=== PATIENT | female | born 1950 | race Caucasian/White ===

== ENCOUNTER 2020-04-22 09:02 | Outpatient (CLI) | payer MEDICARE, SELFPAY ==
--- NOTE | ~2020-04-22 | MR_ITS ---
EXAMINATION: MR brain/brain stem wo con DATE: 04/22/2020 10:50 INDICATION: Vertigo. TECHNIQUE: Magnetic resonance imaging (MRI) of the brain and brainstem was performed without intraven ous contrast. Sequences included sagittal and axial T1-weighted FSE, axial diffusion-weighted FS EPI, axial T2*-weighted GRE, axial T2-weighted FLAIR Propeller, and axial T2-weighted Propeller. Apparent diffusion coefficient (ADC) maps were created. COMPARISON: Head CT 05/28/2019 FINDINGS: There are scattered areas of nonspecific increased T2-weighted signal intensity in the cere bral white matter, which is within normal limits for the patient's age. There is no intracranial hemo rrhage, acute infarction, or abnormal intracranial mass lesion. The ventricles are normal in size. Th ere is mild mucosal thickening in the ethmoid sinuses. The orbits are normal. The mastoid air cells a re normal. IMPRESSION: 1. Normal aging brain. Reviewed, dictated and finalized at location A. IMPRESSION: 1. Normal aging brain.
[2020-04-22 10:14] LABS: Estimated Glomerular Filt Rate 41
== END 2020-04-22 09:03 | disposition home or self-care (01) ==
LOC: ANHIMG 09:11
PROVIDERS: PCP Nurse Practitioner Family; Visit Provider Psychiatry & Neurology Neurology
DX: R42 Dizziness and giddiness (principal)
CPT/HCPCS: 36415; 70551

== ENCOUNTER 2020-05-01 18:39 | Emergency (ER) | payer MEDICARE, SELFPAY ==
--- NOTE | ~2020-05-01 | XR_ITS ---
EXAMINATION: XR lumbar spine 2-3V DATE: 05/01/2020 23:21 INDICATION: Low back pain TECHNIQUE: Anteroposterior and lateral views of the lumbar spine, and cone-down lateral view of the l umbosacral junction were obtained. COMPARISON: 06/09/2017 FINDINGS: There is no fracture, dislocation, or subluxation. The vertebral body heights and alignment are normal. There is advanced loss of intervertebral disc space height at L1-2. Mild loss of interve rtebral disc space height is seen throughout the remainder of the lumbar spine. Small degenerative os teophytes project from the anterior endplates of multiple vertebral bodies. Cholecystectomy clips are noted in the right upper quadrant. IMPRESSION: 1. Lumbar spondylosis, severe at L1-2, without acute findings or significant interval change. Reviewed, dictated and finalized at location A. IMPRESSION: 1. Lumbar spondylosis, severe at L1-2, without acute findings or significant in terval change.
[2020-05-01 19:36] VITALS: BP 120/86; PULSE 77; RESP 18; TEMP 36.1; O2SAT 98
--- NOTE | 2020-05-01 19:42 | PC.NURSE ---
Pt also report falling on right buttocks at work, right buttocks and right hip has sharp shooting pain. Pt rates this pain at a 7.
--- NOTE | 2020-05-01 23:26 | ED.DIZZY ---
HPI - Dizziness General Chief Complaint: Dizziness Stated Complaint: DIZZINESS Time Seen by Provider: 05/01/20 19:51 History of Present Illness HPI Narrative: Patient is a 69-year-old female who presents the ER for dizziness and falling. Reports she is fallen once a day for the last couple of days. Patient has history of vertigo that is been ongoing for a year. She saw an ENT down in [place] and then moved up here. She has been seeing Dr. Alex. Recently was started on acetazolamide. She has not had an outpatient MRI as of yet. Patient has intermittent ringing in her ears and pressure. She does not have that currently. She has no new focal numbness or tingling in her arms or upper or lower extremity weakness. When she fell 2 days ago she did strike her back which caused some discomfort. Patient does have history of lower extremity neuropathy that has been unchanged. She has not struck her head or lost consciousness. When patient gets dizzy it is rotational in nature with some mild nausea. It is worse with going from laying to sitting. Related Data Allergies Allergy/AdvReac Type Severity Reaction Status Date / Time codeine Allergy Intermediate Hallucinati Verified 05/01/20 23:44 ng diphenhydramine Allergy Intermediate Hives Verified 05/01/20 23:44 Penicillins Allergy Intermediate Hives Verified 05/01/20 23:44 Sulfa (Sulfonamide Allergy Intermediate Hives Unverified 05/01/20 23:44 Antibiotics) Review of Systems Review of Systems: All systems reviewed & are unremarkable except as noted in HPI and below Constitutional: Constitutional: Denies chills, Denies fever(s) and Denies weakness Eyes: Eyes: Denies change in vision and Denies photophobia ENT: Reports vertigo, Denies nasal congestion and Denies sore throat Gastrointestinal: Gastrointestinal: Denies abdominal pain, Reports nausea and Denies vomiting Musculoskeletal: Musculoskeletal: Reports back pain, Denies joint swelling and Denies muscle cramps Neurologic: Denies syncope, Denies focal weakness and Denies numbness PMF Past Medical History Medical History (Updated 05/02/20 @ 05:23 by Sarmad Cohen MD) Asthma GERD (gastroesophageal reflux disease) Hypothyroidism Vertigo Surgical History Surgical History (Updated 05/02/20 @ 05:23 by Sarmad Cohen MD) History of cholecystectomy History of hysterectomy History of tonsillectomy Family History Family History (Updated 07/24/15 @ 10:46 by DOCTOR UNKNOWN) Other Diabetes mellitus Family history of arthritis Family history of malignant neoplasm Social History Social History Smoking status: Never smoker Alcohol intake: current Gender identity (if verbalized by the patient): Female Exam Narrative: Exam Narrative: GENERAL: Well-appearing, well-nourished, and in no acute distress. HEAD: Normocephalic, atraumatic. ENT: Mucous membranes moist. TMs normal appearing bilaterally. CHEST: Clear to auscultation. No respiratory distress. HEART: Regular rate and rhythm. Normal peripheral pulses. Back: No midline tenderness of the thoracic or lumbar spine. Mild paraspinal muscular tenderness in the L3 region without evidence of trauma. EXTREMITIES: Normal range of motion. No edema. SKIN: Warm, dry, no rash. NEURO: Alert and oriented x3. Course Course Emergency Course: Pt stable, ambulated, d/c. Vital Signs Vital signs: Vital Signs Temperature 97 F L 05/01/20 19:36 Pulse Rate 77 05/01/20 19:36 Respiratory Rate 18 05/01/20 19:36 Blood Pressure 120/86 05/01/20 19:36 Pulse Oximetry 98 05/01/20 19:36 Temperature 97 F L 05/01/20 19:36 Pulse Rate 81 05/02/20 02:00 Respiratory Rate 17 05/02/20 02:00 Blood Pressure 122/73 05/02/20 02:00 Pulse Oximetry 95 05/02/20 02:00 MDM - Dizziness Lab Data Result diagrams: 05/01/20 23:32 05/01/20 23:32 Labs: Lab Results 05/01/20 05/01/20 05/02/20 Range/Units 2
[2020-05-01 23:37] LABS: Basophils Absolute Auto 0.1 K/mm3 (0.0-0.1); Basophils Percent Auto 0.4 % (0.2-1.2); Eosinophils Absolute Auto 0.2 K/mm3 (0-0.3); Eosinophils Percent Auto 1.6 % (0-4.4); Hematocrit 41.6 % (37.0-47.0); Hemoglobin 12.9 g/dL (12.0-15.0); Immature Granulocyte Absolute 0.05 K/mm3 (0.00-0.031); Immature Granulocyte Percent A 0.4 % (0-0.5); Lymphocytes Absolute Auto 1.66 K/mm3 (0.9-3.2); Mean Corpuscular Hemoglobin 25.4 pg (26-34); Mean Corpuscular Volume 82.1 fl (80-100); Mean Platelet Volume 10.8 fl (7.4-10.4); Monocytes Absolute Auto 0.5 K/mm3 (0.1-0.6); Monocytes Percent Auto 4.6 % (2.6-8.5); Neutrophils Absolute Auto 9.3 K/mm3 (1.3-6.7); Platelet Count Result 264 k/mm3 (150-375); Red Blood Count 5.07 M/mm3 (4.2-5.4); Red Cell Distribution Width 17.4 % (11.5-14.5); White Blood Count 11.8 K/mm3 (4.5-10.0)
[2020-05-01] MEDS: TRAMADOL HCL 50 MG TABLET PO (23:44)
[2020-05-01 23:45] VITALS: BP 123/62; PULSE 81; RESP 16; O2SAT 95
[2020-05-01 23:48] LABS: Blood Urea Nitrogen 23 mg/dL (7-17); Calcium 9.9 mg/dL (8.4-10.2); Carbon Dioxide 26 mmol/L (22-30); Chloride 104 mmol/L (98-107); Estimated CRCL calculation 36 ml/min; Estimated Glomerular Filt Rate 34; Glucose 121 mg/dL (65-105); Potassium 3.5 mmol/L (3.4-5.0); Sodium 139 mmol/L (137-145)
[2020-05-01] MEDS: GABAPENTIN 300 MG CAPSULE 600 MG PO (23:53)
[2020-05-02 00:15] VITALS: BP 121/53; PULSE 76; RESP 16; O2SAT 91
[2020-05-02 00:46] LABS: Add Urine Microscopic? YES; Appearance Urine Clear (Clear); Bilirubin Urine Negative (Negative); Blood Urine Negative (Negative); Color Urine Yellow (Yellow); Glucose Urine UA Negative (Negative); Ketones Urine Negative (Negative); Leukocyte Esterase Ur 1+ LEU/UL (Negative); Mucus Urine Rare /lpf; Nitrate Urine Negative (Negative); Protein Urine Negative (Negative); RBC Urine 0-2 /hpf (0-2); Specific Grav Ur 1.017 (1.001-1.035); Squamous Epithelial Cell Urine Few /hpf (Few); Urobilinogen Urine Negative mg/dL (<2.0)
[2020-05-02 01:07] VITALS: BP 117/55; PULSE 74; RESP 17; O2SAT 94
[2020-05-02 02:00] VITALS: BP 122/73; PULSE 81; RESP 17; O2SAT 95
== END 2020-05-02 02:15 | disposition home or self-care (01) ==
PROVIDERS: Emergency Provider Emergency Medicine; PCP Nurse Practitioner Family
DX: R42 Dizziness and giddiness (principal); M54.5 Low back pain; J45.909 Unspecified asthma, uncomplicated; K21.9 Gastro-esophageal reflux disease without esophagitis; E03.9 Hypothyroidism, unspecified; R82.998 Other abnormal findings in urine
CPT/HCPCS: 36415; 72100; 80048; 81001; 85025; 87077; 87086; 87088; 99283; A9270

== ENCOUNTER 2020-05-11 08:39 | Outpatient (CLI) | payer MEDICARE, SELFPAY ==
--- NOTE | ~2020-05-11 | CT_ITS ---
EXAMINATION: CTA brain EXAM DATE: 05/11/2020 09:37 INDICATION: Vertigo. TECHNIQUE: Noncontrast head CT. Spiral CT angiogram cerebral arteries performed with intravenous in jection of 100 mL Omnipaque 350. Axial, coronal and sagittal images reviewed. Additional reformatted images created on dedicated 3-D workstation. The dose-length product (DLP) for this examination was 993.48 mGy-cm. The exposure was tailored according to patient size, and iterative reconstruction ( ASIR) was used as additional dose reduction technique. Prior head CT from 05/28/2019 for comparison. FINDINGS: Mild carotid siphon arterial sclerosis without stenosis. There is no distal carotid or ve rtebral basilar arterial dissection or fibromuscular dysplasia. There are no cerebral artery aneurysm s. There is symmetric cerebral artery arborization. The sagittal, transverse and sigmoid sinuses enha nce normally, no venous sinus thrombosis. Internal cerebral veins also enhance normally. No cerebellopontine angle mass. Mastoid air cells are well aerated. There is no acute intraparenchyma l hemorrhage. No evidence of intraparenchymal brain mass lesion. No evidence of acute infarction. T here is periventricular and subcortical hypodensity, nonspecific but probably related to small vessel ischemic disease. There is intracranial carotid arteriosclerosis. There is no mass effect or mid line shift. There is no obstructive hydrocephalus suspected. There are no extra-axial collections. There are no calvarial acute fractures. IMPRESSION: 1. No acute intracranial findings or cerebral artery aneurysm. 2. Mild microangiopathy and cerebral atrophy. Reviewed, dictated and finalized at location B.
== END 2020-05-11 08:40 | disposition home or self-care (01) ==
PROVIDERS: PCP Nurse Practitioner Family; Visit Provider Psychiatry & Neurology Neurology
DX: G31.9 Degenerative disease of nervous system, unspecified (principal); R42 Dizziness and giddiness
CPT/HCPCS: 70496; Q9967

== ENCOUNTER 2021-06-25 16:01 | Emergency (ER) | payer MEDICARE, SELFPAY ==
[2021-06-25 16:02] VITALS: BP 130/60; PULSE 92; RESP 20; TEMP 36.7; O2SAT 98
--- NOTE | 2021-06-25 19:29 | PC.NURSE ---
Report given to ROD Bustos
--- NOTE | 2021-06-25 20:19 | ED.GENADULT ---
HPI - General Adult General Chief complaint: Wound/Laceration Stated complaint: R THIRD DIGIT LACERATION Time Seen by Provider: 06/25/21 18:24 Source: patient and RN notes reviewed Mode of arrival: ambulatory Limitations: no limitations History of Present Illness HPI narrative: Patient is a 71-year-old female who presents with a skin avulsion to the right middle digit that occurred just prior to arrival patient was using a mandolin slicer when she caused an avulsion patient on arrival is in no distress resting comfortably in the room notes her tetanus to be up-to-date has not taken anything for her symptoms Related Data Allergies Allergy/AdvReac Type Severity Reaction Status Date / Time codeine Allergy Intermediate Hallucinati Verified 06/25/21 18:22 ng diphenhydramine Allergy Intermediate Hives Verified 06/25/21 18:22 Penicillins Allergy Intermediate Hives Verified 06/25/21 18:22 Sulfa (Sulfonamide Allergy Intermediate Hives Unverified 06/25/21 18:22 Antibiotics) Review of Systems Review of Systems: All systems reviewed & are unremarkable except as noted in HPI and below PMFSH Past Medical History Medical History Asthma GERD (gastroesophageal reflux disease) Hypothyroidism Vertigo Surgical History Surgical History History of cholecystectomy History of hysterectomy History of tonsillectomy Family History Family History (Updated 07/24/15 @ 10:46 by DOCTOR UNKNOWN) Other Diabetes mellitus Family history of arthritis Family history of malignant neoplasm Social History Social History Smoking status: Never smoker Alcohol intake: current Gender identity (if verbalized by the patient): Female Exam Narrative: GENERAL: Well-appearing, well-nourished, and in no acute distress. HEAD: Normocephalic, atraumatic. EYES: PERRLA and EOMI. ENT: Nares clear, no rhinorrhea or epistaxis. Mucous membranes moist. EXTREMITIES: Normal range of motion. No edema. SKIN: Warm, dry, no rash. Superficial skin avulsion right middle digit measuring less than 1/2 cm superficial in nature NEURO: No focal deficits. Alert and oriented x3. Neurovascularly intact PSYCH: Normal mood and affect. Course Course Emergency Course: Hemostasis achieved ABCs and vital signs intact and stable patient in no distress felt appropriate for outpatient reevaluation provided with reasons to return Vital Signs Vital signs: Vital Signs Temperature 98.0 F 06/25/21 16:02 Pulse Rate 92 06/25/21 16:02 Respiratory Rate 20 06/25/21 16:02 Blood Pressure 130/60 06/25/21 16:02 Pulse Oximetry 98 06/25/21 16:02 Temperature 98.0 F 06/25/21 16:02 Pulse Rate 92 06/25/21 16:02 Respiratory Rate 20 06/25/21 16:02 Blood Pressure 130/60 06/25/21 16:02 Pulse Oximetry 98 06/25/21 16:02 Procedures Other Procedure Procedure 1: Other Procedure: Surgicel placed on the wound hemostasis achieved felt appropriate for outpatient reevaluation given reasons to return nontoxic-appearing no distress Medical Decision Making MDM Narrative Medical decision making narrative: Patients injury or pain is consistent with musculoskeletal etiology. No signs of neurological or vascular compromise on exam. Compartments and tisues are soft without signs of compartment syndrome. Pain is felt appropriate for further evaluation on an outpatient basis. Vital Signs Vital Signs: Vital Signs Temperature 98.0 F 06/25/21 16:02 Pulse Rate 92 06/25/21 16:02 Respiratory Rate 20 06/25/21 16:02 Blood Pressure 130/60 06/25/21 16:02 Pulse Oximetry 98 06/25/21 16:02 Temperature 98.0 F 06/25/21 16:02 Pulse Rate 92 06/25/21 16:02 Respiratory Rate 20 06/25/21 16:02 Blood Pressure 130/60 06/25/21 16:02 Pulse Oximetry 98 06/25/21 16:02 D
[2021-06-25 20:50] VITALS: BP 128/63; PULSE 93; RESP 20; O2SAT 99
== END 2021-06-25 20:50 | disposition home or self-care (01) ==
PROVIDERS: Emergency Provider Emergency Medicine; PCP Nurse Practitioner Family
DX: S61.202A Unspecified open wound of right middle finger without damage to nail, initial encounter (principal); J45.909 Unspecified asthma, uncomplicated; K21.9 Gastro-esophageal reflux disease without esophagitis; E03.9 Hypothyroidism, unspecified; W27.4XXA Contact with kitchen utensil, initial encounter
CPT/HCPCS: 99282

== ENCOUNTER 2022-03-08 11:13 | Outpatient (CLI) | payer MEDICARE, SELFPAY ==
--- NOTE | ~2022-03-08 | XR_ITS ---
EXAMINATION: XR abdomen/kub 1V INDICATION: Calcium kidney stone TECHNIQUE: Supine views of the abdomen were obtained on 2 radiographs. COMPARISON: 05/28/2019, 05/19/2018 FINDINGS: No definite urolithiasis is identified. There are phleboliths of the pelvis. Cholecystectom y clips are noted. The bowel gas pattern is normal. The visualized lung bases are clear. IMPRESSION: 1. No definite urolithiasis identified. Reviewed, dictated and finalized at location B.
== END 2022-03-08 11:14 | disposition home or self-care (01) ==
PROVIDERS: PCP Nurse Practitioner Family; Visit Provider Urology
DX: N20.0 Calculus of kidney (principal)
CPT/HCPCS: 74018

== ENCOUNTER 2022-03-15 01:59 | Day surgery (SDC) | payer MEDICARE, SELFPAY ==
[2022-03-11 12:07] VITALS: BMI 34.7
[2022-03-15 11:43] VITALS: BP 145/65; PULSE 79; RESP 20; TEMP 36.1; O2SAT 96
[2022-03-15 12:01] LABS: Glucose Point of Care 188 mg/dl (65-105)
[2022-03-15] MEDS: LACTATED RINGERS 1,000 ML 150 ML IV CONT (12:04)
--- NOTE | 2022-03-15 12:09 | PM.HPGS ---
History of Present Illness History of Present Illness Consent: Risks, benefits, and alternatives have been discussed and questions answered. Patient agrees to proceed with procedure. Chief complaint: gastric ulcer Narrative: Juanito Austin is a 71 year old female with gastric ulcer 01/2022, here to assess healing Review of Systems Constitutional: Constitutional: Denies headache(s) and Denies weakness Eyes: Eyes: Denies blurry vision ENT: Reports Normal hearing present, Denies headache(s) and Denies neck pain Cardiovascular: Cardiovascular: Denies chest pain and Denies dyspnea Respiratory: Respiratory: Denies dyspnea Gastrointestinal: Gastrointestinal: Reports no additional gastrointestinal complaints Genitourinary: Genitourinary: Denies dysuria Musculoskeletal: Musculoskeletal: Denies neck pain Integumentary/Breasts: Skin/Breast: Denies dry skin Neurologic: Reports Normal hearing present, Denies headache(s) and Denies weakness Psychiatric: Psychiatric: Denies anxiety Endocrine: Endocrine: Denies change in body appearance Hematologic/Lymphatic: Hematologic/Lymphatic: Denies easy bleeding Allergic/Immunologic: Allergic/Immunologic: Denies urticaria PMFSH Past Medical History Medical History (Updated 03/15/22 @ 12:13 by Brendan Kenney MD) Asthma GERD (gastroesophageal reflux disease) History of gastric ulcer Hypothyroidism Vertigo Surgical History Surgical History History of cholecystectomy History of hysterectomy History of tonsillectomy Family History Family History (Updated 07/24/15 @ 10:46 by DOCTOR UNKNOWN) Other Diabetes mellitus Family history of arthritis Family history of malignant neoplasm Social History Social History Smoking status: Never smoker Alcohol intake: never Substance use: never Substance use type: does not use Living arrangements: with family Gender identity (if verbalized by the patient): Female Spiritual care concerns: No Meds Home Medications and Allergies Home Medications Medication Instructions Recorded Confirmed Type atorvastatin 20 mg PO HS 03/11/22 03/11/22 History cyanocobalamin (vitamin B-12) 5,000 mcg SUBLINGUAL DAILY 03/11/22 03/11/22 History [Vitamin B-12] duloxetine 30 mg PO DAILY 03/11/22 03/11/22 History fluticasone propionate 2 spray INTRANASAL DAILY 03/11/22 03/11/22 History gabapentin 600 mg PO BID 03/11/22 03/11/22 History latanoprost 1 drp EACH EYE QPM 03/11/22 03/11/22 History levothyroxine [Synthroid] 125 mcg PO DAILY 03/11/22 03/11/22 History metformin 500 mg PO BID 03/11/22 03/11/22 History metoclopramide HCl 10 mg PO USEASDIRECTD PRN 03/11/22 03/11/22 History omeprazole 40 mg PO DAILY 03/11/22 03/11/22 History tramadol-acetaminophen 1 tablet PO TID 03/11/22 03/11/22 History triamterene-hydrochlorothiazid 1 cap PO DAILY 03/11/22 03/11/22 History Allergies Allergy/AdvReac Type Severity Reaction Status Date / Time codeine Allergy Intermediate Hallucinati Verified 03/15/22 11:46 ng diphenhydramine Allergy Intermediate Hives Verified 03/15/22 11:46 Penicillins Allergy Intermediate Hives Verified 03/15/22 11:46 Sulfa (Sulfonamide Allergy Intermediate Hives Verified 03/15/22 11:46 Antibiotics) Vital Signs Vital Signs - 24 hr 03/15/22 11:43 Temperature 97 F L Pulse Rate 79 Respiratory Rate 20 Blood Pressure 145/65 H Pulse Oximetry 96 Exam Const: General: comfortable and no acute distress HENMT: General nose exam: Normal nares present Eyes: General: appearance normal, both eyes and all related structures Neck: Neck: no JVD Resp: Auscultation: clear to auscultation bilaterally Cardio: Rate: regular rate Rhythm: regular rhythm GI: Inspection: non-distended GI Palp: Yes Soft to palpation Skin: General skin exam: normal color Neuro: General: ga
--- NOTE | 2022-03-15 12:24 | WPDANESEPPF ---
Anes - Initial Pre Proc Eval Procedure: Operation Date: 03/15/22 12:30 Proposed Procedures p Esophagogastroduodenoscopy - Brendan Kenney MD Date/Time: 03/15/22 12:24 Surgeon: Brendan Kenney MD Pre Op Diagnosis: gastric ulcer Patient Data Age: 71 Gender: F Height: 1.65 m Weight: 94.4 kg Last Vital Signs Temp 36.1 C L 03/15/22 11:43 Pulse 79 03/15/22 11:43 Resp 20 03/15/22 11:43 BP 145/65 H 03/15/22 11:43 Pulse Ox 96 03/15/22 11:43 Allergies Allergy/AdvReac Type Severity Reaction Status Date / Time codeine Allergy Intermediate Hallucinati Verified 03/15/22 11:46 ng diphenhydramine Allergy Intermediate Hives Verified 03/15/22 11:46 Penicillins Allergy Intermediate Hives Verified 03/15/22 11:46 Sulfa (Sulfonamide Allergy Intermediate Hives Verified 03/15/22 11:46 Antibiotics) Home Medications Medication Instructions Recorded Confirmed Type atorvastatin 20 mg PO HS 03/11/22 03/11/22 History cyanocobalamin (vitamin B-12) 5,000 mcg SUBLINGUAL DAILY 03/11/22 03/11/22 History [Vitamin B-12] duloxetine 30 mg PO DAILY 03/11/22 03/11/22 History fluticasone propionate 2 spray INTRANASAL DAILY 03/11/22 03/11/22 History gabapentin 600 mg PO BID 03/11/22 03/11/22 History latanoprost 1 drp EACH EYE QPM 03/11/22 03/11/22 History levothyroxine [Synthroid] 125 mcg PO DAILY 03/11/22 03/11/22 History metformin 500 mg PO BID 03/11/22 03/11/22 History metoclopramide HCl 10 mg PO USEASDIRECTD PRN 03/11/22 03/11/22 History omeprazole 40 mg PO DAILY 03/11/22 03/11/22 History tramadol-acetaminophen 1 tablet PO TID 03/11/22 03/11/22 History triamterene-hydrochlorothiazid 1 cap PO DAILY 03/11/22 03/11/22 History Laboratory Tests 03/15/22 11:49 POC Capillary Glucose 188 mg/dl H mg/dl (65-105) Patient hx anesthesia problems: post op nausea/vomiting Family hx anesthesia problems: none Results Review: All pre-operative results and documents have been reviewed as part of the pre-operative evaluation. [facility] Past Medical History Medical History Asthma GERD (gastroesophageal reflux disease) History of gastric ulcer Hyperlipidemia Hypertension Hypothyroidism Vertigo Surgical History Surgical History History of cholecystectomy History of hysterectomy History of tonsillectomy Family History Family History Other Diabetes mellitus Family history of arthritis Family history of malignant neoplasm Social History Social History Smoking status: Never smoker Alcohol intake: never Substance use: never Substance use type: does not use Living arrangements: with family Gender identity (if verbalized by the patient): Female Spiritual care concerns: No Anes - Eval Final PreProcedure Day of Procedure 03/15/22 12:24 Patient weight: obese Heart: regular rate and rhythm Lungs: clear to auscultation Airway: Mallampati scale class II Neurological: alert and oriented Last oral intake: >/= 8 hours ASA classification: III Emergent: no Anesthetic plan: proceed Anesthesia type and monitoring: general GIVS and standard monitoring Results Review: All pre-operative results and documents have been reviewed as part of the pre-operative evaluation. Informed Consent: The patient's anesthetic plan and its attendant risks and benefits were discussed with the patient/family/POA. Questions were solicited and answers provided to the satisfaction of the patient/family/POA.
[2022-03-15 12:38] VITALS: BP 120/72; PULSE 66; RESP 17; O2SAT 97
[2022-03-15 12:48] VITALS: BP 123/63; PULSE 72; RESP 15; O2SAT 96
[2022-03-15 12:58] VITALS: BP 133/75; PULSE 68; RESP 24; O2SAT 97
== END 2022-03-15 13:08 | disposition home or self-care (01) ==
PROVIDERS: PCP Nurse Practitioner Family; Visit Provider Internal Medicine Gastroenterology
PROC: 0DJ08ZZ Inspection of Upper Intestinal Tract, Via Natural or Artificial Opening Endoscopic (ICD-10-PCS; CPT 43235; principal; 2022-03-15 12:30)
DX: K25.9 Gastric ulcer, unspecified as acute or chronic, without hemorrhage or perforation (principal); D13.2 Benign neoplasm of duodenum; K29.70 Gastritis, unspecified, without bleeding; K21.9 Gastro-esophageal reflux disease without esophagitis; J45.909 Unspecified asthma, uncomplicated; E03.9 Hypothyroidism, unspecified; Z79.899 Other long term (current) drug therapy
CPT/HCPCS: 43239; 82948; 88305; J2704; J7120

== ENCOUNTER 2022-12-05 12:23 | Emergency (ER) | payer MEDICARE, SELFPAY ==
[2022-12-05] VITALS (15 sets, daily range): BP systolic 106–131; BP diastolic 57–70; PULSE 67–96; RESP 13–20; TEMP 36.5; O2SAT 94–100
--- NOTE | ~2022-12-05 | XR_ITS ---
Clinical Indication: Cough AP and lateral views of the chest: Comparison: 05/28/2019 Findings: The lungs are clear, without evidence of focal consolidation or pleural effusion. Cardiome diastinal silhouette is within normal limits. Bones and soft tissues are unremarkable. Impression: Normal chest. Reviewed, dictated and finalized at [facility]. STITCH WAISTLINE JOINER Impression: Normal chest.
--- NOTE | 2022-12-05 13:02 | ECG_ITS ---
Measurements Intervals [place] Rate: 78 P: 52 HI: 187 QRS: -14 QRSD: 99 T: 39 QT: 339 QTc: 386 Interpretive Statements SINUS RHYTHM POOR R WAVE PROGRESSION, ANTERIOR LEADS CONSIDER INFERIOR INFARCT, AGE INDETERMINATE ABNORMAL ECG COMPARED TO ECG 05/28/2019 00:47:46 NO SIGNIFICANT CHANGES Electronically Signed On 12-05-2022 14:33:36 INSIGHT LEADER by Jeff Danielson D.O.
[2022-12-05 13:10] LABS: Basophils Absolute Auto 0.1 K/mm3 (0.0-0.1); Basophils Percent Auto 0.7 % (0.2-1.2); Eosinophils Absolute Auto 0.1 K/mm3 (0-0.3); Eosinophils Percent Auto 0.7 % (0-4.4); Hematocrit 38.2 % (37.0-47.0); Immature Granulocyte Absolute 0.05 K/mm3 (0.00-0.031); Immature Granulocyte Percent A 0.7 % (0-0.5); Lymphocytes Absolute Auto 1.22 K/mm3 (0.9-3.2); Lymphocytes Percent Auto 17.3 % (18.3-44.2); Mean Corpuscular HGB Conc 31.4 g/dl (32-36); Mean Corpuscular Hemoglobin 24.2 pg (26-34); Mean Corpuscular Volume 77.2 fl (80-100); Mean Platelet Volume 9.7 fl (7.4-10.4); Monocytes Absolute Auto 0.9 K/mm3 (0.1-0.6); Monocytes Percent Auto 12.6 % (2.6-8.5); Neutrophils Absolute Auto 4.8 K/mm3 (1.3-6.7); Platelet Count Result 244 k/mm3 (150-375); Red Blood Count 4.95 M/mm3 (4.2-5.4); Red Cell Distribution Width 19.1 % (11.5-14.5); White Blood Count 7.1 K/mm3 (4.5-10.0)
--- NOTE | 2022-12-05 13:11 | ED.DIZZY ---
HPI - Dizziness General Chief Complaint: Dizziness Stated Complaint: cough, dizziness Time Seen by Provider: 12/05/22 12:43 History of Present Illness HPI Narrative: Patient is a 72-year-old female with history of diabetes, hyperlipidemia, hypothyroidism presenting with cough. Patient states that she was on a cruise recently where there was a norovirus breakout. States that she felt fine until about 3 to 4 days ago when she developed a cough. States she has felt mildly short of breath as well. Also reports multiple episodes of diarrhea. No fevers, chest pain, lightheadedness, abdominal pain, vomiting, dysuria, leg swelling. States that she suffers from chronic vertigo and it is often worse when she is ill. States that she is not currently experiencing vertigo. Related Data Home Medications Medication Instructions Recorded Confirmed atorvastatin 20 mg tablet 20 mg PO HS 03/11/22 03/11/22 cyanocobalamin (vitamin B-12) 5,000 mcg sublingual DAILY 03/11/22 03/11/22 5,000 mcg sublingual tablet (Vitamin B-12) duloxetine 30 mg capsule,delayed 30 mg PO DAILY 03/11/22 03/11/22 release fluticasone propionate 50 2 spray intranasal DAILY 03/11/22 03/11/22 mcg/actuation nasal spray,suspension gabapentin 600 mg tablet 600 mg PO BID 03/11/22 03/11/22 latanoprost 0.005 % eye drops 1 drp EACH EYE QPM 03/11/22 03/11/22 levothyroxine 125 mcg tablet 125 mcg PO DAILY 03/11/22 03/11/22 (Synthroid) metformin 500 mg tablet,extended 500 mg PO BID 03/11/22 03/11/22 release 24 hr metoclopramide HCl 10 mg tablet 10 mg PO USEASDIRECTD PRN Gastric 03/11/22 03/11/22 Reflux omeprazole 40 mg capsule,delayed 40 mg PO DAILY 03/11/22 03/11/22 release tramadol 37.5 mg-acetaminophen 325 1 tablet PO TID 03/11/22 03/11/22 mg tablet triamterene 37.5 1 cap PO DAILY 03/11/22 03/11/22 mg-hydrochlorothiazide 25 mg capsule Allergies Allergy/AdvReac Type Severity Reaction Status Date / Time codeine Allergy Intermediate Hallucinati Verified 03/15/22 11:46 ng diphenhydramine Allergy Intermediate Hives Verified 03/15/22 11:46 Penicillins Allergy Intermediate Hives Verified 03/15/22 11:46 Sulfa (Sulfonamide Allergy Intermediate Hives Verified 03/15/22 11:46 Antibiotics) Review of Systems Review of Systems: All systems reviewed & are unremarkable except as noted in HPI and below PMFSH Past Medical History Medical History Adenomatous duodenal polyp Asthma GERD (gastroesophageal reflux disease) History of gastric ulcer Hyperlipidemia Hypertension Hypothyroidism Vertigo Surgical History Surgical History History of cholecystectomy History of hysterectomy History of tonsillectomy Family History Family History Other Diabetes mellitus Family history of arthritis Family history of malignant neoplasm Social History Social History Smoking status: Never smoker Alcohol intake: never Substance use: never Substance use type: does not use Living arrangements: with family Gender identity (if verbalized by the patient): Female Spiritual care concerns: No Exam Narrative: GENERAL: Tired appearing elderly female in no acute distress, nontoxic, cooperative and pleasant HEAD: Normocephalic, atraumatic. EYES: PERRLA and EOMI. ENT: Nares clear, no rhinorrhea or epistaxis. Mucous membranes moist. NECK: Supple. CHEST: Clear to auscultation. No respiratory distress. Coughing intermittently HEART: Regular rate and rhythm. No murmur heard. Normal peripheral pulses. ABDOMEN: Soft, nontender, nondistended, normal active bowel sounds. EXTREMITIES: Normal range of motion. No edema. SKIN: Warm, dry, no rash. NEURO: No focal deficits. Alert and oriented x3. PSYCH: Normal mood and affect
[2022-12-05 13:21] LABS: Alanine Aminotransferase 80 U/L (6-35); Albumin Level 4.2 g/dL (3.5-5.1); Alkaline Phosphatase 66 U/L (38-126); Anion Gap 7 mmol/L (8-16); Aspartate Amino Transferase 123 U/L (14-36); Bilirubin,Total 0.5 mg/dL (0.2-1.3); Blood Urea Nitrogen 26 mg/dL (7-17); Calcium 9.4 mg/dL (8.4-10.2); Carbon Dioxide 29 mmol/L (22-30); Chloride 99 mmol/L (98-107); Estimated CRCL calculation 31 ml/min; Estimated Glomerular Filt Rate 30; Glucose 160 mg/dL (65-110); Potassium 3.7 mmol/L (3.4-5.0); Sodium 135 mmol/L (137-145)
[2022-12-05] MEDS: SODIUM CHLORIDE 0.9% IV 1,000 ML 999 ML IV CONT (13:44)
[2022-12-05 13:46] LABS: Influenza A QL RT-PCR Negative (Negative); Influenza B QL RT-PCR Negative (Negative); SARS-CoV-2 RNA PCR Positive
[2022-12-05 13:50] LABS: NT Pro B Type Natriuretic Pept 30 pg/mL (19.9-100); Troponin I < 0.012 ng/mL (0.000-0.034)
[2022-12-05 14:55] LABS: Prothrombin Time 12.7 Seconds (11.1-14.7)
[2022-12-05 14:56] LABS: Partial Thromboplastin Time 31.7 SECONDS (22.3-36.8)
== END 2022-12-05 15:48 | disposition home or self-care (01) ==
PROVIDERS: Emergency Provider Emergency Medicine; PCP Nurse Practitioner Family
DX: U07.1 COVID-19 (principal); R06.02 Shortness of breath; E11.9 Type 2 diabetes mellitus without complications; E78.5 Hyperlipidemia, unspecified; I10 Essential (primary) hypertension; E03.9 Hypothyroidism, unspecified; J45.909 Unspecified asthma, uncomplicated; K21.9 Gastro-esophageal reflux disease without esophagitis; Z86.010 Personal history of colon polyps; Z79.84 Long term (current) use of oral hypoglycemic drugs; Z90.710 Acquired absence of both cervix and uterus
CPT/HCPCS: 36415; 71046; 80053; 83880; 84484; 85025; 85610; 85730; 87636; 93005; 96365; 99284; J0131; J7030

== ENCOUNTER → 2023-12-12 13:12 | Outpatient (CLI) | payer MEDICARE, SELFPAY ==
--- NOTE | ~2023-12-12 | US_ITS ---
Renal-Bladder ultrasound Clinical History: Kidney stone Technique: Real-time sonographic imaging of the kidneys and urinary bladder was performed. Findings: The right kidney measures 10.1 cm in length and the left kidney measures 9.6 cm. There is n o hydronephrosis or renal calculus identified. Renal cortical echogenicity is within normal limits. N o renal mass lesion is identified. The urinary bladder is moderately distended at the time of this exam. No intraluminal echoes are iden tified. No abnormal wall thickening is seen. Impression: Unremarkable ultrasound of the kidneys and urinary bladder. Reviewed, dictated and finalized at location . [employer] Impression: Unremarkable ultrasound of the kidneys and urinary bladder.
== END ==
PROVIDERS: PCP Family Medicine; Visit Provider Specialist
DX: N20.0 Calculus of kidney (principal)
CPT/HCPCS: 76775

== ENCOUNTER 2024-02-16 12:37 | Outpatient (CLI) | payer MEDICARE, SELFPAY ==
--- NOTE | ~2024-02-16 | XR_ITS ---
EXAMINATION: XR chest 2V Exam Date/Time: 02/16/2024 12:45 CDT HISTORY: DYSPNEA, physician heard crackles in office exam Comparison: 12/05/2022, report only. RESULT: Lines, tubes, and devices: None. Lungs and pleura: Clear. Cardiomediastinal silhouette: Unremarkable. Other: No acute osseous or upper abdominal finding. IMPRESSION: No acute cardiopulmonary process. Reviewed, dictated and finalized at location K.
== END 2024-02-16 12:38 | disposition home or self-care (01) ==
PROVIDERS: PCP Family Medicine; Visit Provider Family Medicine
DX: R06.00 Dyspnea, unspecified (principal)
CPT/HCPCS: 71046

== ENCOUNTER 2024-03-05 03:00 | Observation (INO) | payer MEDICARE, SELFPAY ==
[2024-03-05] VITALS (18 sets, daily range): BP systolic 124–152; BP diastolic 58–70; PULSE 69–90; RESP 16–27; TEMP 36.1–36.8; O2SAT 90–99; BMI 35.2
--- NOTE | ~2024-03-05 | NM_ITS ---
NM lung vent and perfusion INDICATION: Chest pain. Elevated d-dimer. TECHNIQUE: The patient inhaled aerosolized 4.75 mCi xenon-133. Following ventilation scan, 99 mCi Tc 99m MAA was injected intravenously for perfusion images. Multiple images were then acquired. COMPARISON: Chest x-ray dated chest dated 03/05/2024 FINDINGS: The comparison chest radiograph demonstrates no pulmonary infiltrates or pleural fluid. Th e perfusion scan is normal. The aerosol in images show uniform deposition throughout the lungs. IMPRESSION: 1: Normal perfusion images. Reviewed, dictated and finalized at location B. IMPRESSION: 1: Normal perfusion images.
--- NOTE | ~2024-03-05 | XR_ITS ---
EXAMINATION: XR chest 1V portable 03/05/2024 03:21 INDICATION: Chest pain PROCEDURE: AP portable chest COMPARISON: Comparison to multiple prior studies sequentially, with oldest reviewed study dated 03/29. FINDINGS: The lungs are clear. The cardiomediastinal silhouette is within normal limits. There are no pleural effusions. There is no pneumothorax suspected. IMPRESSION: 1: NO ACUTE CARDIOPULMONARY DISEASE. Reviewed, dictated and finalized at location B.
--- NOTE | 2024-03-05 03:13 | ECG_ITS ---
SEE SCANNED COPY FOR CONFIRMED REPORT MTDD
[2024-03-05 03:33] LABS: Basophils Absolute Auto 0.06 K/mm3 (0.00-0.10); Basophils Percent Auto 0.7 % (0.0-1.0); Eosinophils Absolute Auto 0.27 K/mm3 (0.02-0.50); Eosinophils Percent Auto 3.1 % (1.0-6.0); Hematocrit 41.3 % (35.0-42.0); Hemoglobin 12.9 g/dL (11.7-13.8); Immature Granulocyte Absolute 0.05 K/mm3 (0.00-0.00); Immature Granulocyte Percent A 0.6 % (0.0-0.0); Lymphocytes Absolute Auto 1.15 K/mm3 (1.10-4.50); Lymphocytes Percent Auto 13.3 % (18.0-42.0); Mean Corpuscular HGB Conc 31.2 g/dL (32-36); Mean Corpuscular Volume 83.1 fL (78.0-102.0); Mean Platelet Volume 10.3 fl (9.2-11.8); Monocytes Absolute Auto 0.57 K/mm3 (0.10-0.90); Monocytes Percent Auto 6.6 % (2.0-11.0); Neutrophils Absolute Auto 6.57 K/mm3 (1.70-7.20); Neutrophils Percent Auto 75.7 % (50.0-70.0); Platelet Count Result 212 K/mm3 (150-420); Red Blood Count 4.97 M/mm3 (4.20-5.40); Red Cell Distribution Width 17.9 % (11.6-14.4); White Blood Count 8.7 K/mm3 (4.8-10.8)
[2024-03-05] MEDS: ASPIRIN 81 MG CHEWABLE TABLET 324 MG PO (03:42)
[2024-03-05] MEDS: ONDANSETRON INJ 4 MG/2 ML VIAL IV PUSH ×2 (03:42→21:08)
[2024-03-05] MEDS: PANTOPRAZOLE SODIUM IV 40 MG VIAL 80 MG IV PUSH (03:45)
[2024-03-05 03:48] LABS: INR 0.9; Prothrombin Time 10.1 Seconds (9.50-12.1)
[2024-03-05 03:56] LABS: Alanine Aminotransferase 44 U/L (14-59); Albumin Level 3.2 g/dL (3.4-5.0); Alkaline Phosphatase 64 U/L (46-116); Anion Gap 8 mmol/L (4-12); Aspartate Amino Transferase 21 U/L (15-37); Bilirubin,Total 0.2 mg/dL (0.00-1.00); Blood Urea Nitrogen 26 mg/dL (7-18); Calcium 9.4 mg/dL (8.5-10.1); Carbon Dioxide 29 mmol/L (21-32); Chloride 106 mmol/L (98-108); Estimated Glomerular Filt Rate 35; Glucose 291 mg/dL (70-99); Lipase 34 U/L (16-77); NT Pro B Type Natriuretic Pept 43 pg/mL (0-125); Osmolality Calculated 311 mOsm/kg (285-295); Sodium 143 mmol/L (136-145); Troponin I 6.2 ng/L (0.00-60.4)
[2024-03-05 04:07] LABS: Estimated CRCL calculation 36 ml/min
[2024-03-05 04:10] LABS: D Dimer 0.84 mg/L (0.19-0.50)
--- NOTE | 2024-03-05 04:25 | PC.NURSE ---
Pt resting, up ambulatory to [facility] for UA obtained. Pt feeling some better, pt reports allergy to IVP dye. Unable to scan at this time. POC discussed c pt to admit. Will obtain another trop as scheduled. monitor shows NSR, VSS.
[2024-03-05 04:43] LABS: Appearance Urine Clear (Clear); Bilirubin Urine Negative (Negative); Blood Urine Negative (Negative); Color Urine Light Yellow (Yellow); Glucose Urine UA 3+ (Negative); Ketones Urine Negative (Negative); Leukocyte Esterase Ur Negative LEU/UL (Negative); Nitrate Urine Negative (Negative); Protein Urine Negative (Negative); Urobilinogen Urine 0.2 mg/dL (0.2-1.0)
[2024-03-05 04:45] LABS: Add Urine Microscopic? YES; Bacteria Urine None seen /hpf; RBC Urine 0-2 /hpf (0-2); Squamous Epithelial Cell Urine None seen /hpf (Few); WBC Urine 0-3 /hpf (0-3)
[2024-03-05] MEDS: SODIUM CHLORIDE 0.9% IV 1,000 ML 120 ML IV CONT (04:59)
--- NOTE | 2024-03-05 05:24 | PC.NURSE ---
Pt resting, no c/o at this time, continuing to monitor, VSS.
[2024-03-05 06:42] LABS: D Dimer 0.71 mg/L (0.19-0.50)
--- NOTE | 2024-03-05 06:47 | ED.CHESTPAIN ---
HPI - Chest Pain General Chief Complaint: Chest Pain Stated Complaint: Chest Pain Time Seen by Provider: 03/05/24 03:10 Source: patient Mode of arrival: ambulatory Limitations: no limitations History of Present Illness HPI narrative: this is a 73-year-old female with history of diabetes peripheral neuropathy hyperlipidemia presents with chest tightness radiating to her back does have history heartburn with epigastric discomfort and burning started few days ago but has gotten worse since 10 this evening and woke her daughter up to bring her to the ER because she was concerned of her chest discomfort. There is no shortness of breaths no fever chills no nausea vomiting no abdominal pain no dysuria or hematuria. MD complaint: chest pain Onset (ago): day(s) Onset: during rest Pain radiation: none Severity: moderate Quality: heaviness Related Data Home Medications Medication Instructions Recorded Confirmed duloxetine 30 mg capsule,delayed 30 mg PO DAILY 03/11/22 03/05/24 release gabapentin 600 mg tablet 600 mg PO TID 03/11/22 03/05/24 latanoprost 0.005 % eye drops 1 drp EACH EYE QPM 03/11/22 03/05/24 levothyroxine 125 mcg tablet 125 mcg PO DAILY 03/11/22 03/05/24 (Synthroid) metoclopramide HCl 10 mg tablet 10 mg PO USEASDIRECTD PRN Gastric 03/11/22 03/05/24 Reflux tramadol 37.5 mg-acetaminophen 325 1 tablet PO TID 03/11/22 03/05/24 mg tablet allopurinol 100 mg tablet 100 mg PO DAILY 03/05/24 03/05/24 calcitriol 0.25 mcg capsule 0.25 mcg PO EVERY OTHER DAY 03/05/24 03/05/24 dapagliflozin propanediol 10 mg 10 mg PO DAILY 03/05/24 03/05/24 tablet (Farxiga) ergocalciferol (vitamin D2) 1,250 1,250 mcg PO WEEKLY 03/05/24 03/05/24 mcg (50,000 unit) capsule losartan 100 mg tablet 100 mg PO DAILY 03/05/24 03/05/24 ropinirole 1 mg tablet 1 mg PO TID 03/05/24 03/05/24 Allergies Allergy/AdvReac Type Severity Reaction Status Date / Time codeine Allergy Intermediate Hallucinati Verified 03/15/22 11:46 ng diphenhydramine Allergy Intermediate Hives Verified 03/15/22 11:46 Penicillins Allergy Intermediate Hives Verified 03/15/22 11:46 Sulfa (Sulfonamide Allergy Intermediate Hives Verified 03/15/22 11:46 Antibiotics) Iodinated Contrast Media Allergy Unknown Verified 03/05/24 04:25 Review of Systems Review of Systems: All systems reviewed & are unremarkable except as noted in HPI and below PMFSH Past Medical History Medical History Adenomatous duodenal polyp Asthma GERD (gastroesophageal reflux disease) History of gastric ulcer Hyperlipidemia Hypertension Hypothyroidism Vertigo Surgical History Surgical History History of cholecystectomy History of hysterectomy History of tonsillectomy Family History Family History Other Diabetes mellitus Family history of arthritis Family history of malignant neoplasm Social History Social History Smoking status: Never smoker Alcohol intake: never Substance use: never Substance use type: does not use Living arrangements: with family Gender identity (if verbalized by the patient): Female Spiritual care concerns: No Exam Const: General: no acute distress Nutritional Appearance: well nourished Limitations: no limitations HENMT: Head: normal to inspection Eyes: Conjunctivae: conjunctivae normal Pupils: Equal, round and reactive pupils present Neck: Neck: normal visual inspection and no lymphadenopathy Chest: Chest palpation & inspection: normal inspection of the chest Resp: Effort & Inspection: normal respiratory effort Auscultation: clear to auscultation bilaterally Cardio: Rate: regular rate Rhythm: regular rhythm GI: GI Palp: Yes Soft to palpation Auscultation: normal bowel sounds : General: Yes bladd
[2024-03-05] MEDS: ENOXAPARIN 1 MG/KG 96 MG SUB-Q (06:57)
--- NOTE | 2024-03-05 07:00 | PC.NURSE ---
Report given to ROD Johnson, will call for bed assignment this am. Pt resting, no changes, VSS, monitor NSR.
--- NOTE | 2024-03-05 07:43 | PC.NURSE ---
spoke with donya for VQ scan she will arrive around 1030
[2024-03-05] MEDS: rOPINIRole HCL 1 MG TABLET PO ×3 (08:39→17:47)
[2024-03-05] MEDS: GABAPENTIN 300 MG CAPSULE 600 MG PO ×3 (08:39→17:35)
[2024-03-05] MEDS: DULoxetine HCL 30 MG CAPSULE.DR PO (08:40)
[2024-03-05] MEDS: LOSARTAN POTASSIUM 50 MG TABLET 100 MG PO (08:40)
[2024-03-05] MEDS: LEVOTHYROXINE SODIUM 100 MCG, LEVOTHYROXINE SODIUM 25 MCG 125 MCG PO (08:40)
[2024-03-05] MEDS: EMPAGLIFLOZIN 25 MG TABLET BY MOUTH (08:41)
[2024-03-05] MEDS: allopurinoL 100 MG TABLET PO (08:41)
[2024-03-05] MEDS: SODIUM CHLORIDE 0.9% IV 1,000 ML 100 ML IV CONT (08:50)
--- NOTE | 2024-03-05 09:11 | PC.NURSE ---
Pt refused Jardiance. States she takes Farcega .The pill was already in the pill cup .
[2024-03-05] MEDS: traMADol HCL (*CRX) 50 MG TABLET PO ×2 (10:03→17:48)
--- NOTE | 2024-03-05 10:26 | PC.NURSE ---
Pt arrived on the floor from ER at 0755. Pt is A/O x3 with VSS. NS running at 100ml/H into the RFA. Pt has belongings with her. No complaints at this time.
--- NOTE | 2024-03-05 11:16 | PM.IMHP ---
H&P: HPI History of Present Illness Date/Time: 03/05/24 11:16 Chief Complaint: Chest tightness Narrative: This is a 73-year-old female patient with a past medical history type 2 diabetes, CKD stage 3, hypothyroidism, hypertension, restless leg, GERD and prior history of asthma who was evaluated overnight for chest pain in the emergency department. Negative troponin normal BNP but elevated D-dimer present. Patient has allergy to IV contrast so CTA was not able to be obtained. ED provider ordered V/Q scan to assess for potential for PE. Laboratory assessment unremarkable except for stable findings of stage III CKD, elevated glucose consistent with diabetes and elevated D-dimer is discussed. Chest x-ray was unremarkable. On my exam today patient stated that she felt run down and low energy yesterday when she got up for the day. She stated that in the evening she developed chest tightness around 10:00 p.m. that progressed throughout the night until she notified her family at 2:00 a.m. that she had to come to the hospital. She also low developed cough and some dyspnea at that time. Patient reports some dry heaving but no vomiting. During my examination patient had significant wheezing, diminished lung sounds persistent cough and mild generalized abdominal discomfort without focal tenderness. Ordered treatment for asthma exacerbation and viral testing to complement that which was already ordered by ED. Review of Systems Review of Systems: All systems reviewed & are unremarkable except as noted in HPI and below PMFSH Past Medical History Medical History (Updated 03/05/24 @ 16:32 by Syed Lazo APRN) Adenomatous duodenal polyp Asthma CKD stage 3b, GFR 30-44 ml/min Diabetes mellitus GERD (gastroesophageal reflux disease) History of gastric ulcer Hyperlipidemia Hypertension Hypothyroidism Vertigo Surgical History Surgical History History of cholecystectomy History of hysterectomy History of tonsillectomy Family History Family History Other Diabetes mellitus Family history of arthritis Family history of malignant neoplasm Social History Social History Smoking status: Never smoker Alcohol intake: never Substance use: never Substance use type: does not use Do You Feel Safe in your Home?: No Lack of Transportation: No Lack of Food: Never True Current Housing: I Have Housing Concerned About Future Housing: No Difficulty Paying Gas/Electric Bills: No Difficulty Paying for Meds: No Currently Unemployed: No Education: High School Diploma/GED Difficulty w/ Childcare or Family Care: No Living arrangements: with family Gender identity (if verbalized by the patient): Female Sexual Orientation (if Verbalized by the Patient): Straight or Heterosexual Spiritual care concerns: No Meds Home Medications and Allergies Home Medications Medication Instructions Recorded Confirmed Type duloxetine 30 mg capsule,delayed 30 mg PO DAILY 03/11/22 03/05/24 History release gabapentin 600 mg tablet 600 mg PO TID 03/11/22 03/05/24 History latanoprost 0.005 % eye drops 1 drp EACH EYE QPM 03/11/22 03/05/24 History levothyroxine 125 mcg tablet 125 mcg PO DAILY 03/11/22 03/05/24 History (Synthroid) metoclopramide HCl 10 mg tablet 10 mg PO USEASDIRECTD PRN Gastric 03/11/22 03/05/24 History Reflux allopurinol 100 mg tablet 100 mg PO DAILY 03/05/24 03/05/24 History calcitriol 0.25 mcg capsule 0.25 mcg PO EVERY OTHER DAY 03/05/24 03/05/24 History dapagliflozin propanediol 10 mg 10 mg PO DAILY 03/05/24 03/05/24 History tablet (Farxiga) ergocalciferol (vitamin D2) 1,250 1,250 mcg PO WEEKLY 03/05/24 03/05/24 History mcg (50,000 unit) capsule losartan 100 mg tablet 100 mg PO DAILY 03/05/24 03/05/24 History ropinirole
[2024-03-05 12:10] LABS: Glucose Point of Care 219 mg/dl (65-105)
[2024-03-05] MEDS: MAGNESIUM SULF 2 GM/WATER 50ML 2 GM/50 ML BAG IVPB (13:48)
[2024-03-05] MEDS: methylPREDNISolone SOD SUCC 125 MG VIAL IV PUSH (13:49)
[2024-03-05] MEDS: INSULIN HUMAN LISPRO (*BKC) 1,000 UNITS/10 ML VIAL SUB-Q ×2 (13:49→17:53)
[2024-03-05] MEDS: IPRATROPIUM 0.5 MG/ALBUTEROL SULFATE 2.5 MG AMPUL.NEB 3 ML INHALATION ×2 (13:59→18:36)
[2024-03-05 14:48] LABS: Influenza A QL RT-PCR Negative (Negative); Influenza B QL RT-PCR Negative (Negative); RSV RNA, RT-PCR Negative (Negative); SARS-CoV-2 RNA PCR Negative (Negative)
[2024-03-05 16:34] LABS: Glucose Point of Care 246 mg/dl (65-105)
[2024-03-05] MEDS: LATANOPROST 0.005% OP SOLN 2.5 ML BTL 1 DROP EACH EYE (17:48)
[2024-03-05] MEDS: METOCLOPRAMIDE HCL 10 MG TABLET PO (18:00)
[2024-03-05] MEDS: INSULIN GLARGINE (*BKC) 1,000 UNITS/10 ML VIAL 50 UNITS SUB-Q (21:10)
[2024-03-05 21:12] LABS: Glucose Point of Care 285 mg/dl (65-105)
[2024-03-06 00:25] VITALS: PULSE 81; RESP 18; O2SAT 96
[2024-03-06] MEDS: IPRATROPIUM 0.5 MG/ALBUTEROL SULFATE 2.5 MG AMPUL.NEB 3 ML INHALATION ×2 (00:29→05:49)
[2024-03-06 00:38] VITALS: PULSE 85; RESP 18; O2SAT 98
[2024-03-06] MEDS: traMADol HCL (*CRX) 50 MG TABLET PO ×2 (00:51→08:46)
[2024-03-06] MEDS: ACETAMINOPHEN 325 MG TABLET 650 MG PO ×2 (02:19→06:27)
--- NOTE | 2024-03-06 03:17 | PC.NURSE ---
Patient requests to walk in room independantly to decrease neuropathy. Discussed same with Martha Contreras RN. Discussed fall risk and precautions with patient. Gait stable, Patient states she feels she is able to safely walk in room. Request food: Lodge sandwich and milk. Given to patient. Patient c/o of neuropathy pain in legs. Given warm blanket to decrease intensity of pain. Patient states she feels she is able to safely walk in room and agrees to call if she is having problems ambulating in room.
[2024-03-06 05:08] LABS: Basophils Absolute Auto 0.03 K/mm3 (0.00-0.10); Basophils Percent Auto 0.3 % (0.0-1.0); Hematocrit 40.3 % (35.0-42.0); Hemoglobin 12.2 g/dL (11.7-13.8); Immature Granulocyte Percent A 0.8 % (0.0-0.0); Lymphocytes Absolute Auto 0.65 K/mm3 (1.10-4.50); Lymphocytes Percent Auto 5.4 % (18.0-42.0); Mean Corpuscular HGB Conc 30.3 g/dL (32-36); Mean Corpuscular Hemoglobin 25.6 pg (27.0-31.0); Mean Corpuscular Volume 84.7 fL (78.0-102.0); Mean Platelet Volume 10.3 fl (9.2-11.8); Monocytes Absolute Auto 0.38 K/mm3 (0.10-0.90); Monocytes Percent Auto 3.2 % (2.0-11.0); Neutrophils Absolute Auto 10.77 K/mm3 (1.70-7.20); Neutrophils Percent Auto 90.3 % (50.0-70.0); Platelet Count Result 220 K/mm3 (150-420); Red Blood Count 4.76 M/mm3 (4.20-5.40); Red Cell Distribution Width 17.9 % (11.6-14.4); White Blood Count 11.9 K/mm3 (4.8-10.8)
[2024-03-06 05:23] LABS: Alanine Aminotransferase 45 U/L (14-59); Albumin Level 3.2 g/dL (3.4-5.0); Alkaline Phosphatase 59 U/L (46-116); Anion Gap 11 mmol/L (4-12); Aspartate Amino Transferase 20 U/L (15-37); Bilirubin,Total 0.2 mg/dL (0.00-1.00); Blood Urea Nitrogen 26 mg/dL (7-18); Calcium 9.6 mg/dL (8.5-10.1); Carbon Dioxide 27 mmol/L (21-32); Chloride 103 mmol/L (98-108); Estimated CRCL calculation 27 ml/min; Estimated Glomerular Filt Rate 25; Glucose 322 mg/dL (70-99); Magnesium 1.8 mg/dL (1.8-2.4); Osmolality Calculated 308 mOsm/kg (285-295); Sodium 141 mmol/L (136-145); Total Protein 7.1 g/dL (6.4-8.2)
[2024-03-06] MEDS: LEVOTHYROXINE SODIUM 100 MCG, LEVOTHYROXINE SODIUM 25 MCG 125 MCG PO (05:42)
[2024-03-06 05:49] VITALS: PULSE 78; RESP 18; O2SAT 96
[2024-03-06 06:00] VITALS: PULSE 79; RESP 20; O2SAT 98
--- NOTE | 2024-03-06 06:30 | PC.NURSE ---
Asking when Alexander HAND ZIPPER TRIMMER will be here. Informed patient approximate time he makes rounds. States wants to go home Discussed DC procedure and patient will get DC instructiions and explanation.
[2024-03-06 07:54] LABS: Glucose Point of Care 288 mg/dl (65-105)
[2024-03-06 08:00] VITALS: BP 129/59; PULSE 78; RESP 18; TEMP 36.1; O2SAT 94
[2024-03-06] MEDS: INSULIN HUMAN LISPRO (*BKC) 1,000 UNITS/10 ML VIAL SUB-Q ×2 (08:05→11:52)
[2024-03-06] MEDS: EMPAGLIFLOZIN 25 MG TABLET BY MOUTH (08:46)
[2024-03-06] MEDS: LOSARTAN POTASSIUM 50 MG TABLET 100 MG PO (08:46)
[2024-03-06] MEDS: DULoxetine HCL 30 MG CAPSULE.DR PO (08:46)
[2024-03-06] MEDS: allopurinoL 100 MG TABLET PO (08:46)
[2024-03-06] MEDS: rOPINIRole HCL 1 MG TABLET PO (08:46)
[2024-03-06] MEDS: GABAPENTIN 300 MG CAPSULE 600 MG PO (08:46)
[2024-03-06] MEDS: guaiFENesin/DEXTROMETHORPHAN 5 ML UDC 10 ML PO (11:16)
[2024-03-06] MEDS: BENZONATATE 100 MG CAPSULE 200 MG PO (11:16)
[2024-03-06 11:55] LABS: Glucose Point of Care 254 mg/dl (65-105)
--- NOTE | 2024-03-06 12:25 | PM.DS ---
DS: Admitting Diagnosis Discharge Date 03/06/2024 Admitting Diagnosis Asthma exacerbation, acute viral syndrome, D-dimer elevated, chest pain, diabetes mellitus, CKD stage 3 due to type 2 diabetes DS: Discharge Diagnosis Discharge Diagnosis (1) Asthma exacerbation: Code(s): J45.901 - Unspecified asthma with (acute) exacerbation Status: Acute (2) Acute viral syndrome: Code(s): B34.9 - Viral infection, unspecified Status: Acute (3) Acute kidney injury superimposed on CKD: Code(s): N17.9 - Acute kidney failure, unspecified; N18.9 - Chronic kidney disease, unspecified Status: Acute (4) CKD stage 3 due to type 2 diabetes mellitus: Code(s): E11.22 - Type 2 diabetes mellitus with diabetic chronic kidney disease; N18.30 - Chronic kidney disease, stage 3 unspecified Status: Acute (5) Diabetes mellitus: Code(s): E11.9 - Type 2 diabetes mellitus without complications Status: Acute (6) D-dimer, elevated: Code(s): R79.89 - Other specified abnormal findings of blood chemistry Status: Acute (7) Chest pain: Qualifiers: Chest pain type: unspecified Qualified Code(s): R07.9 - Chest pain, unspecified Code(s): R07.9 - Chest pain, unspecified Status: Acute DS: Summary Hospital Course Hospital Course: This is a 73-year-old female patient who was evaluated in the emergency department for chest tightness, nausea and cough. Clinical exam she appeared to be having a viral induced acute asthma exacerbation and she improved after IV magnesium duo nebs and IV steroids. Patient had positive D-dimer negative troponin. She is allergic to IV contrast so nuclear med V/Q scan was ordered which was low likelihood of pulmonary embolism. No pneumonia on chest x-ray. Patient continues to slight cough but states that she is feeling a lot better and ready for discharge home. Laboratory assessment this morning shows slight worsening of her renal function. Patient has stage III CKD but her GFR dropped to 25 with morning labs. Patient states that she has been taking oral fluids well. Urinalysis unremarkable except for urine glucose. No urine protein, hematuria or signs of urinary tract infection. She declined staying in the hospital longer for IV fluids. We discussed that we would like the patient to get labs rechecked in 1 week with results to primary care and have family notify Nephrology of recent test results. Daughter agreeable to this plan as well as patient. Return precautions discussed. Patient discharged as requested. Patient reports already scheduled follow-up with Dr. Guillermo. Status at Discharge Cognitive/behavioral status at discharge: Awake alert oriented and pleasant Functional status at discharge: independent ambulation Overall status at discharge: patient is progressing back to baseline Time Spent with Patient Time attestation: Total time spent providing and/or coordinating discharge services: 40 minutes Time spent: Greater than 30 minutes DS: Data Data Completed and Pending Completed studies during hospitalization: Chest x-ray pulmonary perfusion imaging Labs on day of discharge: Labs from last 24 hours 03/06/24 03/06/24 03/06/24 11:50 07:49 05:03 WBC 11.9 H RBC 4.76 Hgb 12.2 Hct 40.3 MCV 84.7 MCH 25.6 L MCHC 30.3 L RDW 17.9 H Plt Count 220 MPV 10.3 Immature Gran % (Auto) 0.8 H Neut % (Auto) 90.3 H Lymph % (Auto) 5.4 L Ralls % (Auto) 3.2 Eos % (Auto) 0.0 L Baso % (Auto) 0.3 Lymph # (Auto) 0.65 L Ralls # (Auto) 0.38 Eos # (Auto) 0.00 L Baso # (Auto) 0.03 Abs Immat Gran (auto) 0.10 H Absolute Neuts (auto) 10.77 H Absolute Nucleated RBC 0.00 Nucleated RBC % 0.0 Sodium 141 Potassium 5.0 Chloride 103 Carbon Dioxide 27 Anion Gap 11 BUN 26 H Creatinine 1.94 H Estim Creat Clear Calc 27 Estimated GFR 25 L Glucose 322 H POC
--- NOTE | 2024-03-06 12:55 | PC.NURSE ---
Discharge instructions reviewed with patient. Patient taken off floor per wheelchair to [facility]
--- NOTE | 2024-03-09 12:57 | PC.NURSE ---
Discharge call back attempeted, no answer
--- NOTE | 2024-03-11 09:17 | PC.NURSE ---
Call back attempted, no answer
--- NOTE | 2024-03-15 09:57 | PC.NURSE ---
Unable to contact, goes straight to voicemail
== END 2024-03-06 12:55 | disposition home or self-care (01) ==
LOC: CHSED 06:54 → CHS2ND 07:16
PROVIDERS: Nurse Practitioner; Admitting Provider Internal Medicine; Emergency Provider Emergency Medicine; Visit Provider Internal Medicine
DX: B34.9 Viral infection, unspecified (principal); R07.9 Chest pain, unspecified; N17.9 Acute kidney failure, unspecified; R79.1 Abnormal coagulation profile; I12.9 Hypertensive chronic kidney disease with stage 1 through stage 4 chronic kidney disease, or unspecified chronic kidney disease; E11.22 Type 2 diabetes mellitus with diabetic chronic kidney disease; N18.30 Chronic kidney disease, stage 3 unspecified; E11.42 Type 2 diabetes mellitus with diabetic polyneuropathy; J45.901 Unspecified asthma with (acute) exacerbation; Z20.822 Contact with and (suspected) exposure to COVID-19; K21.9 Gastro-esophageal reflux disease without esophagitis; E78.5 Hyperlipidemia, unspecified; G25.81 Restless legs syndrome; I10 Essential (primary) hypertension; E55.9 Vitamin D deficiency, unspecified; E03.9 Hypothyroidism, unspecified; Z79.891 Long term (current) use of opiate analgesic; Z79.85 Long-term (current) use of injectable non-insulin antidiabetic drugs; Z79.899 Other long term (current) drug therapy
CPT/HCPCS: 36415; 71045; 78582; 80053; 81001; 82948; 83690; 83735; 83880; 84484; 85025; 85380; 85610; 85730; 87637; 93005; 94640; 96361; 96365; 96372; 96374; 96375; 96376; 99285; A9270; A9540; C9113; G0378; J1650; J1815; J2405; J2919; J3475; J7030

== ENCOUNTER 2024-03-16 09:31 | Outpatient (CLI) | payer MEDICARE, SELFPAY ==
[2024-03-16 10:19] LABS: Albumin Level 3.4 g/dL (3.4-5.0); Anion Gap 9 mmol/L (4-12); Blood Urea Nitrogen 21 mg/dL (7-18); Calcium 10.3 mg/dL (8.5-10.1); Carbon Dioxide 30 mmol/L (21-32); Chloride 102 mmol/L (98-108); Estimated Glomerular Filt Rate 37; Glucose 222 mg/dL (70-99); Osmolality Calculated 302 mOsm/kg (285-295); Phosphorus 3.7 mg/dL (2.6-4.7); Potassium 4.4 mmol/L (3.5-5.1); Sodium 141 mmol/L (136-145)
== END 2024-03-16 09:32 | disposition home or self-care (01) ==
PROVIDERS: PCP Internal Medicine; Visit Provider Nurse Practitioner
DX: E11.22 Type 2 diabetes mellitus with diabetic chronic kidney disease (principal); N18.30 Chronic kidney disease, stage 3 unspecified; N17.9 Acute kidney failure, unspecified
CPT/HCPCS: 36415; 80069

== ENCOUNTER 2024-04-21 16:32 | Emergency (ER) | payer MEDICARE, SELFPAY ==
[2024-04-21] VITALS (28 sets, daily range): BP systolic 111–140; BP diastolic 50–85; PULSE 57–75; RESP 14–25; TEMP 36.7; O2SAT 92–97
--- NOTE | ~2024-04-21 | CT_ITS ---
EXAMINATION: CT brain wo con DATE: 04/21/2024 17:19 INDICATION: Dizziness. Syncopal spells. Headache post fall with possible head injury. TECHNIQUE: Computed tomography (CT) of the head was performed without intravenous contrast. Sagittal and coronal reconstructions were performed. The mA was adjusted according to patient size. Iterative reconstruction technique was employed. The dose-length product was 605.33 mGy-cm. COMPARISON: head CT dated 05/11/2020 FINDINGS: No fracture. No acute intracranial hemorrhage, acute infarction or abnormal extra axial fluid collect ion. No significant change in mild scattered white matter hypoattenuation consistent with chronic sma ll vessel ischemic disease. Ventricles are normal and symmetric. No mass/mass effect. Changes of shayla ateral intraocular lens replacement. The orbitsand paranasal sinuses are normal. Left otomastoiditis effusion. Right mastoid air cells and middle ear cavity remain clear. IMPRESSION: 1. Stable appearance of mild scattered white matter hypoattenuation consistent with chronic small ves harlan ischemic disease. No fracture or acute intracranial process. Line 2. Left otomastoiditis effusion. Reviewed, dictated and finalized at location A. IMPRESSION: 1. Stable appearance of mild scattered white matter hypoattenuation consistent with chronic small vessel ischemic disease. No fracture or acute intracranial p rocess. Line 2. Left otomastoiditis effusion.
--- NOTE | 2024-04-21 16:34 | ED.FALL ---
HPI - Fall General Chief Complaint: Headache Stated Complaint: fall injury Time Seen by Provider: 04/21/24 16:34 Source: patient Mode of arrival: ambulatory Limitations: no limitations History of Present Illness HPI Narrative: 73-year-old with history diabetes mellitus, hypothyroidism, RLS, gout, vertigo/ dizziness, CKD, asthma presents to the ER for -- recurrent syncopal spells off and on for the past few months. -- she has episodes of acute onset twitching of her entire body and episodes of slurred speech / alteration in mental status with spontaneous resolution in 5 minutes. Subsequently she does not have any confusion of focal neuro deficits. No urinary incontinence during those episodes. She has had these episodes off and on past 1 year but she has had these episodes daily for the past 3 days. -- During 1 of her syncopal spells the patient fell down and hit her forehead. She had no recollection of the event. No bruising or abrasion noted on the forehead. she was admitted to this hospital from 04/04/20202023 for chest discomfort and elevated D-dimer. She had a negative perfusion scan. MD complaint: fall Onset (ago): hour(s) ( 1 hour ago) Fall from: standing Fall witnessed: no Place fall occurred: home Loss of consciousness: unsure Prolonged down time: unclear Symptoms prior to fall: none Location of injury: head Related Data Home Medications Medication Instructions Recorded Confirmed duloxetine 30 mg capsule,delayed 30 mg PO DAILY 03/11/22 03/05/24 release gabapentin 600 mg tablet 600 mg PO TID 03/11/22 03/05/24 latanoprost 0.005 % eye drops 1 drp EACH EYE QPM 03/11/22 03/05/24 levothyroxine 125 mcg tablet 125 mcg PO DAILY 03/11/22 03/05/24 (Synthroid) metoclopramide HCl 10 mg tablet 10 mg PO USEASDIRECTD PRN Gastric 03/11/22 03/05/24 Reflux allopurinol 100 mg tablet 100 mg PO DAILY 03/05/24 03/05/24 calcitriol 0.25 mcg capsule 0.25 mcg PO EVERY OTHER DAY 03/05/24 03/05/24 dapagliflozin propanediol 10 mg 10 mg PO DAILY 03/05/24 03/05/24 tablet (Farxiga) ergocalciferol (vitamin D2) 1,250 1,250 mcg PO WEEKLY 03/05/24 03/05/24 mcg (50,000 unit) capsule losartan 100 mg tablet 100 mg PO DAILY 03/05/24 03/05/24 ropinirole 1 mg tablet 1 mg PO TID 03/05/24 03/05/24 tramadol 50 mg tablet 50 mg PO TID 03/05/24 03/05/24 Allergies Allergy/AdvReac Type Severity Reaction Status Date / Time codeine Allergy Intermediate Hallucinati Verified 03/15/22 11:46 ng diphenhydramine Allergy Intermediate Hives Verified 03/15/22 11:46 Penicillins Allergy Intermediate Hives Verified 03/15/22 11:46 Sulfa (Sulfonamide Allergy Intermediate Hives Verified 03/15/22 11:46 Antibiotics) Iodinated Contrast Media Allergy Unknown Verified 03/05/24 04:25 Review of Systems Review of Systems: All systems reviewed & are unremarkable except as noted in HPI and below Constitutional: Constitutional: Reports as per HPI and Reports no additional constitutional complaints Eyes: Eyes: Reports as per HPI and Reports no additional eye complaints ENT: Reports system reviewed and no additional complaints, except as documented and Reports as per HPI Cardiovascular: Cardiovascular: Reports as per HPI and Reports no additional cardiovascular complaints Respiratory: Respiratory: Reports as per HPI and Reports no additional respiratory complaints Gastrointestinal: Gastrointestinal: Reports as per HPI and Reports no additional gastrointestinal complaints Genitourinary: Genitourinary: Reports no additional female genitourinary complaints and Reports as per HPI Musculoskeletal: Musculoskeletal: Reports no additional musculoskeletal complaints and Reports as per HPI Integumentary/Breasts: Skin/Breast: Reports system reviewed and no additional complaints, except as docu Neurologic: Reports system reviewed and no additional complaints, except as documented, Reports as per HPI, Reports vertigo, Reports dizziness, Reports syncope and Repo
--- NOTE | 2024-04-21 17:04 | ECG_ITS ---
Test Date: 2024-04-21 17:26:32 Measurements Intervals [place] Rate: 69 P: 67 DC: 205 QRS: 41 QRSD: 102 T: 72 QT: 362 QTc: 390 Interpretive Statements SINUS RHYTHM No previous ECG available for comparison Electronically Signed On 04-22-2024 12:29:42 CDT by Eloise Funez M.D.
[2024-04-21 17:17] LABS: Basophils Absolute Auto 0.09 K/mm3 (0.00-0.10); Basophils Percent Auto 0.9 % (0.0-1.0); Eosinophils Absolute Auto 0.34 K/mm3 (0.02-0.50); Eosinophils Percent Auto 3.4 % (1.0-6.0); Hematocrit 41.1 % (35.0-42.0); Hemoglobin 12.7 g/dL (11.7-13.8); Immature Granulocyte Absolute 0.09 K/mm3 (0.00-0.00); Immature Granulocyte Percent A 0.9 % (0.0-0.0); Lymphocytes Absolute Auto 2.03 K/mm3 (1.10-4.50); Lymphocytes Percent Auto 20.5 % (18.0-42.0); Mean Corpuscular HGB Conc 30.9 g/dL (32-36); Mean Corpuscular Hemoglobin 25.7 pg (27.0-31.0); Mean Platelet Volume 10.3 fl (9.2-11.8); Monocytes Absolute Auto 0.78 K/mm3 (0.10-0.90); Monocytes Percent Auto 7.9 % (2.0-11.0); Neutrophils Absolute Auto 6.56 K/mm3 (1.70-7.20); Neutrophils Percent Auto 66.4 % (50.0-70.0); Platelet Count Result 237 K/mm3 (150-420); Red Blood Count 4.95 M/mm3 (4.20-5.40); Red Cell Distribution Width 17.1 % (11.6-14.4); White Blood Count 9.9 K/mm3 (4.8-10.8)
--- NOTE | 2024-04-21 17:18 | PC.NURSE ---
pt to xray department per stretcher. pt alert and stable.
--- NOTE | 2024-04-21 17:23 | PC.NURSE ---
pt returned from xray, cardio pulm called for ekg.
[2024-04-21 17:42] LABS: Alanine Aminotransferase 53 U/L (14-59); Albumin Level 3.1 g/dL (3.4-5.0); Alkaline Phosphatase 63 U/L (46-116); Anion Gap 6 mmol/L (4-12); Aspartate Amino Transferase 34 U/L (15-37); Bilirubin,Total 0.2 mg/dL (0.00-1.00); Blood Urea Nitrogen 25 mg/dL (7-18); Calcium 10.6 mg/dL (8.5-10.1); Carbon Dioxide 31 mmol/L (21-32); Chloride 103 mmol/L (98-108); Estimated CRCL calculation 35 ml/min; Estimated Glomerular Filt Rate 35; Glucose 179 mg/dL (70-99); Osmolality Calculated 298 mOsm/kg (285-295); Potassium 4.2 mmol/L (3.5-5.1); Sodium 140 mmol/L (136-145); Total Protein 7.4 g/dL (6.4-8.2); Troponin I 4.7 ng/L (0.00-60.4)
[2024-04-21] MEDS: ACETAMINOPHEN 500 MG TABLET 1000 MG PO (17:52)
[2024-04-21 17:54] LABS: Appearance Urine Clear (Clear); Bilirubin Urine Negative (Negative); Blood Urine Negative (Negative); Color Urine Yellow (Yellow); Glucose Urine UA 3+ (Negative); Ketones Urine Negative (Negative); Leukocyte Esterase Ur Negative LEU/UL (Negative); Nitrate Urine Negative (Negative); Protein Urine Negative (Negative); Specific Grav Ur 1.015 (1.010-1.020); Urobilinogen Urine 0.2 mg/dL (0.2-1.0)
[2024-04-21 17:59] LABS: Add Urine Microscopic? YES; Bacteria Urine Trace /hpf; RBC Urine 0-2 /hpf (0-2); Squamous Epithelial Cell Urine Rare /hpf (Few); WBC Urine 0-3 /hpf (0-3)
--- NOTE | 2024-04-21 18:40 | PC.NURSE ---
PT AND DAUGHTER INFORMED ABOUT CALLS PLACED TO OTHER FACILITIES FOR TRANSFERS. EXPLAINED PROCEDURE FOR TRANSFER AND AWAITING BED PLACEMENT. BOTH VOICED UNDERSTANDING. PT LAYING ON HER SIDE. CALL SORIANO IN REACH.
--- NOTE | 2024-04-21 19:05 | PC.NURSE ---
REPORT TO ROD HOOKS
--- NOTE | 2024-04-21 19:51 | PC.NURSE ---
patient stated that she would go to [facility] in [place] as another place to go to if needed.
== END 2024-04-21 21:30 | disposition short-term general hospital (02) ==
PROVIDERS: Emergency Provider Internal Medicine Critical Care Medicine; PCP Internal Medicine
DX: G45.9 Transient cerebral ischemic attack, unspecified (principal); R56.9 Unspecified convulsions; R55 Syncope and collapse; E03.9 Hypothyroidism, unspecified; E11.22 Type 2 diabetes mellitus with diabetic chronic kidney disease; I12.9 Hypertensive chronic kidney disease with stage 1 through stage 4 chronic kidney disease, or unspecified chronic kidney disease; N18.32 Chronic kidney disease, stage 3b; E78.5 Hyperlipidemia, unspecified
CPT/HCPCS: 36415; 70450; 80053; 81001; 84484; 85025; 93005; 99285

== ENCOUNTER 2024-05-08 08:43 | Outpatient (CLI) | payer MEDICARE, SELFPAY ==
[2024-05-08 12:56] LABS: Basophils Absolute Auto 0.07 K/mm3 (0.00-0.10); Basophils Percent Auto 0.7 % (0.0-1.0); Eosinophils Absolute Auto 0.42 K/mm3 (0.02-0.50); Eosinophils Percent Auto 4.5 % (1.0-6.0); Hematocrit 42.7 % (35.0-42.0); Hemoglobin 13.2 g/dL (11.7-13.8); Immature Granulocyte Absolute 0.04 K/mm3 (0.00-0.00); Immature Granulocyte Percent A 0.4 % (0.0-0.0); Lymphocytes Absolute Auto 1.47 K/mm3 (1.10-4.50); Lymphocytes Percent Auto 15.7 % (18.0-42.0); Mean Corpuscular HGB Conc 30.9 g/dL (32-36); Mean Corpuscular Volume 84.1 fL (78.0-102.0); Mean Platelet Volume 11.5 fl (9.2-11.8); Monocytes Absolute Auto 0.61 K/mm3 (0.10-0.90); Monocytes Percent Auto 6.5 % (2.0-11.0); Neutrophils Absolute Auto 6.78 K/mm3 (1.70-7.20); Neutrophils Percent Auto 72.2 % (50.0-70.0); Platelet Count Result 251 K/mm3 (150-420); Red Blood Count 5.08 M/mm3 (4.20-5.40); Red Cell Distribution Width 17.3 % (11.6-14.4); White Blood Count 9.4 K/mm3 (4.8-10.8)
[2024-05-08 13:23] LABS: Alanine Aminotransferase 42 U/L (14-59); Albumin Level 3.1 g/dL (3.4-5.0); Alkaline Phosphatase 62 U/L (46-116); Anion Gap 8 mmol/L (4-12); Aspartate Amino Transferase 30 U/L (15-37); Bilirubin,Total 0.4 mg/dL (0.00-1.00); Blood Urea Nitrogen 17 mg/dL (7-18); Calcium 10.2 mg/dL (8.5-10.1); Carbon Dioxide 30 mmol/L (21-32); Chloride 101 mmol/L (98-108); Estimated Glomerular Filt Rate 37; Glucose 157 mg/dL (70-99); Hemoglobin A1C 8.2 % (<5.7); Osmolality Calculated 292 mOsm/kg (285-295); Potassium 3.9 mmol/L (3.5-5.1); Sodium 139 mmol/L (136-145); Total Protein 7.3 g/dL (6.4-8.2); Uric Acid 5.1 mg/dL (2.6-6.0)
[2024-05-08 14:49] LABS: Erythrocyte Sedimentation Rate 45 mm/hr (0-20)
[2024-05-08 15:26] LABS: Creatinine Urine 104.64 mg/dL (40-278); MALB Creatinine Ratio 28.4 mg/g (0-30); Microalbumin Urine Random 29.8 mg/L
[2024-05-08 18:58] LABS: Appearance Urine Clear (Clear); Bilirubin Urine Negative (Negative); Blood Urine Negative (Negative); Color Urine Light Yellow (Yellow); Glucose Urine UA 3+ (Negative); Ketones Urine Negative (Negative); Leukocyte Esterase Ur Negative LEU/UL (Negative); Nitrate Urine Negative (Negative); Protein Urine Negative (Negative); Specific Grav Ur 1.015 (1.010-1.020); Urobilinogen Urine 0.2 mg/dL (0.2-1.0)
[2024-05-08 19:10] LABS: Add Urine Microscopic? YES; Squamous Epithelial Cell Urine Few /hpf (Few)
[2024-05-08 19:11] LABS: Amorphous Sediment Urine Few
[2024-05-09 08:43] LABS: Parathyroid Intact 25 pg/mL (16-77)
[2024-05-10 12:13] LABS: Vitamin D 25 Hydroxy 71 ng/mL (30-100)
== END 2024-05-08 08:44 | disposition home or self-care (01) ==
LOC: CHSLAB 08:47
PROVIDERS: PCP Internal Medicine; Visit Provider Specialist
DX: I12.9 Hypertensive chronic kidney disease with stage 1 through stage 4 chronic kidney disease, or unspecified chronic kidney disease (principal); N18.30 Chronic kidney disease, stage 3 unspecified; E11.65 Type 2 diabetes mellitus with hyperglycemia; R50.9 Fever, unspecified; E55.9 Vitamin D deficiency, unspecified; N39.0 Urinary tract infection, site not specified; R35.0 Frequency of micturition; E78.41 Elevated Lipoprotein(a); E21.3 Hyperparathyroidism, unspecified; R94.6 Abnormal results of thyroid function studies
CPT/HCPCS: 36415; 80053; 81001; 82043; 82306; 83036; 83970; 84443; 84550; 85025; 85652

== ENCOUNTER 2024-06-07 11:36 | Outpatient (CLI) | payer MEDICARE, SELFPAY ==
[2024-06-07 12:04] LABS: Appearance Urine Clear (Clear); Bilirubin Urine Negative (Negative); Blood Urine Negative (Negative); Color Urine Light Yellow (Yellow); Glucose Urine UA 3+ (Negative); Ketones Urine Negative (Negative); Leukocyte Esterase Ur Trace LEU/UL (Negative); Nitrate Urine Negative (Negative); Protein Urine Negative (Negative); Urobilinogen Urine 0.2 mg/dL (0.2-1.0)
[2024-06-07 12:08] LABS: Add Urine Microscopic? YES; Bacteria Urine 1+ /hpf; RBC Urine None seen /hpf (0-2); Squamous Epithelial Cell Urine Few /hpf (Few); WBC Urine 0-3 /hpf (0-3)
[2024-06-07 12:12] LABS: Hemoglobin A1C 8.1 % (<5.7)
[2024-06-07 12:13] LABS: Creatinine Urine 76.87 mg/dL (40-278); MALB Creatinine Ratio 25.6 mg/g (0-30); Microalbumin Urine Random 19.7 mg/L
[2024-06-07 12:34] LABS: Alanine Aminotransferase 48 U/L (14-59); Albumin Level 3.4 g/dL (3.4-5.0); Alkaline Phosphatase 78 U/L (46-116); Anion Gap 5 mmol/L (4-12); Aspartate Amino Transferase 31 U/L (15-37); Bilirubin,Total 0.4 mg/dL (0.00-1.00); Blood Urea Nitrogen 21 mg/dL (7-18); Calcium 10.4 mg/dL (8.5-10.1); Carbon Dioxide 33 mmol/L (21-32); Chloride 103 mmol/L (98-108); Estimated Glomerular Filt Rate 39; Glucose 123 mg/dL (70-99); Osmolality Calculated 296 mOsm/kg (285-295); Potassium 4.3 mmol/L (3.5-5.1); Sodium 141 mmol/L (136-145); Thyroid Stimulating Hormone 1.92 uIU/mL (0.36-3.74); Total Protein 7.3 g/dL (6.4-8.2)
[2024-06-07 13:02] LABS: Erythrocyte Sedimentation Rate 13 mm/hr (0-20)
[2024-06-08 13:09] LABS: Parathyroid Intact 32 pg/mL (16-77)
[2024-06-09 01:23] LABS: Vitamin D 25 Hydroxy 53 ng/mL (30-100)
== END 2024-06-07 11:37 | disposition home or self-care (01) ==
LOC: CHSLAB 11:42
PROVIDERS: PCP Internal Medicine; Visit Provider Specialist
DX: N18.4 Chronic kidney disease, stage 4 (severe) (principal); I10 Essential (primary) hypertension; E11.65 Type 2 diabetes mellitus with hyperglycemia; R60.9 Edema, unspecified; E55.9 Vitamin D deficiency, unspecified; N39.0 Urinary tract infection, site not specified; R35.0 Frequency of micturition; E78.41 Elevated Lipoprotein(a)
CPT/HCPCS: 36415; 80053; 81001; 82043; 82306; 83036; 83970; 84443; 84550; 85652

== ENCOUNTER 2024-06-24 08:51 | Outpatient (CLI) | payer MEDICARE, SELFPAY ==
--- NOTE | ~2024-06-24 | MR_ITS ---
EXAMINATION: MR brain/brain stem wo con DATE: 06/24/2024 10:02 INDICATION: Unspecified convulsions. TECHNIQUE: Magnetic resonance imaging (MRI) of the brain and brainstem was performed without intraven ous contrast. COMPARISON: Brain MRI 04/22/2020, head CT 04/21/2024 FINDINGS: There are scattered areas of nonspecific increased T2-weighted signal intensity in the cere bral white matter, which is within normal limits for the patient's age. There is no intracranial hemo rrhage, acute infarction, or abnormal intracranial mass lesion. The ventricles are normal in size. Th ere are bilateral mastoid effusions. The paranasal sinuses are clear. There are likely changes of ocu lar lens replacement surgeries. IMPRESSION: 1. Normal aging brain. Reviewed, dictated and finalized at location A. IMPRESSION: 1. Normal aging brain.
== END 2024-06-24 08:52 | disposition home or self-care (01) ==
LOC: CHSIMG 08:53
PROVIDERS: PCP Internal Medicine
DX: R56.9 Unspecified convulsions (principal)
CPT/HCPCS: 70551

== ENCOUNTER 2024-12-19 02:40 | Emergency (ER) | payer MEDICARE, SELFPAY ==
[2024-12-19 02:40] VITALS: BP 162/79; PULSE 79; RESP 18; TEMP 36.6; O2SAT 97
--- OUTSIDE RECORDS SUMMARY | 2024-12-19 02:42 | XMS_ITS | Clinical Summary ---
Author Organization [facility] Address [facility] [place] [address] Care Team Providers Care Tool Distributor Name Role Phone Scooby Guillermo MD Primary Care Provider [phone] Allergies Active Allergy Reactions Criticality Noted Date Comments Codeine Rash,Unknown Medium 04/13/2014 Diphenhydramine Other (see comment) Low 04/13/2014 confusion Penicillins Hives,Unknown Medium 04/13/2014 Medications allopurinol (ZYLOPRIM) 100 MG tablet Take 1 tablet (100 mg total) by mouth daily. 4 Active calcitriol (ROCALTROL) 0.25 MCG capsule Take 1 capsule (0.25 mcg total) by mouth every other day. 4 Active DULoxetine (CYMBALTA) 30 MG capsule Take 1 capsule (30 mg total) by mouth daily. Active fluticasone propionate (FLONASE ALLERGY RELIEF) 50 MCG/ACT nasal spray 2 sprays by Nasal route 2 (two) times daily. 4 Active gabapentin (NEURONTIN) 600 MG tablet Take 1 tablet (600 mg total) by mouth 3 (three) times daily. Active LANTUS SOLOSTAR 100 UNIT/ML injection (PEN) Inject 50 Units into the skin nightly at bedtime. 3 Active levothyroxine (SYNTHROID) 125 MCG tablet Take 150 mcg by mouth daily. Active losartan (COZAAR) 100 MG tablet Take by mouth daily. 4 Active Dapagliflozin Propanediol (FARXIGA OR) Take 10 mg by mouth daily. Active rOPINIRole (REQUIP) 1 MG tablet Take 1 tablet (1 mg total) by mouth 3 (three) times daily. Active traMADol (ULTRAM) 50 MG tablet Take 1 tablet (50 mg total) by mouth every 6 (six) hours as needed for Pain. Active atorvastatin (LIPITOR) 20 MG tablet Take 1 tablet (20 mg total) by mouth daily. Active diclofenac sodium (VOLTAREN) 1 % gel Apply 2 g topically 4 (four) times daily. Active Active Problems Problem Noted Date Diagnosed Date Primary osteoarthritis of right knee 04/06/2024 Encounters Date Type Department Care Team Description 12/07/[address] [address] Alejandra Reyes PA Question 12/06/[address] [address] Alejandra Reyes PA Appointment Reminder 11/08/2024 Telephone [facility] [address] [place] [address] Tianna Mariscal MD Lab Results 10/29/2024 Telephone [facility] [address] [place] [address] Tianna Mariscal MD Lab Results 10/26/2024 Telephone [facility] [address] [place] [address] Tianna Mariscal MD Follow Up Call 10/25/2024 11:37 AM WASHING MACHINE MECHANIC - 10/25/2024 11:59 PM WASHING MACHINE MECHANIC Hospital Encounter [facility] [address] [place] [address] Tianna Mariscal MD Discharge Disposition: Home or Self Care (Routine Discharge) 10/25/2024 11:00 AM WASHING MACHINE MECHANIC Office Visit [facility] [place] [address] Bayron Pickard MD Ramani, Nirali, MD New Patient 10/25/2024 Orders Only [facility] [place] [address] Tianna Mariscal MD 10/25/2024 Travel from Last 3 Months Family History Medical History Relation Comments Cancer Father Diabetes Father Heart Attack Father Stroke Father Diabetes Mother Heart Attack Mother Relation Status Comments Father Mother Social History Tobacco Use Types Packs/Day Years Used Date Smoking Tobacco: Never Passive Smoke Exposure: Past Smokeless Tobacco: Never Tobacco Cessation:Counseling Given: Not Answered Alcohol Use Standard Drinks/Week Comments Not Currently 0 (1 standard drink = 0.6 oz pur e alcohol) Comments Unknown Sex and Gender Information Value Date Recorded Sex Assigned at Female 12/06/2024 7:39 AM WASHING MACHINE MECHANIC Legal Sex Female 8:54 PM CDT Gender Identity Female 12/06/2024 7:39 AM WASHING MACHINE MECHANIC Sexual Orientation Not on file Last Filed Vital Signs Vital Sign Reading Time Taken Comments Blood Pressure 138/75 10/25/2024 10:59 AM WASHING MACHINE MECHANIC Pulse 72 10/25/2024 10:59 AM WASHING MACHINE MECHANIC Temperature 36.6 C (97.8 F) 09/14/2014 10:34 AM WASHING MACHINE MECHANIC Respiratory Rate 13 09/14/2014 10:3 4 AM WASHING MACHINE MECHANIC Regular Oxygen Saturation - - Inhaled Oxygen Concentration - - Weight 94.3 kg (207 lb 12.8 oz) 024 10:59 AM WASHING MACHINE MECHANIC Height 165.1 cm (5' 5 ) 10/25/2024 10:5 9 AM WASHING MACHINE MECHANIC Body Mass Index 34.58 10/25/2024 10:59 AM WASHING MACHINE MECHANIC Plan of Treatment Upcoming Encounters Date Type Department Care Team (Late st Contact Info) Description 01/24/2025 12:45 PM CDT Office Visit [facility] [address] [place] [address] [place] [address] [place] [phone] (Work) Health Maintenance Due Date Last Done Comments Colorectal Cancer Screening Colonoscopy (10 Years) 1950 DTaP, Tdap and Td Vaccines (1 - Tdap) 1969 Mammogram Screening 1990 Zoster Vaccines (1 of 2) 2000 Annual Medicare Wellness Visit 2015 Dexa Scan (General) 2015 Pneumococcal Vaccine: 65+ Years (2 of 2 - PCV) 08/17/2015 08/17/2014, 08/13/2012, 1950 COVID-19 Vaccine (5 - 2024-25 season) 2024 06/12/2022, 09/27/2021, 03/09/2021, Additional history exists Influenza Adult (#1) 2024 10/01/2021, 07/11/2015, 11/10/2013 RSV Immunization or 60+ Years (1 - 1-dose 75+ series) 2025 Hepatitis C Completed 10/25/2024 Meningococcal B Vaccine Aged Out No l onger eligible based on patient's age to complete this topic Meningococcal Vaccine Aged Out No sriram sarabjit eligible based on patient's age to complete this topic RSV Immunizations Under 20 Months Aged Out No longer eligible based on patient's age to complete this topic Procedures Procedure Name Priority Date/Time Associated Diagnosis Comments COMPLEMENT C4 Routine 10/25/2024 12:00 PM WASHING MACHINE MECHANIC Chronic kidney disease, stage 3b (CMS/HCC HHS/HCC) HTN (hypertension) COMPLEMENT C3 Routine 10/25/2024 12:00 PM WASHING MACHINE MECHANIC Chronic kidney disease, stage 3b (CMS/HCC HHS/HCC) HTN (hypertension) IMMUNOFIXATION Routine 10/25/2024 12:00 PM WASHING MACHINE MECHANIC Chronic kidney disease, stage 3b (CMS/HCC HHS/HCC) HTN (hypertension) PROTEIN, ELECTROPHORESIS Routine 10/25/2024 12:00 PM WASHING MACHINE MECHANIC Chronic kidney disease, stage 3b (CMS/HCC HHS/HCC) HTN (hypertension) HEPATITIS PANEL,ACUTE Routine 10/25/2024 12:00 PM WASHING MACHINE MECHANIC Chronic kidney disease, stage 3b (CMS/HCC HHS/HCC) HTN (hypertension) Fatigue ANCA SCREEN, MPO PR3 W/RFX TTR Routine 10/25/2024 12:00 PM WASHING MACHINE MECHANIC Chronic kidney disease, stage 3b (CMS/HCC HHS/HCC) HTN (hypertension) ANTINUCLEAR ANTIBODY WI RFX Routine 10/25/2024 12:00 PM WASHING MACHINE MECHANIC Chronic kidney disease, stage 3b (CMS/HCC HHS/HCC) HTN (hypertension) URIC ACID BLOOD Routine 10/25/2024 12:00 PM WASHING MACHINE MECHANIC Chronic kidney disease, stage 3b (CMS/HCC HHS/HCC) HTN (hypertension) PTH - INTACT Routine 10/25/2024 12:00 PM WASHING MACHINE MECHANIC Chronic kidney disease, stage 3b (CMS/HCC HHS/HCC) HTN (hypertension) RENAL FUNCTION PANEL Routine 10/25/2024 12:00 PM WASHING MACHINE MECHANIC Chronic kidney disease, stage 3b (CMS/HCC HHS/HCC) HTN (hypertension) CBC W/DIFF AUTOMATED Routine 10/25/2024 12:00 PM WASHING MACHINE MECHANIC Chronic kidney disease, stage 3b (CMS/HCC HHS/HCC) HTN (hypertension) PROTEIN ELECTROPHORESIS URINE RANDOM Routine 10/25/2024 11:48 AM WASHING MACHINE MECHANIC Chronic kidney disease, stage 3b (CMS/HCC HHS/HCC) HTN (hypertension) HC CREATININE OTH SOURCE Routine 10/25/2024 11:48 AM WASHING MACHINE MECHANIC Chronic kidney disease, stage 3b (CMS/HCC HHS/HCC) HTN (hypertension) HC URINALYSIS AUTO W/MICRO Routine 10/25/2024 11:48 AM WASHING MACHINE MECHANIC Chronic kidney disease, stage 3b (CMS/HCC HHS/HCC) HTN (hypertension) from Last 3 Months Results * ANCA SCREEN, MPO PR3 W/RFX TTR (10/25/2024 12:00 PM WASHING MACHINE MECHANIC) [facility] ANCA SCREEN Negative Negative 10/29/2024 12:26 AM WASHING MACHINE MECHANIC [employer] PAM [place] Comment: ANCA screen uses indirect immunofluorescence to detect antibodies to neutrophil cytoplasmic antigens. A positive screen reflexes to titer and pattern. Patterns include cytoplasmic (c-ANCA) and perinuclear (p-ANCA) both of which are associated with vasculitis, and atypical p-ANCA which is associated with inflammatory bowel disease and other disorders. MYELOPEROXIDASE AB <1.0 <1.0 AI 2023 12:26 AM WASHING MACHINE MECHANIC [employer] [facility] [place] Comment: Value Interpretation <1.0 AI: No Antibody Detected >or=1.0 AI: Antibody Detected Autoantibodies to myeloperoxidase (MPO) are commonly associated with the following small-vessel vasculitides: microscopic polyangiitis, polyarteritis nodosa, Churg-Akilah syndrome, necrotizing and crescentic glomerulonephritis and occasionally granulomatosis with polyangiitis (GPA, Brooks's). The perinuclear IFA pattern, (p-ANCA) is based largely on autoantibody to myeloperoxidase which serves as the primary antigen. These autoantibodies are present in active disease. PROTEINASE-3 AB <1.0 <1.0 AI 12:26 AM WASHING MACHINE MECHANIC [employer] [facility] Comment: Value Interpretation <1.0 AI: No Antibody Detected >or=1.0 AI: Antibody Detected Autoantibodies to proteinase-3 (WY-3) are accepted as characteristic for granulomatosis with polyangiitis (GPA, Brooks's), and are detectable in 95% of the histologically proven cases. The cytoplasmic IFA pattern, (c-ANCA), is based largely on autoantibody to WY-3 which serves as the primary antigen. These autoantibodies are present in active disease. Test Performed by [employer] [place], [email or web address] [facility], [address] [place] [address] Thiago Falk M.D., Ph.D., Director of Laboratories , [facility] [id number] 10/25/2024 12:0 0 PM WASHING MACHINE MECHANIC Tianna Mariscal MD LABORATORY Final Result [facility] , * ANTINUCLEAR ANTIBODY WI RFX (10/25/2024 12:00 PM WASHING MACHINE MECHANIC) PEGGY 0.2 10/27/2024 12:56 PM WASHING MACHINE MECHANIC [facility] Comment: NEGATIVE: <0.7 RATIO PEGGY PROFILE AND TITER NOT PERFORMED THE PEGGY SCREEN TESTS FOR THE FOLLOWING ANTIBODIES BY EIA: SSA1 (RO), SSB1 (LA), HANCOCK, SCL70, JO1, CENTROMERE, DENTAL TECHNOLOGIST HISTONE MUST BE ORDERED SEPARATELY DNA (DS) ANTIBODY 5.7 IU/ML 024 12:56 PM WASHING MACHINE MECHANIC [facility] Comment: NEGATIVE: <10 IU/mL EQUIVOCAL: 10 to 15 IU/mL POSITIVE: >15 IU/mL THIS QUANTITATIVE ASSAY IS CALIBRATED TO THE [employer]'S /80 STANDARD. THE LEVEL OF dsDNA AUTOANTIBODY GERERALLY CORRELATES WITH THE LEVEL OF DISEASE ACTIVITY IN SYSTEMIC LUPUS ERYTHMATOSUS 10/25/2024 12:0 0 PM WASHING MACHINE MECHANIC us Tianna Mariscal MD LABORATORY Final Result Performing Organization Address City/[facility] Co de Phone Number [facility] [address] [place] [address], [phone] * (ABNORMAL) COMPLEMENT C4 (10/25/2024 12:00 PM WASHING MACHINE MECHANIC) COMPLEMENT C4 51.5(H) 10.0 - 40.0 MG/DL 10/26/2024 2:03 PM WASHING MACHINE MECHANIC [facility] 10/25/2024 12:0 0 PM WASHING MACHINE MECHANIC us Tianna Mariscal MD LABORATORY Final Result Performing Organization Address [facility] Co de Phone Number [facility] [address] [place] [address], [phone] * COMPLEMENT C3 (10/25/2024 12:00 PM WASHING MACHINE MECHANIC) COMPLEMENT C3 170.0 90.0 - 180.0 MG/DL 10/26/2024 2:03 PM WASHING MACHINE MECHANIC [facility] 10/25/2024 12:0 0 PM WASHING MACHINE MECHANIC us Tianna Mariscal MD LABORATORY Final Result Performing Organization Address City/[facility] Co de Phone Number [facility] [address] [place] [address], [place] [phone] * PTH - INTACT (10/25/2024 12:00 PM WASHING MACHINE MECHANIC) PTH 71.4 18.4 - 80.1 PG/ML 10/26/2024 12:01 PM [facility] Comment: ASSAY PERFORMED BY CHEMILUMINESCENCE METHODOLOGY USING SIEMENS CENTAUR XPT REAGENT. PATIENT RESULTS DETERMINED BY ASSAYS USING DIFFERENT MANUFACTURERS FOR METHODS MAY NOT BE COMPARABLE. 10/25/2024 12:0 0 PM WASHING MACHINE MECHANIC us Tianna Mariscal MD LABORATORY Final Result [facility] [address] [place] [address], [place] [phone] * (ABNORMAL) RENAL FUNCTION PANEL (10/25/2024 12:00 PM WASHING MACHINE MECHANIC) SODIUM S/P/B 142 136 - 145 MMOL/L 10/25/2024 12:21 PM [facility] POTASSIUM S/P/B 4.1 3.5 - 5.1 MMOL/L 10/25/2024 12:21 PM [facility] CHLORIDE S/P/B 104 98 - 107 MMOL/L 10/25/2024 12:21 PM [facility] CO2 29.9 21.0 - 32.0 MMOL/L 10/25/2024 12:21 PM [facility] GLUCOSE 114(H) 70 - 99 MG/DL 10/25/2024 12:21 PM [facility] Comment: FASTING GLUCOSE 100 TO 125 MG/DL IS CONSISTENT WITH IMPAIRED FASTING GLUCOSE. FASTING GLUCOSE >125 MG/DL IS CONSISTENT WITH DIABETES. RANDOM GLUCOSE >200 MG/DL WITH HYPERGLYCEMIC SYMPTOMS IS CONSISTENT WITH DIABETES. PER ADA GUIDELINES BUN 18 6 - 24 MG/DL 10/25/2024 12:21 PM [facility] CREATININE S/P/B 1.29(H) 0.55 - 1.02 MG/DL 10/25/2024 12:21 PM [facility] CALCIUM S/P/B 9.7 8.4 - 10.5 MG/DL 10/25/2024 12:21 PM WASHING MACHINE MECHANIC [facility] ALBUMIN S/P/B 3.3(L) 3.4 - 5.0 G/DL 10/25/2024 12:21 PM WASHING MACHINE MECHANIC [facility] PHOSPHORUS 4.0 2.6 - 4.7 MG/DL 10/25/2024 12:21 PM [facility] ANION GAP 8.1 5.0 - 15.0 MMOL/L 10/25/2024 12:21 PM WASHING MACHINE MECHANIC [facility] OSMOLALITY (CALC) 297 MOSM/KG 024 12:21 PM [facility] Comment:REFERENCE RANGE NOT ESTABLISHED GFR ESTIMATE 44(L) >89 ML/MIN/1. 73 M2 10/25/2024 12:21 PM [facility] GFR NOTES GFR REFERENCE S: 10/25/2024 12:21 PM [facility] Comment: THE ESTIMATED GFR IS CALCULATED USING THE 2020 CKD-EPI EQUATION. THE FOLLOWING CATEGORIES FOR GRADING RENAL FUNCTION ARE RECOMMENDED BY THE INTERNATIONAL SOCIETY OF NEPHROLOGY (KDIGO 2012 CLINICAL PRACTICE GUIDELINE). G1,NORMAL OR HIGH: >89 ml/min/1.73 m2 G2,MILDLY DECREASED: 60-89 ml/min/1.73 m2 G3A,MILDLY TO MODERATELY DECREASED: 45-59 ml/min/1.73 m2 G3B,MODERATELY TO SEVERELY DECREASED: 30-44 ml/min/1.73 m2 G4,SEVERELY DECREASED: 15-29 ml/min/1.73 m2 G5,KIDNEY FAILURE: <15 ml/min/1.73 m2 10/25/2024 12:0 0 PM WASHING MACHINE MECHANIC us Tianna Mariscal MD LABORATORY Final Result [facility] [address] [place] [address], * IMMUNOFIXATION (10/25/2024 12:00 PM WASHING MACHINE MECHANIC) IMMUNOFIXATION SERUM SEE PATHOLOGIST'S INTERPRETATION 10/27/2024 12:44 PM WASHING MACHINE MECHANIC [facility] IMMUNOFIX (SERUM) INTERPRETATION THIS SERUM IMMUNOTYPING WAS INTERPRETED BY 10/28/2024 6:01 AM WASHING MACHINE MECHANIC [facility] Comment: DR VIKRAM MARCELO MONOCLONAL PROTEIN NOT IDENTIFIED 10/25/2024 12:0 0 PM WASHING MACHINE MECHANIC us Tianna Mariscal MD LABORATORY Final Result Performing Organization Address [facility] Co de Phone Number [facility] [address] [place] [address], [place] [phone] * HEPATITIS PANEL,ACUTE (10/25/2024 12:00 PM WASHING MACHINE MECHANIC) HEPATITIS B SURFACE AG NON-REACT MISA NON-REACT MISA 10/26/2024 9:28 PM WASHING MACHINE MECHANIC [facility] Comment:HBsAg NOT DETECTED. HEP B CORE IGM NON-REACT MISA NON-REACT MISA 10/26/2024 9:28 PM WASHING MACHINE MECHANIC [facility] Comment: IgM ANTI HBc NOT DETECTED. DOES NOT EXCLUDE THE POSSIBILITY OF EXPOSURE TO OR INFECTION WITH HBV. NO RETEST REQUIRED. HIGH DOSES OF BIOTIN MAY INTERFERE WITH THIS TEST RESULT. CORRELATION TO CLINICAL HISTORY AND PRESENTATION RECOMMENDED. HAV IGM NON-REACT MISA NON-REACT MISA 10/26/2024 9:28 PM WASHING MACHINE MECHANIC [facility] Comment: IgM ANTI HAV NOT DETECTED. DOES NOT EXCLUDE THE POSSIBILITY OF EXPOSURE TO OR INFECTION WITH HAV. LEVELS OF IgM ANTI HAV MAY BE BELOW THE CUTOFF IN EARLY INFECTION. HEPATITIS C AB NON-REACT MISA NON-REACT MISA 10/26/2024 9:28 PM WASHING MACHINE MECHANIC [facility] Comment: ANTIBODIES TO HCV NOT DETECTED. DOES NOT EXCLUDE THE POSSIBILITY OF EXPOSURE TO HCV. 10/25/2024 12:0 0 PM WASHING MACHINE MECHANIC us Tianna Mariscal MD LABORATORY Final Result Performing Organization Address [facility] Co de Phone Number [facility] [address] [place] [address], [place] [phone] * (ABNORMAL) CBC W/DIFF AUTOMATED (10/25/2024 12:00 PM WASHING MACHINE MECHANIC) WBC 10.34 4.00 - 10.80 x10'3/uL 10/25/2024 12:19 PM [facility] RBC 5.23 4.10 - 5.40 x10'6/uL 10/25/2024 12:19 PM [facility] HGB 13.4 12.0 - 16.0 G/DL 10/25/2024 12:19 PM [facility] HCT 43.0 36.0 - 47.0 % 10/25/2024 12:19 PM [facility] MCV 82.2 78.0 - 100.0 FL 10/25/2024 12:19 PM [facility] MCH 25.6(L) 27.0 - 31.0 PG 10/25/2024 12:19 PM [facility] MCHC 31.2(L) 33.0 - 36.0 G/DL 10/25/2024 12:19 PM [facility] RDW 17.8(H) 11.5 - 14.5 % 10/25/2024 12:19 PM [facility] PLT 247 150 - 350 x10'3/uL 10/25/2024 12:19 PM [facility] MPV 10.9(H) 7.4 - 10.4 FL 10/25/2024 12:19 PM [facility] CBC COMMENT NORMAL REFERENCE RANGE NOT ESTABLISHED FOR THE PROPORTIONAL LEUKOCYTE DIFFERENTIAL. 10/25/2024 12:19 PM [facility] NEUTROPHILS % 73.2 % 10/25/2024 12:19 PM [facility] LYMPHOCYTES % 18.3 % 10/25/2024 12:19 PM [facility] MONOCYTES % 5.0 % 10/25/2024 12:19 PM [facility] EOSINOPHILS % 2.3 % 10/25/2024 12:19 PM [facility] BASOPHILS % 0.5 % 10/25/2024 12:19 PM WASHING MACHINE MECHANIC [facility] IMMATURE GRANS % 0.7 % 10/25/20 12:19 PM WASHING MACHINE MECHANIC [facility] NRBC % 0.0 % 10/25/2024 12:19 PM WASHING MACHINE MECHANIC [facility] ABS. NEUTROPHILS 7.57 1.60 - 8.30 x10'3/uL 10/25/2024 12:19 PM WASHING MACHINE MECHANIC [facility] ABS. LYMPHOCYTES 1.89 0.80 - 4.70 x10'3/uL 10/25/2024 12:19 PM WASHING MACHINE MECHANIC [facility] ABS. MONOCYTES 0.52 0.00 - 1.50 x10'3/uL 10/25/2024 12:19 PM [facility] ABS. EOSINOPHILS 0.24 0.00 - 0.40 x10'3/uL 10/25/2024 12:19 PM [facility] ABS. BASOPHILS 0.05 0.00 - 0.20 x10'3/uL 10/25/2024 12:19 PM [facility] ABS. IMMATURE GRANULOCYTES 0.07(H) 0.00 - 0.03 x10'3/uL 10/25/2024 12:19 PM [facility] ABS. NUCLEATED RBC'S 0.00 0.00 - 0.01 x10'3/uL 10/25/2024 12:19 PM [facility] 10/25/2024 12:0 0 PM WASHING MACHINE MECHANIC us Tianna Mariscal MD LABORATORY Final Result [facility] [address] [place] [address], * PROTEIN, ELECTROPHORESIS (10/25/2024 12:00 PM WASHING MACHINE MECHANIC) TOTAL PROTEIN S/P/B 7.3 6.0 - 8.3 G/DL 10/27/2024 12:43 PM WASHING MACHINE MECHANIC [facility] ALBUMIN S/P/B 3.7 3.4 - 4.9 G/DL 10/27/2024 12:42 PM WASHING MACHINE MECHANIC [facility] [id number] S/P/B 0.4 0.2 - 0.4 G/DL 10/27/2024 12:42 PM WASHING MACHINE MECHANIC [facility] [id number] S/P/B 1.0 0.4 - 1.0 G/DL 10/27/2024 12:42 PM WASHING MACHINE MECHANIC [facility] BETA GLOBULIN S/P/B 1.0 0.5 - 1.2 G/DL 10/27/2024 12:42 PM WASHING MACHINE MECHANIC [facility] GAMMA GLOBULIN S/P/B 1.2 0.6 - 1.6 G/DL 10/27/2024 12:42 PM WASHING MACHINE MECHANIC [facility] ELECTROPHORESIS INTERPRETATION THIS SERUM PEP WAS INTERPRETED BY 10/28/2024 6:00 AM WASHING MACHINE MECHANIC [facility] Comment: DR VIKRAM MARCELO THE TOTAL SERUM PROTEIN IS NORMAL. ELECTROPHORESIS IDENTIFIES NO QUANTITATIVE ABNORMALITIES WITHIN THE PROTEIN FRACTIONS. MONOCLONAL PROTEINS ARE NOT DETECTED. 10/25/2024 12:0 0 PM WASHING MACHINE MECHANIC us Tianna Mariscal MD LABORATORY Final Result Performing Organization Address City/[facility]/ZIP Co de Phone Number [facility] [address] [place] [address], [place] [phone] * URIC ACID BLOOD (10/25/2024 12:00 PM WASHING MACHINE MECHANIC) URIC ACID 4.2 2.6 - 6.0 MG/DL 10/25/2024 12:21 PM WASHING MACHINE MECHANIC [facility] 10/25/2024 12:0 0 PM WASHING MACHINE MECHANIC us Tianna Mariscal MD LABORATORY Final Result [facility] [address] [place] [address], [place] [phone] * (ABNORMAL) PROTEIN ELECTROPHORESIS URINE RANDOM (10/25/2024 11:48 AM WASHING MACHINE MECHANIC) PROTEIN URINE TOTAL RANDOM 16.5(H) <12.0 MG/DL 10/27/2024 12:43 PM WASHING MACHINE MECHANIC [facility] INTERPRETATION THIS URINE PEP WAS INTERPRETED BY 10/28/2024 6:01 AM WASHING MACHINE MECHANIC [facility] Comment: DR VIKRAM MARCELO THERE IS MILD RANDOM PROTEINURIA, WHICH IS MAINLY ALBUMIN. A MONOCLONAL PROTEIN (BENCE MCKENZIE PROTEIN) IS NOT SEEN IN THIS RANDOM SAMPLE. URINE SPECIMEN / Unknown 10/25/2024 11:48 AM WASHING MACHINE MECHANIC us Tianna Mariscal MD URINE ORDERABLES Final Result Performing Organization Address [facility] Co de Phone Number [facility] [address] [place] [address], [place] [phone] * (ABNORMAL) PROTEIN CREAT RATIO URINE (10/25/2024 11:48 AM WASHING MACHINE MECHANIC) PROTEIN URINE TOTAL RANDOM 18.0(H) <11.9 MG/DL 10/25/2024 12:21 PM WASHING MACHINE MECHANIC [facility] CREATININE RANDOM (U) 95.1 MG/DL 10/25/2024 12:21 PM WASHING MACHINE MECHANIC [facility] Comment:REFERENCE RANGE NOT ESTABLISHED PROTEIN/CREATINI NE RATIO 0.2 10/25/2024 12:21 PM WASHING MACHINE MECHANIC [facility] Comment:CALCULATED VALUE. ANDARD REFERENCE RANGE HAS NOT BEEN ESTABLISHED. URINE SPECIMEN / Unknown 10/25/2024 11:48 AM WASHING MACHINE MECHANIC us Tianna Mariscal MD URINE ORDERABLES Final Result [facility] [address] [place] [address], [place] [phone] * (ABNORMAL) URINALYSIS (10/25/2024 11:48 AM WASHING MACHINE MECHANIC) COLOR (U) YELLOW 10/25/2024 12:30 PM WASHING MACHINE MECHANIC [facility] TRANSPARENCY CLEAR 10/25/2024 12:30 PM WASHING MACHINE MECHANIC [facility] SPECIFIC GRAVITY (U) 1.020 1.000 - 1.025 10/25/2024 12:30 PM WASHING MACHINE MECHANIC [facility] U PH 5.5 5.0 - 8.0 10/25/2024 12:30 PM WASHING MACHINE MECHANIC [facility] LEUKOCYTES (U) NEGATIVE NEGATIVE 10/25/2024 12:30 PM WASHING MACHINE MECHANIC [facility] NITRITES NEGATIVE NEGATIVE 10/25/2024 12:30 PM WASHING MACHINE MECHANIC [facility] PROTEIN RANDOM (U) NEGATIVE NEGATIVE 10/25/2024 12:30 PM WASHING MACHINE MECHANIC [facility] GLUCOSE (U) 3+(A) NEGATIVE 10/25/2024 12:30 PM WASHING MACHINE MECHANIC [facility] KETONES MG/DL (U) NEGATIVE NEGATIVE 10/25/2024 12:30 PM WASHING MACHINE MECHANIC [facility] UROBILINOGEN 0.2 <1.0 EU/DL 10/25/2024 12:30 PM WASHING MACHINE MECHANIC [facility] BILIRUBIN (U) NEGATIVE NEGATIVE 10/25/2024 12:30 PM WASHING MACHINE MECHANIC [facility] BLOOD (U) NEGATIVE NEGATIVE 10/25/2024 12:30 PM WASHING MACHINE MECHANIC [facility] WBC/HPF 5-10(A) 0 - 5 /HPF 10/25/2024 12:30 PM WASHING MACHINE MECHANIC [facility] EPI/LPF OCCASIONAL /LPF 10/25/2024 12:30 PM WASHING MACHINE MECHANIC [facility] BACTERIA (U) 1+ /HPF 10/25/2024 12:30 PM WASHING MACHINE MECHANIC [facility] MUCUS PRESENT 10/25/2024 12:30 PM WASHING MACHINE MECHANIC [facility] URINE SPECIMEN OBTAINED BY CLEAN CATCH PROCEDURE / Unknown 10/25/2024 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
--- OUTSIDE RECORDS SUMMARY | 2024-12-19 02:42 | XMS_ITS | Encounter Summary ---
Author Organization [facility] Address [address] [place] [address] Phone Care Team Providers Care Supervisor Lead Burning Name Role Phone Scooby Guillermo MD Primary Care Provider [phone] Esme Adler NP Primary Care Provider + Unknown, Notinfile Primary Care Provider Unavail able Scooby Guillermo MD Primary Care Provider [phone] Bacilio Francisco MD Unavailable [phone] Encounter Details Date Type Department Care Team (Late st Contact Info) Description 01/30/2022 Orders Only [facility] Scanning, Provider Social History Tobacco Use Types Packs/Day Years Used Date Smoking Tobacco: Never Assessed Comments Unknown Sex and Gender Information Value Date Recorded Sex Assigned at Not on file Legal 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 Gender Identity Not on file Sexual Orientation Not on file documented as of this encounter Plan of Treatment Not on file documented as of this encounter Procedures Procedure Name Priority Date/Time Associated Diagnosis Comments SCAN - RADIOLOGY/IMAGING 01/30/2022 documented in this encounter Results * SCAN - RADIOLOGY/IMAGING (01/30/2022) Anatomical Region Laterality Modality Other us Provider Scanning Final Result documented in this encounter Visit Diagnoses Not on filedocumented in this encounter Additional Health Concerns Infection Onset Date Last Indicated Resolved Time COVID19 01/07/2023 01/07/2023 01/23/2023 3:05 AM CDT documented as of this encounter Care Teams Supervisor Lead Burning Relationship Specialty Start Date End Date Scooby Guillermo MD PCP - General 03/31/08 04/01/22 Esme Adler NP [address] [address] PCP - General Nurse Practitioner 04/02/22 07/09/23 Unknown, Notinfile PCP - General 07/10/23 07/18/24 Scooby Guillermo MD PCP - General Internal Medicine 07/19/24 [place] [address] [facility] [address], [place] [address] Consulting Physician Nephrology 07/28/24 documented as of this encounter
--- OUTSIDE RECORDS SUMMARY | 2024-12-19 02:42 | XMS_ITS | Referral Summary ---
Author Organization [facility] Address [address] [place] [address] Care Team Providers Care Head Setter Name Role Phone Scooby Guillermo MD Primary Care Provider [phone] Bacilio Francisco MD Unavailable [phone] Encounters Date Type Department Care Team Description 10/14/2024 1:01 PM LOCAL ANNOUNCER Anesthesia Event [facility] [address] [place] [phone] Kalpesh Anderson DO Winfrey, Tonya M., NATALIE 10/14/2024 1:00 PM LOCAL ANNOUNCER - 10/14/2024 1:30 PM LOCAL ANNOUNCER Surgery [facility] [address] [place] [phone] Sai Munroe MD EGD 10/14/2024 11:03 AM LOCAL ANNOUNCER - 10/14/2024 2:00 PM LOCAL ANNOUNCER Hospital Encounter [facility] [address] [place] [phone] Sai Munroe MD Discharge Disposition: Discharge to home or self care 10/01/2024 Telephone [facility] [address] [facility] [address] [place] [address] Ary Santana LPN GI Preprocedure 09/30/2024 Telephone [facility] 12th [place] [address] [place] [address] Marcela Bowers, RN Scheduling Testing/Treatment (EGD) from Last 3 Months Allergies Active Allergy Reactions Criticality Noted Date Comments Codeine Rash Medium 04/24/2022 Diphenhydramine Mental status changes Low 2 Penicillins Hives Medium 04/24/2022 Medications LANTUS 100 unit/mL (3 mL) pen for injection ADMINISTER 10 UNITS UNDER THE SKIN EVERY NIGHT 2 Active traMADol-acetami nophen (ULTRACET) 37.5-325 mg per tablet Take 1 tablet by mouth 3 (three) times a day as needed for pain 2 Active atorvastatin (LIPITOR) 20 mg tablet Take 1 tablet (20 mg total) by mouth daily Active DULoxetine DR (CYMBALTA) 30 mg capsule Take 1 capsule (30 mg total) by mouth daily Active metoclopramide (REGLAN) 10 mg tablet Take 1 tablet (10 mg total) by mouth 4 (four) times a day Active BinaxNOW COVID-19 Ag Self Test kit TEST DIRECTED TODAY 2 Active BD Genesis 2nd Gen Pen Needle 32 gauge x 5/32 needle USE TO INJECT INSULIN DIRECTED 2 Active dapagliflozin propanediol (FARXIGA) 10 mg tablet 1 tablet (10 mg total) Active verapamiL (CALAN) 120 mg tablet Take 1 tablet (120 mg total) by mouth 3 (three) times a day Active dapagliflozin propanediol (FARXIGA ORAL) Take 10 mg by mouth daily Active rOPINIRole (REQUIP) 1 mg tablet Take 1 tablet (1 mg total) by mouth 3 (three) times a day Active fluticasone propionate (FLONASE) 50 mcg/actuation nasal spray Administer 2 sprays into affected nostril(s) 2 (two) times a day 4 Active losartan (COZAAR) 100 mg tablet Take 1 tablet (100 mg total) by mouth daily 4 Active allopurinoL (ZYLOPRIM) 100 mg tablet Take 1 tablet (100 mg total) by mouth daily 4 Active calcitRIOL (ROCALTROL) 0.25 mcg capsule TAKE 1 CAPSULE BY MOUTH EVERY OTHER DAY Active diclofenac sodium (VOLTAREN) 1 % gel Apply 2 g topically 4 (four) times a day 4 Active pregabalin (LYRICA) 150 mg capsule TAKE 1 TO 2 CAPSULES BY MOUTH AT BEDTIME DIRECTED 4 Active sucralfate (CARAFATE) 1 gram tablet sucralfate 1 gram tablet Active traMADoL (ULTRAM) 50 mg tablet Take 1 tablet (50 mg total) by mouth 3 (three) times a day Active levothyroxine (SYNTHROID) 150 mcg tablet Take 1 tablet (150 mcg total) by mouth daily 4 Active Active Problems Problem Noted Date Diagnosed Date Polyp of stomach and duodenum 10/01/2024 Acute blood loss anemia 01/08/2023 Assessment & Plan (01/13/2023 3:24 PM LOCAL ANNOUNCER): H/H drop after duodenal mass excision/EGD 01/07 - Monitor H/H closely as patient with melenic stools. - Monitor VS - pRBC transfusion if Hgb<7 - Per GI: advance diet as tolerated. Currently on a regular diet. - Patient to discharge on home OMEPRAZOLE BID. Duodenal mass 01/07/2023 Assessment & Plan (01/09/2023 4:09 PM LOCAL ANNOUNCER): See Polyp of duodenum S/p resection 01/07/23, pathology resulted without high grade dysplasia or features concerning for carcinoma. HTN (hypertension) 01/07/2023 Assessment & Plan (01/13/2023 3:22 PM LOCAL ANNOUNCER): - Hold antihypertensive meds while bleeding and BP soft. Should be restarted by PCP. Assessment & Plan (01/07/2023 8:53 PM LOCAL ANNOUNCER): Continue on Maxzide Monitor vitals HLD (hyperlipidemia) 01/07/2023 Assessment & Plan (01/08/2023 12:44 PM LOCAL ANNOUNCER): Continue on statins Assessment & Plan (01/07/2023 8:54 PM LOCAL ANNOUNCER): Continue on statins T2DM (type 2 diabetes mellitus) 01/07/2023 Assessment & Plan (01/09/2023 4:05 PM LOCAL ANNOUNCER): On metformin at home and Lantus 10 units nightly. Sugars thus far have been appropriate without acute need for insulin while NPO. Will restart once patient starting PO challenged after procedure. - Monitor BG and add SSI if needed Assessment & Plan (01/07/2023 8:55 PM LOCAL ANNOUNCER): On metformin at home and Lantus Will hold onto insulin at this time as NPO Monitor BG and add SSI if needed History of pulmonary embolism 01/07/2023 Assessment & Plan (01/09/2023 4:08 PM LOCAL ANNOUNCER): H/o PE in 2021, when she was on Eliquis for 5-6 months, on no AC for past 6 months. Monitor vitals, not a candidate for AC at this time due to GI bleeding Assessment & Plan (01/07/2023 8:56 PM LOCAL ANNOUNCER): H/o PE in 2021, when she was on Eliquis for 5-6 months, on no AC for past 6 months. Monitor vitals GERD (gastroesophageal reflux disease) Assessment & Plan (01/13/2023 3:23 PM LOCAL ANNOUNCER): - Patient will discharge on omeprazole BID. 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 Munroe: A medium-sized (25 mm) frond-like/villous mass, consistent with adenoma, with no bleeding was found in the second portion of the duodenum. The lesion was separate from the ampulla. Mucosal resection was performed. The edges of the lesion were treated with soft coagulation. - Surgical pathology resulted: Negative for high-grade dysplasia or invasive adenocarcinoma. - On 01/08: pt has maroon/bloody stools, dark with melena. GI service aware, plan for repeat EGD and Hg decreasing, low on rpt. - Now s/p coagulation of biopsy site with clips - Patient will have surveillance scope in 6 months per Gi. Assessment & Plan (01/07/2023 8:53 PM LOCAL ANNOUNCER): Adenomatous duodenal polyp EGD 01/[address] Munroe: A medium-sized (25 mm) frond-like/villous mass, consistent with adenoma, with no bleeding was found in the second portion of the duodenum. The lesion was separate from the ampulla. Mucosal resection was performed. The edges of the lesion were treated with soft coagulation. - pending pathology results. NPO tonight. If Hgb stable overnight and patient pain free can advance diet starting from full liquids tomorrow. Abdominal pain 04/24/2022 Overview (04/24/2022): Added automatically from request for surgery [id number] Social History Tobacco Use Types Packs/Day Years Used Date Smoking Tobacco: Never AUDIT-C Answer Date Recorded Q1: How often do you have a drink containing alcohol? Never 10/05/2024 Q2: How many drinks containi ng alcohol do you have on a typical day when you are drinking? Patient does not drink Q3: How often do you have si x or more drinks on one occasion? Never 10/05/2024 Personal Safety Answer Date Recorded Have you ever been in or are you currently in a harmful physical or emotional relationship or is someone making you feel afraid or unsafe? Denies 10/14/2024 Comments No Sex and Gender Information Value Date Recorded Sex Assigned at Not on file Legal Sex Female 12:42 AM LOCAL ANNOUNCER Gender Identity Not on file Sexual Orientation Not on file Last Filed Vital Signs Vital Sign Reading Time Taken Comments Blood Pressure 132/77 10/14/2024 2:00 PM LOCAL ANNOUNCER Pulse 62 10/14/2024 2:00 PM LOCAL ANNOUNCER Temperature 35.9 C (96.6 F) 10/14/2024 12:35 PM LOCAL ANNOUNCER Respiratory Rate 15 10/14/2024 2:00 PM LOCAL ANNOUNCER Oxygen Saturation 91% 10/14/2024 2:00 PM LOCAL ANNOUNCER Inhaled Oxygen Concentration - - Weight 95.3 kg (210 lb) 10/14/2024 12:35 PM LOCAL ANNOUNCER Height 165.1 cm (5' 5 ) 10/14/2024 12:35 PM LOCAL ANNOUNCER Body Mass Index 34.95 10/14/2024 12:35 PM LOCAL ANNOUNCER Plan of Treatment Not on file Medical Devices Implanted Type Area Breeder Service Technician Device Identifier Shelf Expiration Date Model / Serial / Lot Conmed Jaquelin Conmed 11mm Duraclip [id number] - [id number] Implanted:Qty: 1 on 01/09/2023 by Aidan Guadalupe MD at [facility] Left: Duodenum Conmed Jaquelin 08/30/2024 [id number] / / [id number] Conmed Jaquelin Conmed 11mm Duraclip [id number] - [id number] Implanted:Qty: 1 on 01/09/2023 by Aidan Guadalupe MD at [facility] Left: Duodenum Conmed Jaquelin 08/30/2024 [id number] / / [id number] Conmed Jaquelin Conmed 16mm Duraclip [id number] - [id number] Implanted:Qty: 1 on 01/09/2023 by Aidan Guadalupe MD at [facility] Left: Duodenum Conmed Jaquelin 01/17/2025 [id number] / / [id number] Procedures Procedure Name Priority Date/Time Associated Diagnosis Comments ESOPHAGOGASTRODUODENOSCOPY 10/14 12:58 PM LOCAL ANNOUNCER Duodenal adenoma Polyp of stomach and duodenum EGD 10/14/2024 12:54 PM LOCAL ANNOUNCER POCT GLUCOSE DEVICE Routine 10/14/2024 1 2:45 PM LOCAL ANNOUNCER EGFR Routine 01/12/2023 10:35 PM LOCAL ANNOUNCER from Last 3 Months or Most Recently Relevant to Health Maintenance Results * EGD (10/14/2024 12:54 PM LOCAL ANNOUNCER) Anatomical Region Laterality Modality Other Narrative Procedure Note Sai Munroe MD - 10/14/2024 12:54 PM CST ENDOSCOPY LAB Patient Name: Juanito Austin Procedure Date: 10/14/2024 12:54 PM Admit Type: Outpatient Room: [facility] Date of : 1950 Instrument Name: [id number] Gender: Female Note Status: Finalized Procedure: Upper GI endoscopy Indications: Surveillance procedure - history of duodenaladenoma s/p EMR Providers: Sai Munroe M.D. Referring MD: Brendan Burks M.D. Medicines: Monitored Anesthesia Care Complications: No immediate complications. Estimated Blood Loss: Estimated blood loss: none. Procedure: Pre-Anesthesia Assessment: - The risks and benefits of the procedure and the sedation options and risks were discussed with the patient. All questions were answered and informed consent was obtained. - Immediately prior to administration ofmedications, the patient was re-assessed for adequacy to receive sedatives. The benefits, risks, and alternatives to theprocedure and sedation were discussed and informed consentwas obtained. The scope was passed under direct vision. The TJF-Q345 was introduced through the mouth, and advanced to the second part of duodenum. Thebenefits, risks, and alternatives to the procedure andsedation were discussed and informed consent was obtained.The upper GI endoscopy was accomplished without difficulty. The patient tolerated the procedurewell. Findings: The upper GI tract was traversed under direct vision without detailed examination. The ampulla and second portion of the duodenum werenormal. No evidence of residual polyp appreciated. Impression: - Normal ampulla. - No evidence of recurrent or residual polyp. Recommendation: - Observe patient's clinical course. - Return to referring physician as previously scheduled. - [facility] [address] [facility] Attending Participation: I personally performed the entire procedure. Electronically signed by Sai Munroe M.D. Sai Munroe M.D. 10/14/2024 1:23:10 PM This document was signed electronically. Number of Addenda: 0 Note Initiated On: 10/14/2024 12:54 PM Scope In: Scope Out: us Sai Munroe MD ENDOSCOPY PROCEDURES Final Result * POCT glucose (10/14/2024 12:45 PM LOCAL ANNOUNCER) Glucose, POC 101 70 - 199 mg/dL Comment: For Glucose values <35 mg/dl when Hematocrit is >60 mg/dl,the test may not accurately detect significant hypoglycemia,and testing in the Laboratory should be considered if clinically indicated. Blood 10/14/2024 12:4 5 PM LOCAL ANNOUNCER 10/14/2024 12:45 PM LOCAL ANNOUNCER us Sai Munroe MD LAB POCT ORDERABLES - ESTELA CE Final Result [facility] [address] [place] [address] * (ABNORMAL) eGFR (01/12/2023 10:35 PM LOCAL ANNOUNCER) eGFR 40(L) 90 - 130 mL/min/1. 73 m2 [facility] Comment: Interpretive Data Reference Interval Normal >/= 90 mL/min/1.73m2 Mildly decreased* 60 - 89 mL/min/1.73m2 Mildly to moderately decreased 45 - 59 mL/min/1.73m2 Moderately to severely decreased 30 - 44 mL/min/1.73m2 Severely decreased 15 - 29 mL/min/1.73m2 Kidney Failure < 15 mL/min/1.73m2 *Relative to young adult level Estimated glomerular filtration rate is determined by the 2020 CKD-EPI equation recommended by the National Kidney Foundation (A Unifying Approach to GFR Estimation: Recommendations of the NKF-ASK Task Force on Reassessing the Inclusion of Race in Diagnosing Kidney Disease, JASN 2020). The CKD-EPI equation should not be used for patients with unstable renal function and has not been validated in children and those over 70. Current interpretive data was last reviewed 2021. Blood 01/12/2023 10:3 5 PM LOCAL ANNOUNCER 01/12/2023 11:23 PM LOCAL ANNOUNCER us Luke Britton MD LAB BLOOD ORDERABLES Final Resu lt [facility] [place] [address] from Last 3 Months or Most Recently Relevant to Health Maintenance Insurance [employer] MEDICARE Advance Directives For more information, please contact: [phone] * Full Code (Latest Code Status on File) Date Activated Date Inactivated Comments 10/14/2024 12:24 PM 10/14/2024 7:23 PM * Full Code Date Activated Date Inactivated Comments 07/15/2023 9:57 AM 07/15/2023 3:16 PM * Full Code Date Activated Date Inactivated Comments 01/07/2023 7:42 PM 01/13/2023 8:27 PM * Full Code Date Activated Date Inactivated Comments 01/07/2023 10:54 AM 01/07/2023 7:42 PM * Full Code Date Activated Date Inactivated Comments 06/24/2022 9:30 AM 06/24/2022 2:53 PM Care Teams Head Setter Relationship Specialty Start Date End Date Scooby Guillermo MD PCP - General Internal Medicine 07/19/24 [place] [id number] [facility] [address] [place] [address] Consulting Physician Nephrology 07/28/24
--- OUTSIDE RECORDS SUMMARY | 2024-12-19 02:42 | XMS_ITS | Encounter Summary ---
Author Organization [facility] Address [address] [place] [address] Phone Care Team Providers Care Regulatory Administrator Name Role Phone Scooby Guillermo MD Primary Care Provider [phone] Esme Adler NP Primary Care Provider + Unknown, Notinfile Primary Care Provider Unavail able Scooby Guillermo MD Primary Care Provider [phone] Bacilio Francisco MD Unavailable [phone] Encounter Details Date Type Department Care Team (Late st Contact Info) Description 02/01/2022 Orders Only [facility] Scanning, Provider Social History Tobacco Use Types Packs/Day Years Used Date Smoking Tobacco: Never Assessed Comments Unknown Sex and Gender Information Value Date Recorded Sex Assigned at Not on file Legal Sex Female 12:42 AM VOIP NETWORK ENGINEER Gender Identity Not on file Sexual Orientation Not on file documented as of this encounter Plan of Treatment Not on file documented as of this encounter Procedures Procedure Name Priority Date/Time Associated Diagnosis Comments SCAN - RADIOLOGY/IMAGING 02/01/2022 documented in this encounter Results * SCAN - RADIOLOGY/IMAGING (02/01/2022) Anatomical Region Laterality Modality Other us Provider Scanning Final Result documented in this encounter Visit Diagnoses Not on filedocumented in this encounter Additional Health Concerns Infection Onset Date Last Indicated Resolved Time COVID19 01/07/2023 01/07/2023 01/23/2023 3:05 AM CDT documented as of this encounter Care Teams Regulatory Administrator Relationship Specialty Start Date End Date Scooby Guillermo MD PCP - General 03/31/08 04/01/22 Esme Adler NP [address] [address] PCP - General Nurse Practitioner 04/02/22 07/09/23 Unknown, Notinfile PCP - General 07/10/23 07/18/24 Scooby Guillermo MD PCP - General Internal Medicine 07/19/24 [place] [id number] [facility] [address] [address] Consulting Physician Nephrology 07/28/24 documented as of this encounter
--- OUTSIDE RECORDS SUMMARY | 2024-12-19 02:42 | XMS_ITS | Encounter Summary ---
Author Organization [facility] Address [address] [place] [address] Care Team Providers Care General Education Instructor Name Role Phone Scooby Guillermo MD Primary Care Provider Encounter Details Date Type Department Care Team (Latest Contact Info) Description 09/15/2018 Abstract [facility] , Kimberlee Long MD Social History Tobacco Use Types Packs/Day Years Used Date Smoking Tobacco: Never Comments Unknown Sex and Gender Information Value Date Recorded Sex Assigned at Female 12/06/2024 7:39 AM RAMP BOSS Legal Sex Female 8:54 PM CDT Gender Identity Female 12/06/2024 7:39 AM RAMP BOSS Sexual Orientation Not on file documented as of this encounter Plan of Treatment Upcoming Encounters Date Type Department Care Team (Late st Contact Info) Description 01/24/2025 12:45 PM CDT Office Visit [facility] [address] [place] [address] [place] [address] [place] [phone] (Work) documented as of this encounter Visit Diagnoses Not on filedocumented in this encounter Care Teams General Education Instructor Relationship Specialty Start Date End Date Scooby Guillermo MD [address] [place] [id number] PCP - General INTERNAL MEDICINE 04/06/24 documented as of this encounter
--- OUTSIDE RECORDS SUMMARY | 2024-12-19 02:42 | XMS_ITS | Clinical Summary ---
Author Organization [facility] Address [address] [place] [address] Care Team Providers Care Spanish Teacher Name Role Phone Scooby Guillermo MD Primary Care Provider [phone] Bacilio Francisco MD Unavailable [phone] Allergies Active Allergy Reactions Criticality Noted Date [...] 01/08/2023 Assessment & Plan (01/13/2023 3:24 PM FRUIT ROOM HAND): H/H drop after duodenal mass excision/EGD 01/07 - Monitor H/H closely as patient with melenic stools. - Monitor VS - pRBC transfusion if Hgb<7 - Per GI: advance diet as tolerated. Currently on a regular diet. - Patient to discharge on home OMEPRAZOLE BID. 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 HTN (hypertension) 01/07/2023 Assessment & Plan (01/13/2023 3:22 PM FRUIT ROOM HAND): - Hold antihypertensive meds while bleeding and BP soft. Should be restarted by PCP. Assessment & Plan (01/07/2023 8:53 PM FRUIT ROOM HAND): Continue on Maxzide Monitor vitals HLD (hyperlipidemia) 01/07/2023 Assessment & Plan (01/08/2023 12:44 PM FRUIT ROOM HAND): Continue on statins Assessment & Plan (01/07/2023 8:54 PM FRUIT ROOM HAND): Continue on statins T2DM (type 2 diabetes mellitus) 01/07/2023 Assessment & Plan (01/09/2023 4:05 PM FRUIT ROOM HAND): On metformin at home and Lantus 10 units nightly. Sugars thus far have been appropriate without acute need for insulin while NPO. Will restart once patient starting PO challenged after procedure. - Monitor BG and add SSI if needed Assessment & Plan (01/07/2023 8:55 PM FRUIT ROOM HAND): On metformin at home and Lantus Will hold onto insulin at this time as NPO Monitor BG and add SSI if needed History of pulmonary embolism 01/07/2023 Assessment & Plan (01/09/2023 4:08 PM FRUIT ROOM HAND): H/o PE in 2021, when she was on Eliquis for 5-6 months, on no AC for past 6 months. Monitor vitals, not a candidate for AC at this time due to GI bleeding Assessment & Plan (01/07/2023 8:56 PM FRUIT ROOM HAND): H/o PE in 2021, when she was on Eliquis for 5-6 months, on no AC for past 6 months. Monitor vitals GERD (gastroesophageal reflux disease) Assessment & Plan (01/13/2023 3:23 PM FRUIT ROOM HAND): - Patient will discharge on omeprazole BID. 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 [...] Gi. Assessment & Plan (01/07/2023 8:53 PM FRUIT ROOM HAND): Adenomatous duodenal polyp EGD 01/[address] [...] (04/24/2022): Added automatically from request for surgery [id number] Encounters Date Type Department Care Team Description 10/14/2024 1:01 PM FRUIT ROOM HAND Anesthesia Event [facility] [address] [place] [phone] Kalpesh Anderson DO Winfrey, Tonya M., NATALIE 10/14/2024 1:00 PM FRUIT ROOM HAND - 10/14/2024 1:30 PM FRUIT ROOM HAND Surgery [facility] [address] [place] [phone] Sai Munroe MD EGD 10/14/2024 11:03 AM FRUIT ROOM HAND - 10/14/2024 2:00 PM FRUIT ROOM HAND Hospital Encounter [facility] [address] [place] [phone] Sai Munroe MD Discharge Disposition: Discharge to home or self care 10/01/2024 Telephone [facility] [address] [place] [address] Ary Santana LPN GI Preprocedure 09/30/2024 Telephone [facility] [address] [place] [address] [place] [address] Marcela Bowers, RN Scheduling Testing/Treatment (EGD) from Last 3 Months Surgical History Surgery Date Site/Laterality Comments KNEE SURGERY TONSILLECTOMY PARTIAL HYSTERECTOMY 11/10/1979 - 11/09/1980 CHOLECYSTECTOMY UPPER GASTROINTESTINAL ENDOSCOPY Medical History Medical History Date Comments Hypertension Type 2 diabetes mellitus (HCC) Hyperlipidemia Hypothyroidism Peripheral neuropathy Glaucoma PE (pulmonary thromboembolism) (CMS/HCC) (HCC) GERD (gastroesophageal reflux disease) Pulmonary emboli (HCC) 07/2022 Family History Medical History Relation Name Comments Colon cancer Father Stroke Father Relation Name Status Comments Father Social History Tobacco Use Types Packs/Day Years [...] on file Legal Sex Female 12:42 AM FRUIT ROOM HAND Gender Identity Not on file Sexual Orientation Not on file Obstetrics History Last Filed Vital Signs Vital Sign Reading Time Taken Comments Blood Pressure 132/77 10/14/2024 2:00 PM FRUIT ROOM HAND Pulse 62 10/14/2024 2:00 PM FRUIT ROOM HAND Temperature 35.9 C (96.6 F) 10/14/2024 12:35 PM FRUIT ROOM HAND Respiratory Rate 15 10/14/2024 2:00 PM FRUIT ROOM HAND Oxygen Saturation 91% 10/14/2024 2:00 PM FRUIT ROOM HAND Inhaled Oxygen Concentration - - Weight 95.3 kg (210 lb) 10/14/2024 12:35 PM FRUIT ROOM HAND Height 165.1 cm (5' 5 ) 10/14/2024 12:35 PM FRUIT ROOM HAND Body Mass Index 34.95 10/14/2024 12:35 PM FRUIT ROOM HAND Plan of Treatment Health Maintenance Due Date Last Done Comments Albumin Creatinine Ratio, Urine 1950 Breast Cancer Screening-Mammogram 1950 Colon Cancer Screening-Colonoscopy 1950 Depression Screening 1950 Hemoglobin A1C 1950 Hepatitis C Screening 1950 Osteoporosis Screening-Bone Density Scan 1950 Dilated Eye Exam 1950 Foot Exam 1950 Lipid Panel 1950 DTaP/Tdap/Td Vaccine (1 - Tdap) 1961 Hepatitis B Screening 1968 Zoster Vaccine (1 of 2) 2000 Well Visit 65+ 2015 Pneumococcal vaccine 65+ (2 of 2 - PCV) 08/17/2015 08/17/2014, 08/13/2012 eGFR 01/13/2024 01/12/2023, 0302/2023, 01/11/2023, Additional history exists Covid-19 Vaccine (2023-2 5 season) 2024 06/12/2022, 09/27/2021 Influenza Vaccine (#1) 2024 10/01/2021 Fall Risk Assessment 10/14/2025 10/14/2024 Medical Devices Implanted Type Area Aircraft Powerplant Repairer Device Identifier Shelf Expiration Date Model / Serial / Lot Conmed Jaquelin Conmed 11mm Duraclip [id number] - [id number] Implanted:Qty: 1 on 01/09/2023 by Aidan Guadalupe MD at [facility] Left: Duodenum Conmed Jaquelin 08/30/2024 [id number] / / [id number] Conmed Jaquelin Conmed 11mm Duraclip [id number] - [id number] Implanted:Qty: 1 on 01/09/2023 by Aidan Guadalupe MD at [facility] Left: Duodenum Conmed Jaquelin 08/30/2024 [id number] / / [id number] Conmed Jaquelin Conmed 16mm Duraclip [id number] - [id number] Implanted:Qty: 1 on 01/09/2023 by Aidan Guadalupe MD at [facility] Left: Duodenum Conmed Jaquelin 01/17/2025 [id number] / / [id number] Procedures Procedure Name Priority Date/Time Associated Diagnosis Comments ESOPHAGOGASTRODUODENOSCOPY 10/14 12:58 PM FRUIT ROOM HAND Duodenal adenoma Polyp of stomach and duodenum EGD 10/14/2024 12:54 PM FRUIT ROOM HAND POCT GLUCOSE DEVICE Routine 10/14/2024 1 2:45 PM FRUIT ROOM HAND EGFR Routine 01/12/2023 10:35 PM FRUIT ROOM HAND from Last 3 Months or Most Recently Relevant to Health Maintenance Results * EGD (10/14/2024 12:54 PM FRUIT ROOM HAND) Anatomical Region Laterality Modality Other Narrative Procedure Note Sai Munroe MD - 10/14/2024 12:54 PM CST ENDOSCOPY LAB Patient Name: Juanito Austin Procedure Date: 10/14/2024 12:54 PM Admit Type: Outpatient Room: [facility] Date of : 1950 Instrument Name: [id number] [...] advanced to the second part of duodenum. Junior risks, and alternatives to the procedure andsedation [...] - Repeat upper endoscopy in 2 years [facility]. Attending Participation: I personally performed the entire procedure. Electronically signed by Sai Munroe M.D. Sai Munroe M.D. 10/14/2024 1:23:10 PM This document was signed electronically. Number of Addenda: 0 Note Initiated On: 10/14/2024 12:54 PM Scope In: Scope Out: Sai Munroe MD ENDOSCOPY PROCEDURES Final Result * POCT glucose (10/14/2024 12:45 PM FRUIT ROOM HAND) Glucose, POC 101 70 - 199 mg/dL Comment: For Glucose values <35 mg/dl when Hematocrit is >60 mg/dl,the test may not accurately detect significant hypoglycemia,and testing in the Laboratory should be considered if clinically indicated. Blood 10/14/2024 12:4 5 PM FRUIT ROOM HAND 10/14/2024 12:45 PM FRUIT ROOM HAND Sai Munroe MD LAB POCT ORDERABLES - ESTELA CE Final Result [facility] [address] Department [place] [address] * (ABNORMAL) eGFR (01/12/2023 10:35 PM FRUIT ROOM HAND) Pathologist [facility] eGFR 40(L) 90 - 130 mL/min/1. 73 m2 [facility] Comment: Interpretive Data Reference Interval Normal >/= [...] reviewed 2021. Blood 01/12/2023 10:3 5 PM FRUIT ROOM HAND 01/12/2023 11:23 PM FRUIT ROOM HAND Luke Britton MD LAB BLOOD ORDERABLES Final Resu lt [facility] [address] [facility] Department [place] [address] from Last 3 Months or Most Recently Relevant to Health Maintenance Insurance [facility] MEDICARE [facility] MEDIC[facility] Advance Directives For more information, please contact: [phone] * Full Code (Latest Code Status on [...] 9:30 AM 06/24/2022 2:53 PM Care Teams Spanish Teacher Relationship Specialty Start Date End Date Scooby Guillermo MD PCP - General Internal Medicine 07/19/24 [place] [id number] [address] Consulting Physician Nephrology 07/28/24
--- OUTSIDE RECORDS SUMMARY | 2024-12-19 02:42 | XMS_ITS | Encounter Summary ---
Author Organization [facility] Address [address] [place] [address] Phone Care Team Providers Care Jointer Machine Operator Name Role Phone Scooby Guillermo MD Primary Care Provider [phone] Esme Adler NP Primary Care Provider + Unknown, Notinfile Primary Care Provider Unavail able Scooby Guillermo MD Primary Care Provider [phone] Bacilio Francisco MD Unavailable [phone] Encounter Details Date Type Department Care Team (Late st Contact Info) Description 03/15/2022 Orders Only [facility] Scanning, Provider Social History Tobacco Use Types Packs/Day Years Used Date Smoking Tobacco: Never Assessed Comments Unknown Sex and Gender Information Value Date Recorded Sex Assigned at Not on file Legal Sex Female 12:42 AM TAPE CALENDER Gender Identity Not on file Sexual Orientation Not on file documented as of this encounter Plan of Treatment Not on file documented as of this encounter Procedures Procedure Name Priority Date/Time Associated Diagnosis Comments SCAN - LABS 03/15/2022 documented in this encounter Results * SCAN - LABS (03/15/2022) us Provider Scanning Final Result documented in this encounter Visit Diagnoses Not on filedocumented in this encounter Additional Health Concerns Infection Onset Date Last Indicated Resolved Time COVID19 01/07/2023 01/07/2023 01/23/2023 3:05 AM CDT documented as of this encounter Care Teams Jointer Machine Operator Relationship Specialty Start Date End Date Scooby Guillermo MD PCP - General 03/31/08 04/01/22 Esme Adler NP [address] [address] PCP - General Nurse Practitioner 04/02/22 07/09/23 Unknown, Notinfile PCP - General 07/10/23 07/18/24 Scooby Guillermo MD PCP - General Internal Medicine 07/19/24 [place] [id number] [address] Consulting Physician Nephrology 07/28/24 documented as of this encounter
--- OUTSIDE RECORDS SUMMARY | 2024-12-19 02:43 | XMS_ITS | Patient Health Summary ---
Author Organization [facility] Address [address] [place] [address] Care Team Providers Care [employer] De[employer] Remover Name Role Phone Scooby Guillermo MD Primary Care Provider [phone] Note from [facility],non-owned Affiliates and Associated Physician Practices is amultiple site organization consisting of ambulatory clinics and hospital sitesin [place], [place], [place] and [place]. This disclosure is being madepursuant to the Care Everywhere program and may not contain all information available regarding this patient. Last updated 18.[facility] Allergies * Diphenhydramine(Rash) -Medium Criticality * Codeine(Other) * Penicillins(Urticaria) -Medium Criticality * Prednisone(Other) Medications * Be aware that medications may not be up to date on this document. Alwaysverify current medications with the patient. * semaglutide (Rybelsus) 3 MG tablet Take 3 mg by mouth once daily Take with a sip of water (< 4 oz) at least 30 minutes before any food, drink, or other meds. * multivitamin daily tablet Take 1 (one) tablet by mouth daily with food * allopurinol (Zyloprim) 100 MG tablet Take 1 (one) tablet by mouth once daily Reasons: Gout * traMADol (Ultram) 50 MG tablet Take 1 (one) tablet by mouth every 8 hours as needed for Pain * losartan (Cozaar) 100 MG tablet Take 1 (one) tablet by mouth once daily * gabapentin (Neurontin) 600 MG tablet Take 1 (one) tablet by mouth 3 times daily * DULoxetine (Cymbalta) 30 MG capsule Take 1 (one) capsule by mouth 2 times daily * insulin glargine (Lantus/Semglee) 100 units/mL pen Inject 50 (fifty) Units subcutaneously at bedtime * latanoprost (Xalatan) 0.005 % ophthalmic solution Instill 1 (one) drop into both eyes at bedtime * levothyroxine (Synthroid) 125 MCG tablet Take 1 (one) tablet by mouth daily before breakfast * calcitriol (Rocaltrol) 0.25 MCG capsule Take 1 (one) capsule by mouth every 2 days * rOPINIRole (Requip) 1 MG tablet Take 1 (one) tablet by mouth 3 times daily * dapagliflozin propanediol (Farxiga) 10 MG tablet Take 1 (one) tablet by mouth every morning * vitamin D, ergocalciferol, (Drisdol) 1.25 MG (62509 UT) capsule Take 1 (one) capsule by mouth every 7 days * diclofenac sodium (Voltaren) 1 % gel(Started 05/10/2024) APPLY 2 GRAMS TO THE AFFECTED AREA(S) BY TOPICAL ROUTE 4 TIMES PER DAY Active Problems Problem Noted Date Diagnosed Date Syncope, unspecified syncope type 04/21/2024 Seizure-like activity 04/21/2024 Social History Tobacco Use Types Packs/Day Years Used Date Smoking Tobacco: Never Smokeless Tobacco: Never Tobacco Cessation:Counseling Given: Not Answered Alcohol Use Standard Drinks/Week Comments Never 0 (1 standard drink = 0.6 oz pur e alcohol) AUDIT-C Answer Date Recorded Q1: How often do you have a drink containing alcohol? Never 04/21/2024 Q2: How many drinks containi ng alcohol do you have on a typical day when you are drinking? Patient does not drink Q3: How often do you have si x or more drinks on one occasion? Never 04/21/2024 Overall Financial Resource Strain (CARDIA) Answe r Date Recorded How hard is it for you to pa y for the very basics like food, housing, medical care, and heating? Not hard at all 04/21/2024 PHQ-2 Answer Date Recorded Patient Health Questionnaire-2 Score 0 04/26/2024 [facility] - Occupational Stress Questionnaire Answer Date Recorded Do you feel stress - tense, restless, nervous, or anxious, or unable to sleep at night because your mind is troubled all the time - these days? Not at all 04/21/2024 Hunger Vital Sign Answer Date Recorded Within the past 12 months, y ou worried that your food would run out before you got the money to buy more. Never true 04/21/20 24 Within the past 12 months, t he food you bought just didn't last and you didn't have money to get more. Never true 04/21/2024 PRAPARE - Transportation Answer Date Re corded In the past 12 months, has l ack of transportation kept you from medical appointments or from getting medications? No 04/10 In the past 12 months, has l ack of transportation kept you from meetings, work, or from getting things needed for daily living? No 04/21/2024 Housing Stability Vital Sign Answer Cayetano e Recorded In the last 12 months, was t here a time when you were not able to pay the mortgage or rent on time? No 04/21/2024 In the last 12 months, how many places have you lived? 2 04/21/2024 In the last 12 months, was t here a time when you did not have a steady place to sleep or slept in a correction (including now)? No 04/21/2024 Sex and Gender Information Value Date Recorded Sex Assigned at Not on file Gender Identity Not on file Sexual Orientation Not on file Last Filed Vital Signs Vital Sign Reading Time Taken Comments Blood Pressure 133/71 05/03/2024 1:20 PM CDT Pulse 77 06/08/2024 1:26 PM CDT Temperature 36.5 C (97.7 F) 04/27/2024 12:45 PM CDT Respiratory Rate 18 06/08/2024 1:26 PM CDT Oxygen Saturation 96% 06/08/2024 1:26 PM CDT Inhaled Oxygen Concentration - - Weight 95.3 kg (210 lb) 06/08/2024 1:26 PM CDT Height 165.1 cm (5' 5 ) 06/08/2024 1:26 PM CDT Body Mass Index 34.95 06/08/2024 1:26 PM CDT Procedures * CARDIAC RHYTHM STRIP ORDER(Performed 04/29/2024) * GLUCOSE - POINT OF CARE(Performed 04/27/2024) * EVENT MONITOR(Performed 04/27/2024) Performed for Syncope, unspecified syncope type * GLUCOSE - POINT OF CARE(Performed 04/27/2024) * GLUCOSE - POINT OF CARE(Performed 04/27/2024) * BASIC METABOLIC PANEL (CALCIUM TOTAL)(Performed 04/27/2024) * GLUCOSE - POINT OF CARE(Performed 04/26/2024) * GLUCOSE - POINT OF CARE(Performed 04/26/2024) * FL LUMBAR PUNCTURE(Performed 04/26/2024) Performed for Syncope, unspecified syncope type, Abnormal MRI * HERPES SIMPLEX 1+2 PCR CSF(Performed 04/26/2024) * CELL COUNT W DIFFERENTIAL CSF(Performed 04/26/2024) * PROTEIN CSF(Performed 04/26/2024) * GLUCOSE CSF(Performed 04/26/2024) * CELL COUNT W DIFFERENTIAL CSF(Performed 04/26/2024) * CULTURE CSF+GRAM STAIN(Performed 04/26/2024) * PARANEOPLASTIC AB W/RFLX CSF(Performed 04/26/2024) * GLUCOSE - POINT OF CARE(Performed 04/26/2024) * GLUCOSE - POINT OF CARE(Performed 04/26/2024) * GLUCOSE - POINT OF CARE(Performed 04/26/2024) * GLUCOSE - POINT OF CARE(Performed 04/25/2024) * GLUCOSE - POINT OF CARE(Performed 04/25/2024) * GLUCOSE - POINT OF CARE(Performed 04/25/2024) * MRI BRAIN WO CONTRAST(Performed 04/25/2024) Performed for Syncope, unspecified syncope type, Seizure-like activity (HCC) * GLUCOSE - POINT OF CARE(Performed 04/25/2024) * BASIC METABOLIC PANEL (CALCIUM TOTAL)(Performed 04/25/2024) * CBC W AUTO DIFFERENTIAL(Performed 04/25/2024) * GLUCOSE - POINT OF CARE(Performed 04/24/2024) * GLUCOSE - POINT OF CARE(Performed 04/24/2024) * GLUCOSE - POINT OF CARE(Performed 04/24/2024) * GLUCOSE - POINT OF CARE(Performed 04/24/2024) * GLUCOSE - POINT OF CARE(Performed 04/24/2024) * EEG EXTENDED MONITORING > 1 HOUR(Performed 04/24/2024) * GLUCOSE - POINT OF CARE(Performed 04/24/2024) * BASIC METABOLIC PANEL (CALCIUM TOTAL)(Performed 04/24/2024) * CBC W/O DIFFERENTIAL(Performed 04/24/2024) * GLUCOSE - POINT OF CARE(Performed 04/23/2024) * GLUCOSE - POINT OF CARE(Performed 04/23/2024) * ECHO COMPLETE(Performed 04/23/2024) Performed for Syncope, unspecified syncope type * GLUCOSE - POINT OF CARE(Performed 04/23/2024) * GLUCOSE - POINT OF CARE(Performed 04/23/2024) * RENAL FUNCTION PANEL(Performed 04/23/2024) * AMMONIA(Performed 04/23/2024) * FOLATE(Performed 04/23/2024) * VITAMIN B12(Performed 04/23/2024) * TSH REFLEX FREE T4(Performed 04/23/2024) * GLUCOSE - POINT OF CARE(Performed 04/22/2024) * GLUCOSE - POINT OF CARE(Performed 04/22/2024) * GLUCOSE - POINT OF CARE(Performed 04/22/2024) * GLUCOSE - POINT OF CARE(Performed 04/22/2024) * EKG 12-LEAD(Performed 04/22/2024) Performed for Syncope, unspecified syncope type * HEMOGLOBIN A1C(Performed 04/22/2024) * MAGNESIUM BLOOD(Performed 04/22/2024) * COMPREHENSIVE METABOLIC PANEL(Performed 04/22/2024) * CBC W/O DIFFERENTIAL(Performed 04/22/2024) * GLUCOSE - POINT OF CARE(Performed 04/22/2024) Results * CARDIAC RHYTHM STRIP ORDER (04/29/2024 8:25 PM CDT) Narrative 04/29/2024 8:25 PM CDT Ordered by an unspecified provider. Scanned Document CARDIAC SERVICES ORD ERABLES * (ABNORMAL) GLUCOSE - POINT OF CARE (04/27/2024 12:14 PM CDT) Only the most recent of27 resultswithin the time period is included. Glucose WB/POC 152(H) 70 - 106 mg/dL 04/27/2024 5:28 PM CDT [facility] Specimen Type Cap Fingerstick 2023 5:28 PM CDT [facility] Blood BLOOD SPECIMEN / Unknown 04/27/2024 12:14 PM CDT 04/27/2024 5:28 PM CDT Nga Black MD LAB - POINT OF CARE ORDERABLES Performing Organization Address [facility] Co de Phone Number [facility] [address] [place] [address] * EVENT MONITOR (04/27/2024 12:00 PM CDT) 04/27/2024 12:0 0 PM CDT Narrative Procedure Note Newton Youssef MD - 04/27/2024 4:55 PM CDT [facility] 30-DAY EVENT RECORDER REPORT PATIENT: JUANITO AUSTIN MR#: [id number] DATE SERVICE BEGAN: 04/27/2024 CSN: [id number] DATE SERVICE ENDED: 05/26/2024 AGE: 73 ADMIT DATE: 04/21/2024 :1950 REFERRING PHYSICIAN: Claudine Calvert MD The patient underwent monitoring of the rhythm using event monitor for30 days; however, only 6 days of recording made. Predominant underlying rhythm is sinus. No ectopics noted. No arrhythmia noted. No advanced conduction abnormality noted. NEWTON YOUSSEF MD ASN/MODL #: [id number] 30-DAY EVENT RECORDER REPORT - DP Tacho Carroll MD CARDIAC SERVICES ORD ERABLES Performing Organization Address [facility] Co de Phone Number [facility] * (ABNORMAL) BASIC METABOLIC PANEL (CALCIUM TOTAL) (04/27/2024 4:22 AM CDT) Only the most recent of3 resultswithin the time period is included. Glucose 246(H) 70 - 105 mg/dL 04/27/2024 6:13 AM CDT [facility] Sodium 142 136 - 145 mmol/L 04/27/2024 6:13 AM CDT [facility] Potassium 4.0 3.5 - 5.1 mmol/L 04/27/2024 6:13 AM CDT [facility] Chloride 110(H) 98 - 107 mmol/L 04/27/2024 6:13 AM CDT [facility] CO2 24 22 - 29 mmol/L 04/27/2024 6:13 AM CDT [facility] Calcium 9.6 8.4 - 10.4 mg/dL 04/27/2024 6:13 AM CDT [facility] Anion Gap 8 6 - 16 mmol/L 04/27/2024 6:13 AM CDT [facility] BUN 29(H) 7 - 26 mg/dL 04/27/2024 6:13 AM CDT [facility] Creatinine 1.33(H) 0.57 - 1.11 mg/dL 04/27/2024 6:13 AM CDT [facility] eGFR by CKD-EPI 42(L) >=90 mL/min/1.7 3 m2 04/27/2024 6:13 AM CDT [facility] Blood BLOOD SPECIMEN / Unknown Venipuncture / Unknown 04/27/2024 4:22 AM CDT 04/27/2024 5:47 AM CDT Tacho Carroll MD LAB - CHEMISTRY MICHELLE PEÑASaint [facility]onsus [facility] Organization Address City/State/[facility] Co de Phone Number [facility] [address] [place] [phone] * FL LUMBAR PUNCTURE (04/26/2024 3:49 PM CDT) Anatomical Region Laterality Modality Spine Radiographic Jenny ging 04/26/2024 3:54 PM CDT Impressions 04/26/2024 3:55 PM CDT Impression: Successful fluoroscopic guided lumbar puncture as described above. > Interpreting Provider: Kalpesh Macias MD on 04/26/2024 3:55 PM Narrative 04/26/2024 3:55 PM CDT Fluoroscopic-guided lumbar puncture Clinical Indication: Decreased level of consciousness, intermittent blurred vision Physician: Kalpesh Macias M.D. Complications: None. Sedation: None. Procedure/Findings: The risks and benefits of the procedure were explained to the patient. The risks include but are not limited to bleeding, infection, nerve injury, epidural hematoma, headache, cerebrospinal fluid leak, pain, failed procedure, and nondiagnostic result. The patient was given ample time to ask questions. Following this both written and verbal informed consent was obtained. The patient was placed prone on the fluoroscopy table. A suitable skin entry site was marked. Following sterile prep and administration of 1% lidocaine local anesthesia, a 20-gauge spinal needle was advanced into the thecal sac at L3-4 under fluoroscopic guidance. Approximately 10 cc of clear cerebrospinal fluid was removed and sent to the laboratory for analysis. The needle was then removed and hemostasis achieved immediately after. The patient tolerated the procedure well and there were no immediate complications. The patient was then transferred to routine postprocedure monitoring in stable condition. Fluoro time is 0.1 minutes. Opening pressure:21 centimeters water Closing pressure:12 centimeters water dose-2.63 mGy Procedure Note Kalpesh Macias MD - 04/26/2024 Fluoroscopic-guided lumbar puncture Clinical Indication: Decreased level of consciousness, intermittentblurred vision Physician: Kalpesh Macias M.D. Complications: None. Sedation: None. Procedure/Findings: The risks and benefits of the procedure were explained to the patient.The risks include but are not limited to bleeding, infection, nerve injury, epidural hematoma, headache, cerebrospinal fluid leak, pain, failed procedure, and nondiagnostic result. The patient was given ample time to ask questions. Following this both written and verbal informed consentwas obtained. The patient was placed prone on the fluoroscopy table. A suitable skin entry site was marked. Following sterile prep and administration of 1% lidocaine local anesthesia, a 20-gauge spinal needle was advanced intothe thecal sac at L3-4 under fluoroscopic guidance. Approximately 10 cc of clear cerebrospinal fluid was removed and sent to the laboratory for analysis. The needle was then removed and hemostasis achievedimmediately after. The patient tolerated the procedure well and there were noimmediate complications. The patient was then transferred to routine postprocedure monitoring in stable condition. Fluoro time is 0.1 minutes. Opening pressure:21 centimeters water Closing pressure:12 centimeters water dose-2.63 mGy Impression: Successful fluoroscopic guided lumbar puncture as described above. > Interpreting Provider: Kalpesh Macias MD on 04/26/2024 3:55 PM Charity Colon APRN-METAL DRILLING MACHINE OPERATOR FLUOROSCOPY EVELYNDalila SUDEEP * HERPES SIMPLEX 1+2 PCR CSF (04/26/2024 3:40 PM CDT) Herpes Simplex Virus 1 PCR CSF Not detected Not detected 04/27/2024 12:13 AM CDT [facility] Herpes Simplex Virus 2 PCR CSF Not detected Not detected 04/27/2024 12:13 AM CDT [facility] Microbiology CEREBROSPINAL FLUID SPECIMEN / Unknown Collection / Unknown 04/26/2024 3:40 PM CDT 04/26/2024 3:49 PM CDT Charity Colon [facility] - MICROBIOLO GY ORDERABLES [facility] [address] [place] [address], [facility] [phone] * CULTURE CSF+GRAM STAIN (04/26/2024 3:39 PM CDT) Pathologist [facility] Culture No growth CIPRIANO 05/03/2024 8:10 AM CDT [facility] Gram Stain No polymorphonuclear cells 05/03/2024 8:10 AM CDT [facility] Gram Stain No organisms seen 024 8:10 AM CDT [facility] Cerebral spinal fluid CEREBROSPINAL FLUID SPECIMEN / Unknown Collection / Unknown 04/26/2024 3:39 PM CDT 04/26/2024 3:49 PM CDT Charity Colon [facility] - MICROBIOLO GY ORDERABLES [facility]CROBIOLOGY [address] [place] [address], [facility] [phone] * CELL COUNT W DIFFERENTIAL CSF (04/26/2024 3:39 PM CDT) Only the most recent of2 resultswithin the time period is included. Tube Number [id number] 04/26/2024 4:16 PM CDT [facility] Xanthochromia ABSENT ABSENT 04/26/2024 4:16 PM CDT [facility] CSF Appearance CLEAR 04/26/2024 4:16 PM CDT [facility] CSF Color COLORLESS 04/26/2024 4:16 PM CDT [facility] Total Nucleated Cells CSF 2 <=5 x10E6/L 04/26/2024 4:16 PM CDT [facility] RBC Count CSF 0 <1 x10E6/L 04/26/2024 4:16 PM CDT [facility] Cerebral spinal fluid CEREBROSPINAL FLUID SPECIMEN / Unknown Collection / Unknown 04/26/2024 3:39 PM CDT 04/26/2024 3:49 PM CDT Charity Colon APRN-[facility] - BODY FLUID ORDERABLES Performing Organization Address [facility] Co de Phone Number [facility] [id number] [place] [phone] * PROTEIN CSF (04/26/2024 3:39 PM CDT) Protein CSF 37 15 - 40 mg/dL 04/26/2024 4:07 PM CDT [facility] Cerebral spinal fluid CEREBROSPINAL FLUID SPECIMEN / Unknown Collection / Unknown 04/26/2024 3:39 PM CDT 04/26/2024 3:49 PM CDT Charity Colon [facility] - BODY FLUID ORDERABLES Performing Organization Address [facility] Co de Phone Number [facility] [address] [place] [address] * (ABNORMAL) GLUCOSE CSF (04/26/2024 3:39 PM CDT) Glucose CSF 119(H) 40 - 70 mg/dL 04/26/2024 4:07 PM CDT [facility] Cerebral spinal fluid CEREBROSPINAL FLUID SPECIMEN / Unknown Collection / Unknown 04/26/2024 3:39 PM CDT 04/26/2024 3:49 PM CDT Charity Colon MAGNETIC PROSPECTORPENIK[facility] - BODY FLUID ORDERABLES Performing Organization Address [facility] Co de Phone Number [facility] [address] [place] [address] * PARANEOPLASTIC AB W/RFLX CSF (04/26/2024 3:38 PM CDT) Paraneoplastic Antibody IgG CSF None Detected None Detected 05/09/2024 12:51 PM CDT [facility] ([facility]) Comment: MOR-1, MOR-2, PCCA-1 or PCCA-Tr(DNER) antibodies not detected. No further testing will be performed. INTERPRETIVE INFORMATION: Paraneoplastic Abs (PCCA/MOR) IgG, CSF This test was developed and its performance characteristics determined by [employer]. It has not been cleared or approved by the [place] Food and Drug Administration. This test was performed in a CLIA certified laboratory and is intended for clinical purposes. Performed By: [facility] [employer] [address] [place] [address] Tarring Machine Operator: Ben Sanchez MD, PhD CLIA Number: [id number] Cerebral spinal fluid CEREBROSPINAL FLUID SPECIMEN / Unknown Collection / Unknown 04/26/2024 3:38 PM CDT 05/04/2024 7:38 AM CDT Narrative [facility]) - 05/09/2024 12:51 PM CDT Additional testing (Paraneoplastic Antibodies (PCCA/MOR) by IFA with Reflex to Titer and Immunoblot, CSF) requested on a previously submitted specimen. Charity Colon MAGNETIC PROSPECTOR-METAL DRILLING MACHINE OPERATOR LAB - BODY FLUID ORDERABLES Performing Organization Address [facility] Co de Phone Number [facility]) [address] * MRI BRAIN WO CONTRAST (04/25/2024 11:27 AM CDT) Anatomical Region Laterality Modality Head Magnetic Resonan ce 04/25/2024 11:3 7 AM CDT Impressions 04/25/2024 11:56 AM CDT IMPRESSION: There is no evidence of an acute ischemic event or other acute appearing intracranial abnormality. The optic nerve sheaths are dilated bilaterally. This finding can be associated with increased intracranial pressure. A partially empty sella is also present which is not uncommon in a patient of this age but would also support concern for increased intracranial pressure. Bilateral mastoid effusions. Edited by Kika Thompson on 04/25/2024 11:48 AM > Interpreting Provider: Martha Hirsch MD on 04/25/2024 11:56 AM Narrative 04/25/2024 11:56 AM CDT PROCEDURE: MRI BRAIN WO CONTRAST, DATE/TIME OF EXAM: 04/25/2024 11:27 AM, LOCATION [facility] INDICATION: R55: Syncope and collapse. R56.9: Unspecified convulsions (HCC). ADDITIONAL CLINICAL INFORMATION: Ordering Provider Reason For Exam: Technologist Note: Best possible images obtained. Additional: COMPARISON: None. TECHNIQUE: Sagittal, coronal and axial T1, axial dual-echo T2, axial FFE, coronal and axial FLAIR, axial diffusion. Gadolinium was not administered for this examination. FINDINGS: The examination is limited to a variable degree by patient motion. There are no areas of abnormal restricted diffusion to suggest the presence of an acute cortical or white matter infarction. Ventricles and sulci are within normal limits in size for patient's given age. There is no intracranial hemorrhage, mass, or mass effect. No abnormal extra-axial fluid collection is seen. There is no cortical infarction. Nonspecific white matter changes are mild and age appropriate. Major arterial and dural venous flow-voids at the skull base are patent. There are bilateral mastoid effusions, more severe on the left than the right. Mild mucosal thickening is present within the ethmoid sinuses. The optic nerve sheaths appear dilated bilaterally. Recommend correlation with physical examination for papilledema. Intraocular lenses have been removed and replaced with prostheses bilaterally. There is a partially empty sella which is not uncommon for a patient of this age, however, this can also be seen in the setting of increased intracranial pressure. The sella is not abnormally expanded. The region of the pineal gland and foramen magnum are normal. Procedure Note Martha Hirsch MD - 04/25/2024 PROCEDURE: MRI BRAIN WO CONTRAST, DATE/TIME OF EXAM: 04/25/2024 11:27AM, LOCATION [facility] INDICATION: R55: Syncope and collapse. R56.9: Unspecified convulsions (HCC). ADDITIONAL CLINICAL INFORMATION: Ordering Provider Reason For Exam: Technologist Note: Best possible images obtained. Additional: COMPARISON: None. TECHNIQUE: Sagittal, coronal and axial T1, axial dual-echo T2, axial FFE, coronaland axial FLAIR, axial diffusion. Gadolinium was not administered for this examination. FINDINGS: The examination is limited to a variable degree by patient motion. There are no areas of abnormal restricted diffusion to suggest the presence ofan acute cortical or white matter infarction. Ventricles and sulci arewithin normal limits in size for patient's given age. There is no intracranial hemorrhage, mass, or mass effect. No abnormal extra-axial fluidcollection is seen. There is no cortical infarction. Nonspecific white matterchanges are mild and age appropriate. Major arterial and dural venous flow-voidsat the skull base are patent. There are bilateral mastoid effusions, more severe on the left than the right. Mild mucosal thickening is present within the ethmoid sinuses. The optic nerve sheaths appear dilated bilaterally. Recommendcorrelation with physical examination for papilledema. Intraocular lenses have been removed and replaced with prostheses bilaterally. There is a partially empty sella which is not uncommon for a patient of this age, however, this can also be seen in the setting of increased intracranial pressure. The sella is not abnormally expanded. The regionof the pineal gland and foramen magnum are normal. IMPRESSION: There is no evidence of an acute ischemic event or other acute appearing intracranial abnormality. The optic nerve sheaths are dilated bilaterally. This finding can be associated with increased intracranial pressure. A partially empty sellais also present which is not uncommon in a patient of this age but wouldalso support concern for increased intracranial pressure. Bilateral mastoid effusions. Edited by Kika Thompson on 04/25/2024 11:48 AM > Interpreting Provider: Martha Hirsch MD on 04/25/2024 11:56 AM Charity Colon MAGNETIC PROSPECTOR-METAL DRILLING MACHINE OPERATOR MR ORDERABLES * (ABNORMAL) CBC W AUTO DIFFERENTIAL (04/25/2024 6:04 AM CDT) WBC 12.2(H) 4.0 - 10.7 x10E9/L 04/25/2024 6:25 AM CDT [facility] RBC Count 5.35(H) 3.90 - 5.20 x10E12/L 04/25/2024 6:25 AM CDT [facility] Hemoglobin 13.9 11.9 - 15.8 g/dL 04/25/2024 6:25 AM CDT [facility] Hematocrit 45.7 34.8 - 46.1 % 04/25/2024 6:25 AM CDT [facility] MCV 85.4 80.0 - 98.0 fL 04/25/2024 6:25 AM CDT [facility] MCH 26.0(L) 26.7 - 33.6 pg 04/25/2024 6:25 AM CDT [facility] MCHC 30.4(L) 31.7 - 36.3 g/dL 04/25/2024 6:25 AM CDT [facility] RDW-CV 18.1(H) 11.3 - 14.8 % 04/25/2024 6:25 AM CDT [facility] Platelet Count 253 150 - 420 x10E9/L 04/25/2024 6:25 AM CDT [facility] MPV 11.1 7.8 - 11.4 fL 04/25/2024 6:25 AM CDT [facility] Neutrophil % 63.9 41.0 - 74.0 % 04/25/2024 6:25 AM CDT [facility] Lymphocyte % 23.7 17.0 - 47.0 % 04/25/2024 6:25 AM CDT [facility] Monocyte % 8.7 3.0 - 11.0 % 04/25/2024 6:25 AM CDT [facility] Eosinophil % 2.3 0.0 - 7.0 % 04/25/2024 6:25 AM CDT [facility] Basophil % 0.7 0.0 - 1.6 % 04/25/2024 6:25 AM CDT [facility] Immature Granulocytes % 0.7 0.0 - 1.0 % 04/25/2024 6:25 AM CDT [facility] Neutrophil Absolute 7.79(H) 1.60 - 7.50 x10E9/L 04/25/2024 6:25 AM CDT [facility] Lymphocyte Absolute 2.89 1.00 - 4.40 x10E9/L 04/25/2024 6:25 AM CDT [facility] Monocyte Absolute 1.06(H) 0.15 - 1.00 x10E9/L 04/25/2024 6:25 AM CDT [facility] Eosinophil Absolute 0.28 0.00 - 0.60 x10E9/L 04/25/2024 6:25 AM CDT [facility] Basophil Absolute 0.09 0.00 - 0.13 x10E9/L 04/25/2024 6:25 AM CDT [facility] Blood BLOOD SPECIMEN / Unknown Venipuncture / Unknown 04/25/2024 6:04 AM CDT 04/25/2024 6:13 AM CDT Tacho Carroll MD LAB - HEMATOLOGY ORD ERABLES Performing Organization Address [facility] de Phone Number [facility] [address] [phone] * EEG EXTENDED MONITORING > 1 HOUR (04/24/2024 9:56 AM CDT) Narrative [facility] - 04/24/2024 9:56 AM CDT Elgin Hurtado MD 04/24/2024 9:56 AM LONG-TERM VIDEO EEG SUMMARY REPORT [facility] Long-term video EEG monitoring was performed on a patient with Possible seizure. Utilizing the [email or web address] recording system, EEG was recorded in standard multichannel format, and synchronized with currently recorded EKG and video by cable telemetry. Electrode placement was as per the 10/20 system of electrode placement. The record was reviewed in its entirety, utilizing both bipolar and referential montages, as appropriate. Appropriate provocations were made. The quality of the recording is good. A total of Over 20 hr was reviewed beginning at 1243 on April 22, 2024. The background consists of up to ten hertz activity with a posterior dominant rhythm. The record is continuous and symmetric with good variability and reactivity. No epileptiform discharges are seen interictally. No other focal or lateralizing abnormalities are noted. Up to stage 3 sleep is noted. Sleep architecture is within normal limits. No events are noted during this period of monitoring. Automatic spike and seizure detection are unremarkable. Impression: Normal video EEG monitoring record. Charity Colon APRN-METAL DRILLING MACHINE OPERATOR NEUROLOGY ORDERA BLES Performing Organization Address [facility] Co de Phone Number [facility] * (ABNORMAL) CBC W/O DIFFERENTIAL (04/24/2024 6:09 AM CDT) Only the most recent of2 resultswithin the time period is included. Pathologist [facility] WBC 16.4(H) 4.0 - 10.7 x10E9/L 04/24/2024 6:22 AM CDT [facility] RBC Count 5.47(H) 3.90 - 5.20 x10E12/L 04/24/2024 6:22 AM CDT [facility] Hemoglobin 14.1 11.9 - 15.8 g/dL 04/24/2024 6:22 AM CDT [facility] Hematocrit 46.1 34.8 - 46.1 % 04/24/2024 6:22 AM CDT [facility] MCV 84.3 80.0 - 98.0 fL 04/24/2024 6:22 AM CDT [facility] MCH 25.8(L) 26.7 - 33.6 pg 04/24/2024 6:22 AM CDT [facility] MCHC 30.6(L) 31.7 - 36.3 g/dL 04/24/2024 6:22 AM CDT [facility] RDW-CV 17.1(H) 11.3 - 14.8 % 04/24/2024 6:22 AM CDT [facility] Platelet Count 281 150 - 420 x10E9/L 04/24/2024 6:22 AM CDT [facility] MPV 11.4 7.8 - 11.4 fL 04/24/2024 6:22 AM CDT [facility] Blood BLOOD SPECIMEN / Unknown Venipuncture / Unknown 04/24/2024 6:09 AM CDT 04/24/2024 6:16 AM CDT Girish Mcqueen MD LAB - HEMATOLOG Y ORDERABLES [facility] [address] [place] [address] * ECHO COMPLETE (04/23/2024 1:24 PM CDT) [facility] BSA [id number] m2 SSM CV FUJI PACS LVOT stroke vol 57.48 mL SSM CV FUJI PACS LVOT stroke vol index 27.20 mL/m2 SSM CV FUJI PACS LVIDd 3.99 3.8 - 5.2 cm SSM CV FUJI PACS IVSd 2D 1.296 0.6 - 0.9 cm SSM CV FUJI PACS LVPWd 1.20 0.6 - 0.9 cm SSM CV FUJI PACS LV EDV 2D 69.733 46 - 106 mL SSM CV FUJI PACS LV EDV index 2D 33.00 29 - 61 mL/m2 SSM CV FUJI PACS LVOT diam 2.0 cm SSM CV FUJ I PACS LVOT area 3.01 cm2 SSM CV FUJ I PACS LV RWT 0.599 SSM CV FUJ I PACS IVS/LVPW 1.084 SSM CV FUJ I PACS LV mass 2D 174.671 66 - 150 g SSM CV FUJI PACS LV mass index 2D 82.65 44 - 88 g/m2 SSM CV FUJI PACS MV E pk akshat 66.934 cm/s SSM CV F UJI PACS MV avg E/e' ratio 11.27 SS M CV FUJI PACS MV A pk akshat 96.012 cm/s SSM CV F UJI PACS MV E A ratio 0.70 SSM CV FUJI PACS MV E' lateral akshat 7.238 cm/s SS M CV FUJI PACS MV DT 216 ms SSM CV FUJ I PACS MV E' septal akshat 5.033 cm/s SSM CV FUJI PACS MV E/e' septal 13.3 SSM C V FUJI PACS MV E/e' lateral 9.247 SSM CV FUJI PACS TR pk akshat 202.8 cm/s SSM CV FUJ I PACS LVOT pk akshat 0.88 m/s SSM CV F UJI PACS LVOT mn akshat 0.64 m/s SSM CV F UJI PACS LVOT mn grad 1.8 mmHg SSM CV FUJI PACS LVOT Cardiac Output 3.872 l/min SSM CV FUJI PACS LVOT Cardiac Index 1.83 l/min/m2 SSM CV FUJI PACS LA vol BP A-L 39.945 mL SSM CV FUJI PACS TV S' askhat 9.06 cm/s SSM CV FUJ I PACS TAPSE 1.787 1.7 cm SSM CV FUJ I PACS AV mn grad 3 mmHg SSM CV FU JI PACS AV pk grad 6 mmHg SSM CV FU JI PACS AV mn akshat 0.90 m/s SSM CV FUJ I PACS AV pk akshat 1.22 m/s SSM CV FUJ I PACS AV VTI 25.506 cm SSM CV FUJ I PACS LVOT pk grad 3.084 mmHg SSM CV FUJI PACS LVOT VTI 19.11 cm SSM CV FUJ I PACS AV area cont VTI 2.3 cm2 SSM CV FUJI PACS AV area pk akshat 2.2 cm2 SSM C V FUJI PACS AV Doppler akshat index pk akshat 0.718 SSM CV FUJI PACS Dimensionless Index 0.749 SSM CV FUJI PACS MV PHT 63 ms SSM CV FUJ I PACS MV area PHT 3.51 cm2 SSM CV F UJI PACS MV decel slope 309.271 cm/s2 SSM C V FUJI PACS TR pk grad 16 mmHg SSM CV FU JI PACS PV pk akshat 115.569 cm/s SSM CV FUJ I PACS PV pk grad 5 mmHg SSM CV FU JI PACS LA ESV A4C MOD Index 20 ml/m2 SSM CV FUJI PACS LA ESV A2C MOD Index 15 ml/m2 SSM CV FUJI PACS LA Size 3.339 cm SSM CV FUJ I PACS LV LVIDd index 1.89 2.3 - 3.1 cm/m2 SSM CV FUJI PACS Anatomical Region Laterality Modality Ultrasound Narrative 04/23/2024 6:09 PM CDT Left Ventricle: Left ventricle size is normal. Increased wall thickness. Normal systolic function with a visually estimated EF of 55 - 60%. Normal wall motion. Grade I diastolic dysfunction with normal left atrial pressure. Left Ventricle Left ventricle size is normal. Increased wall thickness. Normal systolic function with a visually estimated EF of 55 - 60%. Normal wall motion. Grade I diastolic dysfunction with normal left atrial pressure. Right Ventricle Right ventricle size is normal. Normal systolic function. Left Atrium Left atrium size is normal. Right Atrium Right atrium size is normal. IVC/SVC IVC diameter is less than or equal to 21 mm and decreases greater than 50% during inspiration; therefore the estimated right atrial pressure is normal (~3 mmHg). Mitral Valve Valve structure is normal. No restricted motion. No regurgitation. No stenosis. Tricuspid Valve Valve structure is normal. No restricted motion. Trace regurgitation. No stenosis. Aortic Valve Valve structure is trileaflet. No restricted motion. No regurgitation. No stenosis. Pulmonic Valve Valve structure is normal. No restricted motion. No regurgitation. No stenosis. Ascending Aorta Normal sized sinus of Valsalva (aortic root) and ascending aorta. Pericardium No pericardial effusion. Study Details A complete 2D, color Doppler, spectral Doppler and M-mode echocardiogram was performed. The apical, parasternal, subcostal and suprasternal views were obtained. Procedure Note Rudy Philip MD - 04/23/2024 Left Ventricle: Left ventricle size is normal. Increased wallthickness. Normal systolic function with a visually estimated EF of 55 -60%. Normal wall motion. Grade I diastolic dysfunction with normal leftatrial pressure. Jessika Shelby MD ECHO CUPID * TSH REFLEX FREE T4 (04/23/2024 12:54 AM CDT) [facility] TSH 0.978 0.350 - 4.940 uIU/mL 04/23/2024 1:56 AM CDT [facility] Blood BLOOD SPECIMEN / Unknown Venipuncture / Unknown 04/23/2024 12:54 AM CDT 04/23/2024 1:04 AM CDT Charity Colon MAGNETIC PROSPECTOR-METAL DRILLING MACHINE OPERATOR LAB - CHEMISTRY ORDERABLES [facility] [address] [place] [address] * (ABNORMAL) RENAL FUNCTION PANEL (04/23/2024 12:54 AM CDT) [facility] Glucose 161(H) 70 - 105 mg/dL 04/23/2024 1:23 AM CDT [facility] Sodium 141 136 - 145 mmol/L 04/23/2024 1:23 AM CDT [facility] Potassium 4.2 3.5 - 5.1 mmol/L 04/23/2024 1:23 AM CDT [facility] Chloride 104 98 - 107 mmol/L 04/23/2024 1:23 AM CDT [facility] CO2 26 22 - 29 mmol/L 04/23/2024 1:23 AM CDT [facility] Calcium 10.4 8.4 - 10.4 mg/dL 04/23/2024 1:23 AM CDT [facility] Anion Gap 11 6 - 16 mmol/L 04/23/2024 1:23 AM CDT [facility] BUN 22 7 - 26 mg/dL 04/23/2024 1:23 AM CDT [facility] Creatinine 1.30(H) 0.57 - 1.11 mg/dL 04/23/2024 1:23 AM CDT [facility] Albumin 3.3(L) 3.4 - 5.0 gm/dL 04/23/2024 1:23 AM CDT [facility] Phosphorus 3.5 2.3 - 4.7 mg/dL 04/23/2024 1:23 AM CDT [facility] eGFR by CKD-EPI 43(L) >=90 mL/min/1.7 3 m2 04/23/2024 1:23 AM CDT [facility] Blood BLOOD SPECIMEN / Unknown Venipuncture / Unknown 04/23/2024 12:54 AM CDT 04/23/2024 1:04 AM CDT Jessika Shelby MD LAB - CHEMISTRY ORDE SUDEEP [facility] Organization Address City/State/ZIP Co de Phone Number [facility] [address] [place] [address] * FOLATE (04/23/2024 12:54 AM CDT) Folate 16.8 7.0 - 31.4 ng/mL 04/23/2024 1:56 AM CDT [facility] Blood BLOOD SPECIMEN / Unknown Venipuncture / Unknown 04/23/2024 12:54 AM CDT 04/23/2024 1:04 AM CDT Charity M Isaiah [facility] - CHEMISTRY ORDERABLES Performing Organization Address [facility] Co de Phone Number [facility] [address] [place] [phone] * VITAMIN B12 (04/23/2024 12:54 AM CDT) Vitamin B12 507 213 - 816 pg/mL 04/23/2024 1:56 AM CDT [facility] Blood BLOOD SPECIMEN / Unknown Venipuncture / Unknown 04/23/2024 12:54 AM CDT 04/23/2024 1:04 AM CDT Charity M Isaiah [facility] LAB - CHEMISTRY ORDERABLES Performing Organization Address [facility] de Phone Number [facility] [address] [place] [phone] * AMMONIA (04/23/2024 12:54 AM CDT) Ammonia 27 18 - 72 umol/L 04/23/2024 1:14 AM CDT [facility] Blood BLOOD SPECIMEN / Unknown Venipuncture / Unknown 04/23/2024 12:54 AM CDT 04/23/2024 1:03 AM CDT Charity M Isaiah [facility] LAB - CHEMISTRY ORDERABLES Performing Organization Address [facility] de Phone Number [facility] [address] [place] [phone] * EKG 12-LEAD (04/22/2024 6:17 AM CDT) Ventricular Rate 61 BPM [facility] Atrial Rate 61 BPM [facility] P-R Interval 202 ms [facility] QRS Duration ms 90 ms [facility] Q-T Interval ms 386 ms [facility] QTC Calculation (Bezet) 388 ms [facility] Calculated P [place] 28 degrees [facility] Calculated R [place] 61 degrees [facility] Calculated T [place] 50 degrees [facility] Interpretation EKG Normal sinus rhythm Normal ECG No previous ECGs available Confirmed by ZACH COLINDRES MD ([id number]) on 04/22/2024 1:32:21 PM [facility] 04/22/2024 6:17 AM CDT 04/22/2024 1:32 PM CDT Aris Spaulding MD ECG ORDERABLES [facility] * (ABNORMAL) HEMOGLOBIN A1C (04/22/2024 4:49 AM CDT) Hemoglobin A1c 8.3(H) <5.7 % 04/22/2024 5:21 AM CDT [facility] Estimated Average Glucose 192 mg/dL 04/22/2024 5:21 AM CDT [facility] Blood BLOOD SPECIMEN / Unknown Venipuncture / Unknown 04/22/2024 4:49 AM CDT 04/22/2024 5:03 AM CDT Narrative [facility] - 04/22/2024 5:21 AM CDT HbA1c Interpretation: Normal: < 5.7% Pre-diabetes: 5.7-6.4% Diabetes: Equal to or greater than 6.5% Test results diagnostic of diabetes should be repeated for confirmation. Treatment target values recommended by ADA and other clinical organizations should be used to evaluate metabolic control in patients. This test should not replace glucose testing for patients with Type 1 diabetes, pediatric patients, or women. Falsely low HbA1c results may be observed in patients with clinical conditions that shorten erythrocyte life span or decrease mean erythrocyte age such as the presence of unstable hemoglobin variants, elevated hemoglobin F level or other causes of hemolytic anemia. HbA1c may not accurately reflect glycemic control when clinical conditions that affect erythrocyte survival are present. Severe Iron deficiency anemia may yield falsely high results. Hemoglobin A1c assay should not be used to diagnose or monitor diabetes in patients with malignancy, recent blood transfusion, chronic kidney or liver disease. This method may yield falsely low results when hemoglobin (HbF) exceeds 5% in the specimen. The [employer] assay for the measurement of HbA1c is a National Glycohemoglobin Standardization Program (NGSP) certified method. Aris Spaulding MD LAB - CHEMISTRY MICHELLE SHEETS [facility] Organization Address City/State/ZIP Co de Phone Number [facility] [address] [place] [address] * (ABNORMAL) COMPREHENSIVE METABOLIC PANEL (04/22/2024 4:49 AM CDT) Glucose 154(H) 70 - 105 mg/dL 04/22/2024 5:29 AM CDT [facility] Sodium 140 136 - 145 mmol/L 04/22/2024 5:29 AM CDT [facility] Potassium 4.3 3.5 - 5.1 mmol/L 04/22/2024 5:29 AM CDT [facility] Chloride 106 98 - 107 mmol/L 04/22/2024 5:29 AM CDT [facility] CO2 28 22 - 29 mmol/L 04/22/2024 5:29 AM CDT [facility] Calcium 11.0(H) 8.4 - 10.4 mg/dL 04/22/2024 5:29 AM CDT [facility] Anion Gap 6 6 - 16 mmol/L 04/22/2024 5:29 AM CDT [facility] BUN 21 7 - 26 mg/dL 04/22/2024 5:29 AM CDT [facility] Creatinine 1.28(H) 0.57 - 1.11 mg/dL 04/22/2024 5:29 AM CDT [facility] Alkaline Phosphatase 67 40 - 150 U/L 04/22/2024 5:29 AM CDT [facility] ALT 38 0 - 55 U/L 04/22/2024 5:29 AM CDT [facility] AST 28 5 - 34 U/L 04/22/2024 5:29 AM CDT [facility] Protein Total 7.5 6.4 - 8.3 gm/dL 04/22/2024 5:29 AM CDT [facility] Albumin 3.4 3.4 - 5.0 gm/dL 04/22/2024 5:29 AM CDT [facility] Bilirubin Total 0.2 0.2 - 1.2 mg/dL 04/22/2024 5:29 AM CDT [facility] eGFR by CKD-EPI 44(L) >=90 mL/min/1.7 3 m2 04/22/2024 5:29 AM CDT [facility] Blood BLOOD SPECIMEN / Unknown Venipuncture / Unknown 04/22/2024 4:49 AM CDT 04/22/2024 5:03 AM CDT Aris Spaulding MD LAB - CHEMISTRY MICHELLE SHEETS Performing Organization Address [facility] Co de Phone Number [facility] [address] [place], [place] [id number] * MAGNESIUM BLOOD (04/22/2024 4:49 AM CDT) Magnesium 1.9 1.6 - 2.6 mg/dL 04/22/2024 5:29 AM CDT [facility] Blood BLOOD SPECIMEN / Unknown Venipuncture / Unknown 04/22/2024 4:49 AM CDT 04/22/2024 5:03 AM CDT Aris Spaulding MD LAB - CHEMISTRY MICHELLE SHEETS Performing Organization Address City/[facility] Co de Phone Number [facility] [address] [place] [address] Care Teams [employer] Remover Relationship Specialty Start Date End Date Scooby Guillermo MD [address] [place] [address] PCP - General Internal Medicine 04/23/24
--- OUTSIDE RECORDS SUMMARY | 2024-12-19 02:43 | XMS_ITS ---
Author Organization [facility] Office Address [address] [place] [address] Care Team Providers Care Bottom Wheeler Name Role Phone Bacilio Francisco Unavailable [phone] Encounters Encounter Location Date Provider Diagnosis [place] [facility] [address] [facility] [address] [place] [address] 10/29/2024 Bacilio Francisco PLAN OF TREATMENT No Information Progress Notes * MONTY YOODOB: 1950 (74 yo F)Acc No.[id number]:10/29/2024 Progress Notes Patient: MONTY YOO Provider: MD OKSANA, Sabrina.Lizz.C.P, F.A.S.N. :1950 Age:74 Y Sex:Female Date:10/29/2024 Address:[address] [place] [address] [address] [id number] Subjective: * Chief Complaints: * * Medical History: Objective: Assessment: Plan: * Treatment: * Billing Information: * Visit Code: * Procedure Codes: * NOMICS ENGINEER Sign off status: Pending * Provider: MD OKSANA, Sabrina.Lizz.C.P, F.A.S.N. Date: 10/29/2024
--- OUTSIDE RECORDS SUMMARY | 2024-12-19 02:43 | XMS_ITS ---
Author Organization [facility] Address [address] [place] [address] Care Team Providers Care Baseball Glove Shaper Name Role Phone Bacilio Francisco Unavailable [phone] PROBLEMS Problem Type ICD Code Onset Dates Problem Status W/U Status Risk SNOMED Code Notes Problem Chronic kidney disease, stage 3 unspecified (N18.30) Active confirmed Chronic kidney disease stage 3 (disorder) (670854973) Problem Essential (primary) hypertension (I10) Active confirmed Essential hypertension (10970992) Problem Renal osteodystrophy (N25.0) Active confirmed Renal osteodystrophy (77368522) Encounters Encounter Location Date Provider Diagnosis [place] [facility] [address] [facility] [address] [place] [address] 09/03/2024 Bacilio Francisco Chronic kidney disea se, stage 3 unspecified N18.30 ; Essential (primary) hypertension I10 and Renal osteodystrophy N25.0 ASSESSMENTS Encounter Date Diagnosis Assessment Notes Treatment Notes Treatment Clinical Notes Section Notes 09/03/2024 Chronic kidney disease, stage 3 unspecified (ICD-10 - N18.30) 09/03/2024 Essential (primary) hypertension (ICD-10 - I10) 09/03/2024 Renal osteodystrophy (ICD-10 - N25.0) PLAN OF TREATMENT No Information Progress Notes * MONTY YOODOB: 1950 (74 yo F)Acc No.[id number]:09/03/2024 Progress Notes Patient: MONTY YOO Provider: MD OKSANA, F.A.C.P, F.A.S.N. :1950 Age:74 Y Sex:Female Date:09/03/2024 Address:[address] [place], [place] [address] [facility] Subjective: * Chief Complaints: * * Medical History: Objective: Assessment: * Assessment: 1. Chronic kidney disease, stage 3 unspecified - N18.30 (Primary) 2. Essential (primary) hypertension - I10 3. Renal osteodystrophy - N25.0 Plan: * Treatment: * Billing Information: * Visit Code: 34157 Office Visit, Est Pt., Level 4. * Procedure Codes: * ULA MAKER Sign off status: Pending * Provider: MD OKSANA, F.A.C.P, F.A.S.N. Date: 09/03/2024
--- OUTSIDE RECORDS SUMMARY | 2024-12-19 02:43 | XMS_ITS | Referral Summary ---
Author Organization [facility] Address [address] [place] [address] Care Team Providers Care Park Activities Coordinator Name Role Phone Scooby Guillermo MD Primary Care Provider [phone] Source Comments [facility],non-owned Affiliates and Associated Physician Practices is amultiple site organization consisting of ambulatory clinics and hospital sitesin [place], [place], [place] and [place]. This disclosure is being madepursuant to the Care Everywhere program and may not contain all information available regarding this patient. Last updated 18.[facility] Allergies Active Allergy Reactions Criticality Noted Date Comments Diphenhydramine Rash Medium 04/21/2024 Codeine Other 04/21/2024 Makes patient high Penicillins Urticaria Medium 04/21/2024 Prednisone Other 04/23/2024 Hallucination Medications * Be aware that medications may not be up to date on this document. Alwaysverify current medications with the patient. Medication Sig Dispensed Refills Start Date End Date Status semaglutide (Rybelsus) 3 MG tablet Take 3 mg by mouth once daily Take with a sip of water (< 4 oz) at least 30 minutes before any food, drink, or other meds. Active multivitamin daily tablet Take 1 (one) tablet by mouth daily with food Active allopurinol (Zyloprim) 100 MG tabletIndications:G out Take 1 (one) tablet by mouth once daily Reasons: Gout Active traMADol (Ultram) 50 MG tablet Take 1 (one) tablet by mouth every 8 hours as needed for Pain Active losartan (Cozaar) 100 MG tablet Take 1 (one) tablet by mouth once daily Active gabapentin (Neurontin) 600 MG tablet Take 1 (one) tablet by mouth 3 times daily Active DULoxetine (Cymbalta) 30 MG capsule Take 1 (one) capsule by mouth 2 times daily Active insulin glargine (Lantus/Semglee) 100 units/mL pen Inject 50 (fifty) Units subcutaneously at bedtime Active latanoprost (Xalatan) 0.005 % ophthalmic solution Instill 1 (one) drop into both eyes at bedtime Active levothyroxine (Synthroid) 125 MCG tablet Take 1 (one) tablet by mouth daily before breakfast Active calcitriol (Rocaltrol) 0.25 MCG capsule Take 1 (one) capsule by mouth every 2 days Active rOPINIRole (Requip) 1 MG tablet Take 1 (one) tablet by mouth 3 times daily Active dapagliflozin propanediol (Farxiga) 10 MG tablet Take 1 (one) tablet by mouth every morning Active vitamin D, ergocalciferol, (Drisdol) 1.25 MG (51941 UT) capsule Take 1 (one) capsule by mouth every 7 days Active diclofenac sodium (Voltaren) 1 % gel APPLY 2 GRAMS TO THE AFFECTED AREA(S) BY TOPICAL ROUTE 4 TIMES PER DAY 05/10/2024 Active Active Problems Problem Noted Date Diagnosed [...] Recorded Patient Health Questionnaire-2 Score 0 04/26/2024 [facility] of Occupat ional Health - Occupational Stress Questionnaire Answer Date Recorded [...] place to sleep or slept in a residential (including now)? No 04/21/2024 Sex and Gender [...] Mass Index 34.95 06/08/2024 1:26 PM CDT Functional Status Functional Status Response Date of Assess ment Is person deaf or have serious hearing difficult y? No 04/21/2024 Is person blind or have serious difficulty seein g? No 04/21/2024 Does person have serious dif ficulty walking/climbing stairs? No 04/21/2024 Does person have difficulty dressing/bathing? No 04/21/2024 Does person have difficulty doing errands alone? No 04/21/2024 Cognitive Status Response Date of Assessm ent Does person have difficulty concentrating/remembering/making decisions? No 04/21/2024 Plan of Treatment Not on file Advance Directives * Full Code (Latest Code Status on File) Date Activated Date Inactivated Comments 04/21/2024 11:18 PM 04/27/2024 6:01 PM * Full Code Date Activated Date Inactivated Comments 04/21/2024 11:17 PM 04/21/2024 11:18 PM Care Teams Park Activities Coordinator Relationship Specialty Start Date End Date Scooby Guillermo MD [address] [place] [address] PCP - General Internal Medicine 04/23/24
--- OUTSIDE RECORDS SUMMARY | 2024-12-19 02:43 | XMS_ITS ---
Author Organization [facility] Address [address] [facility] [address] [facility] [address] [place] [address] Care Team Providers Care Forging Press Lever Tender Name Role Phone Nolan Bacilio Unavailable [phone] MEDICATIONS Medication SIG (Take, Route, Frequency, Duration) Notes Start Date End Date Status Farxiga 10 MG 1 tablet Orally Once a day for 90 06/23/2024 03/20/2025 Active Ergocalciferol 1.25 MG (42465 UT) 1 capsule Orally Once a week for 90 day(s) 06/23/2024 03/20/2025 Active Encounters Encounter Location Date Provider Diagnosis [facility] [address] [facility] [address] [place] [address] 06/23/2024 Bacilio Francisco PLAN OF TREATMENT Medication Medication Name Sig Start Date Stop Date Notes Farxiga 10 MG 1 tablet Orally Once a day for 90 06/23/2024 03/20/2025 Ergocalciferol 1.25 MG (5000 0 UT) 1 capsule Orally Once a week for 90 day(s) 06/23/2024 03/20/2025 Progress Notes * Juanito AUSITNDOB: [birth year] (74 yo F)Acc No.[id number]:06/23/2024 Patient: Juanito AUSTIN :1950 Age:74 Y Sex:Female Address:[address] [place] [address] * Refills Start Farxiga Tablet, 10 MG, Orally, 90 Tablet, 1 tablet, Once a day, 90, Refills=2 Start Ergocalciferol Capsule, 1.25 MG (61491 UT), Orally, 13, 1 capsule, Once a week, 90 day(s), Refills=2 * true * Date:
--- OUTSIDE RECORDS SUMMARY | 2024-12-19 02:43 | XMS_ITS | Clinical Summary ---
Author Organization [facility] Address [address] [place] [address] Care Team Providers Care Lease Operator Name Role Phone Unavailable Primary Care Provider Unavailabl e Social History Tobacco Use Types Packs/Day Years Used Date Smoking Tobacco: Never Assessed Comments Unknown Sex and Gender Information Value Date Recorded Sex Assigned at Not on file Legal Sex Female 9:37 AM EDT Gender Identity Not on file Sexual Orientation Not on file Plan of Treatment Health Maintenance Due Date Last Done Comments Breast Cancer Screening 1950 Colorectal Cancer Screening: Annual FOBT 1999 Colorectal Cancer Screening: Colonoscopy 1999 Colorectal Cancer Screening: Sigmoidoscopy 1999 Pneumococcal Vaccine: 65+ Ye ars (1 of 1 - PCV) 2015 Influenza Vaccine (#1) 2024 Hepatitis B Vaccine Aged Out No longe r eligible based on patient's age to complete [place] [id number] MEDICARE AETNA
--- OUTSIDE RECORDS SUMMARY | 2024-12-19 02:43 | XMS_ITS | Continuity of Care Document ---
Author Organization [facility] Address [address] [place] [address] [place] [address] Phone Care Team Providers Care Internal Controls Manager Name Role Phone Fermin Gonzalez MD Unavailable Unavailable Advance Directives Directive Yes / No Effective Date File Name No Information Encounters Encounter Description Practice Location Reason(s) For Visit Diagnoses Date Provider Providers Copied on Encounter [facility], [address], [place], [place], [id number], [place] tel:[phone] [facility] Professional No Information Jake-0 3-200 3 Lisa Christensen. [address] [place], [address], [place]. tel:[phone] Referring Provider: Esme Bernal MD, [address], [place], [address]. tel:[phone] Family History Family Member Type Diagnosis Age At Onset No Information Payers Payer name Insurance type Covered libertarian ID Authoriza tion(s) No Information Social History [...]
--- OUTSIDE RECORDS SUMMARY | 2024-12-19 02:43 | XMS_ITS | Clinical Summary ---
Author Organization [facility] Address [address] [place] [address] Care Team Providers Care Estimation Manager Name Role Phone Scooby Guillermo MD Primary Care Provider [phone] [facility],non-owned Affiliates and Associated Physician Practices is amultiple site organization consisting of ambulatory clinics and hospital sitesin [place], [place], [place] and [place]. This disclosure is being madepursuant to the Care Everywhere program and may not contain all information available regarding this patient. Last updated 18.[facility] Allergies Active Allergy Reactions Criticality Noted Date [...] Active vitamin D, ergocalciferol, (Drisdol) 1.25 MG (18960 UT) capsule Take 1 (one) capsule by mouth every 7 days Active diclofenac sodium (Voltaren) 1 % gel APPLY 2 GRAMS TO THE AFFECTED AREA(S) BY TOPICAL ROUTE 4 TIMES PER DAY 05/10/2024 Active Active Problems Problem Noted Date Diagnosed Date Syncope, unspecified syncope type 04/21/2024 Seizure-like activity 04/21/2024 Family History Medical History Relation Name Comments CVA Father Diabetes - Type 2 Mother Relation Name Status Comments Father (Age 86) Mother (Age 92) Social History Tobacco Use Types Packs/Day Years [...] Recorded Patient Health Questionnaire-2 Score 0 04/26/2024 [facility] [place] of Occupat ional Health - Occupational Stress [...] place to sleep or slept in a long term (including now)? No 04/21/2024 Sex and Gender [...] Mass Index 34.95 06/08/2024 1:26 PM CDT Plan of Treatment Health Maintenance Due Date Last Done Comments BONE DENSITY TESTING 1950 COLOGUARD (AGES 45-75) - COL ON CA SCREENING 1950 COLON MONITORING 1950 COLONOSCOPY - COLON CA SCREENING 1950 CT COLONOGRAPHY - COLON CA SCREENING 1950 Colorectal Cancer Screening 1950 FIT - COLON CA SCREENING 1950 FLEX SIG - COLON CA SCREENING 1950 LIPID TESTING 1950 MAMMOGRAM 1950 HEPATITIS C SCREENING 05/28/1968 DTAP/TDAP/TD VACCINES (1 - Tdap) 1969 PNEUMOCOCCAL VACCINE 50+ (1 of 1 - PCV) 2000 ZOSTER VACCINE (1 of 2) 2000 Respiratory Syncytial Virus (RSV) Vaccine Pt: or over 60 yrs (1 - Risk 60-74 years 1-dose series) 2010 COVID-19 VACCINE (2 - 2023-2 5 season) 2024 09/27/2021 INFLUENZA VACCINE (#1) 2024 10/01/2021 DEPRESSION SCREENING 11/10/2024 04/21/2024 MEDICARE AWV CALENDAR YEAR 2024 HEPATITIS B VACCINE Aged Out No longe r eligible based on patient's age to complete this topic HIB VACCINE Aged Out No longer eligi ble based on patient's age to complete this topic HPV VACCINE Aged Out No longer eligi ble based on patient's age to complete this topic MENINGOCOCCAL (Group B) VACCINE Aged Out No longer eligible based on patient's age to complete this topic MENINGOCOCCAL VACCINE Aged Out No sriram sarabjit eligible based on patient's age to complete this topic Advance Directives * Full Code (Latest Code Status on File) Date Activated Date Inactivated Comments 04/21/2024 11:18 PM 04/27/2024 6:01 PM * Full Code Date Activated Date Inactivated Comments 04/21/2024 11:17 PM 04/21/2024 11:18 PM Care Teams Estimation Manager Relationship Specialty Start Date End Date Scooby Guillermo MD [address] [place], [place] [id number] PCP - General Internal Medicine 04/23/24
--- OUTSIDE RECORDS SUMMARY | 2024-12-19 02:43 | XMS_ITS ---
Author Organization [facility] Address [address] [place] [address] Care Team Providers Care Coal Miner Name Role Phone Bacilio Francisco Unavailable [phone] Encounters Encounter Location Date Provider Diagnosis [facility] [address] [facility] [address] [place] [address] 08/25/2024 Bacilio Francisco PLAN OF TREATMENT No Information Progress Notes * Juanito AUSTINDOB: [birth year] (74 yo F)Acc No.[id number]:08/25/2024 Progress Notes Patient: Juanito AUSTIN Provider: MD OKSANA, Sabrina.Lizz.C.P, F.A.S.N. :1950 Age:74 Y Sex:Female Date:08/25/2024 Address:[address] [place], [place] [id number] Subjective: * Chief Complaints: * * Medical History: Objective: Assessment: Plan: * Treatment: * Billing Information: * Visit Code: * Procedure Codes: * D NEUROLOGIST Sign off status: Pending * Provider: MD OKSANA, Sabrina.Lizz.C.P, F.A.S.N. Date: 08/25/2024
--- OUTSIDE RECORDS SUMMARY | 2024-12-19 02:43 | XMS_ITS | Patient Health Record ---
Author Organization [facility] Address [address] [facility] [address] [place] [address] Care Team Providers Care Home Care Companion Name Role Phone Bacilio Francisco Unavailable [phone] REASON FOR REFERRAL No Information PROBLEMS Problem Type ICD Code Onset Dates Problem Status W/U Status Risk SNOMED Code Notes Problem Essential (primary) hypertension (I10) Active confirmed Essential hypertension (92401681) Problem Renal osteodystrophy (N25.0) Active confirmed Renal osteodystrophy (78631435) Problem Chronic kidney disease, stage 3 unspecified (N18.30) Active confirmed Chronic kidney disease stage 3 (disorder) (947894148) Encounters Encounter Location Date Provider Diagnosis [facility] [address] [place] [address] 09/03/2024 Bacilio Francisco Chronic kidney disea se, stage 3 unspecified N18.30 ; Essential (primary) hypertension I10 and Renal osteodystrophy N25.0 [facility] [address] [place] [address] 10/29/2024 Bacilio Francisco ASSESSMENTS Encounter Date Diagnosis Assessment Notes Treatment Notes Treatment Clinical Notes Section Notes 09/03/2024 Essential (primary) hypertension (ICD-10 - I10) 09/03/2024 Chronic kidney disease, stage 3 unspecified (ICD-10 - N18.30) 09/03/2024 Renal osteodystrophy (ICD-10 - N25.0) PLAN OF TREATMENT No Information
--- OUTSIDE RECORDS SUMMARY | 2024-12-19 02:55 | XMS_ITS | Continuity of Care Document ---
Author Organization [facility] Address [address] [place] [address] [place] [address] Phone Care Team Providers Care Derrick Boat Lever Operator Name Role Phone Fermin Gonzalez MD Unavailable Unavailable Advance Directives Directive Yes / No Effective Date File Name No Information Encounters Encounter Description Practice Location Reason(s) For Visit Diagnoses Date Provider Providers Copied on Encounter [facility], [address], [place], [place], [address], [place] tel:[phone] [facility] Professional No Information Jake-0 3-200 3 Lisa Christensen. [address] [facility] [place], [place], [address], [place]. tel:[phone] Referring Provider: Esme Bernal MD, [address], [place], [address]. tel:[phone] Family History Family Member Type Diagnosis Age [...]
--- OUTSIDE RECORDS SUMMARY | 2024-12-19 02:55 | XMS_ITS | Patient Health Record ---
Author Organization [facility] Address [address] [place] [address] Care Team Providers Care Assembler Small Products Name Role Phone Bacilio Francisco Unavailable [phone] REASON FOR REFERRAL No Information MEDICATIONS Medication SIG (Take, Route, Frequency, Duration) Notes Start Date End Date Status Farxiga 10 MG 1 tablet Orally Once a day for 06/23/2024 03/20/2025 Active Losartan Potassium 100 MG 1 tablet Orall y Once a day for 11/20/2023 Active Ergocalciferol 1.25 MG (14029 UT) 1 capsule Orally Once a week for 90 day(s) 06/23/2024 03/20/2025 Active Calcitriol 0.25 MCG 1 capsule Orally bailey ry other day for 90 02/28/2023 Active PROBLEMS Problem Type ICD Code Onset Dates Problem Status W/U Status Risk SNOMED Code Notes Problem Anemia, unspecified (D64.9) Active confirmed Anemia (931375037) Problem Type 2 diabetes mellitus with hyperglycemia (E11.65) Active confirmed Hyperglycemia d ue to type 2 diabetes mellitus (707651368197432) Problem Anxiety disorder, unspecified (F41.9) Active confirmed Anxiety disorde r (411441044) Problem Essential (primary) hypertension (I10) Active confirmed Essential hypertension (11450906) Problem Gastro-esophageal reflux disease without esophagitis (K21.9) Active confirmed Gastro-esophage al reflux disease without esophagitis (068934863) Problem Renal osteodystrophy (N25.0) Active confirmed Renal osteodystrophy (00641735) Problem Gastro-esophageal reflux disease with esophagitis, without bleeding (K21.00) Active confirmed Gastroesophagea l reflux disease with esophagitis (disorder) (526258711) Problem Chronic kidney disease, stage 3 unspecified (N18.30) Active confirmed Chronic kidney disease stage 3 (disorder) (157654791) Problem Chronic kidney disease, stage 3b (N18.32) Active confirmed Chronic kidney disease stage 3B (disorder) (394092116) Encounters Encounter Location Date Provider Diagnosis [facility] [address] [address] 12/26/2023 Bacilio Francisco Chronic kidney disea se, stage 3b N18.32 ; Essential (primary) hypertension I10 ; Type 2 diabetes mellitus with hyperglycemia E11.65 ; Anemia, unspecified D64.9 ; Gastro-esophageal reflux disease with esophagitis, without bleeding K21.00 ; Gastro-esophageal reflux disease without esophagitis K21.9 and Anxiety disorder, unspecified F41.9 [facility] [address] [address] 02/27/2024 Bacilio Francisco Chronic kidney disea se, stage 3b N18.32 ; Essential (primary) hypertension I10 ; Type 2 diabetes mellitus with hyperglycemia E11.65 ; Anemia, unspecified D64.9 ; Gastro-esophageal reflux disease with esophagitis, without bleeding K21.00 ; Gastro-esophageal reflux disease without esophagitis K21.9 and Anxiety disorder, unspecified F41.9 [facility] [address] [address] 05/12/2024 Bacilio Francisco Chronic kidney disea se, stage 3b N18.32 ; Essential (primary) hypertension I10 ; Type 2 diabetes mellitus with hyperglycemia E11.65 ; Anemia, unspecified D64.9 ; Gastro-esophageal reflux disease with esophagitis, without bleeding K21.00 ; Gastro-esophageal reflux disease without esophagitis K21.9 and Anxiety disorder, unspecified F41.9 [facility] [address] [address] 06/23/2024 Bacilio Francisco Chronic kidney disea se, stage 3 unspecified N18.30 ; Essential (primary) hypertension I10 ; Renal osteodystrophy N25.0 ; Type 2 diabetes mellitus with hyperglycemia E11.65 ; Anemia, unspecified D64.9 ; Gastro-esophageal reflux disease with esophagitis, without bleeding K21.00 ; Gastro-esophageal reflux disease without esophagitis K21.9 and Anxiety disorder, unspecified F41.9 [facility] [address] [address] 08/25/2024 Bacilio Francisco [facility] [address] [address] 09/01/2024 Bacilio Simmons [address] [place] [address] 12/29/2023 Bacilio Francisco [facility] [address] [address] 03/10/2024 Bacilio Francisco [facility] [address] [address] 06/23/2024 Bacilio Francisco ASSESSMENTS Encounter Date Diagnosis Assessment Notes Treatment Notes Treatment Clinical Notes Section Notes 12/26/2023 Chronic kidney disease, stage 3b (ICD-10 - N18.32) 02/27/2024 Chronic kidney disease, stage 3b (ICD-10 - N18.32) 05/12/2024 Chronic kidney disease, stage 3b (ICD-10 - N18.32) 06/23/2024 Chronic kidney disease, stage 3 unspecified (ICD-10 - N18.30) 06/23/2024 Essential (primary) hypertension (ICD-10 - I10) 05/12/2024 Essential (primary) hypertension (ICD-10 - I10) 02/27/2024 Essential (primary) hypertension (ICD-10 - I10) 12/26/2023 Essential (primary) hypertension (ICD-10 - I10) 12/26/2023 Type 2 diabetes mellitus with hyperglycemia (ICD-10 - E11.65) 02/27/2024 Type 2 diabetes mellitus with hyperglycemia (ICD-10 - E11.65) 05/12/2024 Type 2 diabetes mellitus with hyperglycemia (ICD-10 - E11.65) 06/23/2024 Renal osteodystrophy (ICD-10 - N25.0) 06/23/2024 Type 2 diabetes mellitus with hyperglycemia (ICD-10 - E11.65) 05/12/2024 Anemia, unspecified (ICD-10 - D64.9) 12/26/2023 Anemia, unspecified (ICD-10 - D64.9) 02/27/2024 Anemia, unspecified (ICD-10 - D64.9) 12/26/2023 Gastro-esophageal reflux disease with esophagitis, without bleeding (ICD-10 - K21.00) 02/27/2024 Gastro-esophageal reflux disease with esophagitis, without bleeding (ICD-10 - K21.00) 06/23/2024 Anemia, unspecified (ICD-10 - D64.9) 05/12/2024 Gastro-esophageal reflux disease with esophagitis, without bleeding (ICD-10 - K21.00) 06/23/2024 Gastro-esophageal reflux disease with esophagitis, without bleeding (ICD-10 - K21.00) 05/12/2024 Gastro-esophageal reflux disease without esophagitis (ICD-10 - K21.9) 02/27/2024 Gastro-esophageal reflux disease without esophagitis (ICD-10 - K21.9) 12/26/2023 Gastro-esophageal reflux disease without esophagitis (ICD-10 - K21.9) 12/26/2023 Anxiety disorder, unspecified (ICD-10 - F41.9) 02/27/2024 Anxiety disorder, unspecified (ICD-10 - F41.9) 05/12/2024 Anxiety disorder, unspecified (ICD-10 - F41.9) 06/23/2024 Gastro-esophageal reflux disease without esophagitis (ICD-10 - K21.9) 06/23/2024 Anxiety disorder, unspecified (ICD-10 - F41.9) PLAN OF TREATMENT No Information
--- OUTSIDE RECORDS SUMMARY | 2024-12-19 02:55 | XMS_ITS ---
Author Organization [facility] Address [address] [place] [address] Care Team Providers Care Airplane Gas Tank Liner Assembler Name Role Phone Bacilio Francisco Unavailable [phone] Encounters Encounter Location Date Provider Diagnosis [facility] [address] [facility] [address] [place] [address] 09/01/2024 Bacilio Francisco PLAN OF TREATMENT No Information Progress Notes * Juanito AUSTINDOB: [birth year] (74 yo F)Acc No.[id number]:09/01/2024 Progress Notes Patient: Juanito AUSTIN Provider: MD OKSANA, Sabrina.Lizz.C.P, F.A.S.N. :1950 Age:74 Y Sex:Female Date:09/01/2024 Address:[address] [place], [place] [id number] Subjective: * Chief Complaints: * * Medical History: Objective: Assessment: Plan: * Treatment: * Billing Information: * Visit Code: * Procedure Codes: * PHONER Sign off status: Pending * Provider: MD OKSANA, Sabrina.Lizz.C.P, F.A.S.N. Date: 09/01/2024
--- NOTE | 2024-12-19 03:26 | PC.NURSE ---
PATIENT RESTING ON STRETCHER. CURRENTLY AWAITING LAB RESULTS
[2024-12-19 03:37] LABS: Strep Group A RT-PCR NOT DETECTED (Negative)
[2024-12-19 03:43] LABS: SARS-CoV-2 RNA PCR Negative (Negative)
[2024-12-19 03:54] LABS: Influenza A QL RT-PCR Negative (Negative); Influenza B QL RT-PCR Negative (Negative); RSV RNA, RT-PCR Negative (Negative)
--- NOTE | 2024-12-19 04:16 | ED.EAR ---
HPI - Ear Problem General Chief complaint: Ear Stated complaint: Left Ear Pain Source: patient and family Mode of arrival: ambulatory Limitations: no limitations History of Present Illness HPI Narrative: This is a 74-year-old female who presents with left ear pressure with a tender submandibular gland on the left with sinus congestion and drainage with no fever chills no shortness of breath no nausea vomiting no abdominal pain or chest pain. MD Complaint: ear pain Duration: constant Severity: mild Relieving factors: nothing Exacerbating factors: nothing Related Data Home Medications ?Medication ?Instructions ?Recorded ?Confirmed ?Last Taken ?Type duloxetine 30 mg capsule,delayed 30 mg PO DAILY 03/11/22 12/19/24 04/21/24 History release gabapentin 600 mg tablet 600 mg PO TID 03/11/22 12/19/24 04/21/24 History latanoprost 0.005 % eye drops 1 drp EACH EYE QPM 03/11/22 12/19/24 04/21/24 History levothyroxine 125 mcg tablet 125 mcg PO DAILY 03/11/22 12/19/24 04/21/24 History (Synthroid) metoclopramide HCl 10 mg tablet 10 mg PO USEASDIRECTD PRN Gastric 03/11/22 12/19/24 04/21/24 History Reflux allopurinol 100 mg tablet 100 mg PO DAILY 03/05/24 12/19/24 04/21/24 History calcitriol 0.25 mcg capsule 0.25 mcg PO EVERY OTHER DAY 03/05/24 12/19/24 04/21/24 History dapagliflozin propanediol 10 mg 10 mg PO DAILY 03/05/24 12/19/24 04/21/24 History tablet (Farxiga) ergocalciferol (vitamin D2) 1,250 1,250 mcg PO WEEKLY 03/05/24 12/19/24 04/21/24 History mcg (50,000 unit) capsule losartan 100 mg tablet 100 mg PO DAILY 03/05/24 12/19/24 04/21/24 History ropinirole 1 mg tablet 1 mg PO TID 03/05/24 12/19/24 04/21/24 History tramadol 50 mg tablet 50 mg PO TID 03/05/24 12/19/24 04/21/24 History Allergies Allergy/AdvReac Type Severity Reaction Status Date / Time codeine Allergy Intermediate Hallucinati Verified 12/19/24 02:47 ng diphenhydramine Allergy Intermediate Hives Verified 12/19/24 02:47 Penicillins Allergy Intermediate Hives Verified 12/19/24 02:47 Sulfa (Sulfonamide Allergy Intermediate Hives Verified 12/19/24 02:47 Antibiotics) Iodinated Contrast Media Allergy Unknown Verified 12/19/24 02:47 Review of Systems Review of Systems: All systems reviewed & are unremarkable except as noted in HPI and below PMFSH Past Medical History Medical History CKD stage 3b, GFR 30-44 ml/min Diabetes mellitus Adenomatous duodenal polyp Hypertension Hyperlipidemia History of gastric ulcer GERD (gastroesophageal reflux disease) Asthma Hypothyroidism Vertigo Surgical History Surgical History History of hysterectomy History of cholecystectomy History of tonsillectomy Family History Family History Other Diabetes mellitus Family history of arthritis Family history of malignant neoplasm Social History Social History Smoking status: Never smoker Alcohol intake: never Substance use: never Substance use type: does not use Do You Feel Safe in your Home?: No Lack of Transportation: No Lack of Food: Never True Current Housing: I Have Housing Concerned About Future Housing: No Difficulty Paying Gas/Electric Bills: No Difficulty Paying for Meds: No Currently Unemployed: No Education: High School Diploma/GED Difficulty w/ Childcare or Family Care: No Living arrangements: with family Gender identity (if verbalized by the patient): Female Sexual Orientation (if Verbalized by the Patient): Straight or Heterosexual Spiritual care concerns: No Exam Const: General: healthy appearing and no acute distress Nutritional Appearance: well nourished Orientation/consciousness: patient oriented x3 Limitations: no limitations HENMT: Head: normal to inspection Other: Left frontal maxillary sinus tenderness with palpation Eyes: Conjunctivae: conjunctivae normal Chest: Chest palpation & inspection: normal inspection of the chest Resp: Effort & Inspection: normal respiratory effort Auscultation: clear to auscultation bilaterally Cardio: Rate: regular rate Rhythm: regular rhythm GI: Auscultation: normal bowel sounds Rectal Exam: normal sphincter tone : General: Yes bladder normal to palpation Urinary Catheter: Urinary Catheter: patent and draining Skin: General skin exam: normal color Course Course Emergency Course: COVID RSV influenza and strep negative patient received dose of Levaquin. Vital Signs Vital signs: Vital Signs Temperature 36.6 C 12/19/24 02:40 Pulse Rate 79 12/19/24 02:40 Respiratory Rate 18 12/19/24 02:40 Blood Pressure 162/79 H 12/19/24 02:40 Pulse Oximetry 97 12/19/24 02:40 Oxygen Delivery Room Air 12/19/24 02:40 Temperature 36.6 C 12/19/24 02:40 Pulse Rate 79 12/19/24 02:40 Respiratory Rate 18 12/19/24 02:40 Blood Pressure 162/79 H 12/19/24 02:40 Pulse Oximetry 97 12/19/24 02:40 Oxygen Delivery Room Air 12/19/24 02:40 Medical Decision Making Vital Signs Vital Signs: Vital Signs Temperature 36.6 C 12/19/24 02:40 Pulse Rate 79 12/19/24 02:40 Respiratory Rate 18 12/19/24 02:40 Blood Pressure 162/79 H 12/19/24 02:40 Pulse Oximetry 97 12/19/24 02:40 Oxygen Delivery Room Air 12/19/24 02:40 Temperature 36.6 C 12/19/24 02:40 Pulse Rate 79 12/19/24 02:40 Respiratory Rate 18 12/19/24 02:40 Blood Pressure 162/79 H 12/19/24 02:40 Pulse Oximetry 97 12/19/24 02:40 Oxygen Delivery Room Air 12/19/24 02:40 Lab Data Labs: Lab Results 12/19/24 Range/Units 02:43 Influenza A (RT-PCR) Negative (Negative) Influenza B (RT-PCR) Negative (Negative) RSV (RT-PCR) Negative (Negative) SARS-CoV-2 RNA (RT-PCR) Negative (Negative) Group A Strep (PCR) Not detected (Negative) Critical Care Time Critical Care Time Critical Care Time: No Discharge Plan Discharge Clinical Impression: Sinusitis Qualifiers: Sinusitis location: frontal Chronicity: acute Recurrence: non-recurrent Qualified Code(s): J01.10 - Acute frontal sinusitis, unspecified Patient Disposition: Home, Self-Care Condition: Stable Instructions: Antibiotic Form, Sinusitis (ED) Additional Instructions: take medication as prescribed and follow with primary if symptoms persist or worsen. Patient Language: Ecuadorean Prescriptions: New levofloxacin 500 mg tablet 500 mg PO DAILY Qty: 7 0RF No Action ropinirole 1 mg tablet 1 mg PO TID allopurinol 100 mg tablet 100 mg PO DAILY losartan 100 mg tablet 100 mg PO DAILY calcitriol 0.25 mcg capsule 0.25 mcg PO EVERY OTHER DAY dapagliflozin propanediol [Farxiga] 10 mg Tablet 10 mg PO DAILY ergocalciferol (vitamin D2) 1,250 mcg (50,000 unit) capsule 1,250 mcg PO WEEKLY tramadol 50 mg Tablet 50 mg PO TID insulin glargine [Lantus U-100 Insulin] 100 unit/mL Solution 50 unit subcut HS Qty: 0 0RF latanoprost 0.005 % Drops 1 drp EACH EYE QPM gabapentin 600 mg Tablet 600 mg PO TID levothyroxine [Synthroid] 125 mcg Tablet 125 mcg PO DAILY metoclopramide HCl 10 mg Tablet 10 mg PO USEASDIRECTD PRN (Reason: Gastric Reflux) Rx Instructions: WITH MEALS AND AT BEDTIME duloxetine 30 mg Capsule,Delayed Release(Dr/Ec) 30 mg PO DAILY Follow-up/Referrals: Scooby Guillermo MD [Primary Care Provider] - Time of Disposition: 04:20
[2024-12-19] MEDS: levoFLOXacin 500 MG TABLET PO (04:17)
[2024-12-19 04:45] VITALS: BP 148/72; PULSE 77; RESP 18; O2SAT 97
== END 2024-12-19 04:45 | disposition home or self-care (01) ==
PROVIDERS: Emergency Provider Emergency Medicine
DX: J01.10 Acute frontal sinusitis, unspecified (principal); Z20.822 Contact with and (suspected) exposure to COVID-19
CPT/HCPCS: 87637; 87651; 99283; A9270

== ENCOUNTER 2024-12-30 11:15 | Emergency (ER) | payer MEDICARE, SELFPAY ==
--- NOTE | ~2024-12-30 | CT_ITS ---
Non-contrast Head CT History: Head injury COMPARISON: 04/21/2024 Technique: Axial non-contrast imaging of the brain was performed. Dose reduction technique was used on this scan by utilizing automated exposure control and iterative reconstruction technique. The dose -length product (DLP) was 605.33 mGy-cm. Findings: There is no evidence of intracranial hemorrhage, mass lesion, or acute infarct. Brain par enchyma appears normal. The ventricles and subarachnoid spaces are normal in size. The calvarium ap pears normal. The visualized paranasal sinuses and right mastoid air cells are clear. Minimal left m astoid effusion present. Impression: No intracranial abnormality seen. Reviewed, dictated and finalized at location . [facility] Impression: No intracranial abnormality seen.
--- NOTE | ~2024-12-30 | XR_ITS ---
EXAMINATION: XR shoulder RT min 2V DATE: 12/30/2024 11:42 INDICATION: Right shoulder injury with limited range of motion post fall TECHNIQUE: AP internally and externally rotated, AP oblique externally rotated and transscapular Y vi ews of the right shoulder were obtained. COMPARISON: None FINDINGS: Normal alignment. Small amorphous calcifications along the middle facet of the greater tuberosity and along the lateral margin of the acromion without evident donor site most likely related to enthesopa thy and/or calcific tendinitis. No fracture.Mild glenohumeral and acromioclavicular osteoarthritis. V isualized portion of the lungs are clear. Soft tissues are unremarkable. IMPRESSION: 1. No acute osseous abnormality. 2. Mild right glenohumeral and acromioclavicular osteoarthritis. 3. Mild right infraspinatus calcific tendinitis with additional dystrophic calcification at the delto id origin along the lateral margin of the acromion. Reviewed, dictated and finalized at location [facility]. [facility] IMPRESSION: 1. No acute osseous abnormality. 2. Mild right glenohumeral and acromioclavicular osteoarthritis. 3. Mild right infraspinatus calcific tendinitis with additional dystrophic calc ification at the deltoid origin along the lateral margin of the acromion.
[2024-12-30 11:22] VITALS: BP 129/61; PULSE 93; RESP 20; TEMP 37.6; O2SAT 97
[2024-12-30 11:24] LABS: Glucose Point of Care 186 mg/dl (65-105)
--- OUTSIDE RECORDS SUMMARY | 2024-12-30 11:40 | XMS_ITS | Encounter Summary ---
Author Organization [facility] Address [address] [place] [address] Phone Care Team Providers Care Chemical Processor Name Role Phone Scooby Guillermo MD Primary Care Provider [phone] Esme Adler NP Primary Care Provider + Unknown, Notinfile Primary Care Provider Unavail able Scooby Guillermo MD Primary Care Provider [phone] Bacilio Francisco MD Unavailable [phone] Encounter Details Date Type Department Care Team (Late st Contact Info) Description 02/01/2022 Orders Only [facility] Scanning, Provider Social History Tobacco Use Types Packs/Day Years Used Date Smoking Tobacco: Never Assessed Comments Unknown Sex and Gender Information Value Date Recorded Sex Assigned at Not on file Legal Sex Female 12:42 AM [employer] Gender Identity Not on file Sexual Orientation [...] documented as of this encounter Care Teams Chemical Processor Relationship Specialty Start Date End Date Scooby Guillermo MD PCP - General 03/31/08 04/01/22 Esme Adler NP [address] [address] PCP - General Nurse Practitioner 04/02/22 07/09/23 Unknown, Notinfile PCP - General 07/10/23 07/18/24 Scooby Guillermo MD PCP - General Internal Medicine 07/19/24 [place] [id number] [facility] [address] [address] Consulting Physician Nephrology 07/28/24 documented as of this encounter
--- OUTSIDE RECORDS SUMMARY | 2024-12-30 11:40 | XMS_ITS | Clinical Summary ---
Author Organization [facility] Address [address] [place] [address] Care Team Providers Care Terrapin Fisher Name Role Phone Scooby Guillermo MD Primary Care Provider [phone] Allergies Active Allergy Reactions Criticality Noted Date [...] Type Department Care Team Description 12/07/[address] [address] Alejandra Reyes PA Question 12/06/[address] [address] Alejandra Reyes PA Appointment Reminder 11/08/2024 Telephone [facility] [address] [place] [address] Tianna Mariscal MD Lab Results 10/29/2024 Telephone [facility] [address] [place] [address] Tianna Mariscal MD Lab Results 10/26/2024 Telephone [facility] [address] [place] [address] Tianna Mariscal MD Follow Up Call 10/25/2024 11:37 AM [employer]ENT - 10/25/2024 11:59 PM [employer]ARM MORT[employer]AGE AGENT Hospital Encounter [place] [address] [place] [address] Tianna Mariscal MD Discharge Disposition: Home or Self Care (Routine Discharge) 10/25/2024 11:00 AM FARM M[employer]GAGE AGENT Office Visit [facility] [place] [address] Bayron Pickard MD Ramani, Nirali, MD New Patient 10/25/2024 Orders Only [place] [address] [place] [address] Tianna Mariscal MD 10/25/2024 Travel from Last [...] Sex Assigned at Female 12/06/2024 7:39 AM [employer] AGENT Legal Sex Female 8:54 PM CDT Gender Identity Female 12/06/2024 7:39 AM FARM M[employer] AGENT Sexual Orientation Not on file Last Filed Vital Signs Vital Sign Reading Time Taken Comments Blood Pressure 138/75 10/25/2024 10:59 AM [employer]ARM [employer] AGENT Pulse 72 10/25/2024 10:59 AM [employer]ARM M[employer] AGENT Temperature 36.6 C (97.8 F) 09/14/2014 10:34 AM FARM MORTGAGE AGENT Respiratory Rate 13 09/14/2014 10:3 4 AM FARM M[employer] AGENT Regular Oxygen Saturation - - Inhaled Oxygen Concentration - - Weight 94.3 kg (207 lb 12.8 oz) 024 10:59 AM [employer]ARM M[employer] AGENT Height 165.1 cm (5' 5 ) 10/25/2024 10:5 9 AM [employer] M[employer] AGENT Body Mass Index 34.58 10/25/2024 10:59 AM FARM M[employer] AGENT Plan of Treatment Upcoming Encounters Date Type Department Care Team (Late st Contact Info) Description 01/03/2025 11:15 AM FARM M[employer] AGENT Office Visit [address] [address] Antonio George Jr., DO [address] [place] [address] 01/24/2025 12:45 PM CDT Office Visit [facility] [address] [place] [address] Tianna Mariscal MD [address] [place] [phone] [phone] (Work) Health Maintenance Due Date Last Done Comments Colorectal Cancer Screening Colonoscopy (10 Years) 1950 DTaP, Tdap and Td Vaccines (1 - Tdap) 1969 Mammogram Screening 1990 Zoster Vaccines (1 of 2) 2000 Annual Medicare Wellness Visit 2015 Dexa Scan (General) 2015 Pneumococcal Vaccine: 65+ Years (2 of 2 - PCV) 08/17/2015 08/17/2014, 08/13/2012, 1950 COVID-19 Vaccine ( - season) 2024 06/12/2022, 09/27/2021, 03/09/2021, Additional history [...] Comments COMPLEMENT C4 Routine 10/25/2024 12:00 PM [employer]ENT Chronic kidney disease, stage 3b (CMS/HCC HHS/HCC) HTN (hypertension) COMPLEMENT C3 Routine 10/25/2024 12:00 PM [employer] AGENT Chronic kidney disease, stage 3b (CMS/HCC HHS/HCC) HTN (hypertension) IMMUNOFIXATION Routine 10/25/2024 12:00 PM [employer]ENT Chronic kidney disease, stage 3b (CMS/HCC HHS/HCC) HTN (hypertension) PROTEIN, ELECTROPHORESIS Routine 10/25/2024 12:00 PM [employer]ENT Chronic kidney disease, stage 3b (CMS/HCC HHS/HCC) HTN (hypertension) HEPATITIS PANEL,ACUTE Routine 10/25/2024 12:00 PM [employer] AGENT Chronic kidney disease, stage 3b (CMS/HCC HHS/HCC) HTN (hypertension) Fatigue ANCA SCREEN, MPO PR3 W/RFX TTR Routine 10/25/2024 12:00 PM [employer]ARM [employer] AGENT Chronic kidney disease, stage 3b (CMS/HCC HHS/HCC) HTN (hypertension) ANTINUCLEAR ANTIBODY WI RFX Routine 10/25/2024 12:00 PM [employer]ARM [employer] AGENT Chronic kidney disease, stage 3b (CMS/HCC HHS/HCC) HTN (hypertension) URIC ACID BLOOD Routine 10/25/2024 12:00 PM [employer] AGENT Chronic kidney disease, stage 3b (CMS/HCC HHS/HCC) HTN (hypertension) PTH - INTACT Routine 10/25/2024 12:00 PM [employer] AGENT Chronic kidney disease, stage 3b (CMS/HCC HHS/HCC) HTN (hypertension) RENAL FUNCTION PANEL Routine 10/25/2024 12:00 PM [employer]ARM [employer] AGENT Chronic kidney disease, stage 3b (CMS/HCC HHS/HCC) HTN (hypertension) CBC W/DIFF AUTOMATED Routine 10/25/2024 12:00 PM [employer]ARM [employer] AGENT Chronic kidney disease, stage 3b (CMS/HCC HHS/HCC) HTN (hypertension) PROTEIN ELECTROPHORESIS URINE RANDOM Routine 10/25/2024 11:48 AM FARM [employer]AGE AGENT Chronic kidney disease, stage 3b (CMS/HCC HHS/HCC) HTN (hypertension) HC CREATININE OTH SOURCE Routine 10/25/2024 11:48 AM FARM M[employer] AGENT Chronic kidney disease, stage 3b (CMS/HCC HHS/HCC) HTN (hypertension) HC URINALYSIS AUTO W/MICRO Routine 10/25/2024 11:48 AM FARM M[employer] AGENT Chronic kidney disease, stage 3b (CMS/HCC HHS/HCC) HTN (hypertension) from Last 3 Months Results * ANCA SCREEN, MPO PR3 W/RFX TTR (10/25/2024 12:00 PM FARM MORTGAGE AGENT) Pathologist [facility] ANCA SCREEN Negative Negative 10/29/2024 12:26 AM FARM MORT[employer]AGE AGENT Scope 5 PAM BARRERA Comment: ANCA screen uses indirect immunofluorescence to detect antibodies to neutrophil cytoplasmic antigens. A positive screen reflexes to titer and pattern. Patterns include cytoplasmic (c-ANCA) and perinuclear (p-ANCA) both of which are associated with vasculitis, and atypical p-ANCA which is associated with inflammatory bowel disease and other disorders. MYELOPEROXIDASE AB <1.0 <1.0 AI 2023 12:26 AM [employer] AGENT Scope 5 DOMINGUEZANN BARRERA Comment: Value Interpretation <1.0 AI: No [...] PROTEINASE-3 AB <1.0 <1.0 AI 12:26 AM FARM MORTGAGE AGENT Scope 5 PAM BARRERA Comment: Value Interpretation <1.0 AI: No Antibody Detected >or=1.0 AI: Antibody Detected Autoantibodies to proteinase-3 (IL-3) are accepted as characteristic for granulomatosis with polyangiitis (GPA, Brooks's), and are detectable in 95% of the histologically proven cases. The cytoplasmic IFA pattern, (c-ANCA), is based largely on autoantibody to IL-3 which serves as the primary antigen. These autoantibodies are present in active disease. Test Performed by [facility] [facility], [employer], [address] [place], [place] Thiago Falk M.D., Ph.D., Director of Laboratories , CLIA [id number] 10/25/2024 12:0 0 PM FARM MORT[employer] AGENT Tianna Mariscal MD LABORATORY Final Result Scope 5 [facility] [address] [place], [place] , * ANTINUCLEAR ANTIBODY WI RFX (10/25/2024 12:00 PM FARM MORTGAGE AGENT) PEGGY 0.2 10/27/2024 12:56 PM FARM MORTGAGE AGENT [facility] Comment: NEGATIVE: <0.7 RATIO PEGGY PROFILE AND TITER NOT PERFORMED THE PEGGY SCREEN TESTS FOR THE FOLLOWING ANTIBODIES BY EIA: SSA1 (RO), SSB1 (LA), HANCOCK, SCL70, JO1, CENTROMERE, SUPERVISOR WET ROOM HISTONE MUST BE ORDERED SEPARATELY DNA (DS) ANTIBODY 5.7 IU/ML 024 12:56 PM FARM MORTGAGE AGENT [facility] Comment: NEGATIVE: <10 IU/mL EQUIVOCAL: 10 to 15 IU/mL POSITIVE: >15 IU/mL THIS QUANTITATIVE ASSAY IS CALIBRATED TO THE [employer]'S WO/80 STANDARD. THE LEVEL OF dsDNA AUTOANTIBODY GERERALLY CORRELATES WITH THE LEVEL OF DISEASE ACTIVITY IN SYSTEMIC LUPUS ERYTHMATOSUS 10/25/2024 12:0 0 PM FARM M[employer] AGENT us Tianna Mariscal MD LABORATORY Final Result Performing Organization Address City/[facility]/ZIP Co de Phone Number [facility] [address] [place] [address], [phone] * (ABNORMAL) COMPLEMENT C4 (10/25/2024 12:00 PM FARM MORTGAGE AGENT) COMPLEMENT C4 51.5(H) 10.0 - 40.0 MG/DL 10/26/2024 2:03 PM FARM M[employer] AGENT [facility] 10/25/2024 12:0 0 PM FARM MORTG[employer] AGENT us Tianna Mariscal MD LABORATORY Final Result Performing Organization Address [facility]/ZIP Co de Phone Number [facility] [address] [place] [address], [phone] * COMPLEMENT C3 (10/25/2024 12:00 PM FARM MORTGAGE AGENT) COMPLEMENT C3 170.0 90.0 - 180.0 MG/DL 10/26/2024 2:03 PM FARM [employer] AGENT [facility] 10/25/2024 12:0 0 PM FARM MORTG[employer] AGENT us Tianna Mariscal MD LABORATORY Final Result Performing Organization Address [facility] Co de Phone Number [facility] [address] [place] [address], [place] [phone] * PTH - INTACT (10/25/2024 12:00 PM FARM M[employer]AGE AGENT) PTH 71.4 18.4 - 80.1 PG/ML 10/26/2024 12:01 PM FARM M[employer]GAGE AGENT [facility] Comment: ASSAY PERFORMED BY CHEMILUMINESCENCE METHODOLOGY USING [employer] REAGENT. PATIENT RESULTS DETERMINED BY ASSAYS USING DIFFERENT MANUFACTURERS FOR METHODS MAY NOT BE COMPARABLE. 10/25/2024 12:0 0 PM FARM MORTGAGE AGENT us Tianna Mariscal MD LABORATORY Final Result Performing Organization Address [facility] de Phone Number [facility] [address] [place] [address], [place] [phone] * (ABNORMAL) RENAL FUNCTION PANEL (10/25/2024 12:00 PM FARM MORTGAGE AGENT) SODIUM S/P/B 142 136 - 145 MMOL/L 10/25/2024 12:21 PM [facility] POTASSIUM S/P/B 4.1 3.5 - 5.1 MMOL/L 10/25/2024 12:21 PM [facility] CHLORIDE S/P/B 104 98 - 107 MMOL/L 10/25/2024 12:21 PM [facility] CO2 29.9 21.0 - 32.0 MMOL/L 10/25/2024 12:21 PM [facility] GLUCOSE 114(H) 70 - 99 MG/DL 10/25/2024 12:21 PM [facility] Comment: FASTING GLUCOSE 100 TO 125 MG/DL IS CONSISTENT WITH IMPAIRED FASTING GLUCOSE. FASTING GLUCOSE >125 MG/DL IS CONSISTENT WITH DIABETES. RANDOM GLUCOSE >200 MG/DL WITH HYPERGLYCEMIC SYMPTOMS IS CONSISTENT WITH DIABETES. PER ADA GUIDELINES BUN 18 6 - 24 MG/DL 10/25/2024 12:21 PM [facility] CREATININE S/P/B 1.29(H) 0.55 - 1.02 MG/DL 10/25/2024 12:21 PM [facility] CALCIUM S/P/B 9.7 8.4 - 10.5 MG/DL 10/25/2024 12:21 PM [facility] ALBUMIN S/P/B 3.3(L) 3.4 - 5.0 G/DL 10/25/2024 12:21 PM [facility] PHOSPHORUS 4.0 2.6 - 4.7 MG/DL 10/25/2024 12:21 PM [facility] ANION GAP 8.1 5.0 - 15.0 MMOL/L 10/25/2024 12:21 PM [facility] OSMOLALITY (CALC) 297 MOSM/KG 024 12:21 PM [facility] Comment:REFERENCE RANGE NOT ESTABLISHED GFR ESTIMATE 44(L) >89 ML/MIN/1. 73 M2 10/25/2024 12:21 PM [facility] GFR NOTES GFR REFERENCE S: 10/25/2024 12:21 PM [facility] Comment: THE ESTIMATED GFR IS CALCULATED [...] <15 ml/min/1.73 m2 10/25/2024 12:0 0 PM [employer]ENT us Tianna Mariscal MD LABORATORY Final Result [facility] [address] [place] [address], [place] [phone] * IMMUNOFIXATION (10/25/2024 12:00 PM FARM M[employer] AGENT) Pathologist [facility] IMMUNOFIXATION SERUM SEE PATHOLOGIST'S INTERPRETATION 10/27/2024 12:44 PM [employer] AGENT [facility] IMMUNOFIX (SERUM) INTERPRETATION THIS SERUM IMMUNOTYPING WAS INTERPRETED BY 10/28/2024 6:01 AM FARM MORT[employer] AGENT [facility] Comment: DR VIKRAM MARCELO MONOCLONAL PROTEIN NOT IDENTIFIED 10/25/2024 12:0 0 PM [employer] M[employer] AGENT us Tianna Mariscal MD LABORATORY Final Result Performing Organization Address City/[facility]/ZIP Co de Phone Number [facility] [address] [place] [address], [place] [phone] * HEPATITIS PANEL,ACUTE (10/25/2024 12:00 PM FARM MORTG[employer] AGENT) [facility] HEPATITIS B SURFACE AG NON-REACT MISA NON-REACT MISA 10/26/2024 9:28 PM [employer]ARM M[employer] AGENT [facility] Comment:HBsAg NOT DETECTED. HEP B CORE IGM NON-REACT MISA NON-REACT MISA 10/26/2024 9:28 PM [employer] AGENT [facility] Comment: IgM ANTI HBc NOT DETECTED. DOES NOT EXCLUDE THE POSSIBILITY OF EXPOSURE TO OR INFECTION WITH HBV. NO RETEST REQUIRED. HIGH DOSES OF BIOTIN MAY INTERFERE WITH THIS TEST RESULT. CORRELATION TO CLINICAL HISTORY AND PRESENTATION RECOMMENDED. HAV IGM NON-REACT MISA NON-REACT MISA 10/26/2024 9:28 PM [employer]ARM [employer] AGENT [facility] Comment: IgM ANTI HAV NOT DETECTED. DOES NOT EXCLUDE THE POSSIBILITY OF EXPOSURE TO OR INFECTION WITH HAV. LEVELS OF IgM ANTI HAV MAY BE BELOW THE CUTOFF IN EARLY INFECTION. HEPATITIS C AB NON-REACT MISA NON-REACT MISA 10/26/2024 9:28 PM [employer] AGENT [facility] Comment: ANTIBODIES TO HCV NOT DETECTED. DOES NOT EXCLUDE THE POSSIBILITY OF EXPOSURE TO HCV. 10/25/2024 12:0 0 PM FARM M[employer] AGENT Tianna Mariscal MD LABORATORY Final Result [facility] [address] [place] [address], [phone] * (ABNORMAL) CBC W/DIFF AUTOMATED (10/25/2024 12:00 PM FARM M[employer] AGENT) WBC 10.34 4.00 - 10.80 x10'3/uL 10/25/2024 12:19 PM F[employer] M[employer] AGENT [facility] RBC 5.23 4.10 - 5.40 x10'6/uL 10/25/2024 12:19 PM [facility] HGB 13.4 12.0 - 16.0 G/DL 10/25/2024 12:19 PM [facility] HCT 43.0 36.0 - 47.0 % 10/25/2024 12:19 PM [facility] MCV 82.2 78.0 - 100.0 FL 10/25/2024 12:19 PM [facility] MCH 25.6(L) 27.0 - 31.0 PG 10/25/2024 12:19 PM [facility] MCHC 31.2(L) 33.0 - 36.0 G/DL 10/25/2024 12:19 PM [facility] RDW 17.8(H) 11.5 - 14.5 % 10/25/2024 12:19 PM [facility] PLT 247 150 - 350 x10'3/uL 10/25/2024 12:19 PM [facility] MPV 10.9(H) 7.4 - 10.4 FL 10/25/2024 12:19 PM [facility] CBC COMMENT NORMAL REFERENCE RANGE NOT ESTABLISHED FOR THE PROPORTIONAL LEUKOCYTE DIFFERENTIAL. 10/25/2024 12:19 PM [facility] NEUTROPHILS % 73.2 % 10/25/2024 12:19 PM [employer] M[employer] AGENT [facility] LYMPHOCYTES % 18.3 % 10/25/2024 12:19 PM [employer]ENT [facility] MONOCYTES % 5.0 % 10/25/2024 12:19 PM [employer]ENT [facility] EOSINOPHILS % 2.3 % 10/25/2024 12:19 PM [employer]ENT [facility] BASOPHILS % 0.5 % 10/25/2024 12:19 PM [employer]ENT [facility] IMMATURE GRANS % 0.7 % 10/25/20 12:19 PM [employer] AGENT [facility] NRBC % 0.0 % 10/25/2024 12:19 PM [employer] AGENT [facility] ABS. NEUTROPHILS 7.57 1.60 - 8.30 x10'3/uL 10/25/2024 12:19 PM [employer]ENT [facility] ABS. LYMPHOCYTES 1.89 0.80 - 4.70 x10'3/uL 10/25/2024 12:19 PM [employer]ENT [facility] ABS. MONOCYTES 0.52 0.00 - 1.50 x10'3/uL 10/25/2024 12:19 PM [employer]ENT [facility] ABS. EOSINOPHILS 0.24 0.00 - 0.40 x10'3/uL 10/25/2024 12:19 PM [employer]ENT [facility] ABS. BASOPHILS 0.05 0.00 - 0.20 x10'3/uL 10/25/2024 12:19 PM [employer]ENT [facility] ABS. IMMATURE GRANULOCYTES 0.07(H) 0.00 - 0.03 x10'3/uL 10/25/2024 12:19 PM [employer] AGENT [facility] ABS. NUCLEATED RBC'S 0.00 0.00 - 0.01 x10'3/uL 10/25/2024 12:19 PM [employer]ENT [facility] 10/25/2024 12:0 0 PM FARM M[employer] AGENT us Tianna Mariscal MD LABORATORY Final Result [facility] [address] [place] [address], [place] [phone] * PROTEIN, ELECTROPHORESIS (10/25/2024 12:00 PM FARM M[employer] AGENT) Pathologist [facility] TOTAL PROTEIN S/P/B 7.3 6.0 - 8.3 G/DL 10/27/2024 12:43 PM [employer]ENT [facility] ALBUMIN S/P/B 3.7 3.4 - 4.9 G/DL 10/27/2024 12:42 PM [employer]ENT [facility] PLNHQ-0-POTHPBED S/P/B 0.4 0.2 - 0.4 G/DL 10/27/2024 12:42 PM [employer]ENT [facility] COYBE-6-YFCPFXGP S/P/B 1.0 0.4 - 1.0 G/DL 10/27/2024 12:42 PM [employer]ENT [facility] BETA GLOBULIN S/P/B 1.0 0.5 - 1.2 G/DL 10/27/2024 12:42 PM [employer]ENT [facility] GAMMA GLOBULIN S/P/B 1.2 0.6 - 1.6 G/DL 10/27/2024 12:42 PM [facility] ELECTROPHORESIS INTERPRETATION THIS SERUM PEP WAS INTERPRETED BY 10/28/2024 6:00 AM [facility] Comment: DR VIKRAM MARCELO THE TOTAL SERUM PROTEIN IS NORMAL. ELECTROPHORESIS IDENTIFIES NO QUANTITATIVE ABNORMALITIES WITHIN THE PROTEIN FRACTIONS. MONOCLONAL PROTEINS ARE NOT DETECTED. 10/25/2024 12:0 0 PM FARM M[employer] AGENT Tianna Mariscal MD LABORATORY Final Result [facility] [address] [place] [address], [place] [phone] * URIC ACID BLOOD (10/25/2024 12:00 PM FARM MORTGAGE AGENT) Pathologist [facility] URIC ACID 4.2 2.6 - 6.0 MG/DL 10/25/2024 12:21 PM FARM MORT[employer]AGE AGENT [facility] 10/25/2024 12:0 0 PM FARM MORTG[employer] AGENT us Tianna Mariscal MD LABORATORY Final Result Performing Organization Address [facility]/ZIP Co de Phone Number [facility] [address] [place] [address], * (ABNORMAL) PROTEIN ELECTROPHORESIS URINE RANDOM (10/25/2024 11:48 AM FARM MORTGAGE AGENT) PROTEIN URINE TOTAL RANDOM 16.5(H) <12.0 MG/DL 10/27/2024 12:43 PM [employer] AGENT [facility] INTERPRETATION THIS URINE PEP WAS INTERPRETED BY 10/28/2024 6:01 AM F[employer] MORT[employer]AGE AGENT [facility] Comment: DR VIKRAM MARCELO THERE IS MILD RANDOM PROTEINURIA, WHICH IS MAINLY ALBUMIN. A MONOCLONAL PROTEIN (BENCE MCKENZIE PROTEIN) IS NOT SEEN IN THIS RANDOM SAMPLE. URINE SPECIMEN / Unknown 10/25/2024 11:48 AM FARM M[employer]GAGE AGENT us Tinana Mariscal MD URINE ORDERABLES Final Result Performing Organization Address City/[facility]/ZIP Co de Phone Number [facility] [address] [place] [address], [place] [phone] * (ABNORMAL) PROTEIN CREAT RATIO URINE (10/25/2024 11:48 AM FARM MORTGAGE AGENT) PROTEIN URINE TOTAL RANDOM 18.0(H) <11.9 MG/DL 10/25/2024 12:21 PM [employer]ARM MORTGAGE AGENT [facility] CREATININE RANDOM (U) 95.1 MG/DL 10/25/2024 12:21 PM FARM MORTGAGE AGENT [facility] Comment:REFERENCE RANGE NOT ESTABLISHED PROTEIN/CREATINI NE RATIO 0.2 10/25/2024 12:21 PM FARM MORTGAGE AGENT [facility] Comment:CALCULATED VALUE. [facility] ANDARD REFERENCE RANGE HAS NOT BEEN ESTABLISHED. URINE SPECIMEN / Unknown 10/25/2024 11:48 AM FARM MORTGAGE AGENT us Tianna Mariscal MD URINE ORDERABLES Final Result [facility] [address] [place] [address], * (ABNORMAL) URINALYSIS (10/25/2024 11:48 AM FARM MORTGAGE AGENT) COLOR (U) YELLOW 10/25/2024 12:30 PM [employer] M[employer] AGENT [facility] TRANSPARENCY CLEAR 10/25/2024 12:30 PM [employer] AGENT [facility] SPECIFIC GRAVITY (U) 1.020 1.000 - 1.025 10/25/2024 12:30 PM [employer] M[employer]AGE AGENT [facility] U PH 5.5 5.0 - 8.0 10/25/2024 12:30 PM FARM MORTGAGE AGENT [facility] LEUKOCYTES (U) NEGATIVE NEGATIVE 10/25/2024 12:30 PM [facility] NITRITES NEGATIVE NEGATIVE 10/25/2024 12:30 PM FARM MORTGAGE AGENT [facility] PROTEIN RANDOM (U) NEGATIVE NEGATIVE 10/25/2024 12:30 PM [facility] GLUCOSE (U) 3+(A) NEGATIVE 10/25/2024 12:30 PM [facility] KETONES MG/DL (U) NEGATIVE NEGATIVE 10/25/2024 12:30 PM [facility] UROBILINOGEN 0.2 <1.0 EU/DL 10/25/2024 12:30 PM [facility] BILIRUBIN (U) NEGATIVE NEGATIVE 10/25/2024 12:30 PM FARM M[employer]AGE AGENT [facility] BLOOD (U) NEGATIVE NEGATIVE 10/25/2024 12:30 PM [facility] WBC/HPF 5-10(A) 0 - 5 /HPF 10/25/2024 12:30 PM [facility] EPI/LPF OCCASIONAL /LPF 10/25/2024 12:30 PM [employer] AGENT [facility] BACTERIA (U) 1+ /HPF 10/25/2024 12:30 PM FARM M[employer]AGE AGENT [facility] MUCUS PRESENT 10/25/2024 12:30 PM FARM M[employer]AGE AGENT [facility] URINE SPECIMEN OBTAINED BY CLEAN CATCH PROCEDURE / Unknown 10/25/2024 11:48 AM FARM M[employer] AGENT Tianna Mariscal MD URINE ORDERABLES Final Result [facility] [address] [place] [address], from Last 3 Months Insurance [facility]IC[facility] Care Teams Terrapin Fisher Relationship Specialty Start Date End Date Scooby Guillermo MD [address] [place] [address] PCP - General INTERNAL MEDICINE 04/06/24
--- OUTSIDE RECORDS SUMMARY | 2024-12-30 11:40 | XMS_ITS | Encounter Summary ---
Author Organization [facility] Address [address] [place] [address] Phone Care Team Providers Care Agriculturist Name Role Phone Scooby Guillermo MD Primary Care Provider [phone] Esme Adler NP Primary Care Provider + Unknown, Notinfile Primary Care Provider Unavail able Scooby Guillermo MD Primary Care Provider [phone] Bacilio Francisco MD Unavailable [phone] Encounter Details Date Type Department Care Team (Late st Contact Info) Description 01/30/2022 Orders Only [facility] Scanning, Provider Social History Tobacco Use Types Packs/Day Years Used Date Smoking Tobacco: Never Assessed Comments Unknown Sex and Gender Information Value Date Recorded Sex Assigned at Not on file Legal 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
--- OUTSIDE RECORDS SUMMARY | 2024-12-30 11:40 | XMS_ITS | Encounter Summary ---
Author Organization [facility] Address [address] [place] [address] Phone Care Team Providers Care Locomotive Pipe Fitter Name Role Phone Scooby Guillermo MD Primary Care Provider [phone] Esme Adler NP Primary Care Provider + Unknown, Notinfile Primary Care Provider Unavail able Scooby Guillermo MD Primary Care Provider [phone] Bacilio Francisco MD Unavailable [phone] Encounter Details Date Type Department Care Team (Late st Contact Info) Description 03/15/2022 Orders Only [facility] Scanning, Provider Social History Tobacco Use Types Packs/Day Years Used Date Smoking Tobacco: Never Assessed Comments Unknown Sex and Gender Information Value Date Recorded Sex Assigned at Not on file 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
--- OUTSIDE RECORDS SUMMARY | 2024-12-30 11:41 | XMS_ITS | Continuity of Care Document ---
Author Organization [facility] Address [address] [place] [address] [place] [address] Phone Care Team Providers Care Fruit Grader Operator Name Role Phone Fermin Gonzalez MD Unavailable Unavailable Advance Directives Directive Yes / No Effective Date File Name No Information Encounters Encounter Description Practice Location Reason(s) For Visit Diagnoses Date Provider Providers Copied on Encounter [facility], [address], [place], [place], [id number], [place] tel:[phone] [facility] Professional No Information Jake-0 [id number] 3 Lisa Christensen. [address] [facility] [place], [id number], [place]. tel:[phone] Referring Provider: Esme Bernal MD, [address], [place], [address]. tel:[phone] Family History Family Member Type Diagnosis Age At Onset No Information Payers Payer name Insurance type Covered republican ID Authoriza tion(s) No Information Social History [...]
--- OUTSIDE RECORDS SUMMARY | 2024-12-30 11:41 | XMS_ITS | Clinical Summary ---
Author Organization [facility] Address [address] [place] [address] Care Team Providers Care Mate Fishing Vessel Name Role Phone Unavailable Primary Care Provider [...] to complete [place] [id number] MEDICARE [employer]
--- OUTSIDE RECORDS SUMMARY | 2024-12-30 11:41 | XMS_ITS | Referral Summary ---
Author Organization [facility] Address [address] [place] [address] Care Team Providers Care Forms Analyst Name Role Phone Scooby Guillermo MD Primary Care Provider [phone] Bacilio Francisco MD Unavailable [phone] Encounters Date Type Department Care Team Description 10/14/2024 1:01 PM CRUISE COUNSELOR Anesthesia Event [facility] [address] [place] [phone] Kalpesh Anderson DO Winfrey, Tonya M., NATALIE 10/14/2024 1:00 PM CRUISE COUNSELOR - 10/14/2024 1:30 PM CRUISE COUNSELOR Surgery [facility] [address] [place] [phone] Sai Munroe MD EGD 10/14/2024 11:03 AM CRUISE COUNSELOR - 10/14/2024 2:00 PM CRUISE COUNSELOR Hospital Encounter [facility] [address] [place] [phone] Sai Munroe MD Discharge Disposition: Discharge to home or self care 10/01/[address] [facility] [address] [facility] [address] [facility] [address] [place] [address] Ary Santana LPN GI Preprocedure 09/30/[address] [facility] 12th [place] [address] [place] [address] Marcela Bowers, RN Scheduling Testing/Treatment (EGD) from [...] 01/08/2023 Assessment & Plan (01/13/2023 3:24 PM CRUISE COUNSELOR): H/H drop after duodenal mass excision/EGD 01/07 - Monitor H/H closely as patient with melenic stools. - Monitor VS - pRBC transfusion if Hgb<7 - Per GI: advance diet as tolerated. Currently on a regular diet. - Patient to discharge on home OMEPRAZOLE BID. 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 HTN (hypertension) 01/07/2023 Assessment & Plan (01/13/2023 3:22 PM CRUISE COUNSELOR): - Hold antihypertensive meds while bleeding and BP soft. Should be restarted by PCP. Assessment & Plan (01/07/2023 8:53 PM CRUISE COUNSELOR): Continue on Maxzide Monitor vitals HLD (hyperlipidemia) 01/07/2023 Assessment & Plan (01/08/2023 12:44 PM CRUISE COUNSELOR): Continue on statins Assessment & Plan (01/07/2023 8:54 PM CRUISE COUNSELOR): Continue on statins T2DM (type 2 diabetes mellitus) 01/07/2023 Assessment & Plan (01/09/2023 4:05 PM CRUISE COUNSELOR): On metformin at home and Lantus 10 units nightly. Sugars thus far have been appropriate without acute need for insulin while NPO. Will restart once patient starting PO challenged after procedure. - Monitor BG and add SSI if needed Assessment & Plan (01/07/2023 8:55 PM CRUISE COUNSELOR): On metformin at home and Lantus Will hold onto insulin at this time as NPO Monitor BG and add SSI if needed History of pulmonary embolism 01/07/2023 Assessment & Plan (01/09/2023 4:08 PM CRUISE COUNSELOR): H/o PE in 2021, when she was on Eliquis for 5-6 months, on no AC for past 6 months. Monitor vitals, not a candidate for AC at this time due to GI bleeding Assessment & Plan (01/07/2023 8:56 PM CRUISE COUNSELOR): H/o PE in 2021, when she was on Eliquis for 5-6 months, on no AC for past 6 months. Monitor vitals GERD (gastroesophageal reflux disease) Assessment & Plan (01/13/2023 3:23 PM CRUISE COUNSELOR): - Patient will discharge on omeprazole BID. 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 [...] Gi. Assessment & Plan (01/07/2023 8:53 PM CRUISE COUNSELOR): Adenomatous duodenal polyp EGD 01/[address] [...] (04/24/2022): Added automatically from request for surgery [id number] Social History Tobacco Use Types Packs/Day Years [...] on file Legal Sex Female 12:42 AM CRUISE COUNSELOR Gender Identity Not on file Sexual Orientation Not on file Last Filed Vital Signs Vital Sign Reading Time Taken Comments Blood Pressure 132/77 10/14/2024 2:00 PM CRUISE COUNSELOR Pulse 62 10/14/2024 2:00 PM CRUISE COUNSELOR Temperature 35.9 C (96.6 F) 10/14/2024 12:35 PM CRUISE COUNSELOR Respiratory Rate 15 10/14/2024 2:00 PM CRUISE COUNSELOR Oxygen Saturation 91% 10/14/2024 2:00 PM CRUISE COUNSELOR Inhaled Oxygen Concentration - - Weight 95.3 kg (210 lb) 10/14/2024 12:35 PM CRUISE COUNSELOR Height 165.1 cm (5' 5 ) 10/14/2024 12:35 PM CRUISE COUNSELOR Body Mass Index 34.95 10/14/2024 12:35 PM CRUISE COUNSELOR Plan of Treatment Not on file Medical Devices Implanted Type Area Historiographer Device Identifier Shelf Expiration Date Model / Serial / Lot Conmed Jaquelin Conmed 11mm Duraclip [id number] - [id number] Implanted:Qty: 1 on 01/09/2023 by Aidan Guadalupe MD at [facility] Left: Duodenum Conmed Jaquelin 08/30/2024 [id number] / / [id number] Conmed Jaquelin Conmed 11mm Duraclip [id number] - [id number] Implanted:Qty: 1 on 01/09/2023 by Aidan Guadalupe MD at [facility] Left: Duodenum Conmed Jaquelin 08/30/2024 [id number] / / [id number] Conmed Jaquelin Conmed 16mm Duraclip [id number] - [id number] Implanted:Qty: 1 on 01/09/2023 by Aidan Guadalupe MD at [facility] Left: Duodenum Conmed Jaquelin 01/17/2025 [id number] / / [id number] Procedures Procedure Name Priority Date/Time Associated Diagnosis Comments ESOPHAGOGASTRODUODENOSCOPY 10/14 12:58 PM CRUISE COUNSELOR Duodenal adenoma Polyp of stomach and duodenum EGD 10/14/2024 12:54 PM CRUISE COUNSELOR POCT GLUCOSE DEVICE Routine 10/14/2024 1 2:45 PM CRUISE COUNSELOR EGFR Routine 01/12/2023 10:35 PM CRUISE COUNSELOR from Last 3 Months or Most Recently Relevant to Health Maintenance Results * EGD (10/14/2024 12:54 PM CRUISE COUNSELOR) Anatomical Region Laterality Modality Other Narrative Procedure Note Sai Munroe MD - 10/14/2024 12:54 PM CST ENDOSCOPY LAB Patient Name: Juanito [place] Procedure Date: 10/14/2024 12:54 PM Admit Type: Outpatient Room: [facility] Date of : 1950 Instrument Name: [...] - Repeat upper endoscopy in 2 years [facility]. Attending Participation: I personally performed the entire procedure. Electronically signed by Sai Munroe M.D. Sai Munroe M.D. 10/14/2024 1:23:10 PM This document was signed electronically. Number of Addenda: 0 Note Initiated On: 10/14/2024 12:54 PM Scope In: Scope Out: us Sai Munroe MD ENDOSCOPY PROCEDURES Final Result * POCT glucose (10/14/2024 12:45 PM CRUISE COUNSELOR) Glucose, POC 101 70 - 199 mg/dL Comment: For Glucose values <35 mg/dl when Hematocrit is >60 mg/dl,the test may not accurately detect significant hypoglycemia,and testing in the Laboratory should be considered if clinically indicated. Blood 10/14/2024 12:4 5 PM CRUISE COUNSELOR 10/14/2024 12:45 PM CRUISE COUNSELOR us Sai Munroe MD LAB POCT ORDERABLES - ESTELA CE Final Result [facility] [address] Department [place] [address] * (ABNORMAL) eGFR (01/12/2023 10:35 PM CRUISE COUNSELOR) eGFR 40(L) 90 - 130 mL/min/1. 73 m2 [facility] Comment: Interpretive Data Reference Interval Normal >/= [...] reviewed 2021. Blood 01/12/2023 10:3 5 PM CRUISE COUNSELOR 01/12/2023 11:23 PM CRUISE COUNSELOR us Luke Britton MD LAB BLOOD ORDERABLES Final Resu lt [facility] Department [place] [address] from Last 3 Months or Most Recently Relevant to Health Maintenance Insurance [employer] MEDICARE Advance Directives For more information, please contact: [phone] * Full Code (Latest Code Status on [...] 9:30 AM 06/24/2022 2:53 PM Care Teams Forms Analyst Relationship Specialty Start Date End Date Scooby Guillermo MD PCP - General Internal Medicine 07/19/[address] [place] [address] [facility] [address] [place] [address] Consulting Physician Nephrology 07/28/24
--- OUTSIDE RECORDS SUMMARY | 2024-12-30 11:41 | XMS_ITS | Encounter Summary ---
Author Organization [facility] Address [address] [place] [address] Care Team Providers Care Brush Material Preparer Name Role Phone Scooby Guillermo MD Primary Care Provider Encounter Details Date Type Department Care Team (Latest Contact Info) Description 09/15/2018 Abstract [facility] , Kimberlee Long MD Social History Tobacco Use Types Packs/Day Years Used Date Smoking Tobacco: Never Comments Unknown Sex and Gender Information Value Date Recorded Sex Assigned at Female 12/06/2024 7:39 AM TIP LENGTH CHECKER Legal Sex Female 8:54 PM CDT Gender Identity Female 12/06/2024 7:39 AM TIP LENGTH CHECKER Sexual Orientation Not on file documented as of this encounter Plan of Treatment Upcoming Encounters Date Type Department Care Team (Late st Contact Info) Description 01/03/2025 11:15 AM TIP LENGTH CHECKER Office Visit [facility] [address] [address] Antonoi George Jr., DO [address] [place] [address] 01/24/2025 12:45 PM CDT Office Visit [facility] [address] [place] [address] Tianna Mariscal MD [address] [place] [address] -[phone] (Work) documented as of this encounter Visit Diagnoses Not on filedocumented in this encounter Care Teams Brush Material Preparer Relationship Specialty Start Date End Date Scooby Guillermo MD [address] [place] [address] PCP - General INTERNAL MEDICINE 04/06/24 documented as of this encounter
--- OUTSIDE RECORDS SUMMARY | 2024-12-30 11:41 | XMS_ITS | Patient Health Record ---
Author Organization [facility] Address [address] [place] [address] Care Team Providers Care Sugarcane Research Technician Name Role Phone Bacilio Francisco Unavailable [phone] REASON FOR REFERRAL No Information MEDICATIONS Medication SIG (Take, Route, Frequency, Duration) Notes Start Date End Date Status Farxiga 10 MG 1 tablet Orally Once a day for 06/23/2024 03/20/2025 Active Losartan Potassium 100 MG 1 tablet Orall y Once a day for 11/20/2023 Active Ergocalciferol 1.25 MG (06481 UT) 1 capsule Orally Once a week for 90 day(s) 06/23/2024 03/20/2025 Active Calcitriol 0.25 MCG 1 capsule Orally bailey ry other day for 90 02/28/2023 Active PROBLEMS Problem Type ICD Code Onset Dates Problem Status W/U Status Risk SNOMED Code Notes Problem Anemia, unspecified (D64.9) Active confirmed Anemia (213145119) Problem Type 2 diabetes mellitus with hyperglycemia (E11.65) Active confirmed Hyperglycemia d ue to type 2 diabetes mellitus (305234008404139) Problem Anxiety disorder, unspecified (F41.9) Active confirmed Anxiety disorde r (529429873) Problem Essential (primary) hypertension (I10) Active confirmed Essential hypertension (08568003) Problem Gastro-esophageal reflux disease without esophagitis (K21.9) Active confirmed Gastro-esophage al reflux disease without esophagitis (488467348) Problem Renal osteodystrophy (N25.0) Active confirmed Renal osteodystrophy (33866604) Problem Gastro-esophageal reflux disease with esophagitis, without bleeding (K21.00) Active confirmed Gastroesophagea l reflux disease with esophagitis (disorder) (755399645) Problem Chronic kidney disease, stage 3 unspecified (N18.30) Active confirmed Chronic kidney disease stage 3 (disorder) (627360528) Problem Chronic kidney disease, stage 3b (N18.32) Active confirmed Chronic kidney disease stage 3B (disorder) (340927596) Encounters Encounter Location Date Provider Diagnosis [facility] [address] [address] 02/27/2024 Bacilio Francisco Chronic kidney disea se, stage 3b N18.32 ; Essential (primary) hypertension I10 ; Type 2 diabetes mellitus with hyperglycemia E11.65 ; Anemia, unspecified D64.9 ; Gastro-esophageal reflux disease with esophagitis, without bleeding K21.00 ; Gastro-esophageal reflux disease without esophagitis K21.9 and Anxiety disorder, unspecified F41.9 [facility] [address] [address] 05/12/2024 Bacilio Francisco Chronic kidney disea se, stage 3b N18.32 ; Essential (primary) hypertension I10 ; Type 2 diabetes mellitus with hyperglycemia E11.65 ; Anemia, unspecified D64.9 ; Gastro-esophageal reflux disease with esophagitis, without bleeding K21.00 ; Gastro-esophageal reflux disease without esophagitis K21.9 and Anxiety disorder, unspecified F41.9 [facility] [address] [address] 06/23/2024 Bacilio Francisco Chronic kidney disea se, stage 3 unspecified N18.30 ; Essential (primary) hypertension I10 ; Renal osteodystrophy N25.0 ; Type 2 diabetes mellitus with hyperglycemia E11.65 ; Anemia, unspecified D64.9 ; Gastro-esophageal reflux disease with esophagitis, without bleeding K21.00 ; Gastro-esophageal reflux disease without esophagitis K21.9 and Anxiety disorder, unspecified F41.9 [facility] [address] [address] 08/25/2024 Bacilio Francisco [facility] [address] [address] 09/01/2024 Bacilio Francisco [facility] [address] [address] 03/10/2024 Bacilio Francisco [facility] [address] [address] 06/23/2024 Bacilio Francisco ASSESSMENTS Encounter Date Diagnosis [...] E11.65) 05/12/2024 Anemia, unspecified (ICD-10 - D64.9) 02/27/2024 Anemia, unspecified (ICD-10 - D64.9) 02/27/2024 [...]
--- OUTSIDE RECORDS SUMMARY | 2024-12-30 11:41 | XMS_ITS | Patient Health Summary ---
Author Organization [facility] Address [address] [place] [address] Care Team Providers Care Cognos Name Role Phone Scooby Guillermo MD Primary Care Provider [phone] Note from [facility],non-owned Affiliates and Associated Physician Practices is amultiple site organization consisting of ambulatory clinics and hospital sitesin [place], [place], [place] and [place]. This disclosure is being madepursuant to the Care Everywhere program and may not contain all information available regarding this patient. Last updated 18.[facility] Allergies * Diphenhydramine(Rash) -Medium Criticality * Codeine(Other) [...] * vitamin D, ergocalciferol, (Drisdol) 1.25 MG (58700 UT) capsule Take 1 (one) capsule by [...] Recorded Patient Health Questionnaire-2 Score 0 04/26/2024 [facility] - Occupational Stress Questionnaire Answer [...] place to sleep or slept in a detention (including now)? No 04/21/2024 Sex and Gender [...] POINT OF CARE ORDERABLES Performing Organization Address [facility] Co de Phone Number [facility] [address] [place] [address] * EVENT MONITOR (04/27/2024 12:00 PM CDT) 04/27/2024 12:0 0 PM CDT Narrative Procedure Note Newton Youssef MD - 04/27/2024 4:55 PM CDT [facility] 30-DAY EVENT RECORDER REPORT PATIENT: JUANITO AUSTIN MR#: [id number] DATE SERVICE BEGAN: 04/27/2024 CSN: [id number] DATE SERVICE ENDED: 05/26/2024 AGE: 73 ADMIT DATE: 04/21/2024 :1950 REFERRING PHYSICIAN: Claudine Calvert MD The patient underwent monitoring of the rhythm using event monitor for30 days; however, only 6 days of recording made. Predominant underlying rhythm is sinus. No ectopics noted. No arrhythmia noted. No advanced conduction abnormality noted. NEWTON YOUSSEF MD ASN/MODL #: [id number] 30-DAY EVENT RECORDER REPORT - DP Tacho Carroll MD CARDIAC SERVICES ORD ERABLES Performing Organization Address [facility] Co de Phone Number [facility] * (ABNORMAL) BASIC METABOLIC PANEL (CALCIUM TOTAL) (04/27/2024 4:22 AM CDT) Only the most recent of3 resultswithin the time period is included. Glucose 246(H) 70 - 105 mg/dL 04/27/2024 6:13 AM CDT [facility] Sodium 142 136 - 145 mmol/L 04/27/2024 6:13 AM CDT [facility] Potassium 4.0 3.5 - 5.1 mmol/L 04/27/2024 6:13 AM CDT [facility] Chloride 110(H) 98 - 107 mmol/L 04/27/2024 6:13 AM CDT [facility] CO2 24 22 - 29 mmol/L 04/27/2024 6:13 AM CDT [facility] Calcium 9.6 8.4 - 10.4 mg/dL 04/27/2024 6:13 AM CDT [facility] Anion Gap 8 6 - 16 mmol/L 04/27/2024 6:13 AM CDT [facility] BUN 29(H) 7 - 26 mg/dL 04/27/2024 6:13 AM CDT [facility] Creatinine 1.33(H) 0.57 - 1.11 mg/dL 04/27/2024 6:13 AM CDT [facility] eGFR by CKD-EPI 42(L) >=90 mL/min/1.7 3 m2 04/27/2024 6:13 AM CDT [facility] Blood BLOOD SPECIMEN / Unknown Venipuncture / Unknown 04/27/2024 4:22 AM CDT 04/27/2024 5:47 AM CDT Tacho Carroll MD LAB - [facility]Y [facility] Organization Address City/State/[facility] Co de Phone Number [facility] [address] [place] [phone] * [place] LUMBAR PUNCTURE (04/26/2024 3:49 PM [...] MD on 04/26/2024 3:55 PM Charity Colon APRN-BIODIESEL PROCESS CONTROL TECHNICIAN FLUOROSCOPY EVELYNDalila SUDEEP * HERPES SIMPLEX 1+2 PCR CSF (04/26/2024 3:40 PM CDT) Herpes Simplex Virus 1 PCR CSF Not detected Not detected 04/27/2024 12:13 AM CDT [facility] MICROBIOLOGY Herpes Simplex Virus 2 PCR CSF Not detected Not detected 04/27/2024 12:13 AM CDT [facility] MICROBIOLOGY Microbiology CEREBROSPINAL FLUID SPECIMEN / Unknown Collection / Unknown 04/26/2024 3:40 PM CDT 04/26/2024 3:49 PM CDT Charity Colon [facility] - MICROBIOLO GY ORDERABLES [facility] MICROBIOLOGY [address] [place] [address], [facility] [phone] * CULTURE CSF+GRAM STAIN (04/26/2024 3:39 PM CDT) Pathologist [facility] Culture No growth CIPRIANO 05/03/2024 8:10 AM CDT [facility] MICROBIOLOGY Gram Stain No polymorphonuclear cells 05/03/2024 8:10 AM CDT [facility] MICROBIOLOGY Gram Stain No organisms seen 024 8:10 AM CDT [facility] MICROBIOLOGY Cerebral spinal fluid CEREBROSPINAL FLUID SPECIMEN / Unknown Collection / Unknown 04/26/2024 3:39 PM CDT 04/26/2024 3:49 PM CDT Charity Colon [facility] - MICROBIOLO GY ORDERABLES [facility] MICROBIOLOGY [address] [place] [address], [facility] [phone] * CELL COUNT W DIFFERENTIAL CSF (04/26/2024 3:39 PM CDT) Only the most recent of2 resultswithin the time period is included. Tube Number [id number] 04/26/2024 4:16 PM CDT [facility] Xanthochromia ABSENT ABSENT 04/26/2024 4:16 PM CDT [facility] CSF Appearance CLEAR 04/26/2024 4:16 PM CDT [facility] CSF Color COLORLESS 04/26/2024 4:16 PM CDT [facility] Total Nucleated Cells CSF 2 <=5 x10E6/L 04/26/2024 4:16 PM CDT [facility] RBC Count CSF 0 <1 x10E6/L 04/26/2024 4:16 PM CDT [facility] Cerebral spinal fluid CEREBROSPINAL FLUID SPECIMEN / Unknown Collection / Unknown 04/26/2024 3:39 PM CDT 04/26/2024 3:49 PM CDT Charity Colon APRN-[facility] LAB - BODY FLUID ORDERABLES Performing Organization Address [facility] Co de Phone Number [facility] [id number] [place] [phone] * PROTEIN CSF (04/26/2024 3:39 PM CDT) Protein CSF 37 15 - 40 mg/dL 04/26/2024 4:07 PM CDT [facility] Cerebral spinal fluid CEREBROSPINAL FLUID SPECIMEN / Unknown Collection / Unknown 04/26/2024 3:39 PM CDT 04/26/2024 3:49 PM CDT Charity Colon [facility] - BODY FLUID ORDERABLES Performing Organization Address [facility] Co de Phone Number [facility] [address] [place] [address] * (ABNORMAL) GLUCOSE CSF (04/26/2024 3:39 PM CDT) Glucose CSF 119(H) 40 - 70 mg/dL 04/26/2024 4:07 PM CDT [facility] Cerebral spinal fluid CEREBROSPINAL FLUID SPECIMEN / Unknown Collection / Unknown 04/26/2024 3:39 PM CDT 04/26/2024 3:49 PM CDT Charity Colon ASSEMBLER WIRE MESH [facility] - BODY FLUID ORDERABLES Performing Organization Address [facility] Co de Phone Number [facility] [address] [place] [address] * PARANEOPLASTIC AB W/RFLX CSF (04/26/2024 3:38 PM CDT) Paraneoplastic Antibody IgG CSF None Detected None Detected 05/09/2024 12:51 PM CDT [facility] Comment: MOR-1, MOR-2, PCCA-1 or PCCA-Tr(DNER) antibodies not detected. No further testing will be performed. INTERPRETIVE INFORMATION: Paraneoplastic Abs (PCCA/MOR) IgG, CSF This test was developed and its performance characteristics determined by [employer]. It has not been cleared or approved by the US Food and Drug Administration. This test was performed in a CLIA certified laboratory and is intended for clinical purposes. Performed By: [facility] [employer] [address] [place] [address] Brass Bobbin Winder: Ben Sanchez MD, PhD CLIA Number: [id number] Cerebral spinal fluid CEREBROSPINAL FLUID SPECIMEN / Unknown Collection / Unknown 04/26/2024 3:38 PM CDT 05/04/2024 7:38 AM CDT Narrative [facility]) - 05/09/2024 12:51 PM CDT Additional testing (Paraneoplastic Antibodies (PCCA/MOR) by IFA with Reflex to Titer and Immunoblot, CSF) requested on a previously submitted specimen. Charity Colon ASSEMBLER WIRE MESH GATE-BIODIESEL PROCESS CONTROL TECHNICIAN LAB - BODY FLUID ORDERABLES Performing Organization Address [facility] Co de Phone Number [facility]) [address] * MRI BRAIN WO CONTRAST (04/25/2024 [...] DATE/TIME OF EXAM: 04/25/2024 11:27 AM, LOCATION [facility] INDICATION: R55: Syncope and collapse. R56.9: [...] CONTRAST, DATE/TIME OF EXAM: 04/25/2024 11:27AM, LOCATION [facility] INDICATION: R55: Syncope and collapse. R56.9: [...] MD on 04/25/2024 11:56 AM Charity Colon ASSEMBLER WIRE MESH GATE-BIODIESEL PROCESS CONTROL TECHNICIAN MR ORDERABLES * (ABNORMAL) CBC W AUTO [...] - 1.00 x10E9/L 04/25/2024 6:25 AM CDT [facility] Eosinophil Absolute 0.28 0.00 - 0.60 x10E9/L 04/25/2024 6:25 AM CDT [facility] Basophil Absolute 0.09 0.00 - 0.13 x10E9/L 04/25/2024 6:25 AM CDT [facility] Blood BLOOD SPECIMEN / Unknown Venipuncture / Unknown 04/25/2024 6:04 AM CDT 04/25/2024 6:13 AM CDT Tacho Carroll MD LAB - HEMATOLOGY ORD ERABLES Performing Organization Address [facility] de Phone Number [facility] [address] [place] [phone] * EEG EXTENDED MONITORING > 1 HOUR (04/24/2024 9:56 AM CDT) Narrative [facility] - 04/24/2024 9:56 AM CDT Elgin Hurtado MD 04/24/2024 9:56 AM LONG-TERM VIDEO EEG SUMMARY REPORT [facility] Long-term video EEG monitoring was performed on a patient with Possible seizure. Utilizing the [employer] recording system, EEG was recorded in standard [...] Normal video EEG monitoring record. Charity Colon APRN-BIODIESEL PROCESS CONTROL TECHNICIAN NEUROLOGY ORDERA BLES Performing Organization Address [facility] Co de Phone Number [facility] * (ABNORMAL) CBC W/O DIFFERENTIAL (04/24/2024 6:09 AM CDT) Only the most recent of2 resultswithin the time period is included. Pathologist [facility] WBC 16.4(H) 4.0 - 10.7 x10E9/L 04/24/2024 6:22 AM CDT [facility] RBC Count 5.47(H) 3.90 - 5.20 x10E12/L 04/24/2024 6:22 AM CDT [facility] Hemoglobin 14.1 11.9 - 15.8 g/dL 04/24/2024 6:22 AM CDT [facility] Hematocrit 46.1 34.8 - 46.1 % 04/24/2024 6:22 AM CDT [facility] MCV 84.3 80.0 - 98.0 fL 04/24/2024 6:22 AM CDT [facility] MCH 25.8(L) 26.7 - 33.6 pg 04/24/2024 6:22 AM CDT [facility] MCHC 30.6(L) 31.7 - 36.3 g/dL 04/24/2024 6:22 AM CDT [facility] RDW-CV 17.1(H) 11.3 - 14.8 % 04/24/2024 6:22 AM CDT [facility] Platelet Count 281 150 - 420 x10E9/L 04/24/2024 6:22 AM CDT [facility] MPV 11.4 7.8 - 11.4 fL 04/24/2024 6:22 AM CDT [facility] Blood BLOOD SPECIMEN / Unknown Venipuncture / Unknown 04/24/2024 6:09 AM CDT 04/24/2024 6:16 AM CDT Girish Mcqueen MD LAB - HEMATOLOG Y ORDERABLES [facility] [address] [place] [address] * ECHO COMPLETE (04/23/2024 1:24 PM CDT) [facility] BSA [id number] m2 SSM CV FUJI PACS LVOT stroke [...] mL [facility] CV FUJI PACS TV S' akshat 9.06 cm/s SSM CV FUJ I PACS [...] REFLEX FREE T4 (04/23/2024 12:54 AM CDT) [facility] TSH 0.978 0.350 - 4.940 uIU/mL 04/23/2024 1:56 AM CDT [facility] Blood BLOOD SPECIMEN / Unknown Venipuncture / Unknown 04/23/2024 12:54 AM CDT 04/23/2024 1:04 AM CDT Charity Colon ASSEMBLER WIRE MESH GATE-BIODIESEL PROCESS CONTROL TECHNICIAN LAB - CHEMISTRY ORDERABLES [facility] [address] [place] [address] * (ABNORMAL) RENAL FUNCTION PANEL (04/23/2024 12:54 AM CDT) [facility] Glucose 161(H) 70 - 105 mg/dL 04/23/2024 1:23 AM CDT [facility] Sodium 141 136 - 145 mmol/L 04/23/2024 1:23 AM CDT [facility] Potassium 4.2 3.5 - 5.1 mmol/L 04/23/2024 1:23 AM CDT [facility] Chloride 104 98 - 107 mmol/L 04/23/2024 1:23 AM CDT [facility] CO2 26 22 - 29 mmol/L 04/23/2024 1:23 AM CDT [facility] Calcium 10.4 8.4 - 10.4 mg/dL 04/23/2024 1:23 AM CDT [facility] Anion Gap 11 6 - 16 mmol/L 04/23/2024 1:23 AM CDT [facility] BUN 22 7 - 26 mg/dL 04/23/2024 1:23 AM CDT [facility] Creatinine 1.30(H) 0.57 - 1.11 mg/dL 04/23/2024 1:23 AM CDT [facility] Albumin 3.3(L) 3.4 - 5.0 gm/dL 04/23/2024 1:23 AM CDT [facility] Phosphorus 3.5 2.3 - 4.7 mg/dL 04/23/2024 1:23 AM CDT [facility] eGFR by CKD-EPI 43(L) >=90 mL/min/1.7 3 m2 04/23/2024 1:23 AM CDT [facility] Blood BLOOD SPECIMEN / Unknown Venipuncture / Unknown 04/23/2024 12:54 AM CDT 04/23/2024 1:04 AM CDT Jessika Shelby MD LAB - CHEMISTRY ORDE SUDEEP [facility] Organization Address City/State/ZIP Co de Phone Number [facility] [address] [place] [address] * FOLATE (04/23/2024 12:54 AM CDT) Folate 16.8 7.0 - 31.4 ng/mL 04/23/2024 1:56 AM CDT [facility] Blood BLOOD SPECIMEN / Unknown Venipuncture / Unknown 04/23/2024 12:54 AM CDT 04/23/2024 1:04 AM CDT Charity M Isaiah ASSEMBLER WIRE MESH [facility] LAB - CHEMISTRY ORDERABLES Performing Organization Address [facility] Co de Phone Number [facility] [address] [place] [phone] * VITAMIN B12 (04/23/2024 12:54 AM CDT) Vitamin B12 507 213 - 816 pg/mL 04/23/2024 1:56 AM CDT [facility] Blood BLOOD SPECIMEN / Unknown Venipuncture / Unknown 04/23/2024 12:54 AM CDT 04/23/2024 1:04 AM CDT Charity M Isaiah ASSEMBLER WIRE MESH [facility] LAB - CHEMISTRY ORDERABLES Performing Organization Address [facility] de Phone Number [facility] [address] [place] [phone] * AMMONIA (04/23/2024 12:54 AM CDT) Ammonia 27 18 - 72 umol/L 04/23/2024 1:14 AM CDT [facility] Blood BLOOD SPECIMEN / Unknown Venipuncture / Unknown 04/23/2024 12:54 AM CDT 04/23/2024 1:03 AM CDT Charity M Isaiah ASSEMBLER WIRE MESH [facility] LAB - CHEMISTRY ORDERABLES Performing Organization Address [facility] de Phone Number [facility] [address] [place] [phone] * EKG 12-LEAD (04/22/2024 6:17 AM CDT) Ventricular Rate 61 BPM [facility] Atrial Rate 61 BPM [facility] P-R Interval 202 ms [facility] QRS Duration ms 90 ms [facility] Q-T Interval ms 386 ms [facility] QTC Calculation (Bezet) 388 ms [facility] Calculated P [place] 28 degrees [facility] Calculated R [place] 61 degrees [facility] Calculated T [place] 50 degrees [facility] Interpretation EKG Normal sinus rhythm Normal ECG No previous ECGs available Confirmed by ZACH COLINDRES MD ([id number]) on 04/22/2024 1:32:21 PM [facility] 04/22/2024 6:17 AM CDT 04/22/2024 1:32 PM CDT Aris Spaulding MD ECG ORDERABLES [facility] * (ABNORMAL) HEMOGLOBIN A1C (04/22/2024 4:49 AM CDT) Hemoglobin A1c 8.3(H) <5.7 % 04/22/2024 5:21 AM CDT [facility] Estimated Average Glucose 192 mg/dL 04/22/2024 5:21 AM CDT [facility] Blood BLOOD SPECIMEN / Unknown Venipuncture / Unknown 04/22/2024 4:49 AM CDT 04/22/2024 5:03 AM CDT Narrative [facility] - 04/22/2024 5:21 AM CDT HbA1c [...] exceeds 5% in the specimen. The [employer] assay for the measurement of HbA1c is a National Glycohemoglobin Standardization Program (NGSP) certified method. Aris Spaulding MD LAB - CHEMISTRY MICHELLE SHEETS [facility] Organization Address City/State/ZIP Co de Phone Number [facility] [address] [place] [address] * (ABNORMAL) COMPREHENSIVE METABOLIC PANEL (04/22/2024 4:49 AM CDT) Glucose 154(H) 70 - 105 mg/dL 04/22/2024 5:29 AM CDT [facility] Sodium 140 136 - 145 mmol/L 04/22/2024 5:29 AM CDT [facility] Potassium 4.3 3.5 - 5.1 mmol/L 04/22/2024 5:29 AM CDT [facility] Chloride 106 98 - 107 mmol/L 04/22/2024 5:29 AM CDT [facility] CO2 28 22 - 29 mmol/L 04/22/2024 5:29 AM CDT [facility] Calcium 11.0(H) 8.4 - 10.4 mg/dL 04/22/2024 5:29 AM CDT [facility] Anion Gap 6 6 - 16 mmol/L 04/22/2024 5:29 AM CDT [facility] BUN 21 7 - 26 mg/dL 04/22/2024 5:29 AM CDT [facility] Creatinine 1.28(H) 0.57 - 1.11 mg/dL 04/22/2024 5:29 AM CDT [facility] Alkaline Phosphatase 67 40 - 150 U/L 04/22/2024 5:29 AM CDT [facility] ALT 38 0 - 55 U/L 04/22/2024 5:29 AM CDT [facility] AST 28 5 - 34 U/L 04/22/2024 5:29 AM CDT [facility] Protein Total 7.5 6.4 - 8.3 gm/dL 04/22/2024 5:29 AM CDT [facility] Albumin 3.4 3.4 - 5.0 gm/dL 04/22/2024 5:29 AM CDT [facility] Bilirubin Total 0.2 0.2 - 1.2 mg/dL 04/22/2024 5:29 AM CDT [facility] eGFR by CKD-EPI 44(L) >=90 mL/min/1.7 3 m2 04/22/2024 5:29 AM CDT [facility] Blood BLOOD SPECIMEN / Unknown Venipuncture / Unknown 04/22/2024 4:49 AM CDT 04/22/2024 5:03 AM CDT Aris Spaulding MD LAB - CHEMISTRY MICHELLE SHEETS Performing Organization Address [facility] Co de Phone Number [facility] [address] [place], [place] [phone] * MAGNESIUM BLOOD (04/22/2024 4:49 AM CDT) Magnesium 1.9 1.6 - 2.6 mg/dL 04/22/2024 5:29 AM CDT [facility] Blood BLOOD SPECIMEN / Unknown Venipuncture / Unknown 04/22/2024 4:49 AM CDT 04/22/2024 5:03 AM CDT Aris Spaulding MD LAB - CHEMISTRY MICHELLE SHEETS Performing Organization Address City/[facility] Co de Phone Number [facility] [address] [place] [address] Care Teams Cognos Relationship Specialty Start Date End Date Scooby Guillermo MD [address] [place] [address] PCP - General Internal Medicine 04/23/24
--- OUTSIDE RECORDS SUMMARY | 2024-12-30 11:41 | XMS_ITS | Clinical Summary ---
Author Organization [facility] Address [address] [place] [address] Care Team Providers Care Assistant Floor Covering Printer Name Role Phone Scooby Guillermo MD Primary Care Provider [phone] Bacilio Francisco MD Unavailable [phone] Allergies Active Allergy Reactions Criticality Noted [...] 01/08/2023 Assessment & Plan (01/13/2023 3:24 PM MOTEL KEEPER): H/H drop after duodenal mass excision/EGD 01/07 - Monitor H/H closely as patient with melenic stools. - Monitor VS - pRBC transfusion if Hgb<7 - Per GI: advance diet as tolerated. Currently on a regular diet. - Patient to discharge on home OMEPRAZOLE BID. 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 HTN (hypertension) 01/07/2023 Assessment & Plan (01/13/2023 3:22 PM MOTEL KEEPER): - Hold antihypertensive meds while bleeding and BP soft. Should be restarted by PCP. Assessment & Plan (01/07/2023 8:53 PM MOTEL KEEPER): Continue on Maxzide Monitor vitals HLD (hyperlipidemia) 01/07/2023 Assessment & Plan (01/08/2023 12:44 PM MOTEL KEEPER): Continue on statins Assessment & Plan (01/07/2023 8:54 PM MOTEL KEEPER): Continue on statins T2DM (type 2 diabetes mellitus) 01/07/2023 Assessment & Plan (01/09/2023 4:05 PM MOTEL KEEPER): On metformin at home and Lantus 10 units nightly. Sugars thus far have been appropriate without acute need for insulin while NPO. Will restart once patient starting PO challenged after procedure. - Monitor BG and add SSI if needed Assessment & Plan (01/07/2023 8:55 PM MOTEL KEEPER): On metformin at home and Lantus Will hold onto insulin at this time as NPO Monitor BG and add SSI if needed History of pulmonary embolism 01/07/2023 Assessment & Plan (01/09/2023 4:08 PM MOTEL KEEPER): H/o PE in 2021, when she was on Eliquis for 5-6 months, on no AC for past 6 months. Monitor vitals, not a candidate for AC at this time due to GI bleeding Assessment & Plan (01/07/2023 8:56 PM MOTEL KEEPER): H/o PE in 2021, when she was on Eliquis for 5-6 months, on no AC for past 6 months. Monitor vitals GERD (gastroesophageal reflux disease) Assessment & Plan (01/13/2023 3:23 PM MOTEL KEEPER): - Patient will discharge on omeprazole BID. 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 [...] Gi. Assessment & Plan (01/07/2023 8:53 PM MOTEL KEEPER): Adenomatous duodenal polyp EGD 01/[address] [...] (04/24/2022): Added automatically from request for surgery [id number] Encounters Date Type Department Care Team Description 10/14/2024 1:01 PM MOTEL KEEPER Anesthesia Event [facility] [address] [place] [phone] Kalpesh Anderson DO Winfrey, Tonya M., NATALIE 10/14/2024 1:00 PM MOTEL KEEPER - 10/14/2024 1:30 PM MOTEL KEEPER Surgery [facility] [address] [place] [address] Sai Munroe MD EGD 10/14/2024 11:03 AM MOTEL KEEPER - 10/14/2024 2:00 PM MOTEL KEEPER Hospital Encounter [facility] [address] [place] [address] Sai Munroe MD Discharge Disposition: Discharge to home or self care 10/01/2024 Telephone [facility] [address] [facility] Medical Office Building [address], [address] [place] [address] Ary Santana LPN GI Preprocedure 09/30/2024 Telephone [facility] [address] [facility] 12th [place] [address] [place] [address] Marcela Bowers, RN Scheduling Testing/Treatment [...] on file Legal Sex Female 12:42 AM MOTEL KEEPER Gender Identity Not on file Sexual Orientation Not on file Obstetrics History Last Filed Vital Signs Vital Sign Reading Time Taken Comments Blood Pressure 132/77 10/14/2024 2:00 PM MOTEL KEEPER Pulse 62 10/14/2024 2:00 PM MOTEL KEEPER Temperature 35.9 C (96.6 F) 10/14/2024 12:35 PM MOTEL KEEPER Respiratory Rate 15 10/14/2024 2:00 PM MOTEL KEEPER Oxygen Saturation 91% 10/14/2024 2:00 PM MOTEL KEEPER Inhaled Oxygen Concentration - - Weight 95.3 kg (210 lb) 10/14/2024 12:35 PM MOTEL KEEPER Height 165.1 cm (5' 5 ) 10/14/2024 12:35 PM MOTEL KEEPER Body Mass Index 34.95 10/14/2024 12:35 PM MOTEL KEEPER Plan of Treatment Health Maintenance Due Date [...] 10/14/2025 10/14/2024 Medical Devices Implanted Type Area Hot Dipper Device Identifier Shelf Expiration Date Model / Serial / Lot Conmed Jaquelin Conmed 11mm Duraclip [id number] - [id number] Implanted:Qty: 1 on 01/09/2023 by Aidan Guadalupe MD at [facility] Left: Duodenum Conmed Jaquelin 08/30/2024 [id number] / / [id number] Conmed Jaquelin Conmed 11mm Duraclip [id number] - [id number] Implanted:Qty: 1 on 01/09/2023 by Aidan Guadalupe MD at [facility] Left: Duodenum Conmed Jaquelin 08/30/2024 [id number] / / [id number] Conmed Jaquelin Conmed 16mm Duraclip [id number] - [id number] Implanted:Qty: 1 on 01/09/2023 by Aidan Guadalupe MD at [facility] Left: Duodenum Conmed Jaquelin 01/17/2025 [id number] / / [id number] Procedures Procedure Name Priority Date/Time Associated Diagnosis Comments ESOPHAGOGASTRODUODENOSCOPY 10/14 12:58 PM MOTEL KEEPER Duodenal adenoma Polyp of stomach and duodenum EGD 10/14/2024 12:54 PM MOTEL KEEPER POCT GLUCOSE DEVICE Routine 10/14/2024 1 2:45 PM MOTEL KEEPER EGFR Routine 01/12/2023 10:35 PM MOTEL KEEPER from Last 3 Months or Most Recently Relevant to Health Maintenance Results * EGD (10/14/2024 12:54 PM MOTEL KEEPER) Anatomical Region Laterality Modality Other Narrative Procedure Note Sai Munroe MD - 10/14/2024 12:54 PM CST ENDOSCOPY LAB Patient Name: Juanito Austin Procedure Date: 10/14/2024 12:54 PM Admit Type: Outpatient Room: [facility] Date of : 1950 Instrument [...] - Repeat upper endoscopy in 2 years [facility]. Attending Participation: I personally performed the entire procedure. Electronically signed by Sai Munroe M.D. Sai Munroe M.D. 10/14/2024 1:23:10 PM This document was signed electronically. Number of Addenda: 0 Note Initiated On: 10/14/2024 12:54 PM Scope In: Scope Out: Sai Munroe MD ENDOSCOPY PROCEDURES Final Result * POCT glucose (10/14/2024 12:45 PM MOTEL KEEPER) Glucose, POC 101 70 - 199 mg/dL Comment: For Glucose values <35 mg/dl when Hematocrit is >60 mg/dl,the test may not accurately detect significant hypoglycemia,and testing in the Laboratory should be considered if clinically indicated. Blood 10/14/2024 12:4 5 PM MOTEL KEEPER 10/14/2024 12:45 PM MOTEL KEEPER Sai Munroe MD LAB POCT ORDERABLES - ESTELA CE Final Result [facility] [address] [place] [address] * (ABNORMAL) eGFR (01/12/2023 10:35 PM MOTEL KEEPER) Pathologist [facility] eGFR 40(L) 90 - 130 mL/min/1. 73 m2 [facility] Comment: Interpretive Data Reference Interval Normal >/= [...] reviewed 2021. Blood 01/12/2023 10:3 5 PM MOTEL KEEPER 01/12/2023 11:23 PM MOTEL KEEPER Luke Britton MD LAB BLOOD ORDERABLES Final Resu lt [facility] [address] [facility] Department [place] [address] from Last 3 Months or Most Recently Relevant to Health Maintenance Insurance [facility] MEDICARE [facility] MEDICARE Advance Directives For more information, please contact: [phone] * Full Code (Latest Code Status on [...] 9:30 AM 06/24/2022 2:53 PM Care Teams Assistant Floor Covering Printer Relationship Specialty Start Date End Date Scooby Guillermo MD PCP - General Internal Medicine 07/19/24 [place] [id number] [address] Consulting Physician Nephrology 07/28/24
--- OUTSIDE RECORDS SUMMARY | 2024-12-30 11:41 | XMS_ITS ---
Author Organization [facility] Address [address] [place] [address] Care Team Providers Care Bridal Consultant Name Role Phone Bacilio Francisco Unavailable [phone] PROBLEMS Problem Type ICD Code Onset Dates Problem Status W/U Status Risk SNOMED Code Notes Problem Chronic kidney disease, stage 3 unspecified (N18.30) Active confirmed Chronic kidney disease stage 3 (disorder) (481071989) Problem Essential (primary) hypertension (I10) Active confirmed Essential hypertension (78913756) Problem Renal osteodystrophy (N25.0) Active confirmed Renal osteodystrophy (61427480) Encounters Encounter Location Date Provider Diagnosis [place] [facility] [address] [facility] [address] [place] [address] 09/03/2024 Bacilio Francisco Chronic kidney disea se, [...] * MONTY YOODOB: 1950 (74 yo F)Acc No.[id number]:09/03/2024 Progress Notes Patient: MONTY YOO Provider: MD OKSANA, F.A.C.P, F.A.S.N. :1950 Age:74 Y Sex:Female Date:09/03/2024 Address:[address] [place], [place] [address] [facility] Subjective: * Chief Complaints: * * Medical History: Objective: Assessment: * Assessment: 1. Chronic kidney disease, stage 3 unspecified - N18.30 (Primary) 2. Essential (primary) hypertension - I10 3. Renal osteodystrophy - N25.0 Plan: * Treatment: * Billing Information: * Visit Code: 03495 Office Visit, Est Pt., Level 4. * Procedure Codes: * RECREATION MANAGER Sign off status: Pending * Provider: MD OKSANA, F.A.C.P, F.A.S.N. Date: 09/03/2024
--- OUTSIDE RECORDS SUMMARY | 2024-12-30 11:41 | XMS_ITS | Clinical Summary ---
Author Organization [facility] Address [address] [place] [address] Care Team Providers Care Gearcase Assembler Name Role Phone Scooby Guillermo MD Primary Care Provider [phone] Source Comments [facility],non-owned Affiliates and Associated Physician Practices is amultiple site organization consisting of ambulatory clinics and hospital sitesin [place], [place], [place] and [place]. This disclosure is being madepursuant to the Care Everywhere program and may not contain all information available regarding this patient. Last updated 18.[facility] Allergies Active Allergy Reactions Criticality Noted Date [...] Active vitamin D, ergocalciferol, (Drisdol) 1.25 MG (72110 UT) capsule Take 1 (one) capsule by [...] Recorded Patient Health Questionnaire-2 Score 0 04/26/2024 [facility] of Occupat ional Health - Occupational Stress [...] place to sleep or slept in a [place] health care facility (including now)? No 04/21/2024 Sex and Gender [...] 11:17 PM 04/21/2024 11:18 PM Care Teams Gearcase Assembler Relationship Specialty Start Date End Date Scooby Guillermo MD [address] [place], [place] [id number] PCP - General Internal Medicine 04/23/24
--- OUTSIDE RECORDS SUMMARY | 2024-12-30 11:41 | XMS_ITS ---
Author Organization [facility] Address [address] [place] [address] Care Team Providers Care Printed Circuit Board Assembler Name Role Phone Bacilio Francisco Unavailable [phone] Encounters Encounter Location Date Provider Diagnosis [place] [facility] [address] [facility] [address] [place] [address] 10/29/2024 Bacilio Francisco PLAN OF TREATMENT No Information Progress Notes * MONTY YOODOB: 1950 (74 yo F)Acc No.[id number]:10/29/2024 Progress Notes Patient: MONTY YOO Provider: MD OKSANA, Sabrina.Lizz.C.P, F.A.S.N. :1950 Age:74 Y Sex:Female Date:10/29/2024 Address:[address] [place] [address] [address] [facility] Subjective: * Chief Complaints: * * Medical History: Objective: Assessment: Plan: * Treatment: * Billing Information: * Visit Code: * Procedure Codes: * ICAL DENTIST ASSISTANT Sign off status: Pending * Provider: MD OKSANA, Sabrina.Lizz.C.P, F.A.S.N. Date: 10/29/2024
--- OUTSIDE RECORDS SUMMARY | 2024-12-30 11:41 | XMS_ITS ---
Author Organization [facility] Address [address] [facility] [address] [facility] [address] [place] [address] Care Team Providers Care Front End Web Designer Name Role Phone Nolan Bacilio Unavailable [phone] MEDICATIONS Medication SIG (Take, Route, Frequency, Duration) Notes Start Date End Date Status Farxiga 10 MG 1 tablet Orally Once a day for 90 06/23/2024 03/20/2025 Active Ergocalciferol 1.25 MG (11685 UT) 1 capsule Orally Once a week for 90 day(s) 06/23/2024 03/20/2025 Active Encounters Encounter Location Date Provider Diagnosis [place] [facility] [address] [facility] 15 [place] [address] 06/23/2024 Bacilio Francisco PLAN OF TREATMENT Medication Medication Name Sig Start Date Stop Date Notes Farxiga 10 MG 1 tablet Orally Once a day for 90 06/23/2024 03/20/2025 Ergocalciferol 1.25 MG (5000 0 UT) 1 capsule Orally Once a week for 90 day(s) 06/23/2024 03/20/2025 Progress Notes * Juanito AUSTINDOB: [birth year] (74 yo F)Acc No.[id number]:06/23/2024 Patient: Juanito AUSTIN :1950 Age:74 Y Sex:Female Address:[address] [place] [address] * Refills Start Farxiga Tablet, 10 MG, Orally, 90 Tablet, 1 tablet, Once a day, 90, Refills=2 Start Ergocalciferol Capsule, 1.25 MG (23599 UT), Orally, 13, 1 capsule, Once a week, 90 day(s), Refills=2 * true * Date:
--- OUTSIDE RECORDS SUMMARY | 2024-12-30 11:41 | XMS_ITS ---
Author Organization [facility] Address [address] [facility] [address] [place] [address] Care Team Providers Care Staff Midwife Name Role Phone Bacilio Francisco Unavailable [phone] Encounters Encounter Location Date Provider Diagnosis [place] [facility] [address] [facility] [address] [place] [address] 09/01/2024 Bacilio Francisco PLAN OF TREATMENT No Information Progress Notes * Juanito AUSTINDOB: [birth year] (74 yo F)Acc No.[id number]:09/01/2024 Progress Notes Patient: Juanito AUSTIN Provider: MD OKSANA, Sabrina.Lizz.C.P, F.A.S.N. :1950 Age:74 Y Sex:Female Date:09/01/2024 Address:[address] [place], [place] [id number] Subjective: * Chief Complaints: * * Medical History: Objective: Assessment: Plan: * Treatment: * Billing Information: * Visit Code: * Procedure Codes: * AL ASSISTANT TEACHER Sign off status: Pending * Provider: MD OKSANA, Sabrina.Lizz.C.P, F.A.S.N. Date: 09/01/2024
--- OUTSIDE RECORDS SUMMARY | 2024-12-30 11:41 | XMS_ITS | Patient Health Record ---
Author Organization [facility] Address [address] [facility] [address] [place] [address] Care Team Providers Care Evp Chief Exploration Officer Name Role Phone Bacilio Francisco Unavailable [phone] REASON FOR REFERRAL No Information PROBLEMS Problem Type ICD Code Onset Dates Problem Status W/U Status Risk SNOMED Code Notes Problem Essential (primary) hypertension (I10) Active confirmed Essential hypertension (46491142) Problem Renal osteodystrophy (N25.0) Active confirmed Renal osteodystrophy (81054684) Problem Chronic kidney disease, stage 3 unspecified (N18.30) Active confirmed Chronic kidney disease stage 3 (disorder) (326362480) Encounters Encounter Location Date Provider Diagnosis [facility] [address] [place] [address] 09/03/2024 Bacilio Francisco Chronic kidney disea se, stage 3 unspecified N18.30 ; Essential (primary) hypertension I10 and Renal osteodystrophy N25.0 [facility] [address] [place] [address] 10/29/2024 Bacilio Francisco ASSESSMENTS Encounter Date Diagnosis Assessment Notes Treatment Notes Treatment Clinical Notes Section Notes 09/03/2024 Essential (primary) hypertension (ICD-10 - I10) 09/03/2024 Chronic kidney disease, stage 3 unspecified (ICD-10 - N18.30) 09/03/2024 Renal osteodystrophy (ICD-10 - N25.0) PLAN OF TREATMENT No Information
--- OUTSIDE RECORDS SUMMARY | 2024-12-30 11:41 | XMS_ITS | Referral Summary ---
Author Organization [facility] Address [address] [place] [place] [address] Care Team Providers Care Director Enterprise Sales Name Role Phone Scooby Guillermo MD Primary Care Provider [phone] Source Comments [facility],non-owned Affiliates and Associated Physician Practices is amultiple site organization consisting of ambulatory clinics and hospital sitesin [place], [place], [place] and [place]. This disclosure is being madepursuant to the Care Everywhere program and may not contain all information available regarding this patient. Last updated 18.[facility] Allergies Active Allergy Reactions Criticality Noted Date [...] Active vitamin D, ergocalciferol, (Drisdol) 1.25 MG (41130 UT) capsule Take 1 (one) capsule by [...] Recorded Patient Health Questionnaire-2 Score 0 04/26/2024 [facility] of Occupat ional Health - Occupational Stress [...] place to sleep or slept in a penitentiary (including now)? No 04/21/2024 Sex and Gender [...] 11:17 PM 04/21/2024 11:18 PM Care Teams Director Enterprise Sales Relationship Specialty Start Date End Date Scooby Guillermo MD [address] [place] [address] PCP - General Internal Medicine 04/23/24
--- OUTSIDE RECORDS SUMMARY | 2024-12-30 11:41 | XMS_ITS ---
Author Organization [facility] Address [address] [facility] [address] [place] [address] Care Team Providers Care First Breaker Feeder Name Role Phone Bacilio Francisco Unavailable [phone] Encounters Encounter Location Date Provider Diagnosis [place] [facility] [address] [facility] 15 [place] [address] 08/25/2024 Bacilio Francisco PLAN OF TREATMENT No Information Progress Notes * Juanito AUSTINDOB: [birth year] (74 yo F)Acc No.[id number]:08/25/2024 Progress Notes Patient: Juanito AUSTIN Provider: MD OKSANA, Sabrina.Lizz.C.P, F.A.S.N. :1950 Age:74 Y Sex:Female Date:08/25/2024 Address:[address] [place], [place] [id number] Subjective: * Chief Complaints: * * Medical History: Objective: Assessment: Plan: * Treatment: * Billing Information: * Visit Code: * Procedure Codes: * NTEGRATOR FEEDER Sign off status: Pending * Provider: MD OKSANA, Sabrina.Lizz.C.P, F.A.S.N. Date: 08/25/2024
[2024-12-30 11:48] LABS: Basophils Absolute Auto 0.03 K/mm3 (0.00-0.10); Basophils Percent Auto 0.4 % (0.0-1.0); Eosinophils Absolute Auto 0.09 K/mm3 (0.02-0.50); Eosinophils Percent Auto 1.2 % (1.0-6.0); Hematocrit 43.1 % (35.0-42.0); Hemoglobin 13.4 g/dL (11.7-13.8); Immature Granulocyte Absolute 0.06 K/mm3 (0.00-0.00); Immature Granulocyte Percent A 0.8 % (0.0-0.0); Lymphocytes Absolute Auto 0.28 K/mm3 (1.10-4.50); Lymphocytes Percent Auto 3.7 % (18.0-42.0); Mean Corpuscular HGB Conc 31.1 g/dL (32-36); Mean Corpuscular Hemoglobin 25.2 pg (27.0-31.0); Mean Corpuscular Volume 81.2 fL (78.0-102.0); Mean Platelet Volume 10.2 fl (9.2-11.8); Monocytes Absolute Auto 0.81 K/mm3 (0.10-0.90); Monocytes Percent Auto 10.6 % (2.0-11.0); Neutrophils Absolute Auto 6.38 K/mm3 (1.70-7.20); Neutrophils Percent Auto 83.3 % (50.0-70.0); Platelet Count Result 195 K/mm3 (150-420); Red Blood Count 5.31 M/mm3 (4.20-5.40); Red Cell Distribution Width 17.6 % (11.6-14.4); White Blood Count 7.7 K/mm3 (4.8-10.8)
[2024-12-30 11:57] LABS: Add Urine Microscopic? YES; Appearance Urine Clear (Clear); Bilirubin Urine Negative (Negative); Blood Urine Negative (Negative); Color Urine Light Yellow (Yellow); Glucose Urine UA 3+ (Negative); Ketones Urine Negative (Negative); Leukocyte Esterase Ur Negative LEU/UL (Negative); Nitrate Urine Negative (Negative); Protein Urine Trace (Negative); Specific Grav Ur 1.015 (1.010-1.020); Urobilinogen Urine 0.2 mg/dL (0.2-1.0)
--- OUTSIDE RECORDS SUMMARY | 2024-12-30 12:01 | XMS_ITS | Encounter Summary ---
Author Organization [facility] Address [address] [place] [address] Care Team Providers Care Shaping Machine Tender Name Role Phone Scooby Guillermo MD Primary Care Provider [phone] Encounter Details Date Type Department Care Team (Latest Contact Info) Description 09/15/2018 Abstract [facility] , Kimberlee Long MD Social History Tobacco Use Types Packs/Day Years Used Date Smoking Tobacco: Never Comments Unknown Sex and Gender Information Value Date Recorded Sex Assigned at Female 12/06/2024 7:39 AM NAIL POLISH BRUSH MACHINE FEEDER Legal Sex Female 8:54 PM CDT Gender Identity Female 12/06/2024 7:39 AM NAIL POLISH BRUSH MACHINE FEEDER Sexual Orientation Not on file documented as of this encounter Plan of Treatment Upcoming Encounters Date Type Department Care Team (Late st Contact Info) Description 01/03/2025 11:15 AM NAIL POLISH BRUSH MACHINE FEEDER Office Visit [facility] [address] [address] Antonio George Jr., DO [address] [place] [address] 01/24/2025 12:45 PM CDT Office Visit [facility] [address] [place] [address] Tianna Mariscal MD [address] [place] [address] -[phone] (Work) documented as of this encounter Visit Diagnoses Not on filedocumented in this encounter Care Teams Shaping Machine Tender Relationship Specialty Start Date End Date Scooby Guillermo MD [address] [place] [address] PCP - General INTERNAL MEDICINE 04/06/24 documented as of this encounter
--- OUTSIDE RECORDS SUMMARY | 2024-12-30 12:01 | XMS_ITS | Continuity of Care Document ---
Author Organization [facility] Address [address] [place] [address] [place] [address] Phone Care Team Providers Care Nurse Name Role Phone Fermin Gonzalez MD Unavailable Unavailable Advance Directives Directive Yes / No Effective Date File Name No Information Encounters Encounter Description Practice Location Reason(s) For Visit Diagnoses Date Provider Providers Copied on Encounter [facility], [address], [place], [place], [id number], [place] tel:[phone] [facility] Professional No Information Jake-0 3-200 3 Lisa Christensen. [address] [facility], [place], [place], [id number], [place]. tel:[phone] Referring Provider: Esme Bernal MD, [address], [place], [address]. tel:[phone] Family History Family Member Type Diagnosis Age At Onset No Information Payers Payer name Insurance type Covered green party ID Authoriza tion(s) No Information Social [...]
--- OUTSIDE RECORDS SUMMARY | 2024-12-30 12:01 | XMS_ITS | Clinical Summary ---
Author Organization [facility] Address [address] [place] [address] Care Team Providers Care Auto Claims Adjuster Name Role Phone Scooby Guillermo MD Primary Care Provider [phone] Bacilio Francisco MD Unavailable [phone] Allergies Active Allergy Reactions Criticality Noted [...] 01/08/2023 Assessment & Plan (01/13/2023 3:24 PM OIL AND GAS EXPLORATION TECHNICIAN): H/H drop after duodenal mass excision/EGD 01/07 - Monitor H/H closely as patient with melenic stools. - Monitor VS - pRBC transfusion if Hgb<7 - Per GI: advance diet as tolerated. Currently on a regular diet. - Patient to discharge on home OMEPRAZOLE BID. 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 HTN (hypertension) 01/07/2023 Assessment & Plan (01/13/2023 3:22 PM OIL AND GAS EXPLORATION TECHNICIAN): - Hold antihypertensive meds while bleeding and BP soft. Should be restarted by PCP. Assessment & Plan (01/07/2023 8:53 PM OIL AND GAS EXPLORATION TECHNICIAN): Continue on Maxzide Monitor vitals HLD (hyperlipidemia) 01/07/2023 Assessment & Plan (01/08/2023 12:44 PM OIL AND GAS EXPLORATION TECHNICIAN): Continue on statins Assessment & Plan (01/07/2023 8:54 PM OIL AND GAS EXPLORATION TECHNICIAN): Continue on statins T2DM (type 2 diabetes mellitus) 01/07/2023 Assessment & Plan (01/09/2023 4:05 PM OIL AND GAS EXPLORATION TECHNICIAN): On metformin at home and Lantus 10 units nightly. Sugars thus far have been appropriate without acute need for insulin while NPO. Will restart once patient starting PO challenged after procedure. - Monitor BG and add SSI if needed Assessment & Plan (01/07/2023 8:55 PM OIL AND GAS EXPLORATION TECHNICIAN): On metformin at home and Lantus Will hold onto insulin at this time as NPO Monitor BG and add SSI if needed History of pulmonary embolism 01/07/2023 Assessment & Plan (01/09/2023 4:08 PM OIL AND GAS EXPLORATION TECHNICIAN): H/o PE in 2021, when she was on Eliquis for 5-6 months, on no AC for past 6 months. Monitor vitals, not a candidate for AC at this time due to GI bleeding Assessment & Plan (01/07/2023 8:56 PM OIL AND GAS EXPLORATION TECHNICIAN): H/o PE in 2021, when she was on Eliquis for 5-6 months, on no AC for past 6 months. Monitor vitals GERD (gastroesophageal reflux disease) Assessment & Plan (01/13/2023 3:23 PM OIL AND GAS EXPLORATION TECHNICIAN): - Patient will discharge on omeprazole BID. 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 [...] Gi. Assessment & Plan (01/07/2023 8:53 PM OIL AND GAS EXPLORATION TECHNICIAN): Adenomatous duodenal polyp EGD 01/[address] [...] (04/24/2022): Added automatically from request for surgery [id number] Encounters Date Type Department Care Team Description 10/14/2024 1:01 PM OIL AND GAS EXPLORATION TECHNICIAN Anesthesia Event [facility] [address] [place] [phone] Kalpesh Anderson DO Winfrey, Tonya M., NATALIE 10/14/2024 1:00 PM OIL AND GAS EXPLORATION TECHNICIAN - 10/14/2024 1:30 PM OIL AND GAS EXPLORATION TECHNICIAN Surgery [facility] [address] [place] [phone] Sai Munroe MD EGD 10/14/2024 11:03 AM OIL AND GAS EXPLORATION TECHNICIAN - 10/14/2024 2:00 PM OIL AND GAS EXPLORATION TECHNICIAN Hospital Encounter [facility] [address] [place] [phone] Sai Munroe MD Discharge Disposition: Discharge to home or self care 10/01/2024 Telephone [facility] [address] [place] [address] Ary Santana LPN GI Preprocedure 09/30/2024 Telephone [facility] [address] [facility] 12[address] [place] [address] [place] [address] Marcela Bowers, RN Scheduling Testing/Treatment [...] on file Legal Sex Female 12:42 AM OIL AND GAS EXPLORATION TECHNICIAN Gender Identity Not on file Sexual Orientation Not on file Obstetrics History Last Filed Vital Signs Vital Sign Reading Time Taken Comments Blood Pressure 132/77 10/14/2024 2:00 PM OIL AND GAS EXPLORATION TECHNICIAN Pulse 62 10/14/2024 2:00 PM OIL AND GAS EXPLORATION TECHNICIAN Temperature 35.9 C (96.6 F) 10/14/2024 12:35 PM OIL AND GAS EXPLORATION TECHNICIAN Respiratory Rate 15 10/14/2024 2:00 PM OIL AND GAS EXPLORATION TECHNICIAN Oxygen Saturation 91% 10/14/2024 2:00 PM OIL AND GAS EXPLORATION TECHNICIAN Inhaled Oxygen Concentration - - Weight 95.3 kg (210 lb) 10/14/2024 12:35 PM OIL AND GAS EXPLORATION TECHNICIAN Height 165.1 cm (5' 5 ) 10/14/2024 12:35 PM OIL AND GAS EXPLORATION TECHNICIAN Body Mass Index 34.95 10/14/2024 12:35 PM OIL AND GAS EXPLORATION TECHNICIAN Plan of Treatment Health Maintenance Due Date [...] 10/14/2025 10/14/2024 Medical Devices Implanted Type Area Circulation Librarian Device Identifier Shelf Expiration Date Model / Serial / Lot Conmed Jaquelin Conmed 11mm Duraclip [id number] - [id number] Implanted:Qty: 1 on 01/09/2023 by Aidan Guadalupe MD at [facility] Left: Duodenum Conmed Jaquelin 08/30/2024 [id number] / / [id number] Conmed Jaquelin Conmed 11mm Duraclip [id number] - [id number] Implanted:Qty: 1 on 01/09/2023 by Aidan Guadalupe MD at [facility] Left: Duodenum Conmed Jaquelin 08/30/2024 [id number] / / [id number] Conmed Jaquelin Conmed 16mm Duraclip [id number] - [id number] Implanted:Qty: 1 on 01/09/2023 by Aidan Guadalupe MD at [facility] Left: Duodenum Conmed Jaquelin 01/17/2025 [id number] / / [id number] Procedures Procedure Name Priority Date/Time Associated Diagnosis Comments ESOPHAGOGASTRODUODENOSCOPY 10/14 12:58 PM OIL AND GAS EXPLORATION TECHNICIAN Duodenal adenoma Polyp of stomach and duodenum EGD 10/14/2024 12:54 PM OIL AND GAS EXPLORATION TECHNICIAN POCT GLUCOSE DEVICE Routine 10/14/2024 1 2:45 PM OIL AND GAS EXPLORATION TECHNICIAN EGFR Routine 01/12/2023 10:35 PM OIL AND GAS EXPLORATION TECHNICIAN from Last 3 Months or Most Recently Relevant to Health Maintenance Results * EGD (10/14/2024 12:54 PM OIL AND GAS EXPLORATION TECHNICIAN) Anatomical Region Laterality Modality Other Narrative Procedure Note Sai Munroe MD - 10/14/2024 12:54 PM CST ENDOSCOPY LAB Patient Name: Juanito Austin Procedure Date: 10/14/2024 12:54 PM Admit Type: Outpatient Room: [facility] Date of : 1950 Instrument [...] - Repeat upper endoscopy in 2 years [facility]. Attending Participation: I personally performed the entire procedure. Electronically signed by Sai Munroe M.D. Sai Munroe M.D. 10/14/2024 1:23:10 PM This document was signed electronically. Number of Addenda: 0 Note Initiated On: 10/14/2024 12:54 PM Scope In: Scope Out: Sai Munroe MD ENDOSCOPY PROCEDURES Final Result * POCT glucose (10/14/2024 12:45 PM OIL AND GAS EXPLORATION TECHNICIAN) Glucose, POC 101 70 - 199 mg/dL Comment: For Glucose values <35 mg/dl when Hematocrit is >60 mg/dl,the test may not accurately detect significant hypoglycemia,and testing in the Laboratory should be considered if clinically indicated. Blood 10/14/2024 12:4 5 PM OIL AND GAS EXPLORATION TECHNICIAN 10/14/2024 12:45 PM OIL AND GAS EXPLORATION TECHNICIAN Sai Munroe MD LAB POCT ORDERABLES - ESTELA CE Final Result [facility] [address] [place] [address] * (ABNORMAL) eGFR (01/12/2023 10:35 PM OIL AND GAS EXPLORATION TECHNICIAN) Pathologist [facility] eGFR 40(L) 90 - 130 mL/min/1. 73 m2 [facility] Comment: Interpretive Data Reference Interval Normal >/= [...] reviewed 2021. Blood 01/12/2023 10:3 5 PM OIL AND GAS EXPLORATION TECHNICIAN 01/12/2023 11:23 PM OIL AND GAS EXPLORATION TECHNICIAN Luke Britton MD LAB BLOOD ORDERABLES Final Resu lt [facility] [address] [facility] [place] [address] from Last 3 Months or Most Recently Relevant to Health Maintenance Insurance [facility] MEDICARE [facility] MEDICARE Advance Directives For more information, please contact: [phone] * Full Code (Latest Code Status on [...] 9:30 AM 06/24/2022 2:53 PM Care Teams Auto Claims Adjuster Relationship Specialty Start Date End Date Scooby Guillermo MD PCP - General Internal Medicine 07/19/24 [place] [id number] [address] Consulting Physician Nephrology 07/28/24
--- OUTSIDE RECORDS SUMMARY | 2024-12-30 12:01 | XMS_ITS | Encounter Summary ---
Author Organization [facility] Address [address] [place] [address] Phone Care Team Providers Care Traveling Secretary Name Role Phone Scooby Guillermo MD Primary Care Provider [phone] Esme Adler NP Primary Care Provider + Unknown, Notinfile Primary Care Provider Unavail able Scooby Guillermo MD Primary Care Provider Bacilio Francisco MD Unavailable [phone] Encounter Details Date Type Department Care Team (Late st Contact Info) Description 01/30/2022 Orders Only [facility] Scanning, Provider Social History Tobacco Use Types Packs/Day Years Used Date Smoking Tobacco: Never Assessed Comments Unknown Sex and Gender Information Value Date Recorded Sex Assigned at Not on file Legal Sex Female 12:42 AM SUPERVISOR PUBLIC HEALTH NURSING Gender Identity Not on file Sexual Orientation [...] documented as of this encounter Care Teams Traveling Secretary Relationship Specialty Start Date End Date Scooby Guillermo MD PCP - General 03/31/08 04/01/22 Esme Adler NP [address] [address] PCP - General Nurse Practitioner 04/02/22 07/09/23 Unknown, Notinfile PCP - General 07/10/23 07/18/24 Scooby Guillermo MD PCP - General Internal Medicine 07/19/24 [place] [id number] [facility] [address], [place] [address] Consulting Physician Nephrology 07/28/24 documented as of this encounter
--- OUTSIDE RECORDS SUMMARY | 2024-12-30 12:01 | XMS_ITS | Encounter Summary ---
Author Organization [facility] Address [address] [place] [address] Phone Care Team Providers Care Window Air Conditioner Installer Name Role Phone Scooby Guillermo MD Primary Care Provider [phone] Esme Adler NP Primary Care Provider + Unknown, Notinfile Primary Care Provider Unavail able Scooby Guillermo MD Primary Care Provider [phone] Bacilio Francisco MD Unavailable [phone] Encounter Details Date Type Department Care Team (Late st Contact Info) Description 02/01/2022 Orders Only [facility] Scanning, Provider Social History Tobacco Use Types Packs/Day Years Used Date Smoking Tobacco: Never Assessed Comments Unknown Sex and Gender Information Value Date Recorded Sex Assigned at Not on file Legal Sex Female 12:42 AM EXTRUSION SUPERVISOR Gender Identity Not on file Sexual Orientation [...] documented as of this encounter Care Teams Window Air Conditioner Installer Relationship Specialty Start Date End Date Scooby Guillermo MD PCP - General 03/31/08 04/01/22 Esme Adler NP [address] [address] PCP - General Nurse Practitioner 04/02/22 07/09/23 Unknown, Notinfile PCP - General 07/10/23 07/18/24 Scooby Guillermo MD PCP - General Internal Medicine 07/19/24 [place] [id number] [facility] [address], [place] [address] Consulting Physician Nephrology 07/28/24 documented as of this encounter
--- OUTSIDE RECORDS SUMMARY | 2024-12-30 12:01 | XMS_ITS | Encounter Summary ---
Author Organization [facility] Address [address] [place] [address] Phone Care Team Providers Care Administrative Director Name Role Phone Scooby Guillermo MD Primary Care Provider [phone] Esme Adler NP Primary Care Provider + Unknown, Notinfile Primary Care Provider Unavail able Scooby Guillermo MD Primary Care Provider Bacilio Francisco MD Unavailable [phone] Encounter Details Date Type Department Care Team (Late st Contact Info) Description 03/15/2022 Orders Only [facility] Scanning, Provider Social History Tobacco Use Types Packs/Day Years Used Date Smoking Tobacco: Never Assessed Comments Unknown Sex and Gender Information Value Date Recorded Sex Assigned at Not on file Legal Sex Female 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
--- OUTSIDE RECORDS SUMMARY | 2024-12-30 12:01 | XMS_ITS | Clinical Summary ---
Author Organization [facility] Address [address] [place] [address] Care Team Providers Care Information Clerk Cashier Name Role Phone Scooby Guillermo MD Primary Care Provider [phone] Allergies Active Allergy Reactions Criticality Noted Date [...] Type Department Care Team Description 12/07/[address] [address] Alejandra Reyes PA Question 12/06/[address] [address] Alejandra Reyes PA Appointment Reminder 11/08/2024 Telephone [facility] [address] [place] [address] Tianna Mariscal MD Lab Results 10/29/2024 Telephone [facility] [address] [place] [address] Tianna Mariscal MD Lab Results 10/26/2024 Telephone [facility] [address] [place] [address] Tianna Mariscal MD Follow Up Call 10/25/2024 11:37 AM STAFF MIDWIFE/APPRENTICESHIP DIRECTOR - 10/25/2024 11:59 PM STAFF MIDWIFE/APPRENTICESHIP DIRECTOR Hospital Encounter [facility] [id number] [place] [address] Tianna Mariscal MD Discharge Disposition: Home or Self Care (Routine Discharge) 10/25/2024 11:00 AM STAFF MIDWIFE/APPRENTICESHIP DIRECTOR Office Visit [facility] [place] [address] Bayron Pickard MD Ramani, Nirali, MD New Patient 10/25/2024 Orders Only [facility] [place] [address] [place] [address] Tianna Mariscal MD 10/25/2024 Travel from Last [...] Sex Assigned at Female 12/06/2024 7:39 AM STAFF MIDWIFE/APPRENTICESHIP DIRECTOR Legal Sex Female 8:54 PM CDT Gender Identity Female 12/06/2024 7:39 AM STAFF MIDWIFE/APPRENTICESHIP DIRECTOR Sexual Orientation Not on file Last Filed Vital Signs Vital Sign Reading Time Taken Comments Blood Pressure 138/75 10/25/2024 10:59 AM STAFF MIDWIFE/APPRENTICESHIP DIRECTOR Pulse 72 10/25/2024 10:59 AM STAFF MIDWIFE/APPRENTICESHIP DIRECTOR Temperature 36.6 C (97.8 F) 09/14/2014 10:34 AM STAFF MIDWIFE/APPRENTICESHIP DIRECTOR Respiratory Rate 13 09/14/2014 10:3 4 AM STAFF MIDWIFE/APPRENTICESHIP DIRECTOR Regular Oxygen Saturation - - Inhaled Oxygen Concentration - - Weight 94.3 kg (207 lb 12.8 oz) 024 10:59 AM STAFF MIDWIFE/APPRENTICESHIP DIRECTOR Height 165.1 cm (5' 5 ) 10/25/2024 10:5 9 AM STAFF MIDWIFE/APPRENTICESHIP DIRECTOR Body Mass Index 34.58 10/25/2024 10:59 AM STAFF MIDWIFE/APPRENTICESHIP DIRECTOR Plan of Treatment Upcoming Encounters Date Type Department Care Team (Late st Contact Info) Description 01/03/2025 11:15 AM STAFF MIDWIFE/APPRENTICESHIP DIRECTOR Office Visit [address] [address] Antonio George Jr., DO [address] [place] [address] 01/24/2025 12:45 PM CDT Office Visit [facility] [address] [place] [address] Tianna Mariscal MD [address] [place] [address] [phone] (Work) Health Maintenance Due Date Last [...] Comments COMPLEMENT C4 Routine 10/25/2024 12:00 PM STAFF MIDWIFE/APPRENTICESHIP DIRECTOR Chronic kidney disease, stage 3b (CMS/HCC HHS/HCC) HTN (hypertension) COMPLEMENT C3 Routine 10/25/2024 12:00 PM STAFF MIDWIFE/APPRENTICESHIP DIRECTOR Chronic kidney disease, stage 3b (CMS/HCC HHS/HCC) HTN (hypertension) IMMUNOFIXATION Routine 10/25/2024 12:00 PM STAFF MIDWIFE/APPRENTICESHIP DIRECTOR Chronic kidney disease, stage 3b (CMS/HCC HHS/HCC) HTN (hypertension) PROTEIN, ELECTROPHORESIS Routine 10/25/2024 12:00 PM STAFF MIDWIFE/APPRENTICESHIP DIRECTOR Chronic kidney disease, stage 3b (CMS/HCC HHS/HCC) HTN (hypertension) HEPATITIS PANEL,ACUTE Routine 10/25/2024 12:00 PM STAFF MIDWIFE/APPRENTICESHIP DIRECTOR Chronic kidney disease, stage 3b (CMS/HCC HHS/HCC) HTN (hypertension) Fatigue ANCA SCREEN, MPO PR3 W/RFX TTR Routine 10/25/2024 12:00 PM STAFF MIDWIFE/APPRENTICESHIP DIRECTOR Chronic kidney disease, stage 3b (CMS/HCC HHS/HCC) HTN (hypertension) ANTINUCLEAR ANTIBODY WI RFX Routine 10/25/2024 12:00 PM STAFF MIDWIFE/APPRENTICESHIP DIRECTOR Chronic kidney disease, stage 3b (CMS/HCC HHS/HCC) HTN (hypertension) URIC ACID BLOOD Routine 10/25/2024 12:00 PM STAFF MIDWIFE/APPRENTICESHIP DIRECTOR Chronic kidney disease, stage 3b (CMS/HCC HHS/HCC) HTN (hypertension) PTH - INTACT Routine 10/25/2024 12:00 PM STAFF MIDWIFE/APPRENTICESHIP DIRECTOR Chronic kidney disease, stage 3b (CMS/HCC HHS/HCC) HTN (hypertension) RENAL FUNCTION PANEL Routine 10/25/2024 12:00 PM STAFF MIDWIFE/APPRENTICESHIP DIRECTOR Chronic kidney disease, stage 3b (CMS/HCC HHS/HCC) HTN (hypertension) CBC W/DIFF AUTOMATED Routine 10/25/2024 12:00 PM STAFF MIDWIFE/APPRENTICESHIP DIRECTOR Chronic kidney disease, stage 3b (CMS/HCC HHS/HCC) HTN (hypertension) PROTEIN ELECTROPHORESIS URINE RANDOM Routine 10/25/2024 11:48 AM STAFF MIDWIFE/APPRENTICESHIP DIRECTOR Chronic kidney disease, stage 3b (CMS/HCC HHS/HCC) HTN (hypertension) HC CREATININE OTH SOURCE Routine 10/25/2024 11:48 AM STAFF MIDWIFE/APPRENTICESHIP DIRECTOR Chronic kidney disease, stage 3b (CMS/HCC HHS/HCC) HTN (hypertension) HC URINALYSIS AUTO W/MICRO Routine 10/25/2024 11:48 AM STAFF MIDWIFE/APPRENTICESHIP DIRECTOR Chronic kidney disease, stage 3b (CMS/HCC HHS/HCC) HTN (hypertension) from Last 3 Months Results * ANCA SCREEN, MPO PR3 W/RFX TTR (10/25/2024 12:00 PM STAFF MIDWIFE/APPRENTICESHIP DIRECTOR) Pathologist [facility] ANCA SCREEN Negative Negative 10/29/2024 12:26 AM STAFF MIDWIFE/APPRENTICESHIP DIRECTOR [facility] Comment: ANCA screen uses indirect immunofluorescence to detect antibodies to neutrophil cytoplasmic antigens. A positive screen reflexes to titer and pattern. Patterns include cytoplasmic (c-ANCA) and perinuclear (p-ANCA) both of which are associated with vasculitis, and atypical p-ANCA which is associated with inflammatory bowel disease and other disorders. MYELOPEROXIDASE AB <1.0 <1.0 AI 2023 12:26 AM STAFF MIDWIFE/APPRENTICESHIP DIRECTOR [facility] DOMINGUEZANN [facility]ERA Comment: Value Interpretation <1.0 AI: [...] PROTEINASE-3 AB <1.0 <1.0 AI 12:26 AM STAFF MIDWIFE/APPRENTICESHIP DIRECTOR [facility] Comment: Value Interpretation <1.0 AI: No Antibody Detected >or=1.0 AI: Antibody Detected Autoantibodies to proteinase-3 (UT-3) are accepted as characteristic for granulomatosis with polyangiitis (GPA, Brooks's), and are detectable in 95% of the histologically proven cases. The cytoplasmic IFA pattern, (c-ANCA), is based largely on autoantibody to UT-3 which serves as the primary antigen. These autoantibodies are present in active disease. Test Performed by [facility], [facility], [address] [place], [place] Thiago Falk M.D., Ph.D., Director of Laboratories , CLIA [id number] 10/25/2024 12:0 0 PM STAFF MIDWIFE/APPRENTICESHIP DIRECTOR Tianna Mariscal MD LABORATORY Final Result [facility] [address] [place], [place] , * ANTINUCLEAR ANTIBODY WI RFX (10/25/2024 12:00 PM STAFF MIDWIFE/APPRENTICESHIP DIRECTOR) PEGGY 0.2 10/27/2024 12:56 PM STAFF MIDWIFE/APPRENTICESHIP DIRECTOR [facility] Comment: NEGATIVE: <0.7 RATIO PEGGY PROFILE AND TITER NOT PERFORMED THE PEGGY SCREEN TESTS FOR THE FOLLOWING ANTIBODIES BY EIA: SSA1 (RO), SSB1 (LA), HANCOCK, SCL70, JO1, CENTROMERE, FOXING PAINTER HISTONE MUST BE ORDERED SEPARATELY DNA (DS) ANTIBODY 5.7 IU/ML 024 12:56 PM STAFF MIDWIFE/APPRENTICESHIP DIRECTOR [facility] Comment: NEGATIVE: <10 IU/mL EQUIVOCAL: 10 to 15 IU/mL POSITIVE: >15 IU/mL THIS QUANTITATIVE ASSAY IS CALIBRATED TO THE [employer]'S WO/80 STANDARD. THE LEVEL OF dsDNA AUTOANTIBODY GERERALLY CORRELATES WITH THE LEVEL OF DISEASE ACTIVITY IN SYSTEMIC LUPUS ERYTHMATOSUS 10/25/2024 12:0 0 PM STAFF MIDWIFE/APPRENTICESHIP DIRECTOR us Tianna Mariscal MD LABORATORY Final Result Performing Organization Address City/[facility]/ZIP Co de Phone Number [facility] [address] [place] [address], [phone] * (ABNORMAL) COMPLEMENT C4 (10/25/2024 12:00 PM STAFF MIDWIFE/APPRENTICESHIP DIRECTOR) COMPLEMENT C4 51.5(H) 10.0 - 40.0 MG/DL 10/26/2024 2:03 PM STAFF MIDWIFE/APPRENTICESHIP DIRECTOR [facility] 10/25/2024 12:0 0 PM STAFF MIDWIFE/APPRENTICESHIP DIRECTOR us Tianna Mariscal MD LABORATORY Final Result Performing Organization Address [facility]/ZIP Co de Phone Number [facility] [address] [place] [address], [phone] * COMPLEMENT C3 (10/25/2024 12:00 PM STAFF MIDWIFE/APPRENTICESHIP DIRECTOR) COMPLEMENT C3 170.0 90.0 - 180.0 MG/DL 10/26/2024 2:03 PM STAFF MIDWIFE/APPRENTICESHIP DIRECTOR [facility] 10/25/2024 12:0 0 PM STAFF MIDWIFE/APPRENTICESHIP DIRECTOR us Tianna Mariscal MD LABORATORY Final Result Performing Organization Address [facility] Co de Phone Number [facility] [address] [place] [address], [place] [phone] * PTH - INTACT (10/25/2024 12:00 PM STAFF MIDWIFE/APPRENTICESHIP DIRECTOR) PTH 71.4 18.4 - 80.1 PG/ML 10/26/2024 12:01 PM STAFF MIDWIFE/APPRENTICESHIP DIRECTOR [facility] Comment: ASSAY PERFORMED BY CHEMILUMINESCENCE METHODOLOGY USING Vitals ([email or web address])AUR XPT REAGENT. PATIENT RESULTS DETERMINED BY ASSAYS USING DIFFERENT MANUFACTURERS FOR METHODS MAY NOT BE COMPARABLE. 10/25/2024 12:0 0 PM STAFF MIDWIFE/APPRENTICESHIP DIRECTOR us Tianna Mariscal MD LABORATORY Final Result Performing Organization Address [facility] de Phone Number [facility] [address] [place] [address], [place] [phone] * (ABNORMAL) RENAL FUNCTION PANEL (10/25/2024 12:00 PM STAFF MIDWIFE/APPRENTICESHIP DIRECTOR) SODIUM S/P/B 142 136 - 145 MMOL/L 10/25/2024 12:21 PM [facility] POTASSIUM S/P/B 4.1 3.5 - 5.1 MMOL/L 10/25/2024 12:21 PM [facility] CHLORIDE S/P/B 104 98 - 107 MMOL/L 10/25/2024 12:21 PM [facility] CO2 29.9 21.0 - 32.0 MMOL/L 10/25/2024 12:21 PM [facility] GLUCOSE 114(H) 70 - 99 MG/DL 10/25/2024 12:21 PM [facility] Comment: FASTING GLUCOSE 100 TO 125 MG/DL IS CONSISTENT WITH IMPAIRED FASTING GLUCOSE. FASTING GLUCOSE >125 MG/DL IS CONSISTENT WITH DIABETES. RANDOM GLUCOSE >200 MG/DL WITH HYPERGLYCEMIC SYMPTOMS IS CONSISTENT WITH DIABETES. PER ADA GUIDELINES BUN 18 6 - 24 MG/DL 10/25/2024 12:21 PM [facility] CREATININE S/P/B 1.29(H) 0.55 - 1.02 MG/DL 10/25/2024 12:21 PM [facility] CALCIUM S/P/B 9.7 8.4 - 10.5 MG/DL 10/25/2024 12:21 PM [facility] ALBUMIN S/P/B 3.3(L) 3.4 - 5.0 G/DL 10/25/2024 12:21 PM [facility] PHOSPHORUS 4.0 2.6 - 4.7 MG/DL 10/25/2024 12:21 PM [facility] ANION GAP 8.1 5.0 - 15.0 MMOL/L 10/25/2024 12:21 PM [facility] OSMOLALITY (CALC) 297 MOSM/KG 024 12:21 PM [facility] Comment:REFERENCE RANGE NOT ESTABLISHED GFR ESTIMATE 44(L) >89 ML/MIN/1. 73 M2 10/25/2024 12:21 PM [facility] GFR NOTES GFR REFERENCE S: 10/25/2024 12:21 PM [facility] Comment: THE ESTIMATED GFR IS [...] <15 ml/min/1.73 m2 10/25/2024 12:0 0 PM STAFF MIDWIFE/APPRENTICESHIP DIRECTOR us Tianna Mariscal MD LABORATORY Final Result [facility] [address] [place] [address], [place] [phone] * IMMUNOFIXATION (10/25/2024 12:00 PM STAFF MIDWIFE/APPRENTICESHIP DIRECTOR) Pathologist [facility] IMMUNOFIXATION SERUM SEE PATHOLOGIST'S INTERPRETATION 10/27/2024 12:44 PM STAFF MIDWIFE/APPRENTICESHIP DIRECTOR [facility] IMMUNOFIX (SERUM) INTERPRETATION THIS SERUM IMMUNOTYPING WAS INTERPRETED BY 10/28/2024 6:01 AM STAFF MIDWIFE/APPRENTICESHIP DIRECTOR [facility] Comment: DR VIKRAM MARCELO MONOCLONAL PROTEIN NOT IDENTIFIED 10/25/2024 12:0 0 PM STAFF MIDWIFE/APPRENTICESHIP DIRECTOR us Tianna Mariscal MD LABORATORY Final Result Performing Organization Address City/[facility]/ZIP Co de Phone Number [facility] [address] [place] [address], [place] [phone] * HEPATITIS PANEL,ACUTE (10/25/2024 12:00 PM STAFF MIDWIFE/APPRENTICESHIP DIRECTOR) [facility] HEPATITIS B SURFACE AG NON-REACT MISA NON-REACT MISA 10/26/2024 9:28 PM STAFF MIDWIFE/APPRENTICESHIP DIRECTOR [facility] Comment:HBsAg NOT DETECTED. HEP B CORE IGM NON-REACT MISA NON-REACT MISA 10/26/2024 9:28 PM STAFF MIDWIFE/APPRENTICESHIP DIRECTOR [facility] Comment: IgM ANTI HBc NOT DETECTED. DOES NOT EXCLUDE THE POSSIBILITY OF EXPOSURE TO OR INFECTION WITH HBV. NO RETEST REQUIRED. HIGH DOSES OF BIOTIN MAY INTERFERE WITH THIS TEST RESULT. CORRELATION TO CLINICAL HISTORY AND PRESENTATION RECOMMENDED. HAV IGM NON-REACT MISA NON-REACT MISA 10/26/2024 9:28 PM STAFF MIDWIFE/APPRENTICESHIP DIRECTOR [facility] Comment: IgM ANTI HAV NOT DETECTED. DOES NOT EXCLUDE THE POSSIBILITY OF EXPOSURE TO OR INFECTION WITH HAV. LEVELS OF IgM ANTI HAV MAY BE BELOW THE CUTOFF IN EARLY INFECTION. HEPATITIS C AB NON-REACT MISA NON-REACT MISA 10/26/2024 9:28 PM STAFF MIDWIFE/APPRENTICESHIP DIRECTOR [facility] Comment: ANTIBODIES TO HCV NOT DETECTED. DOES NOT EXCLUDE THE POSSIBILITY OF EXPOSURE TO HCV. 10/25/2024 12:0 0 PM STAFF MIDWIFE/APPRENTICESHIP DIRECTOR Tianna Mariscal MD LABORATORY Final Result [facility] [address] [place] [address], [phone] * (ABNORMAL) CBC W/DIFF AUTOMATED (10/25/2024 12:00 PM STAFF MIDWIFE/APPRENTICESHIP DIRECTOR) WBC 10.34 4.00 - 10.80 x10'3/uL 10/25/2024 12:19 PM STAFF MIDWIFE/APPRENTICESHIP DIRECTOR [facility] RBC 5.23 4.10 - 5.40 x10'6/uL 10/25/2024 12:19 PM [facility] HGB 13.4 12.0 - 16.0 G/DL 10/25/2024 12:19 PM [facility] HCT 43.0 36.0 - 47.0 % 10/25/2024 12:19 PM [facility] MCV 82.2 78.0 - 100.0 FL 10/25/2024 12:19 PM [facility] MCH 25.6(L) 27.0 - 31.0 PG 10/25/2024 12:19 PM [facility] MCHC 31.2(L) 33.0 - 36.0 G/DL 10/25/2024 12:19 PM [facility] RDW 17.8(H) 11.5 - 14.5 % 10/25/2024 12:19 PM [facility] PLT 247 150 - 350 x10'3/uL 10/25/2024 12:19 PM [facility] MPV 10.9(H) 7.4 - 10.4 FL 10/25/2024 12:19 PM [facility] CBC COMMENT NORMAL REFERENCE RANGE NOT ESTABLISHED FOR THE PROPORTIONAL LEUKOCYTE DIFFERENTIAL. 10/25/2024 12:19 PM [facility] NEUTROPHILS % 73.2 % 10/25/2024 12:19 PM STAFF MIDWIFE/APPRENTICESHIP DIRECTOR [facility] LYMPHOCYTES % 18.3 % 10/25/2024 12:19 PM STAFF MIDWIFE/APPRENTICESHIP DIRECTOR [facility] MONOCYTES % 5.0 % 10/25/2024 12:19 PM STAFF MIDWIFE/APPRENTICESHIP DIRECTOR [facility] EOSINOPHILS % 2.3 % 10/25/2024 12:19 PM STAFF MIDWIFE/APPRENTICESHIP DIRECTOR [facility] BASOPHILS % 0.5 % 10/25/2024 12:19 PM STAFF MIDWIFE/APPRENTICESHIP DIRECTOR [facility] IMMATURE GRANS % 0.7 % 10/25/20 12:19 PM STAFF MIDWIFE/APPRENTICESHIP DIRECTOR [facility] NRBC % 0.0 % 10/25/2024 12:19 PM STAFF MIDWIFE/APPRENTICESHIP DIRECTOR [facility] ABS. NEUTROPHILS 7.57 1.60 - 8.30 x10'3/uL 10/25/2024 12:19 PM STAFF MIDWIFE/APPRENTICESHIP DIRECTOR [facility] ABS. LYMPHOCYTES 1.89 0.80 - 4.70 x10'3/uL 10/25/2024 12:19 PM STAFF MIDWIFE/APPRENTICESHIP DIRECTOR [facility] ABS. MONOCYTES 0.52 0.00 - 1.50 x10'3/uL 10/25/2024 12:19 PM STAFF MIDWIFE/APPRENTICESHIP DIRECTOR [facility] ABS. EOSINOPHILS 0.24 0.00 - 0.40 x10'3/uL 10/25/2024 12:19 PM STAFF MIDWIFE/APPRENTICESHIP DIRECTOR [facility] ABS. BASOPHILS 0.05 0.00 - 0.20 x10'3/uL 10/25/2024 12:19 PM STAFF MIDWIFE/APPRENTICESHIP DIRECTOR [facility] ABS. IMMATURE GRANULOCYTES 0.07(H) 0.00 - 0.03 x10'3/uL 10/25/2024 12:19 PM STAFF MIDWIFE/APPRENTICESHIP DIRECTOR [facility] ABS. NUCLEATED RBC'S 0.00 0.00 - 0.01 x10'3/uL 10/25/2024 12:19 PM STAFF MIDWIFE/APPRENTICESHIP DIRECTOR [facility] 10/25/2024 12:0 0 PM STAFF MIDWIFE/APPRENTICESHIP DIRECTOR us Tianna Mariscal MD LABORATORY Final Result [facility] [address] [place] [address], [place] [phone] * PROTEIN, ELECTROPHORESIS (10/25/2024 12:00 PM STAFF MIDWIFE/APPRENTICESHIP DIRECTOR) Pathologist [facility] TOTAL PROTEIN S/P/B 7.3 6.0 - 8.3 G/DL 10/27/2024 12:43 PM STAFF MIDWIFE/APPRENTICESHIP DIRECTOR [facility] ALBUMIN S/P/B 3.7 3.4 - 4.9 G/DL 10/27/2024 12:42 PM STAFF MIDWIFE/APPRENTICESHIP DIRECTOR [facility] [id number]-2-VXLICLAS S/P/B 0.4 0.2 - 0.4 G/DL 10/27/2024 12:42 PM STAFF MIDWIFE/APPRENTICESHIP DIRECTOR [facility] [id number]-5-[id number] S/P/B 1.0 0.4 - 1.0 G/DL 10/27/2024 12:42 PM STAFF MIDWIFE/APPRENTICESHIP DIRECTOR [facility] BETA GLOBULIN S/P/B 1.0 0.5 - 1.2 G/DL 10/27/2024 12:42 PM STAFF MIDWIFE/APPRENTICESHIP DIRECTOR [facility] GAMMA GLOBULIN S/P/B 1.2 0.6 - 1.6 G/DL 10/27/2024 12:[address] [facility] ELECTROPHORESIS INTERPRETATION THIS SERUM PEP WAS INTERPRETED BY 10/28/2024 6:[address] [facility] Comment: DR VIKRAM MARCELO THE TOTAL SERUM PROTEIN IS NORMAL. ELECTROPHORESIS IDENTIFIES NO QUANTITATIVE ABNORMALITIES WITHIN THE PROTEIN FRACTIONS. MONOCLONAL PROTEINS ARE NOT DETECTED. 10/25/2024 12:0 0 PM STAFF MIDWIFE/APPRENTICESHIP DIRECTOR Tianna Mariscal MD LABORATORY Final Result [facility] [address] [place] [address], [place] [phone] * URIC ACID BLOOD (10/25/2024 12:00 PM STAFF MIDWIFE/APPRENTICESHIP DIRECTOR) Pathologist [facility] URIC ACID 4.2 2.6 - 6.0 MG/DL 10/25/2024 12:21 PM STAFF MIDWIFE/APPRENTICESHIP DIRECTOR [facility] 10/25/2024 12:0 0 PM STAFF MIDWIFE/APPRENTICESHIP DIRECTOR us Tianna Mariscal MD LABORATORY Final Result Performing Organization Address [facility]/ZIP Co de Phone Number [facility] [address] [place] [address], * (ABNORMAL) PROTEIN ELECTROPHORESIS URINE RANDOM (10/25/2024 11:48 AM STAFF MIDWIFE/APPRENTICESHIP DIRECTOR) PROTEIN URINE TOTAL RANDOM 16.5(H) <12.0 MG/DL 10/27/2024 12:43 PM STAFF MIDWIFE/APPRENTICESHIP DIRECTOR [facility] INTERPRETATION THIS URINE PEP WAS INTERPRETED BY 10/28/2024 6:01 AM STAFF MIDWIFE/APPRENTICESHIP DIRECTOR [facility] Comment: DR VIKRAM MARCELO THERE IS MILD RANDOM PROTEINURIA, WHICH IS MAINLY ALBUMIN. A MONOCLONAL PROTEIN (BENCE MCKENZIE PROTEIN) IS NOT SEEN IN THIS RANDOM SAMPLE. URINE SPECIMEN / Unknown 10/25/2024 11:48 AM STAFF MIDWIFE/APPRENTICESHIP DIRECTOR us Tianna Mariscal MD URINE ORDERABLES Final Result Performing Organization Address City/[facility]/ZIP Co de Phone Number [facility] [address] [place] [address], [place] [phone] * (ABNORMAL) PROTEIN CREAT RATIO URINE (10/25/2024 11:48 AM STAFF MIDWIFE/APPRENTICESHIP DIRECTOR) PROTEIN URINE TOTAL RANDOM 18.0(H) <11.9 MG/DL 10/25/2024 12:21 PM STAFF MIDWIFE/APPRENTICESHIP DIRECTOR [facility] CREATININE RANDOM (U) 95.1 MG/DL 10/25/2024 12:21 PM STAFF MIDWIFE/APPRENTICESHIP DIRECTOR [facility] Comment:REFERENCE RANGE NOT ESTABLISHED PROTEIN/CREATINI NE RATIO 0.2 10/25/2024 12:21 PM STAFF MIDWIFE/APPRENTICESHIP DIRECTOR [facility] Comment:CALCULATED VALUE. [facility] ANDARD REFERENCE RANGE HAS NOT BEEN ESTABLISHED. URINE SPECIMEN / Unknown 10/25/2024 11:48 AM STAFF MIDWIFE/APPRENTICESHIP DIRECTOR us Tianna Mariscal MD URINE ORDERABLES Final Result [facility] [address] [place] [address], * (ABNORMAL) URINALYSIS (10/25/2024 11:48 AM STAFF MIDWIFE/APPRENTICESHIP DIRECTOR) COLOR (U) YELLOW 10/25/2024 12:30 PM STAFF MIDWIFE/APPRENTICESHIP DIRECTOR [facility] TRANSPARENCY CLEAR 10/25/2024 12:30 PM STAFF MIDWIFE/APPRENTICESHIP DIRECTOR [facility] SPECIFIC GRAVITY (U) 1.020 1.000 - 1.025 10/25/2024 12:30 PM STAFF MIDWIFE/APPRENTICESHIP DIRECTOR [facility] U PH 5.5 5.0 - 8.0 10/25/2024 12:30 PM STAFF MIDWIFE/APPRENTICESHIP DIRECTOR [facility] LEUKOCYTES (U) NEGATIVE NEGATIVE 10/25/2024 12:30 PM [facility] NITRITES NEGATIVE NEGATIVE 10/25/2024 12:30 PM STAFF MIDWIFE/APPRENTICESHIP DIRECTOR [facility] PROTEIN RANDOM (U) NEGATIVE NEGATIVE 10/25/2024 12:30 PM [facility] GLUCOSE (U) 3+(A) NEGATIVE 10/25/2024 12:30 PM [facility] KETONES MG/DL (U) NEGATIVE NEGATIVE 10/25/2024 12:30 PM [facility] UROBILINOGEN 0.2 <1.0 EU/DL 10/25/2024 12:30 PM [facility] BILIRUBIN (U) NEGATIVE NEGATIVE 10/25/2024 12:30 PM STAFF MIDWIFE/APPRENTICESHIP DIRECTOR [facility] BLOOD (U) NEGATIVE NEGATIVE 10/25/2024 12:30 PM [facility] WBC/HPF 5-10(A) 0 - 5 /HPF 10/25/2024 12:30 PM [facility] EPI/LPF OCCASIONAL /LPF 10/25/2024 12:30 PM STAFF MIDWIFE/APPRENTICESHIP DIRECTOR [facility] BACTERIA (U) 1+ /HPF 10/25/2024 12:30 PM STAFF MIDWIFE/APPRENTICESHIP DIRECTOR [facility] MUCUS PRESENT 10/25/2024 12:30 PM STAFF MIDWIFE/APPRENTICESHIP DIRECTOR [facility] URINE SPECIMEN OBTAINED BY CLEAN CATCH PROCEDURE / Unknown 10/25/2024 11:48 AM STAFF MIDWIFE/APPRENTICESHIP DIRECTOR Tianna Mariscal MD URINE ORDERABLES Final Result [facility] [address] [place] [address], from Last 3 Months Insurance [facility] MEDICARE [facility] MEDICARE [facility] Care Teams Information Clerk Cashier Relationship Specialty Start Date End Date Scooby Guillermo MD [address] [place] [address] PCP - General INTERNAL MEDICINE 04/06/24
--- OUTSIDE RECORDS SUMMARY | 2024-12-30 12:01 | XMS_ITS | Referral Summary ---
Author Organization [facility] Address [address] [place] [address] Care Team Providers Care Professor Of Genetics Name Role Phone Scooby Guillermo MD Primary Care Provider [phone] Bacilio Francisco MD Unavailable [phone] Encounters Date Type Department Care Team Description 10/14/2024 1:01 PM METAL MOCKUP MAKER Anesthesia Event [facility] [address] [place] [phone] Kalpesh Anderson DO Winfrey, Tonya M., NATALIE 10/14/2024 1:00 PM METAL MOCKUP MAKER - 10/14/2024 1:30 PM METAL MOCKUP MAKER Surgery [facility] [address] [place] [phone] Sai Munroe MD EGD 10/14/2024 11:03 AM METAL MOCKUP MAKER - 10/14/2024 2:00 PM METAL MOCKUP MAKER Hospital Encounter [facility] [address] [place] [phone] Sai Munroe MD Discharge Disposition: Discharge to home or self care 10/01/2024 Telephone [facility] [address] [facility] [address] [place] [address] Ary Santana LPN GI Preprocedure 09/30/2024 Telephone [facility] [address] [place] [address] [place] [address] Marcela Bowers, RN Scheduling Testing/Treatment (EGD) from [...] 01/08/2023 Assessment & Plan (01/13/2023 3:24 PM METAL MOCKUP MAKER): H/H drop after duodenal mass excision/EGD 01/07 - Monitor H/H closely as patient with melenic stools. - Monitor VS - pRBC transfusion if Hgb<7 - Per GI: advance diet as tolerated. Currently on a regular diet. - Patient to discharge on home OMEPRAZOLE BID. 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 HTN (hypertension) 01/07/2023 Assessment & Plan (01/13/2023 3:22 PM METAL MOCKUP MAKER): - Hold antihypertensive meds while bleeding and BP soft. Should be restarted by PCP. Assessment & Plan (01/07/2023 8:53 PM METAL MOCKUP MAKER): Continue on Maxzide Monitor vitals HLD (hyperlipidemia) 01/07/2023 Assessment & Plan (01/08/2023 12:44 PM METAL MOCKUP MAKER): Continue on statins Assessment & Plan (01/07/2023 8:54 PM METAL MOCKUP MAKER): Continue on statins T2DM (type 2 diabetes mellitus) 01/07/2023 Assessment & Plan (01/09/2023 4:05 PM METAL MOCKUP MAKER): On metformin at home and Lantus 10 units nightly. Sugars thus far have been appropriate without acute need for insulin while NPO. Will restart once patient starting PO challenged after procedure. - Monitor BG and add SSI if needed Assessment & Plan (01/07/2023 8:55 PM METAL MOCKUP MAKER): On metformin at home and Lantus Will hold onto insulin at this time as NPO Monitor BG and add SSI if needed History of pulmonary embolism 01/07/2023 Assessment & Plan (01/09/2023 4:08 PM METAL MOCKUP MAKER): H/o PE in 2021, when she was on Eliquis for 5-6 months, on no AC for past 6 months. Monitor vitals, not a candidate for AC at this time due to GI bleeding Assessment & Plan (01/07/2023 8:56 PM METAL MOCKUP MAKER): H/o PE in 2021, when she was on Eliquis for 5-6 months, on no AC for past 6 months. Monitor vitals GERD (gastroesophageal reflux disease) Assessment & Plan (01/13/2023 3:23 PM METAL MOCKUP MAKER): - Patient will discharge on omeprazole BID. 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 [...] Gi. Assessment & Plan (01/07/2023 8:53 PM METAL MOCKUP MAKER): Adenomatous duodenal polyp EGD 01/[address] [...] (04/24/2022): Added automatically from request for surgery [id number] Social History Tobacco Use Types Packs/Day Years [...] on file Legal Sex Female 12:42 AM METAL MOCKUP MAKER Gender Identity Not on file Sexual Orientation Not on file Last Filed Vital Signs Vital Sign Reading Time Taken Comments Blood Pressure 132/77 10/14/2024 2:00 PM METAL MOCKUP MAKER Pulse 62 10/14/2024 2:00 PM METAL MOCKUP MAKER Temperature 35.9 C (96.6 F) 10/14/2024 12:35 PM METAL MOCKUP MAKER Respiratory Rate 15 10/14/2024 2:00 PM METAL MOCKUP MAKER Oxygen Saturation 91% 10/14/2024 2:00 PM METAL MOCKUP MAKER Inhaled Oxygen Concentration - - Weight 95.3 kg (210 lb) 10/14/2024 12:35 PM METAL MOCKUP MAKER Height 165.1 cm (5' 5 ) 10/14/2024 12:35 PM METAL MOCKUP MAKER Body Mass Index 34.95 10/14/2024 12:35 PM METAL MOCKUP MAKER Plan of Treatment Not on file Medical Devices Implanted Type Area Oral And Maxillofacial Surgery Device Identifier Shelf Expiration Date Model / Serial / Lot Conmed Jaquelin Conmed 11mm Duraclip [id number] - [id number] Implanted:Qty: 1 on 01/09/2023 by Aidan Guadalupe MD at [facility] Left: Duodenum Conmed Jaquelin 08/30/2024 [id number] / / [id number] Conmed Jaquelin Conmed 11mm Duraclip [id number] - [id number] Implanted:Qty: 1 on 01/09/2023 by Aidan Guadalupe MD at [facility] Left: Duodenum Conmed Jaquelin 08/30/2024 [id number] / / [id number] Conmed Jaquelin Conmed 16mm Duraclip [id number] - [id number] Implanted:Qty: 1 on 01/09/2023 by Aidan Guadalupe MD at [facility] Left: Duodenum Conmed Jaquelin 01/17/2025 [id number] / / [id number] Procedures Procedure Name Priority Date/Time Associated Diagnosis Comments ESOPHAGOGASTRODUODENOSCOPY 10/14 12:58 PM METAL MOCKUP MAKER Duodenal adenoma Polyp of stomach and duodenum EGD 10/14/2024 12:54 PM METAL MOCKUP MAKER POCT GLUCOSE DEVICE Routine 10/14/2024 1 2:45 PM METAL MOCKUP MAKER EGFR Routine 01/12/2023 10:35 PM METAL MOCKUP MAKER from Last 3 Months or Most Recently Relevant to Health Maintenance Results * EGD (10/14/2024 12:54 PM METAL MOCKUP MAKER) Anatomical Region Laterality Modality Other Narrative Procedure Note Sai Munroe MD - 10/14/2024 12:54 PM CST ENDOSCOPY LAB Patient Name: Juanito Austin Procedure Date: 10/14/2024 12:54 PM Admit Type: Outpatient Room: [facility] Date of : 1950 Instrument [...] - [facility] Attending Participation: I personally performed the entire procedure. Electronically signed by Sai Munroe M.D. Sai Munroe M.D. 10/14/2024 1:23:10 PM This document was signed electronically. Number of Addenda: 0 Note Initiated On: 10/14/2024 12:54 PM Scope In: Scope Out: us Sai Munroe MD ENDOSCOPY PROCEDURES Final Result * POCT glucose (10/14/2024 12:45 PM METAL MOCKUP MAKER) Glucose, POC 101 70 - 199 mg/dL Comment: For Glucose values <35 mg/dl when Hematocrit is >60 mg/dl,the test may not accurately detect significant hypoglycemia,and testing in the Laboratory should be considered if clinically indicated. Blood 10/14/2024 12:4 5 PM METAL MOCKUP MAKER 10/14/2024 12:45 PM METAL MOCKUP MAKER us Sai Munroe MD LAB POCT ORDERABLES - ESTELA CE Final Result [facility] [address] Department [place] [address] * (ABNORMAL) eGFR (01/12/2023 10:35 PM METAL MOCKUP MAKER) eGFR 40(L) 90 - 130 mL/min/1. 73 m2 [facility] Comment: Interpretive Data Reference Interval Normal [...] reviewed 2021. Blood 01/12/2023 10:3 5 PM METAL MOCKUP MAKER 01/12/2023 11:23 PM METAL MOCKUP MAKER us Luke Britton MD LAB BLOOD ORDERABLES Final Resu lt [facility] Department [place] [address] from Last 3 Months or Most Recently Relevant to Health Maintenance Insurance [employer] MEDICARE Advance Directives For more information, please contact: [phone] * Full Code (Latest Code Status on [...] 9:30 AM 06/24/2022 2:53 PM Care Teams Professor Of Genetics Relationship Specialty Start Date End Date Scooby Guillermo MD PCP - General Internal Medicine 07/19/24 [place] [id number] [facility] [address] [place] [address] Consulting Physician Nephrology 07/28/24
[2024-12-30 12:03] LABS: Alanine Aminotransferase 33 U/L (14-59); Albumin Level 3.3 g/dL (3.4-5.0); Alkaline Phosphatase 87 U/L (46-116); Anion Gap 6 mmol/L (4-12); Aspartate Amino Transferase 33 U/L (15-37); Bilirubin,Total 0.4 mg/dL (0.00-1.00); Blood Urea Nitrogen 20 mg/dL (7-18); Calcium 9.7 mg/dL (8.5-10.1); Carbon Dioxide 31 mmol/L (21-32); Chloride 102 mmol/L (98-108); Estimated CRCL calculation 30 ml/min; Estimated Glomerular Filt Rate 29; Glucose 132 mg/dL (70-99); Osmolality Calculated 292 mOsm/kg (285-295); Sodium 139 mmol/L (136-145); Total Protein 7.8 g/dL (6.4-8.2)
[2024-12-30 12:09] LABS: Bacteria Urine Rare /hpf; RBC Urine 0-2 /hpf (0-2); Squamous Epithelial Cell Urine None Seen /hpf (Few); WBC Urine 0-3 /hpf (0-3)
--- NOTE | 2024-12-30 12:40 | ED.FALL ---
HPI - Fall General Chief Complaint: Fall Stated Complaint: Fall Time Seen by Provider: 12/30/24 11:18 Source: patient and family Mode of arrival: ambulatory Limitations: no limitations History of Present Illness HPI Narrative: This is a 74-year-old female presents after she had a fall that occurred last night of bed striking her head there was no lacerations did not lose consciousness and is also complaining of right shoulder pain no other injuries noted. The patient has no shortness of breath no headache no blurry vision no nausea vomiting no abdominal pain no dysuria. MD complaint: fall Onset (ago): day(s) Fall from: out of bed Fall witnessed: no Place fall occurred: home Related Data Home Medications ?Medication ?Instructions ?Recorded ?Confirmed ?Last Taken ?Type duloxetine 30 mg capsule,delayed 30 mg PO DAILY 03/11/22 12/19/24 04/21/24 History release gabapentin 600 mg tablet 600 mg PO TID 03/11/22 12/19/24 04/21/24 History latanoprost 0.005 % eye drops 1 drp EACH EYE QPM 03/11/22 12/19/24 04/21/24 History levothyroxine 125 mcg tablet 125 mcg PO DAILY 03/11/22 12/19/24 04/21/24 History (Synthroid) metoclopramide HCl 10 mg tablet 10 mg PO USEASDIRECTD PRN Gastric 03/11/22 12/19/24 04/21/24 History Reflux allopurinol 100 mg tablet 100 mg PO DAILY 03/05/24 12/19/24 04/21/24 History calcitriol 0.25 mcg capsule 0.25 mcg PO EVERY OTHER DAY 03/05/24 12/19/24 04/21/24 History dapagliflozin propanediol 10 mg 10 mg PO DAILY 03/05/24 12/19/24 04/21/24 History tablet (Farxiga) ergocalciferol (vitamin D2) 1,250 1,250 mcg PO WEEKLY 03/05/24 12/19/24 04/21/24 History mcg (50,000 unit) capsule losartan 100 mg tablet 100 mg PO DAILY 03/05/24 12/19/24 04/21/24 History ropinirole 1 mg tablet 1 mg PO TID 03/05/24 12/19/24 04/21/24 History tramadol 50 mg tablet 50 mg PO TID 03/05/24 12/19/24 04/21/24 History Allergies Allergy/AdvReac Type Severity Reaction Status Date / Time codeine Allergy Intermediate Hallucinati Verified 12/30/24 11:32 ng diphenhydramine Allergy Intermediate Hives Verified 12/30/24 11:32 Penicillins Allergy Intermediate Hives Verified 12/30/24 11:32 Sulfa (Sulfonamide Allergy Intermediate Hives Verified 12/30/24 11:32 Antibiotics) Iodinated Contrast Media Allergy Unknown Verified 12/30/24 11:32 Review of Systems Review of Systems: All systems reviewed & are unremarkable except as noted in HPI and below PMFSH Past Medical History Medical History CKD stage 3b, GFR 30-44 ml/min Diabetes mellitus Adenomatous duodenal polyp Hypertension Hyperlipidemia History of gastric ulcer GERD (gastroesophageal reflux disease) Asthma Hypothyroidism Vertigo Surgical History Surgical History History of hysterectomy History of cholecystectomy History of tonsillectomy Family History Family History Other Diabetes mellitus Family history of arthritis Family history of malignant neoplasm Social History Social History Smoking status: Never smoker Alcohol intake: never Substance use: never Substance use type: does not use Do You Feel Safe in your Home?: No Lack of Transportation: No Lack of Food: Never True Current Housing: I Have Housing Concerned About Future Housing: No Difficulty Paying Gas/Electric Bills: No Difficulty Paying for Meds: No Currently Unemployed: No Education: High School Diploma/GED Difficulty w/ Childcare or Family Care: No Living arrangements: with family Gender identity (if verbalized by the patient): Female Sexual Orientation (if Verbalized by the Patient): Straight or Heterosexual Spiritual care concerns: No Exam Const: General: healthy appearing, no acute distress and alert Nutritional Appearance: well nourished and obese Orientation/consciousness: patient oriented x3 Limitations: no limitations HENMT: Head: normal to inspection Face and sinus: normal facial exam Mouth: Yes Normal oral and palatal mucosa present Eyes: Conjunctivae: conjunctivae normal Pupils: Equal, round and reactive pupils present EOM: EOMs intact bilaterally Neck: Neck: normal visual inspection, no lymphadenopathy and no meningeal signs Chest: Chest palpation & inspection: normal inspection of the chest Resp: Effort & Inspection: normal respiratory effort Auscultation: clear to auscultation bilaterally Cardio: Rate: regular rate Rhythm: regular rhythm GI: Auscultation: normal bowel sounds : General: Yes bladder normal to palpation Skin: General skin exam: normal color Rashes: no rashes Wounds: no wounds Neuro: General: patient oriented x3, moves all extremities, no meningeal signs and no focal motor deficits Course Course Emergency Course: Patient had CT scan of the brain and x-ray right shoulder showed no acute abnormalities, CBC CMP performed and reviewed with no acute abnormalities, UA shows no urinary tract infection. Vital Signs Vital signs: Vital Signs Temperature 37.6 C H 12/30/24 11:22 Pulse Rate 93 12/30/24 11:22 Respiratory Rate 20 12/30/24 11:22 Blood Pressure 129/61 12/30/24 11:22 Pulse Oximetry 97 12/30/24 11:22 Oxygen Delivery Room Air 12/30/24 11:22 Temperature 37.6 C H 12/30/24 11:22 Pulse Rate 93 12/30/24 11:22 Respiratory Rate 20 12/30/24 11:22 Blood Pressure 129/61 12/30/24 11:22 Pulse Oximetry 97 12/30/24 11:22 Oxygen Delivery Room Air 12/30/24 11:22 MDM - Fall Lab Data 12/30/24 11:44 12/30/24 11:44 Labs: Lab Results 12/30/24 12/30/24 12/30/24 Range/Units 11:21 11:25 11:44 WBC 7.7 (4.8-10.8) K/mm3 RBC 5.31 (4.20-5.40) M/mm3 Hgb 13.4 (11.7-13.8) g/dL Hct 43.1 H (35.0-42.0) % MCV 81.2 (78.0-102.0) fL MCH 25.2 L (27.0-31.0) pg MCHC 31.1 L (32-36) g/dL RDW 17.6 H (11.6-14.4) % Plt Count 195 (150-420) K/mm3 MPV 10.2 (9.2-11.8) fl Immature Gran % (Auto) 0.8 H (0.0-0.0) % Neut % (Auto) 83.3 H (50.0-70.0) % Lymph % (Auto) 3.7 L (18.0-42.0) % [place] % (Auto) 10.6 (2.0-11.0) % Eos % (Auto) 1.2 (1.0-6.0) % Baso % (Auto) 0.4 (0.0-1.0) % Lymph # (Auto) 0.28 L (1.10-4.50) K/mm3 [place] # (Auto) 0.81 (0.10-0.90) K/mm3 Eos # (Auto) 0.09 (0.02-0.50) K/mm3 Baso # (Auto) 0.03 (0.00-0.10) K/mm3 Abs Immat Gran (auto) 0.06 H (0.00-0.00) K/mm3 Absolute Neuts (auto) 6.38 (1.70-7.20) K/mm3 Absolute Nucleated RBC 0.00 (0.00-0.00) K/mm3 Nucleated RBC % 0.0 (0-0.0) % Sodium 139 (136-145) mmol/L Potassium 5.0 (3.5-5.1) mmol/L Chloride 102 (98-108) mmol/L Carbon Dioxide 31 (21-32) mmol/L Anion Gap 6 (4-12) mmol/L BUN 20 H (7-18) mg/dL Creatinine 1.73 H (0.55-1.02) mg/dL Estim Creat Clear Calc 30 ml/min Estimated GFR 29 L (59 - ) Glucose 132 H (70-99) mg/dL POC Capillary Glucose 186 H (65-105) mg/dl Calculated Osmolality 292 (285-295) mOsm/kg Calcium 9.7 (8.5-10.1) mg/dL Total Bilirubin 0.4 (0.00-1.00) mg/dL AST 33 (15-37) U/L ALT 33 (14-59) U/L Alkaline Phosphatase 87 (46-116) U/L Total Protein 7.8 (6.4-8.2) g/dL Albumin 3.3 L (3.4-5.0) g/dL Urine Color Light yellow (Yellow) Urine Appearance Clear (Clear) Urine pH 7.0 (5.0-8.0) Ur Specific [place] 1.015 (1.010-1.020) Urine Protein Trace H (Negative) Urine Glucose (UA) 3+ H (Negative) Urine Ketones Negative (Negative) Ur Blood (Man) Negative (Negative) Urine Nitrate Negative (Negative) Urine Bilirubin Negative (Negative) Urine Urobilinogen 0.2 (0.2-1.0) mg/dL Leukocyte Esterase Rfl Negative (Negative) MUNDO/UL Urine RBC 0-2 (0-2) /hpf Urine WBC 0-3 (0-3) /hpf Ur Squamous Epith Cells None seen (Few) /hpf Urine Bacteria Rare (None) /hpf Critical Care Time Critical Care Time Critical Care Time: No Discharge Plan Discharge Clinical Impression: Head injury, Fall Patient Disposition: Home, Self-Care Condition: Stable Instructions: Antibiotic Form, Head Injury (ED) Additional Instructions: advised to follow-up with primary care physician within 1 week for further evaluation and treatment. Patient Language: South Sudanese Prescriptions: No Action ropinirole 1 mg tablet 1 mg PO TID allopurinol 100 mg tablet 100 mg PO DAILY losartan 100 mg tablet 100 mg PO DAILY calcitriol 0.25 mcg capsule 0.25 mcg PO EVERY OTHER DAY dapagliflozin propanediol [Farxiga] 10 mg Tablet 10 mg PO DAILY ergocalciferol (vitamin D2) 1,250 mcg (50,000 unit) capsule 1,250 mcg PO WEEKLY tramadol 50 mg Tablet 50 mg PO TID insulin glargine [Lantus U-100 Insulin] 100 unit/mL Solution 50 unit subcut HS Qty: 0 0RF levofloxacin 500 mg tablet 500 mg PO DAILY Qty: 7 0RF latanoprost 0.005 % Drops 1 drp EACH EYE QPM gabapentin 600 mg Tablet 600 mg PO TID levothyroxine [Synthroid] 125 mcg Tablet 125 mcg PO DAILY metoclopramide HCl 10 mg Tablet 10 mg PO USEASDIRECTD PRN (Reason: Gastric Reflux) Rx Instructions: WITH MEALS AND AT BEDTIME duloxetine 30 mg Capsule,Delayed Release(Dr/Ec) 30 mg PO DAILY Follow-up/Referrals: Scooby Guillermo MD [Primary Care Provider] -
[2024-12-30] MEDS: ACETAMINOPHEN 500 MG TABLET 1000 MG PO (12:48)
[2024-12-30 12:52] VITALS: BP 121/55; PULSE 89; RESP 20; TEMP 38.2; O2SAT 95
== END 2024-12-30 12:58 | disposition home or self-care (01) ==
PROVIDERS: Emergency Provider Emergency Medicine; PCP Internal Medicine
DX: S09.90XA Unspecified injury of head, initial encounter (principal); I12.9 Hypertensive chronic kidney disease with stage 1 through stage 4 chronic kidney disease, or unspecified chronic kidney disease; E11.22 Type 2 diabetes mellitus with diabetic chronic kidney disease; N18.32 Chronic kidney disease, stage 3b; E03.9 Hypothyroidism, unspecified; E78.5 Hyperlipidemia, unspecified; W06.XXXA Fall from bed, initial encounter
CPT/HCPCS: 36415; 70450; 73030; 80053; 81001; 82948; 85025; 99284

== ENCOUNTER 2025-03-03 10:06 | Outpatient (CLI) | payer MEDICARE, SELFPAY ==
[2025-03-03 10:33] LABS: Hematocrit 46.1 % (35.0-42.0); Hemoglobin 13.8 g/dL (11.7-13.8); Mean Corpuscular HGB Conc 29.9 g/dL (32-36); Mean Corpuscular Volume 83.7 fL (78.0-102.0); Mean Platelet Volume 11.2 fl (9.2-11.8); Platelet Count Result 284 K/mm3 (150-420); Red Blood Count 5.51 M/mm3 (4.20-5.40); Red Cell Distribution Width 18.6 % (11.6-14.4); White Blood Count 10.3 K/mm3 (4.8-10.8)
--- OUTSIDE RECORDS SUMMARY | 2025-03-03 11:19 | XMS_ITS | Encounter Summary ---
Author Organization [facility] Address [address] [place] [address] Phone Care Team Providers Care Aircraft Electronics Technical Officer Name Role Phone Scooby Guillermo MD Primary Care Provider [phone] Esme Adler NP Primary Care Provider + Unknown, Notinfile Primary Care Provider Unavail able Scooby Guillermo MD Primary Care Provider [phone] Bacilio Francisco MD Unavailable [phone] Encounter Details Date Type Department Care Team (Late st Contact Info) Description 03/15/2022 Orders Only [facility] Scanning, Provider Social History Tobacco Use Types Packs/Day Years Used Date Smoking Tobacco: Never Assessed Comments Unknown Sex and Gender Information Value Date Recorded Sex Assigned at Not on file Legal Sex Female 12:42 AM BLOW MOLD TECHNICIAN Gender Identity Not on file Sexual [...] documented as of this encounter Care Teams Aircraft Electronics Technical Officer Relationship Specialty Start Date End Date Scooby Guillermo MD PCP - General 03/31/08 04/01/22 Esme Adler NP PCP - General Nurse Practitioner 04/02/22 07/09/23 Unknown, Notinfile PCP - General 07/10/23 07/18/24 Scooby Guillermo MD PCP - General Internal Medicine 07/19/24 [place] [id number] [address] Consulting Physician Nephrology 07/28/24 documented as of this encounter
--- OUTSIDE RECORDS SUMMARY | 2025-03-03 11:19 | XMS_ITS | Referral Summary ---
Author Organization [facility] Address [address] [place] [address] Care Team Providers Care Chief Commercial Officer Name Role Phone Scooby Guillermo MD Primary Care Provider [phone] Bacilio Francisco MD Unavailable [phone] Allergies Active Allergy Reactions Criticality Noted [...] 01/08/2023 Assessment & Plan (01/13/2023 3:24 PM BAND INSTRUMENT REPAIRER): H/H drop after duodenal mass excision/EGD 01/07 - Monitor H/H closely as patient with melenic stools. - Monitor VS - pRBC transfusion if Hgb<7 - Per GI: advance diet as tolerated. Currently on a regular diet. - Patient to discharge on home OMEPRAZOLE BID. 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 HTN (hypertension) 01/07/2023 Assessment & Plan (01/13/2023 3:22 PM BAND INSTRUMENT REPAIRER): - Hold antihypertensive meds while bleeding and BP soft. Should be restarted by PCP. Assessment & Plan (01/07/2023 8:53 PM BAND INSTRUMENT REPAIRER): Continue on Maxzide Monitor vitals HLD (hyperlipidemia) 01/07/2023 Assessment & Plan (01/08/2023 12:44 PM BAND INSTRUMENT REPAIRER): Continue on statins Assessment & Plan (01/07/2023 8:54 PM BAND INSTRUMENT REPAIRER): Continue on statins T2DM (type 2 diabetes mellitus) 01/07/2023 Assessment & Plan (01/09/2023 4:05 PM BAND INSTRUMENT REPAIRER): On metformin at home and Lantus 10 units nightly. Sugars thus far have been appropriate without acute need for insulin while NPO. Will restart once patient starting PO challenged after procedure. - Monitor BG and add SSI if needed Assessment & Plan (01/07/2023 8:55 PM BAND INSTRUMENT REPAIRER): On metformin at home and Lantus Will hold onto insulin at this time as NPO Monitor BG and add SSI if needed History of pulmonary embolism 01/07/2023 Assessment & Plan (01/09/2023 4:08 PM BAND INSTRUMENT REPAIRER): H/o PE in 2021, when she was on Eliquis for 5-6 months, on no AC for past 6 months. Monitor vitals, not a candidate for AC at this time due to GI bleeding Assessment & Plan (01/07/2023 8:56 PM BAND INSTRUMENT REPAIRER): H/o PE in 2021, when she was on Eliquis for 5-6 months, on no AC for past 6 months. Monitor vitals GERD (gastroesophageal reflux disease) Assessment & Plan (01/13/2023 3:23 PM BAND INSTRUMENT REPAIRER): - Patient will discharge on omeprazole BID. 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 [...] Gi. Assessment & Plan (01/07/2023 8:53 PM BAND INSTRUMENT REPAIRER): Adenomatous duodenal polyp EGD 01/[address] [...] (04/24/2022): Added automatically from request for surgery [id number] Social History Tobacco Use Types Packs/Day Years [...] on file Legal Sex Female 12:42 AM BAND INSTRUMENT REPAIRER Gender Identity Not on file Sexual Orientation Not on file Last Filed Vital Signs Vital Sign Reading Time Taken Comments Blood Pressure 132/77 10/14/2024 2:00 PM BAND INSTRUMENT REPAIRER Pulse 62 10/14/2024 2:00 PM BAND INSTRUMENT REPAIRER Temperature 35.9 C (96.6 F) 10/14/2024 12:35 PM BAND INSTRUMENT REPAIRER Respiratory Rate 15 10/14/2024 2:00 PM BAND INSTRUMENT REPAIRER Oxygen Saturation 91% 10/14/2024 2:00 PM BAND INSTRUMENT REPAIRER Inhaled Oxygen Concentration - - Weight 95.3 kg (210 lb) 10/14/2024 12:35 PM BAND INSTRUMENT REPAIRER Height 165.1 cm (5' 5 ) 10/14/2024 12:35 PM BAND INSTRUMENT REPAIRER Body Mass Index 34.95 10/14/2024 12:35 PM BAND INSTRUMENT REPAIRER Plan of Treatment Not on file Medical Devices Implanted Type Area Wood Barker Device Identifier Shelf Expiration Date Model / Serial / Lot Conmed Jaquelin Conmed 11mm Duraclip [id number] - [id number] Implanted:Qty: 1 on 01/09/2023 by Aidan Guadalupe MD at [facility] Left: Duodenum Conmed Jaquelin 08/30/2024 [id number] / / [id number] Conmed Jaquelin Conmed 11mm Duraclip [id number] - [id number] Implanted:Qty: 1 on 01/09/2023 by Aidan Guadalupe MD at [facility] Left: Duodenum Conmed Jaquelin 08/30/2024 [id number] / / [id number] Conmed Jaquelin Conmed 16mm Duraclip [id number] - [id number] Implanted:Qty: 1 on 01/09/2023 by Aidan Guadalupe MD at [facility] Left: Duodenum Conmed Jaquelin 01/17/2025 [id number] / / [id number] Procedures Procedure Name Priority Date/Time Associated Diagnosis Comments EGFR Routine 01/12/2023 10:35 PM BAND INSTRUMENT REPAIRER from Last 3 Months or Most Recently Relevant to Health Maintenance Results * (ABNORMAL) eGFR (01/12/2023 10:35 PM BAND INSTRUMENT REPAIRER) eGFR 40(L) 90 - 130 mL/min/1. 73 m2 JESSY GUTIERRES Comment: Interpretive Data Reference Interval Normal >/= [...] reviewed 2021. Blood 01/12/2023 10:3 5 PM BAND INSTRUMENT REPAIRER 01/12/2023 11:23 PM BAND INSTRUMENT REPAIRER us Luke Britton MD LAB BLOOD ORDERABLES Final Resu lt JESSY TOM [facility] Department [place] [address] from Last 3 Months or Most Recently Relevant to Health Maintenance Insurance [employer] [employer] Advance Directives For more information, please contact: [phone] * Full Code (Latest Code Status on [...] 9:30 AM 06/24/2022 2:53 PM Care Teams Chief Commercial Officer Relationship Specialty Start Date End Date Scooby Guillermo MD PCP - General Internal Medicine 07/19/24 [place] [address] [facility] [address] [place] [address] Consulting Physician Nephrology 07/28/24
--- OUTSIDE RECORDS SUMMARY | 2025-03-03 11:19 | XMS_ITS | Clinical Summary ---
Author Organization [facility] Address [address] [place] [address] Care Team Providers Care Bioprocess Development Engineer Name Role Phone Scooby Guillermo MD Primary Care Provider [phone] Bacilio Francisco MD Unavailable [phone] Allergies Active Allergy Reactions Criticality Noted [...] 01/08/2023 Assessment & Plan (01/13/2023 3:24 PM LASER TECHNICIAN): H/H drop after duodenal mass excision/EGD 01/07 - Monitor H/H closely as patient with melenic stools. - Monitor VS - pRBC transfusion if Hgb<7 - Per GI: advance diet as tolerated. Currently on a regular diet. - Patient to discharge on home OMEPRAZOLE BID. 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 HTN (hypertension) 01/07/2023 Assessment & Plan (01/13/2023 3:22 PM LASER TECHNICIAN): - Hold antihypertensive meds while bleeding and BP soft. Should be restarted by PCP. Assessment & Plan (01/07/2023 8:53 PM LASER TECHNICIAN): Continue on Maxzide Monitor vitals HLD (hyperlipidemia) 01/07/2023 Assessment & Plan (01/08/2023 12:44 PM LASER TECHNICIAN): Continue on statins Assessment & Plan (01/07/2023 8:54 PM LASER TECHNICIAN): Continue on statins T2DM (type 2 diabetes mellitus) 01/07/2023 Assessment & Plan (01/09/2023 4:05 PM LASER TECHNICIAN): On metformin at home and Lantus 10 units nightly. Sugars thus far have been appropriate without acute need for insulin while NPO. Will restart once patient starting PO challenged after procedure. - Monitor BG and add SSI if needed Assessment & Plan (01/07/2023 8:55 PM LASER TECHNICIAN): On metformin at home and Lantus Will hold onto insulin at this time as NPO Monitor BG and add SSI if needed History of pulmonary embolism 01/07/2023 Assessment & Plan (01/09/2023 4:08 PM LASER TECHNICIAN): H/o PE in 2021, when she was on Eliquis for 5-6 months, on no AC for past 6 months. Monitor vitals, not a candidate for AC at this time due to GI bleeding Assessment & Plan (01/07/2023 8:56 PM LASER TECHNICIAN): H/o PE in 2021, when she was on Eliquis for 5-6 months, on no AC for past 6 months. Monitor vitals GERD (gastroesophageal reflux disease) Assessment & Plan (01/13/2023 3:23 PM LASER TECHNICIAN): - Patient will discharge on omeprazole BID. 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 Assessment & Plan (01/07/2023 8:53 PM LASER TECHNICIAN): Adenomatous duodenal polyp EGD 01/07 by [...] (04/24/2022): Added automatically from request for surgery [id number] Surgical History Surgery Date Site/Laterality Comments KNEE SURGERY TONSILLECTOMY PARTIAL HYSTERECTOMY 11/10/1979 - 11/09/1980 CHOLECYSTECTOMY UPPER GASTROINTESTINAL ENDOSCOPY Medical History Medical History Date Comments Hypertension Type 2 diabetes mellitus (HCC) Hyperlipidemia Hypothyroidism Peripheral neuropathy Glaucoma PE (pulmonary thromboembolism) (HCC) GERD (gastroesophageal reflux disease) Pulmonary emboli [...] on file Legal Sex Female 12:42 AM LASER TECHNICIAN Gender Identity Not on file Sexual Orientation Not on file Obstetrics History Last Filed Vital Signs Vital Sign Reading Time Taken Comments Blood Pressure 132/77 10/14/2024 2:00 PM LASER TECHNICIAN Pulse 62 10/14/2024 2:00 PM LASER TECHNICIAN Temperature 35.9 C (96.6 F) 10/14/2024 12:35 PM LASER TECHNICIAN Respiratory Rate 15 10/14/2024 2:00 PM LASER TECHNICIAN Oxygen Saturation 91% 10/14/2024 2:00 PM LASER TECHNICIAN Inhaled Oxygen Concentration - - Weight 95.3 kg (210 lb) 10/14/2024 12:35 PM LASER TECHNICIAN Height 165.1 cm (5' 5 ) 10/14/2024 12:35 PM LASER TECHNICIAN Body Mass Index 34.95 10/14/2024 12:35 PM LASER TECHNICIAN Plan of Treatment Health Maintenance Due Date Last Done Comments Albumin Creatinine Ratio, Urine 1950 Breast Cancer Screening-Mammogram 1950 Colon Cancer Screening-Colonoscopy 1950 Depression Screening 1950 Hepatitis C Screening 1950 Osteoporosis Screening-Bone Density Scan 1950 Dilated Eye Exam 1950 Foot Exam 1950 Lipid Panel 1950 DTaP/Tdap/Td Vaccine (1 - Tdap) 1961 Hepatitis B Screening 1968 Zoster Vaccine (1 of 2) 2000 Well Visit 65+ 2015 Pneumococcal vaccine 65+ (2 of 2 - PCV) 08/17/2015 08/17/2014, 08/13/2012 eGFR 01/13/2024 01/12/2023, 02/2023, 01/11/2023, Additional history exists Covid-19 Vaccine (3 - 2023-2 5 season) 2024 06/12/2022, 09/27/2021 Influenza Vaccine (#1) 2024 10/01/2021 Hemoglobin A1C 10/22/2024 04/22/2024 Fall Risk Assessment 10/14/2025 10/14/2024 Medical Devices Implanted Type Area Gis Database Administrator Device Identifier Shelf Expiration Date Model / Serial / Lot Conmed Jaquelin Conmed 11mm Duraclip [id number] - [id number] Implanted:Qty: 1 on 01/09/2023 by Aidan Guadalupe MD at [facility] Left: Duodenum Conmed Jaquelin 08/30/2024 [id number] / / [id number] Conmed Jaquelin Conmed 11mm Duraclip [id number] - [id number] Implanted:Qty: 1 on 01/09/2023 by Aidan Guadalupe MD at [facility] Left: Duodenum Conmed Jaquelin 08/30/2024 [id number] / / [id number] Conmed Jaqulein Conmed 16mm Duraclip [id number] - [id number] Implanted:Qty: 1 on 01/09/2023 by Aidan Guadalupe MD at [facility] Left: Duodenum Conmed Jaquelin 01/17/2025 [id number] / / [id number] Procedures Procedure Name Priority Date/Time Associated Diagnosis Comments EGFR Routine 01/12/2023 10:35 PM LASER TECHNICIAN from Last 3 Months or Most Recently Relevant to Health Maintenance Results * (ABNORMAL) eGFR (01/12/2023 10:35 PM LASER TECHNICIAN) eGFR 40(L) 90 - 130 mL/min/1. 73 m2 JESSY TOM Comment: Interpretive Data Reference Interval Normal >/= [...] reviewed 2021. Blood 01/12/2023 10:3 5 PM LASER TECHNICIAN 01/12/2023 11:23 PM LASER TECHNICIAN us Luke Britton MD LAB BLOOD ORDERABLES Final Resu lt [facility] Department [place] [address] from Last 3 Months or Most Recently Relevant to Health Maintenance Insurance [employer] MEDIC[employer] [facility] MEDICARE Advance Directives For more information, please contact: [phone] * Full Code (Latest Code Status on [...] 9:30 AM 06/24/2022 2:53 PM Care Teams Bioprocess Development Engineer Relationship Specialty Start Date End Date Scooby Guillermo MD PCP - General Internal Medicine 07/19/24 [place] [id number] [address] Consulting Physician Nephrology 07/28/24
--- OUTSIDE RECORDS SUMMARY | 2025-03-03 11:19 | XMS_ITS ---
Author Organization [facility] Address [address] [facility] [address] [place] [address] Care Team Providers Care Metal Precision Machine Assembler Name Role Phone Bacilio Francisco Unavailable [phone] Encounters Encounter Location Date Provider Diagnosis [place] [facility] [address] [facility] [address] [place] [address] 09/01/2024 Bacilio Francisco PLAN OF TREATMENT No Information Progress Notes * Juanito AUSTINDOB: [birth year] (74 yo F)Acc No.[id number]:09/01/2024 Progress Notes Patient: Juanito AUSTIN Provider: MD OKSANA, Sabrina.Lizz.C.P, F.A.S.N. :1950 Age:74 Y Sex:Female Date:09/01/2024 Address:[address] [place], [place] [id number] Subjective: * Chief Complaints: * * Medical History: Objective: Assessment: Plan: * Treatment: * Billing Information: * Visit Code: * Procedure Codes: * Sign off status: Pending * Provider: MD OKSANA, Sabrina.Lizz.C.P, F.A.S.N. Date: 09/01/2024
--- OUTSIDE RECORDS SUMMARY | 2025-03-03 11:19 | XMS_ITS | Clinical Summary ---
Author Organization [facility] Address [address] [place] [address] Care Team Providers Care Machine Hoop Maker Name Role Phone Scooby Guillermo MD Primary Care Provider [phone] Allergies Active Allergy Reactions Criticality Noted Date Comments Codeine Rash,Unknown Medium 04/13/2014 Diphenhydramine Other (see comment) Low 04/13/2014 confusion Methylprednisolone Unknown 01/03/2025 Patient states that daughter told her she went crazy- was taking tablet. Does okay with steroid injections from ortho office Penicillins Hives,Unknown Medium 04/13/2014 Medications allopurinol (ZYLOPRIM) 100 MG tablet Take 1 tablet (100 mg total) by mouth daily. 04/05/2024 Active calcitriol (ROCALTROL) 0.25 MCG capsule Take 1 capsule (0.25 mcg total) by mouth every other day. 01/31/2024 Active DULoxetine (CYMBALTA) 30 MG capsule Take 1 capsule (30 mg total) by mouth daily. Active fluticasone propionate (FLONASE ALLERGY RELIEF) 50 MCG/ACT nasal spray 2 sprays by Nasal route 2 (two) times daily. 06/21/2014 Active gabapentin (NEURONTIN) 600 MG tablet Take 1 tablet (600 mg total) by mouth 3 (three) times daily. Active LANTUS SOLOSTAR 100 UNIT/ML injection (PEN) Inject 50 Units into the skin nightly at bedtime. 07/06/2023 Active levothyroxine (SYNTHROID) 125 MCG tablet Take 150 mcg by mouth daily. Active losartan (COZAAR) 100 MG tablet Take by mouth daily. 04/05/2024 Active rOPINIRole (REQUIP) 1 MG tablet Take 1 tablet (1 mg total) by mouth 3 (three) times daily. Active traMADol (ULTRAM) 50 MG tablet Take 1 tablet (50 mg total) by mouth every 6 (six) hours as needed for Pain. Active atorvastatin (LIPITOR) 20 MG tablet Take 1 tablet (20 mg total) by mouth daily. Active famotidine (PEPCID) 40 MG tablet Take 1 tablet (40 mg total) by mouth nightly as needed for Other. 12/06/2024 Active pregabalin (LYRICA) 150 MG capsule Take 1 capsule (150 mg total) by mouth daily. 09/17/2024 Active sucralfate (CARAFATE) 1 G tablet Take 1 tablet (1 g total) by mouth 2 (two) times daily before meals. Active verapamil (CALAN) 120 MG tablet Take 1 tablet (120 mg total) by mouth 3 (three) times daily. Active Active Problems Problem Noted Date Diagnosed Date Primary osteoarthritis of right knee 04/06/2024 Encounters Date Type Department Care Team Description 01/28/2025 Orders Only [facility] [address] [place] [address] Alma Langley MD 01/24/2025 2:30 PM CDT Office Visit [address], [facility] [address] [place] [address] Deisy Dunlap PA Knee Pain (RIGHT DOI:01/17/25) 01/24/2025 2:02 PM CDT - 01/24/2025 11:59 PM CDT Hospital Encounter [facility] [address] [place] [address] Deisy Dunlap PA Discharge Disposition: Home or Self Care (Routine Discharge) 01/24/2025 12:45 PM CDT Office Visit [facility] [address] [place] [address] Tianna Mariscal MD Bhatti, Vikrampal S, MD Follow Up 01/24/2025 Scan [facility] [address] [place] [address] Scanned, Doc Cikda 01/24/2025 Travel 01/24/[address] [address] Deisy Dunlap PA Appointment Request 01/18/2025 Travel 01/03/2025 11:15 AM HEALTH PHYSICIST Office Visit [address] [address] Antonio George Jr., DO Knee Pain (RIGHT) 01/03/2025 Travel 12/07/[address] [address] Deisy Dunlap PA Question 12/06/[address] [address] Deisy Dunlap PA Appointment Reminder from Last 3 Months Family History Medical [...] Sex Assigned at Female 12/06/2024 7:39 AM HEALTH PHYSICIST Legal Sex Female 8:54 PM CDT Gender Identity Female 12/06/2024 7:39 AM HEALTH PHYSICIST Sexual Orientation Not on file Last Filed Vital Signs Vital Sign Reading Time Taken Comments Blood Pressure 136/84 01/24/2025 12:45 PM CDT Pulse 3 01/24/2025 12:45 PM CDT Temperature 36.6 C (97.8 F) 09/14/2014 10:34 AM HEALTH PHYSICIST Respiratory Rate 13 09/14/2014 10:34 AM HEALTH PHYSICIST Regular Oxygen Saturation - - Inhaled Oxygen Concentration - - Weight 97.1 kg (214 lb) 01/24/2025 2:24 PM CDT Height 165.1 cm (5' 5 ) 01/24/2025 2:24 PM CDT Body Mass Index 35.61 01/24/2025 2:24 PM CDT Plan of Treatment Upcoming Encounters Date Type Department Care Team (Late st Contact Info) Description 03/08/2025 11:00 AM CDT Office Visit [facility] [address] [facility] [address] [place] [address] [place], ENVIRONMENTAL HEALTH SAFETY MANAGER-BC [address] [place] [address] Health Maintenance Due Date Last Done Comments Colorectal Cancer Screening Colonoscopy (10 Years) 1950 DTaP, Tdap and Td Vaccines (1 - Tdap) 1969 Mammogram Screening 1990 Annual Medicare Wellness Visit 2015 Dexa Scan (General) 2015 Pneumococcal Vaccine: 50+ Years (2 of 2 - PCV) 08/17/2015 08/17/2014, 08/13/2012, 1950 COVID-19 Vaccine ( season) 2024 06/12/2022, 09/27/2021, 03/09/2021, Additional history exists RSV Immunization or 60+ Years (1 - 1-dose 75+ series) 2025 Zoster Vaccines Completed 06/17/2024, 04/13/2024 Hepatitis C Completed 10/25/2024 Meningococcal B Vaccine Aged Out No l onger eligible based on patient's age to complete this topic Meningococcal Vaccine Aged Out No sriram sarabjit eligible based on patient's age to complete this topic RSV Immunizations Under 20 Months Aged Out No longer eligible based on patient's age to complete this topic Procedures Procedure Name Priority Date/Time Associated Diagnosis Comments XR KNEE RT MIN 4V Routine 01/24/2025 2:1 0 PM CDT Fall, initial encounter Primary osteoarthritis of right knee HEPATITIS PANEL,ACUTE Routine 10/25/2024 12:00 PM HEALTH PHYSICIST Chronic kidney disease, stage 3b (CMS/HCC) HTN (hypertension) Fatigue from Last 3 Months or Most Recently Relevant to Health Maintenance Results * XR KNEE RT MIN 4V (01/24/2025 2:10 PM CDT) Anatomical Region Laterality Modality Knee Radiographic Jenny ging 01/24/2025 2:13 PM CDT Impressions 01/24/2025 2:14 PM CDT IMPRESSION: 1) Severe chronic degenerative osteoarthritis medial compartment right knee. No acute osseous abnormality. Ordered By: DEISY DUNLAP Interpreted By: Alejandro Joyce MD, 01/24/2025 2:13 PM Narrative 01/24/2025 2:14 PM CDT [address] [place] [address] Examination: XR KNEE RT MIN 4V Exam time: 01/24/2025 2:02 PM Clinical history: Right knee 4 view Comparison: 03/29/2024 Technique: Knee pain Findings: PA flexion view both knees, AP lateral and sunrise views right knee no acute soft tissue abnormality. No significant joint effusion. No evidence of acute fracture or focal lytic bone destructive lesion. Advanced chronic degenerative osteoarthritis medial compartment right knee with near complete loss of articular cartilage. Lateral patellofemoral compartments are fairly well-maintained. Procedure Note Alejandro Joyce MD - 01/24/[address] [place] [address] Examination: XR KNEE RT MIN 4V Exam time: 01/24/2025 2:02 PM Clinical history: Right knee 4 view Comparison: 03/29/2024 Technique: Knee pain Findings: PA flexion view both knees, AP lateral and sunrise views rightknee no acute soft tissue abnormality. No significant joint effusion. Noevidence of acute fracture or focal lytic bone destructive lesion.Advanced chronic degenerative osteoarthritis medial compartment right kneewith near complete loss of articular cartilage. Lateral patellofemoralcompartments are fairly well-maintained. IMPRESSION: 1) Severe chronic degenerative osteoarthritis medial compartment rightknee. No acute osseous abnormality. Ordered By: DEISY DUNLAP Interpreted By: Alejandro Joyce MD, 01/24/2025 2:13 PM us Deisy [facility] Final Result * HEPATITIS PANEL,ACUTE (10/25/2024 12:00 PM HEALTH PHYSICIST) HEPATITIS B SURFACE AG NON-REACT MISA NON-REACT MISA 10/26/2024 9:[address] [facility] Comment:HBsAg NOT DETECTED. HEP B CORE IGM NON-REACT MISA NON-REACT MISA 10/26/2024 9:[address] [facility] Comment: IgM ANTI HBc NOT DETECTED. DOES NOT EXCLUDE THE POSSIBILITY OF EXPOSURE TO OR INFECTION WITH HBV. NO RETEST REQUIRED. HIGH DOSES OF BIOTIN MAY INTERFERE WITH THIS TEST RESULT. CORRELATION TO CLINICAL HISTORY AND PRESENTATION RECOMMENDED. HAV IGM NON-REACT MISA NON-REACT MISA 10/26/2024 9:[address] [facility] Comment: IgM ANTI HAV NOT DETECTED. DOES NOT EXCLUDE THE POSSIBILITY OF EXPOSURE TO OR INFECTION WITH HAV. LEVELS OF IgM ANTI HAV MAY BE BELOW THE CUTOFF IN EARLY INFECTION. HEPATITIS C AB NON-REACT MISA NON-REACT MISA 10/26/2024 9:[address] [facility] Comment: ANTIBODIES TO HCV NOT DETECTED. DOES NOT EXCLUDE THE POSSIBILITY OF EXPOSURE TO HCV. 10/25/2024 12:0 0 PM HEALTH PHYSICIST Tianna Mariscal MD LABORATORY Final Result [facility] [address] [place] [address], [id number] from Last 3 Months or Most Recently Relevant to Health Maintenance Insurance [employer] Care Teams Machine Hoop Maker Relationship Specialty Start Date End Date Scooby Guillermo MD [address] [place] [address] PCP - General INTERNAL MEDICINE 04/06/24
--- OUTSIDE RECORDS SUMMARY | 2025-03-03 11:19 | XMS_ITS | Encounter Summary ---
Author Organization [facility] Address [address] [place] [address] Phone Care Team Providers Care Inspector Barrel Name Role Phone Scooby Guillermo MD Primary Care Provider [phone] Esme Adler NP Primary Care Provider + Unknown, Notinfile Primary Care Provider Unavail able Scooby Guillermo MD Primary Care Provider [phone] Bacilio Francisco MD Unavailable [phone] Encounter Details Date Type Department Care Team (Late st Contact Info) Description 01/30/2022 Orders Only [facility] Scanning, Provider Social History Tobacco Use Types Packs/Day Years Used Date Smoking Tobacco: Never Assessed Comments Unknown Sex and Gender Information Value Date Recorded Sex Assigned at Not on file Legal Sex Female 12:42 AM HOME HEALTH OCCUPATIONAL THERAPIST Gender Identity Not on file Sexual Orientation [...] documented as of this encounter Care Teams Inspector Barrel Relationship Specialty Start Date End Date Scooby Guillermo MD PCP - General 03/31/08 04/01/22 Esme Adler NP PCP - General Nurse Practitioner 04/02/22 07/09/23 Unknown, Notinfile PCP - General 07/10/23 07/18/24 Scooby Guillermo MD PCP - General Internal Medicine 07/19/24 [place] [id number] [address] Consulting Physician Nephrology 07/28/24 documented as of this encounter
--- OUTSIDE RECORDS SUMMARY | 2025-03-03 11:19 | XMS_ITS | Encounter Summary ---
Author Organization [facility] Address [address] [place] [address] Phone Care Team Providers Care Snow Shoveler Name Role Phone Scooby Guillermo MD Primary Care Provider [phone] Esme Adler NP Primary Care Provider + Unknown, Notinfile Primary Care Provider Unavail able Scooby Guillermo MD Primary Care Provider [phone] Bacilio Francisco MD Unavailable [phone] Encounter Details Date Type Department Care Team (Late st Contact Info) Description 02/01/2022 Orders Only [facility] Scanning, Provider Social History Tobacco Use Types Packs/Day Years Used Date Smoking Tobacco: Never Assessed Comments Unknown Sex and Gender Information Value Date Recorded Sex Assigned at Not on file Legal Sex Female 12:42 AM MOBILE DEVELOPER Gender Identity Not on file Sexual Orientation [...] documented as of this encounter Care Teams Snow Shoveler Relationship Specialty Start Date End Date Scooby Guillermo MD PCP - General 03/31/08 04/01/22 Esme Adler NP PCP - General Nurse Practitioner 04/02/22 07/09/23 Unknown, Notinfile PCP - General 07/10/23 07/18/24 Scooby Guillermo MD PCP - General Internal Medicine 07/19/24 [place] [id number] [address] Consulting Physician Nephrology 07/28/24 documented as of this encounter
--- OUTSIDE RECORDS SUMMARY | 2025-03-03 11:19 | XMS_ITS | Clinical Summary ---
Author Organization [facility] Address [address] [place] [address] Care Team Providers Care Supervisor Fertilizer Name Role Phone Unavailable Primary Care Provider [...] Colorectal Cancer Screening: Sigmoidoscopy 1999 Pneumococcal Vaccine: 50+ Ye ars (1 of - PCV) 2000 Influenza Vaccine (Season Ended) 2025 Hepatitis B Vaccine Aged Out No longe r eligible based on patient's age to complete [place] [id number] Medicare Aetna Commercial
--- OUTSIDE RECORDS SUMMARY | 2025-03-03 11:19 | XMS_ITS ---
Author Organization [facility] Address [address] [place] [address] Care Team Providers Care Nursing Admin Name Role Phone Bacilio Francisco Unavailable [phone] PROBLEMS Problem Type ICD Code Onset Dates Problem Status W/U Status Risk SNOMED Code Notes Problem Chronic kidney disease, stage 3 unspecified (N18.30) Active confirmed Chronic kidney disease stage 3 (disorder) (340445116) Problem Essential (primary) hypertension (I10) Active confirmed Essential hypertension (64054723) Problem Renal osteodystrophy (N25.0) Active confirmed Renal osteodystrophy (28033211) Encounters Encounter Location Date Provider Diagnosis [place] [facility] [address] [facility] [address] [place] [address] 09/03/2024 Bacilio Francisco Chronic kidney disea se, [...] TREATMENT No Information Progress Notes * MONTY YOOSVETLANADOB: 1950 (74 yo F)Acc No.[id number]:09/03/2024 Progress Notes Patient: MONTY YOO Provider: MD OKSANA, F.A.C.P, F.A.S.N. :1950 Age:74 Y Sex:Female Date:09/03/2024 Address:[address] [place], [place] [address] [id number] Subjective: * Chief Complaints: * * Medical History: Objective: Assessment: * Assessment: 1. Chronic kidney disease, stage 3 unspecified - N18.30 (Primary) 2. Essential (primary) hypertension - I10 3. Renal osteodystrophy - N25.0 Plan: * Treatment: * Billing Information: * Visit Code: 25252 Office Visit, Est Pt., Level 4. * Procedure Codes: * Sign off status: Pending * Provider: MD OKSANA, F.A.C.P, F.A.S.N. Date: 09/03/2024
--- OUTSIDE RECORDS SUMMARY | 2025-03-03 11:19 | XMS_ITS | Encounter Summary ---
Author Organization [facility] Address [address] [place] [address] Care Team Providers Care Lock Setter Name Role Phone Scooby Guillermo MD Primary Care Provider [phone] Encounter Details Date Type Department Care Team (Latest Contact Info) Description 09/15/2018 Abstract [facility] , Kimberlee Long MD Social History Tobacco Use Types Packs/Day Years Used Date Smoking Tobacco: Never Comments Unknown Sex and Gender Information Value Date Recorded Sex Assigned at Female 12/06/2024 7:39 AM ANIMAL SITTER Legal Sex Female 8:54 PM CDT Gender Identity Female 12/06/2024 7:39 AM ANIMAL SITTER Sexual Orientation Not on file documented as of this encounter Plan of Treatment Upcoming Encounters Date Type Department Care Team (Late st Contact Info) Description 03/08/2025 11:00 AM CDT Office Visit [address] [address] [place], [facility]- [address] [place] [address] [place] [address] documented as of this encounter Visit Diagnoses Not on filedocumented in this encounter Care Teams Lock Setter Relationship Specialty Start Date End Date Scooby Guillermo MD [address] [place] [id number] PCP - General INTERNAL MEDICINE 04/06/24 documented as of this encounter
--- OUTSIDE RECORDS SUMMARY | 2025-03-03 11:19 | XMS_ITS | Continuity of Care Document ---
Author Organization [facility] Address [address] [place] [address] [place] [address] Phone Care Team Providers Care Rumper Name Role Phone Fermin Gonzalez MD Unavailable Unavailable Advance Directives Directive Yes / No Effective Date File Name No Information Encounters Encounter Description Practice Location Reason(s) For Visit Diagnoses Date Provider Providers Copied on Encounter [facility], [address], [place], [place], [id number], [place] tel:[phone] [facility] Professional No Information Jake-0 3-200 3 Lisa Christensen. [address] [facility] [place], [place], [id number], [place]. tel:[phone] Referring Provider: Esme Bernal MD, [address], [place], [address]. tel:[phone] Family History Family Member Type Diagnosis Age [...]
--- OUTSIDE RECORDS SUMMARY | 2025-03-03 11:20 | XMS_ITS | Clinical Summary ---
Author Organization [facility] [employer] Address [address] [place] [address] Care Team Providers Care Escrow Manager Name Role Phone Scooby Guillermo MD Primary Care Provider [phone] Source Comments [facility] [employer],non-owned Affiliates and Associated Physician Practices is amultiple site organization consisting of ambulatory clinics and hospital sitesin [place], [place], [place] and [place]. This disclosure is being madepursuant to the Care Everywhere program and may not contain all information available regarding this patient. Last updated 18.[facility] [employer] Allergies Active Allergy Reactions Criticality Noted Date Comments Diphenhydramine Rash Medium 04/21/2024 Codeine Other 04/21/2024 Makes patient high Penicillins Urticaria Medium 04/21/2024 Prednisone Other 04/23/2024 Hallucination Medications * Be aware that medications may not be up to date on this document. Alwaysverify current medications with the patient. semaglutide (Rybelsus) 3 MG tablet Take 3 mg by mouth once daily Take with a sip of water (< 4 oz) at least 30 minutes before any food, drink, or other meds. Active multivitamin daily tablet Take 1 (one) tablet by mouth daily with food Active allopurinol (Zyloprim) 100 MG tabletIndicatio ns:Gout Take 1 (one) tablet by mouth once [...] mouth 2 times daily Active insulin glargine (Lantus/Semglee ) 100 units/mL pen Inject 50 (fifty) Units [...] Active vitamin D, ergocalciferol, (Drisdol) 1.25 MG (84061 UT) capsule Take 1 (one) capsule by mouth every 7 days Active diclofenac sodium (Voltaren) 1 % gel APPLY 2 GRAMS TO THE AFFECTED AREA(S) BY TOPICAL ROUTE 4 TIMES PER DAY 05/10/20 24 Active Active Problems Problem Noted Date Diagnosed [...] Recorded Patient Health Questionnaire-2 Score 0 04/26/2024 [facility] [place] [facility] Occupat ional [facility] - Occupational Stress [...] place to sleep or slept in a jail (including now)? No 04/21/2024 Comments Unknown Sex and Gender Information Value Date Recorded Sex Assigned at Not on file Legal Sex Female 4:45 PM CDT Gender Identity Not on file Sexual Orientation [...] Last Done Comments BONE DENSITY TESTING 1950 COLON MONITORING 1950 COLONOSCOPY - COLON CA SCREENING 1950 CT COLONOGRAPHY - COLON CA SCREENING 1950 FIT - COLON CA SCREENING 1950 FLEX SIG - COLON CA SCREENING 1950 LIPID TESTING 1950 MAMMOGRAM 1950 HEPATITIS C SCREENING 05/28/1968 DTAP/TDAP/TD VACCINES (1 - Tdap) 1969 PNEUMOCOCCAL VACCINE 50+ (1 of 1 - PCV) 2000 ZOSTER VACCINE (1 of 2) 2000 Respiratory Syncytial Virus (RSV) Vaccine Pt: or over 60 yrs (1 - Risk 60-74 years 1-dose series) 2010 COLOGUARD (AGES 45-75) - COL ON CA SCREENING 03/10/2022 03/10/2019 Colorectal Cancer Screening 03/10/2022 COVID-19 VACCINE (2 - 2023-2 5 season) 2024 09/27/2021 DEPRESSION SCREENING 11/10/2024 04/21/2024 MEDICARE AWV CALENDAR YEAR 2024 INFLUENZA VACCINE (Season Ended) 2025 10/01/20 21 HEPATITIS B VACCINE Aged Out No longe r eligible based on patient's age to complete this topic HIB VACCINE Aged Out No longer eligi ble based on patient's age to complete this topic HPV VACCINE Aged Out No longer eligi ble based on patient's age to complete this topic MENINGOCOCCAL (Group B) VACC INE SHARED DECISION-MAKING Aged Out No longer eligibl e based on patient's age to complete this topic MENINGOCOCCAL GROUPS A/C/Y/W VACCINE Aged Out No longer eligible b ased on patient's age to [place] [address] MEDICARE AETNA AETNA MEDICARE ADV Advance Directives * Full Code (Latest Code Status on File) Date Activated Date Inactivated Comments 04/21/2024 11:18 PM 04/27/2024 6:01 PM * Full Code Date Activated Date Inactivated Comments 04/21/2024 11:17 PM 04/21/2024 11:18 PM Care Teams Escrow Manager Relationship Specialty Start Date End Date Scooby Guillermo MD [address] [place] [address] PCP - General Internal Medicine 04/23/24
--- OUTSIDE RECORDS SUMMARY | 2025-03-03 11:20 | XMS_ITS | Patient Health Record ---
Author Organization [facility] Address [address] [facility] [address] [place] [address] Care Team Providers Care Manual Arts Therapy Teacher Name Role Phone Bacilio Francisco Unavailable [phone] REASON FOR REFERRAL No Information PROBLEMS Problem Type ICD Code Onset Dates Problem Status W/U Status Risk SNOMED Code Notes Problem Essential (primary) hypertension (I10) Active confirmed Essential hypertension (35987545) Problem Renal osteodystrophy (N25.0) Active confirmed Renal osteodystrophy (54262703) Problem Chronic kidney disease, stage 3 unspecified (N18.30) Active confirmed Chronic kidney disease stage 3 (disorder) (047105019) Encounters Encounter Location Date Provider Diagnosis [facility] [address] [place] [address] 09/03/2024 Bacilio Francisco Chronic kidney disea se, stage 3 unspecified N18.30 ; Essential (primary) hypertension I10 and Renal osteodystrophy N25.0 [facility] [address] [place] [address] 10/29/2024 Bacilio Francisco ASSESSMENTS Encounter Date Diagnosis Assessment Notes Treatment Notes Treatment Clinical Notes Section Notes 09/03/2024 Essential (primary) hypertension (ICD-10 - I10) 09/03/2024 Chronic kidney disease, stage 3 unspecified (ICD-10 - N18.30) 09/03/2024 Renal osteodystrophy (ICD-10 - N25.0) PLAN OF TREATMENT No Information
--- OUTSIDE RECORDS SUMMARY | 2025-03-03 11:20 | XMS_ITS ---
Author Organization [facility] Address [address] [facility] [address] [facility] [address] [place] [address] Care Team Providers Care Patient Care Name Role Phone Nolan Bacilio Unavailable [phone] MEDICATIONS Medication SIG (Take, Route, Frequency, Duration) Notes Start Date End Date Status Farxiga 10 MG 1 tablet Orally Once a day for 90 06/23/2024 03/20/2025 Active Ergocalciferol 1.25 MG (53539 UT) 1 capsule Orally Once a week for 90 day(s) 06/23/2024 03/20/2025 Active Encounters Encounter Location Date Provider Diagnosis [place] [facility] [address] [facility] [address] [place] [address] 06/23/2024 Bacilio Francisco PLAN OF TREATMENT Medication Medication Name Sig Start Date Stop Date Notes Farxiga 10 MG 1 tablet Orally Once a day for 90 06/23/2024 03/20/2025 Ergocalciferol 1.25 MG (5000 0 UT) 1 capsule Orally Once a week for 90 day(s) 06/23/2024 03/20/2025 Progress Notes * Juanito AUSTINDOB: [birth year] (74 yo F)Acc No.[id number]:06/23/2024 Patient: Juanito AUSTIN :1950 Age:74 Y Sex:Female Address:[address] [place] [address] * Refills Start Farxiga Tablet, 10 MG, Orally, 90 Tablet, 1 tablet, Once a day, 90, Refills=2 Start Ergocalciferol Capsule, 1.25 MG (77005 UT), Orally, 13, 1 capsule, Once a week, 90 day(s), Refills=2 * true * Date:
--- OUTSIDE RECORDS SUMMARY | 2025-03-03 11:20 | XMS_ITS | Patient Health Record ---
Author Organization [facility] Address [address] [place] [address] Care Team Providers Care Lining Repairer Name Role Phone Bacilio Francisco Unavailable [phone] REASON FOR REFERRAL No Information MEDICATIONS Medication SIG (Take, Route, Frequency, Duration) Notes Start Date End Date Status Farxiga 10 MG 1 tablet Orally Once a day for 06/23/2024 03/20/2025 Active Losartan Potassium 100 MG 1 tablet Orall y Once a day for 11/20/2023 Active Ergocalciferol 1.25 MG (98752 UT) 1 capsule Orally Once a week for 90 day(s) 06/23/2024 03/20/2025 Active Calcitriol 0.25 MCG 1 capsule Orally bailey ry other day for 90 02/28/2023 Active PROBLEMS Problem Type ICD Code Onset Dates Problem Status W/U Status Risk SNOMED Code Notes Problem Anemia, unspecified (D64.9) Active confirmed Anemia (818759079) Problem Type 2 diabetes mellitus with hyperglycemia (E11.65) Active confirmed Hyperglycemia d ue to type 2 diabetes mellitus (892991327547497) Problem Anxiety disorder, unspecified (F41.9) Active confirmed Anxiety disorde r (046570356) Problem Essential (primary) hypertension (I10) Active confirmed Essential hypertension (68304475) Problem Gastro-esophageal reflux disease without esophagitis (K21.9) Active confirmed Gastro-esophage al reflux disease without esophagitis (742318906) Problem Renal osteodystrophy (N25.0) Active confirmed Renal osteodystrophy (39167167) Problem Gastro-esophageal reflux disease with esophagitis, without bleeding (K21.00) Active confirmed Gastroesophagea l reflux disease with esophagitis (disorder) (873374781) Problem Chronic kidney disease, stage 3 unspecified (N18.30) Active confirmed Chronic kidney disease stage 3 (disorder) (027933827) Problem Chronic kidney disease, stage 3b (N18.32) Active confirmed Chronic kidney disease stage 3B (disorder) (060479730) Encounters Encounter Location Date Provider Diagnosis [place] [facility] [address] [address] 05/12/2024 Bacilio Francisco Chronic kidney disea se, stage 3b N18.32 ; Essential (primary) hypertension I10 ; Type 2 diabetes mellitus with hyperglycemia E11.65 ; Anemia, unspecified D64.9 ; Gastro-esophageal reflux disease with esophagitis, without bleeding K21.00 ; Gastro-esophageal reflux disease without esophagitis K21.9 and Anxiety disorder, unspecified F41.9 [place] [facility] [address] [address] 06/23/2024 Bacilio Francisco Chronic kidney disea se, stage 3 unspecified N18.30 ; Essential (primary) hypertension I10 ; Renal osteodystrophy N25.0 ; Type 2 diabetes mellitus with hyperglycemia E11.65 ; Anemia, unspecified D64.9 ; Gastro-esophageal reflux disease with esophagitis, without bleeding K21.00 ; Gastro-esophageal reflux disease without esophagitis K21.9 and Anxiety disorder, unspecified F41.9 [place] [facility] [address] [address] 08/25/2024 Bacilio [facility] [address] [address] 09/01/2024 Bacilio Francisco [place] [facility] [address] [address] 03/10/2024 Bacilio Francisco [place] [facility] [address] [place] [address] 06/23/2024 Bacilio Francisco ASSESSMENTS Encounter Date Diagnosis [...] E11.65) 05/12/2024 Anemia, unspecified (ICD-10 - D64.9) 06/23/2024 Anemia, unspecified (ICD-10 - D64.9) 05/12/2024 [...]
--- OUTSIDE RECORDS SUMMARY | 2025-03-03 11:21 | XMS_ITS ---
Author Organization [facility] Address [address] [facility] [address] [place] [address] Care Team Providers Care Vehicle Assembler Name Role Phone Bacilio Francisco Unavailable [phone] Encounters Encounter Location Date Provider Diagnosis [place] [facility] [address] [facility] 15 [place] [address] 08/25/2024 Bacilio Francisco PLAN OF TREATMENT No Information Progress Notes * Juanito AUSTINDOB: [birth year] (74 yo F)Acc No.[id number]:08/25/2024 Progress Notes Patient: Juanito AUSTIN Provider: MD OKSANA, Sabrina.Lizz.C.P, F.A.S.N. :1950 Age:74 Y Sex:Female Date:08/25/2024 Address:[address] [place], [place] [id number] Subjective: * Chief Complaints: * * Medical History: Objective: Assessment: Plan: * Treatment: * Billing Information: * Visit Code: * Procedure Codes: * Sign off status: Pending * Provider: MD OKSANA, Sabrina.Lizz.C.P, F.A.S.N. Date: 08/25/2024
--- OUTSIDE RECORDS SUMMARY | 2025-03-03 11:21 | XMS_ITS ---
Author Organization [facility] Address [address] [place] [address] Care Team Providers Care Ballistics Laboratory Gunsmith Name Role Phone Bacilio Francisco Unavailable [phone] Encounters Encounter Location Date Provider Diagnosis [place] [facility] [address] [facility] [address] [place] [address] 10/29/2024 Bacilio Francisco PLAN OF TREATMENT No Information Progress Notes * MONTY YOODOB: 1950 (74 yo F)Acc No.[id number]:10/29/2024 Progress Notes Patient: MONTY YOO Provider: MD OKSANA, Sabrina.Lizz.C.P, F.A.S.N. :1950 Age:74 Y Sex:Female Date:10/29/2024 Address:[address] [place] [address] [address] [facility] Subjective: * Chief Complaints: * * Medical History: Objective: Assessment: Plan: * Treatment: * Billing Information: * Visit Code: * Procedure Codes: * Sign off status: Pending * Provider: MD OKSANA, Sabrina.Lizz.C.P, F.A.S.N. Date: 10/29/2024
[2025-03-03 11:27] LABS: Alanine Aminotransferase 34 U/L (14-59); Albumin Level 3.4 g/dL (3.4-5.0); Alkaline Phosphatase 93 U/L (46-116); Anion Gap 7 mmol/L (4-12); Aspartate Amino Transferase 18 U/L (15-37); Bilirubin,Total 0.5 mg/dL (0.00-1.00); Blood Urea Nitrogen 21 mg/dL (7-18); Calcium 9.8 mg/dL (8.5-10.1); Carbon Dioxide 30 mmol/L (21-32); Chloride 106 mmol/L (98-108); Cholesterol 149 mg/dL (0-200); Estimated Glomerular Filt Rate 35; Glucose 183 mg/dL (70-99); HDL Direct 45 mg/dL (40-60); LDL Cholesterol Calculated 79 mg/dL (<130); Osmolality Calculated 304 mOsm/kg (285-295); Potassium 4.2 mmol/L (3.5-5.1); Sodium 143 mmol/L (136-145); Total Protein 7.2 g/dL (6.4-8.2); Triglycerides 125 mg/dL (0-150); Uric Acid 4.1 mg/dL (2.6-6.0)
== END 2025-03-03 10:07 | disposition home or self-care (01) ==
LOC: CHSLAB 10:10
PROVIDERS: PCP Internal Medicine; Visit Provider Internal Medicine
DX: I10 Essential (primary) hypertension (principal); E11.69 Type 2 diabetes mellitus with other specified complication; E03.9 Hypothyroidism, unspecified
CPT/HCPCS: 36415; 80053; 80061; 83036; 84443; 84550; 85027

== ENCOUNTER 2025-03-04 11:08 | Outpatient (CLI) | payer MEDICARE, SELFPAY ==
[2025-03-04 11:16] LABS: Add Urine Microscopic? NO; Appearance Urine Clear (Clear); Bilirubin Urine Negative (Negative); Blood Urine Negative (Negative); Color Urine Light Yellow (Yellow); Glucose Urine UA 3+ (Negative); Ketones Urine Negative (Negative); Leukocyte Esterase Ur Negative LEU/UL (Negative); Nitrate Urine Negative (Negative); Protein Urine Negative (Negative); Urobilinogen Urine 0.2 mg/dL (0.2-1.0); pH Urine 5.5 (5.0-8.0)
--- OUTSIDE RECORDS SUMMARY | 2025-03-04 11:28 | XMS_ITS | Clinical Summary ---
Author Organization [facility] Address [address] [place] [address] Care Team Providers Care Band Salvager Name Role Phone Scooby Guillermo MD Primary Care Provider [phone] Allergies Active Allergy Reactions Criticality Noted Date [...] Department Care Team Description 01/28/2025 Orders Only [facility] [address] [place] [address] Alma Langley MD 01/24/2025 2:30 PM CDT Office Visit [address], [facility] 1 [place] [address] Deisy Dunlap PA Knee Pain (RIGHT DOI:01/17/25) 01/24/2025 2:02 PM CDT - 01/24/2025 11:59 PM CDT Hospital Encounter [facility] [address] [place] [address] Deisy Dunlap PA Discharge Disposition: Home or Self Care (Routine Discharge) 01/24/2025 12:45 PM CDT Office Visit [facility] [address] [place] [address] Tianna Mariscal MD Bhatti, Vikrampal S, MD Follow Up 01/24/2025 Scan [facility] [address] [place] [address] Scanned, Doc Cikda 01/24/2025 Travel 01/24/[address] [address] Deisy Dunlap PA Appointment Request 01/18/2025 Travel 01/03/2025 11:15 AM HIP HOP ARTIST Office Visit [address] [address] Antonio George Jr., DO Knee Pain (RIGHT) 01/03/2025 Travel 12/07/[address] [address] Deisy Dunlap PA Question 12/06/[address] [address] Deisy Dunlap PA Appointment Reminder from Last [...] Sex Assigned at Female 12/06/2024 7:39 AM HIP HOP ARTIST Legal Sex Female 8:54 PM CDT Gender Identity Female 12/06/2024 7:39 AM HIP HOP ARTIST Sexual Orientation Not on file Last Filed Vital Signs Vital Sign Reading Time Taken Comments Blood Pressure 136/84 01/24/2025 12:45 PM CDT Pulse 3 01/24/2025 12:45 PM CDT Temperature 36.6 C (97.8 F) 09/14/2014 10:34 AM HIP HOP ARTIST Respiratory Rate 13 09/14/2014 10:34 AM HIP HOP ARTIST Regular Oxygen Saturation - - Inhaled Oxygen Concentration - - Weight 97.1 kg (214 lb) 01/24/2025 2:24 PM CDT Height 165.1 cm (5' 5 ) 01/24/2025 2:24 PM CDT Body Mass Index 35.61 01/24/2025 2:24 PM CDT Plan of Treatment Upcoming Encounters Date Type Department Care Team (Late st Contact Info) Description 03/08/2025 11:00 AM CDT Office Visit [facility] [address] [facility] 1 [place] [address] Belle Kapad[place], PREPRESS SUPERVISOR-BC [address] [place] [address] Health Maintenance Due Date Last Done Comments [...] knee HEPATITIS PANEL,ACUTE Routine 10/25/2024 12:00 PM HIP HOP ARTIST Chronic kidney disease, stage 3b (CMS/HCC) HTN [...] 2:13 PM Narrative 01/24/2025 2:14 PM CDT [address] [place] [address] Examination: XR KNEE RT MIN 4V Exam [...] Procedure Note Alejandro Joyce MD - 01/24/[address] [place] [address] Examination: XR KNEE RT MIN 4V Exam [...] Result * HEPATITIS PANEL,ACUTE (10/25/2024 12:00 PM HIP HOP ARTIST) HEPATITIS B SURFACE AG NON-REACT MISA NON-REACT MISA 10/26/2024 9:28 PM HIP HOP ARTIST [facility] Comment:HBsAg NOT DETECTED. HEP B CORE IGM NON-REACT MISA NON-REACT MISA 10/26/2024 9:28 PM HIP HOP ARTIST [facility] Comment: IgM ANTI HBc NOT DETECTED. DOES NOT EXCLUDE THE POSSIBILITY OF EXPOSURE TO OR INFECTION WITH HBV. NO RETEST REQUIRED. HIGH DOSES OF BIOTIN MAY INTERFERE WITH THIS TEST RESULT. CORRELATION TO CLINICAL HISTORY AND PRESENTATION RECOMMENDED. HAV IGM NON-REACT MISA NON-REACT MISA 10/26/2024 9:28 PM HIP HOP ARTIST [facility] Comment: IgM ANTI HAV NOT DETECTED. DOES NOT EXCLUDE THE POSSIBILITY OF EXPOSURE TO OR INFECTION WITH HAV. LEVELS OF IgM ANTI HAV MAY BE BELOW THE CUTOFF IN EARLY INFECTION. HEPATITIS C AB NON-REACT MISA NON-REACT MISA 10/26/2024 9:28 PM HIP HOP ARTIST [facility] Comment: ANTIBODIES TO HCV NOT DETECTED. DOES NOT EXCLUDE THE POSSIBILITY OF EXPOSURE TO HCV. 10/25/2024 12:0 0 PM HIP HOP ARTIST Tianna Mariscal MD LABORATORY Final Result [facility] [address] [place] [address], [id number] from Last 3 Months or Most Recently Relevant to Health Maintenance Insurance AETNA AETNA Care Teams Band Salvager Relationship Specialty Start Date End Date Scooby Guillermo MD [address] [place] [address] PCP - General INTERNAL MEDICINE 04/06/24
--- OUTSIDE RECORDS SUMMARY | 2025-03-04 11:28 | XMS_ITS | Encounter Summary ---
Author Organization [facility] Address [address] [place] [address] Phone Care Team Providers Care Technical Sales Consultant Name Role Phone Scooby Guillermo MD Primary Care Provider [phone] Esme Adler NP Primary Care Provider + Unknown, Notinfile Primary Care Provider Unavail able Scooby Guillermo MD Primary Care Provider [phone] Bacilio Francisco MD Unavailable [phone] Encounter Details Date Type Department Care Team (Late st Contact Info) Description 03/15/2022 Orders Only [facility] Scanning, Provider Social History Tobacco Use Types Packs/Day Years Used Date Smoking Tobacco: Never Assessed Comments Unknown Sex and Gender Information Value Date Recorded Sex Assigned at Not on file Legal Sex Female 12:42 AM COMMUNICATION EQUIPMENT MECHANIC Gender Identity Not on file Sexual Orientation [...] documented as of this encounter Care Teams Technical Sales Consultant Relationship Specialty Start Date End Date Scooby Guillermo MD PCP - General 03/31/08 04/01/22 Esme Adler NP PCP - General Nurse Practitioner 04/02/22 07/09/23 Unknown, Notinfile PCP - General 07/10/23 07/18/24 Scooby Guillermo MD PCP - General Internal Medicine 07/19/24 [place] [id number] [address] Consulting Physician Nephrology 07/28/24 documented as of this encounter
--- OUTSIDE RECORDS SUMMARY | 2025-03-04 11:28 | XMS_ITS | Encounter Summary ---
Author Organization [facility] Address [address] [place] [address] Phone Care Team Providers Care Security Tech Name Role Phone Scooby Guillermo MD Primary Care Provider [phone] Esme Adler NP Primary Care Provider + Unknown, Notinfile Primary Care Provider Unavail able Scooby Guillermo MD Primary Care Provider [phone] Bacilio Francisco MD Unavailable [phone] Encounter Details Date Type Department Care Team (Late st Contact Info) Description 01/30/2022 Orders Only [facility] Scanning, Provider Social History Tobacco Use Types Packs/Day Years Used Date Smoking Tobacco: Never Assessed Comments Unknown Sex and Gender Information Value Date Recorded Sex Assigned at Not on file Legal Sex Female 12:42 AM M48/M60 TANK DRIVER Gender Identity Not on file Sexual Orientation [...] documented as of this encounter Care Teams Security Tech Relationship Specialty Start Date End Date Scooby Guillermo MD PCP - General 03/31/08 04/01/22 Esme Adler NP PCP - General Nurse Practitioner 04/02/22 07/09/23 Unknown, Notinfile PCP - General 07/10/23 07/18/24 Scooby Guillermo MD PCP - General Internal Medicine 07/19/24 [place] [id number] [address] Consulting Physician Nephrology 07/28/24 documented as of this encounter
--- OUTSIDE RECORDS SUMMARY | 2025-03-04 11:28 | XMS_ITS | Encounter Summary ---
Author Organization [facility] Address [address] [place] [address] Phone Care Team Providers Care Gaming Department Head Name Role Phone Scooby Guillermo MD Primary Care Provider [phone] Esme Adler NP Primary Care Provider + Unknown, Notinfile Primary Care Provider Unavail able Scooby Guillermo MD Primary Care Provider [phone] Bacilio Francisco MD Unavailable [phone] Encounter Details Date Type Department Care Team (Late st Contact Info) Description 02/01/2022 Orders Only [facility] Scanning, Provider Social History Tobacco Use Types Packs/Day Years Used Date Smoking Tobacco: Never Assessed Comments Unknown Sex and Gender Information Value Date Recorded Sex Assigned at Not on file Legal Sex Female 12:42 AM SURGICAL DEVICE SALES REPRESENTATIVE Gender Identity Not on file Sexual Orientation [...] documented as of this encounter Care Teams Gaming Department Head Relationship Specialty Start Date End Date Scooby Guillermo MD PCP - General 03/31/08 04/01/22 Esme Adler NP PCP - General Nurse Practitioner 04/02/22 07/09/23 Unknown, Notinfile PCP - General 07/10/23 07/18/24 Scooby Guillermo MD PCP - General Internal Medicine 07/19/24 [place] [id number] [address] Consulting Physician Nephrology 07/28/24 documented as of this encounter
--- OUTSIDE RECORDS SUMMARY | 2025-03-04 11:29 | XMS_ITS ---
Author Organization [facility] Address [address] [place] [address] Care Team Providers Care Senior Data Architect Name Role Phone Bacilio Francisco Unavailable [phone] PROBLEMS Problem Type ICD Code Onset Dates Problem Status W/U Status Risk SNOMED Code Notes Problem Chronic kidney disease, stage 3 unspecified (N18.30) Active confirmed Chronic kidney disease stage 3 (disorder) (426139872) Problem Essential (primary) hypertension (I10) Active confirmed Essential hypertension (77511449) Problem Renal osteodystrophy (N25.0) Active confirmed Renal osteodystrophy (05757807) Encounters Encounter Location Date Provider Diagnosis [facility] [address] [facility] [address] [place] [address] 09/03/2024 Bacilio Francisco Chronic kidney disea se, [...] * MONTY YOODOB: 1950 (74 yo F)Acc No.[id number]:09/03/2024 Progress Notes Patient: MONTY YOO Provider: MD OKSANA, F.A.C.P, F.A.S.N. :1950 Age:74 Y Sex:Female Date:09/03/2024 Address:[address] [place], [place] [address] [facility] Subjective: * Chief Complaints: * * Medical History: Objective: Assessment: * Assessment: 1. Chronic kidney disease, stage 3 unspecified - N18.30 (Primary) 2. Essential (primary) hypertension - I10 3. Renal osteodystrophy - N25.0 Plan: * Treatment: * Billing Information: * Visit Code: 89580 Office Visit, Est Pt., Level 4. * Procedure Codes: * Sign off status: Pending * Provider: MD OKSANA, F.A.C.P, F.A.S.N. Date: 09/03/2024
--- OUTSIDE RECORDS SUMMARY | 2025-03-04 11:29 | XMS_ITS | Clinical Summary ---
Author Organization [facility] Address [address] [place] [address] Care Team Providers Care Loop Machine Operator Name Role Phone Scooby Guillermo MD Primary Care Provider [phone] Bacilio Francisco MD Unavailable [phone] Allergies Active Allergy Reactions Criticality Noted [...] 01/08/2023 Assessment & Plan (01/13/2023 3:24 PM TRANSFER AND LINE UP WORKER): H/H drop after duodenal mass excision/EGD 01/07 - Monitor H/H closely as patient with melenic stools. - Monitor VS - pRBC transfusion if Hgb<7 - Per GI: advance diet as tolerated. Currently on a regular diet. - Patient to discharge on home OMEPRAZOLE BID. 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 HTN (hypertension) 01/07/2023 Assessment & Plan (01/13/2023 3:22 PM TRANSFER AND LINE UP WORKER): - Hold antihypertensive meds while bleeding and BP soft. Should be restarted by PCP. Assessment & Plan (01/07/2023 8:53 PM TRANSFER AND LINE UP WORKER): Continue on Maxzide Monitor vitals HLD (hyperlipidemia) 01/07/2023 Assessment & Plan (01/08/2023 12:44 PM TRANSFER AND LINE UP WORKER): Continue on statins Assessment & Plan (01/07/2023 8:54 PM TRANSFER AND LINE UP WORKER): Continue on statins T2DM (type 2 diabetes mellitus) 01/07/2023 Assessment & Plan (01/09/2023 4:05 PM TRANSFER AND LINE UP WORKER): On metformin at home and Lantus 10 units nightly. Sugars thus far have been appropriate without acute need for insulin while NPO. Will restart once patient starting PO challenged after procedure. - Monitor BG and add SSI if needed Assessment & Plan (01/07/2023 8:55 PM TRANSFER AND LINE UP WORKER): On metformin at home and Lantus Will hold onto insulin at this time as NPO Monitor BG and add SSI if needed History of pulmonary embolism 01/07/2023 Assessment & Plan (01/09/2023 4:08 PM TRANSFER AND LINE UP WORKER): H/o PE in 2021, when she was on Eliquis for 5-6 months, on no AC for past 6 months. Monitor vitals, not a candidate for AC at this time due to GI bleeding Assessment & Plan (01/07/2023 8:56 PM TRANSFER AND LINE UP WORKER): H/o PE in 2021, when she was on Eliquis for 5-6 months, on no AC for past 6 months. Monitor vitals GERD (gastroesophageal reflux disease) Assessment & Plan (01/13/2023 3:23 PM TRANSFER AND LINE UP WORKER): - Patient will discharge on omeprazole BID. 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 [...] Gi. Assessment & Plan (01/07/2023 8:53 PM TRANSFER AND LINE UP WORKER): Adenomatous duodenal polyp EGD 01/[address] [...] (04/24/2022): Added automatically from request for surgery [id number] Surgical History Surgery Date Site/Laterality Comments KNEE [...] on file Legal Sex Female 12:42 AM TRANSFER AND LINE UP WORKER Gender Identity Not on file Sexual Orientation Not on file Obstetrics History Last Filed Vital Signs Vital Sign Reading Time Taken Comments Blood Pressure 132/77 10/14/2024 2:00 PM TRANSFER AND LINE UP WORKER Pulse 62 10/14/2024 2:00 PM TRANSFER AND LINE UP WORKER Temperature 35.9 C (96.6 F) 10/14/2024 12:35 PM TRANSFER AND LINE UP WORKER Respiratory Rate 15 10/14/2024 2:00 PM TRANSFER AND LINE UP WORKER Oxygen Saturation 91% 10/14/2024 2:00 PM TRANSFER AND LINE UP WORKER Inhaled Oxygen Concentration - - Weight 95.3 kg (210 lb) 10/14/2024 12:35 PM TRANSFER AND LINE UP WORKER Height 165.1 cm (5' 5 ) 10/14/2024 12:35 PM TRANSFER AND LINE UP WORKER Body Mass Index 34.95 10/14/2024 12:35 PM TRANSFER AND LINE UP WORKER Plan of Treatment Health Maintenance Due Date [...] 10/14/2025 10/14/2024 Medical Devices Implanted Type Area Internal Control Specialist Device Identifier Shelf Expiration Date Model / Serial / Lot Conmed Jaquelin Conmed 11mm Duraclip [id number] - [id number] Implanted:Qty: 1 on 01/09/2023 by Aidan Guadalupe MD at [facility] Left: Duodenum Conmed Jaquelin 08/30/2024 [id number] / / [id number] Conmed Jaquelin Conmed 11mm Duraclip [id number] - [id number] Implanted:Qty: 1 on 01/09/2023 by Aidan Guadalupe MD at [facility] Left: Duodenum Conmed Jaquelin 08/30/2024 [id number] / / [id number] Conmed Jaquelin Conmed 16mm Duraclip [id number] - [id number] Implanted:Qty: 1 on 01/09/2023 by Aidan Guadalupe MD at [facility] Left: Duodenum Conmed Jaquelin 01/17/2025 [id number] / / [id number] Procedures Procedure Name Priority Date/Time Associated Diagnosis Comments EGFR Routine 01/12/2023 10:35 PM TRANSFER AND LINE UP WORKER from Last 3 Months or Most Recently Relevant to Health Maintenance Results * (ABNORMAL) eGFR (01/12/2023 10:35 PM TRANSFER AND LINE UP WORKER) eGFR 40(L) 90 - 130 mL/min/1. 73 [...] reviewed 2021. Blood 01/12/2023 10:3 5 PM TRANSFER AND LINE UP WORKER 01/12/2023 11:23 PM TRANSFER AND LINE UP WORKER us Luke Britton MD LAB BLOOD ORDERABLES Final Resu lt [facility] Department [place] [address] from Last 3 Months or Most Recently Relevant to Health Maintenance Insurance [place] [employer] [facility] MEDICARE Advance Directives For more information, please contact: [phone] * Full Code (Latest Code Status on [...] 9:30 AM 06/24/2022 2:53 PM Care Teams Loop Machine Operator Relationship Specialty Start Date End Date Scooby Guillermo MD PCP - General Internal Medicine 07/19/24 [place] [id number] [address] Consulting Physician Nephrology 07/28/24
--- OUTSIDE RECORDS SUMMARY | 2025-03-04 11:29 | XMS_ITS | Clinical Summary ---
Author Organization [facility] Address [address] [place] [address] Care Team Providers Care Test Lead Application Testing Name Role Phone Unavailable Primary Care Provider [...] to complete [place] [id number] Medicare Aetna Commercial
--- OUTSIDE RECORDS SUMMARY | 2025-03-04 11:29 | XMS_ITS ---
Author Organization [facility] Address [address] [facility] [address] [facility] [address] [place] [address] Care Team Providers Care Master Electrician Name Role Phone Nolan Bacilio Unavailable [phone] MEDICATIONS Medication SIG (Take, Route, Frequency, Duration) Notes Start Date End Date Status Farxiga 10 MG 1 tablet Orally Once a day for 90 06/23/2024 03/20/2025 Active Ergocalciferol 1.25 MG (44614 UT) 1 capsule Orally Once a week for 90 day(s) 06/23/2024 03/20/2025 Active Encounters Encounter Location Date Provider Diagnosis [facility] [address] [facility] [address] [place] [address] 06/23/2024 Bacilio Francisco PLAN OF TREATMENT Medication Medication Name Sig Start Date Stop Date Notes Farxiga 10 MG 1 tablet Orally Once a day for 90 06/23/2024 03/20/2025 Ergocalciferol 1.25 MG (5000 0 UT) 1 capsule Orally Once a week for 90 day(s) 06/23/2024 03/20/2025 Progress Notes * Juanito AUSTINDOB: [birth year] (74 yo F)Acc No.[id number]:06/23/2024 Patient: Juanito AUSTIN :1950 Age:74 Y Sex:Female Address:[address] [place] [address] * Refills Start Farxiga Tablet, 10 MG, Orally, 90 Tablet, 1 tablet, Once a day, 90, Refills=2 Start Ergocalciferol Capsule, 1.25 MG (43053 UT), Orally, 13, 1 capsule, Once a week, 90 day(s), Refills=2 * true * Date:
--- OUTSIDE RECORDS SUMMARY | 2025-03-04 11:29 | XMS_ITS | Encounter Summary ---
Author Organization [facility] Address [address] [place] [address] Care Team Providers Care Director Financial Analysis Name Role Phone Scooby Guillermo MD Primary Care Provider [phone] Encounter Details Date Type Department Care Team (Latest Contact Info) Description 09/15/2018 Abstract [facility] , Kimberlee Long MD Social History Tobacco Use Types Packs/Day Years Used Date Smoking Tobacco: Never Comments Unknown Sex and Gender Information Value Date Recorded Sex Assigned at Female 12/06/2024 7:39 AM PROGRAM AIDE Legal Sex Female 8:54 PM CDT Gender Identity Female 12/06/2024 7:39 AM PROGRAM AIDE Sexual Orientation Not on file documented as of this encounter Plan of Treatment Upcoming Encounters Date Type Department Care Team (Late st Contact Info) Description 03/08/2025 11:00 AM CDT Office Visit [address] [address] [place], [facility]- [address] [place] [address] [place] [address] documented as of this encounter Visit Diagnoses Not on filedocumented in this encounter Care Teams Director Financial Analysis Relationship Specialty Start Date End Date Scooby Guillermo MD [address] [place] [address] PCP - General INTERNAL MEDICINE 04/06/24 documented as of this encounter
--- OUTSIDE RECORDS SUMMARY | 2025-03-04 11:29 | XMS_ITS ---
Author Organization [facility] Address [address] [facility] [address] [place] [address] Care Team Providers Care Rejected Items Clerk Name Role Phone Bacilio Francisco Unavailable [phone] Encounters Encounter Location Date Provider Diagnosis [place] [facility] [address] [facility] [address] [place] [address] 09/01/2024 Bacilio Francisco PLAN OF TREATMENT No Information Progress Notes * Juanito AUSTINDOB: [birth year] (74 yo F)Acc No.[id number]:09/01/2024 Progress Notes Patient: Juanito AUSTIN Provider: MD OKSANA, Sabrina.Lizz.C.P, F.A.S.N. :1950 Age:74 Y Sex:Female Date:09/01/2024 Address:[address] [place], [place] [id number] Subjective: * Chief Complaints: * * Medical History: Objective: Assessment: Plan: * Treatment: * Billing Information: * Visit Code: * Procedure Codes: * Sign off status: Pending * Provider: MD OKSANA, Sabrina.Lizz.C.P, F.A.S.N. Date: 09/01/2024
--- OUTSIDE RECORDS SUMMARY | 2025-03-04 11:29 | XMS_ITS | Patient Health Record ---
Author Organization [facility] Address [address] [place] [address] Care Team Providers Care Extrusion Die Template Maker Name Role Phone Bacilio Francisco Unavailable [phone] REASON FOR REFERRAL No Information MEDICATIONS Medication SIG (Take, Route, Frequency, Duration) Notes Start Date End Date Status Farxiga 10 MG 1 tablet Orally Once a day for 06/23/2024 03/20/2025 Active Losartan Potassium 100 MG 1 tablet Orall y Once a day for 11/20/2023 Active Ergocalciferol 1.25 MG (89773 UT) 1 capsule Orally Once a week for 90 day(s) 06/23/2024 03/20/2025 Active Calcitriol 0.25 MCG 1 capsule Orally bailey ry other day for 90 02/28/2023 Active PROBLEMS Problem Type ICD Code Onset Dates Problem Status W/U Status Risk SNOMED Code Notes Problem Anemia, unspecified (D64.9) Active confirmed Anemia (098918510) Problem Type 2 diabetes mellitus with hyperglycemia (E11.65) Active confirmed Hyperglycemia d ue to type 2 diabetes mellitus (997410568162278) Problem Anxiety disorder, unspecified (F41.9) Active confirmed Anxiety disorde r (042543282) Problem Essential (primary) hypertension (I10) Active confirmed Essential hypertension (17859938) Problem Gastro-esophageal reflux disease without esophagitis (K21.9) Active confirmed Gastro-esophage al reflux disease without esophagitis (349647859) Problem Renal osteodystrophy (N25.0) Active confirmed Renal osteodystrophy (55790669) Problem Gastro-esophageal reflux disease with esophagitis, without bleeding (K21.00) Active confirmed Gastroesophagea l reflux disease with esophagitis (disorder) (405089698) Problem Chronic kidney disease, stage 3 unspecified (N18.30) Active confirmed Chronic kidney disease stage 3 (disorder) (033529903) Problem Chronic kidney disease, stage 3b (N18.32) Active confirmed Chronic kidney disease stage 3B (disorder) (556749773) Encounters Encounter Location Date Provider Diagnosis [facility] [address] [address] 05/12/2024 Bacilio Francisco Chronic kidney disea se, stage 3b N18.32 ; Essential (primary) hypertension I10 ; Type 2 diabetes mellitus with hyperglycemia E11.65 ; Anemia, unspecified D64.9 ; Gastro-esophageal reflux disease with esophagitis, without bleeding K21.00 ; Gastro-esophageal reflux disease without esophagitis K21.9 and Anxiety disorder, unspecified F41.9 [facility] [address] [address] 06/23/2024 Bacilio Francisco Chronic kidney disea se, stage 3 unspecified N18.30 ; Essential (primary) hypertension I10 ; Renal osteodystrophy N25.0 ; Type 2 diabetes mellitus with hyperglycemia E11.65 ; Anemia, unspecified D64.9 ; Gastro-esophageal reflux disease with esophagitis, without bleeding K21.00 ; Gastro-esophageal reflux disease without esophagitis K21.9 and Anxiety disorder, unspecified F41.9 [facility] [address] [address] 08/25/2024 Bacilio [facility] [address] [address] 09/01/2024 Bacilio Francisco [facility] [address] [address] 03/10/2024 Bacilio Francisco [facility] [address] [place] [address] 06/23/2024 Bacliio Francisco ASSESSMENTS Encounter Date Diagnosis Assessment Notes [...]
--- OUTSIDE RECORDS SUMMARY | 2025-03-04 11:29 | XMS_ITS | Referral Summary ---
Author Organization [facility] Address [address] [place] [address] Care Team Providers Care Dragline Operator Helper Name Role Phone Scooby Guillermo MD Primary Care Provider [phone] Bacilio Francisco MD Unavailable [phone] Allergies Active Allergy Reactions Criticality Noted [...] 01/08/2023 Assessment & Plan (01/13/2023 3:24 PM BODY FINISHER): H/H drop after duodenal mass excision/EGD 01/07 - Monitor H/H closely as patient with melenic stools. - Monitor VS - pRBC transfusion if Hgb<7 - Per GI: advance diet as tolerated. Currently on a regular diet. - Patient to discharge on home OMEPRAZOLE BID. 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 HTN (hypertension) 01/07/2023 Assessment & Plan (01/13/2023 3:22 PM BODY FINISHER): - Hold antihypertensive meds while bleeding and BP soft. Should be restarted by PCP. Assessment & Plan (01/07/2023 8:53 PM BODY FINISHER): Continue on Maxzide Monitor vitals HLD (hyperlipidemia) 01/07/2023 Assessment & Plan (01/08/2023 12:44 PM BODY FINISHER): Continue on statins Assessment & Plan (01/07/2023 8:54 PM BODY FINISHER): Continue on statins T2DM (type 2 diabetes mellitus) 01/07/2023 Assessment & Plan (01/09/2023 4:05 PM BODY FINISHER): On metformin at home and Lantus 10 units nightly. Sugars thus far have been appropriate without acute need for insulin while NPO. Will restart once patient starting PO challenged after procedure. - Monitor BG and add SSI if needed Assessment & Plan (01/07/2023 8:55 PM BODY FINISHER): On metformin at home and Lantus Will hold onto insulin at this time as NPO Monitor BG and add SSI if needed History of pulmonary embolism 01/07/2023 Assessment & Plan (01/09/2023 4:08 PM BODY FINISHER): H/o PE in 2021, when she was on Eliquis for 5-6 months, on no AC for past 6 months. Monitor vitals, not a candidate for AC at this time due to GI bleeding Assessment & Plan (01/07/2023 8:56 PM BODY FINISHER): H/o PE in 2021, when she was on Eliquis for 5-6 months, on no AC for past 6 months. Monitor vitals GERD (gastroesophageal reflux disease) Assessment & Plan (01/13/2023 3:23 PM BODY FINISHER): - Patient will discharge on omeprazole BID. 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 [...] Gi. Assessment & Plan (01/07/2023 8:53 PM BODY FINISHER): Adenomatous duodenal polyp EGD 01/[address] [...] (04/24/2022): Added automatically from request for surgery [id number] Social History Tobacco Use Types Packs/Day Years [...] on file Legal Sex Female 12:42 AM BODY FINISHER Gender Identity Not on file Sexual Orientation Not on file Last Filed Vital Signs Vital Sign Reading Time Taken Comments Blood Pressure 132/77 10/14/2024 2:00 PM BODY FINISHER Pulse 62 10/14/2024 2:00 PM BODY FINISHER Temperature 35.9 C (96.6 F) 10/14/2024 12:35 PM BODY FINISHER Respiratory Rate 15 10/14/2024 2:00 PM BODY FINISHER Oxygen Saturation 91% 10/14/2024 2:00 PM BODY FINISHER Inhaled Oxygen Concentration - - Weight 95.3 kg (210 lb) 10/14/2024 12:35 PM BODY FINISHER Height 165.1 cm (5' 5 ) 10/14/2024 12:35 PM BODY FINISHER Body Mass Index 34.95 10/14/2024 12:35 PM BODY FINISHER Plan of Treatment Not on file Medical Devices Implanted Type Area Faculty Dean Device Identifier Shelf Expiration Date Model / Serial / Lot Conmed Jaquelin Conmed 11mm Duraclip [id number] - [id number] Implanted:Qty: 1 on 01/09/2023 by Aidan Guadalupe MD at [facility] Left: Duodenum Conmed Jaquelin 08/30/2024 [id number] / / [id number] Conmed Jaquelin Conmed 11mm Duraclip [id number] - [id number] Implanted:Qty: 1 on 01/09/2023 by Aidan Guadalupe MD at [facility] Left: Duodenum Conmed Jaquelin 08/30/2024 [id number] / / [id number] Conmed Jaquelin Conmed 16mm Duraclip [id number] - [id number] Implanted:Qty: 1 on 01/09/2023 by Aidan Guadalupe MD at [facility] Left: Duodenum Conmed Jaquelin 01/17/2025 [id number] / / [id number] Procedures Procedure Name Priority Date/Time Associated Diagnosis Comments EGFR Routine 01/12/2023 10:35 PM BODY FINISHER from Last 3 Months or Most Recently Relevant to Health Maintenance Results * (ABNORMAL) eGFR (01/12/2023 10:35 PM BODY FINISHER) eGFR 40(L) 90 - 130 mL/min/1. 73 [...] reviewed 2021. Blood 01/12/2023 10:3 5 PM BODY FINISHER 01/12/2023 11:23 PM BODY FINISHER us Luke Britton MD LAB BLOOD ORDERABLES Final Resu lt JESSY TOM [facility] [place] [address] from Last 3 Months or Most Recently Relevant to Health Maintenance Insurance [place] [employer] [place] [employer] [employer] Advance Directives For more information, please contact: [phone] * Full Code (Latest Code Status on [...] 9:30 AM 06/24/2022 2:53 PM Care Teams Dragline Operator Helper Relationship Specialty Start Date End Date Scooby Guillermo MD PCP - General Internal Medicine 07/19/24 [place] [address] [facility] [address] [place] [address] Consulting Physician Nephrology 07/28/24
--- OUTSIDE RECORDS SUMMARY | 2025-03-04 11:29 | XMS_ITS | Clinical Summary ---
Author Organization [facility] Address [address] [place] [address] Care Team Providers Care Community Development Manager Name Role Phone Scooby Guillermo MD Primary Care Provider [phone] Source Comments [facility],non-owned Affiliates and Associated Physician Practices is amultiple site organization consisting of ambulatory clinics and hospital sitesin [place], [place], [place] and [place]. This disclosure is being madepursuant to the Care Everywhere program and may not contain all information available regarding this patient. Last updated 18.[facility] Allergies Active Allergy Reactions Criticality Noted Date [...] Active vitamin D, ergocalciferol, (Drisdol) 1.25 MG (81024 UT) capsule Take 1 (one) capsule by [...] Recorded Patient Health Questionnaire-2 Score 0 04/26/2024 [facility] [place] of Occupat ional Health - Occupational Stress [...] place to sleep or slept in a [facility]p (including now)? No 04/21/2024 Comments Unknown Sex [...] to [place] [address] MEDICARE AETNA AETNA MEDICARE ADV Advance Directives * Full Code (Latest Code Status on File) Date Activated Date Inactivated Comments 04/21/2024 11:18 PM 04/27/2024 6:01 PM * Full Code Date Activated Date Inactivated Comments 04/21/2024 11:17 PM 04/21/2024 11:18 PM Care Teams Community Development Manager Relationship Specialty Start Date End Date Scooby Guillermo MD [address] [place] [address] PCP - General Internal Medicine 04/23/24
--- OUTSIDE RECORDS SUMMARY | 2025-03-04 11:29 | XMS_ITS | Patient Health Record ---
Author Organization [facility] Address [address] [facility] [address] [place] [address] Care Team Providers Care Director Private Name Role Phone Bacilio Francisco Unavailable [phone] REASON FOR REFERRAL No Information PROBLEMS Problem Type ICD Code Onset Dates Problem Status W/U Status Risk SNOMED Code Notes Problem Essential (primary) hypertension (I10) Active confirmed Essential hypertension (16881400) Problem Renal osteodystrophy (N25.0) Active confirmed Renal osteodystrophy (16803539) Problem Chronic kidney disease, stage 3 unspecified (N18.30) Active confirmed Chronic kidney disease stage 3 (disorder) (925618659) Encounters Encounter Location Date Provider Diagnosis [facility] [address] [place] [address] 09/03/2024 Bacilio Francisco Chronic kidney disea se, stage 3 unspecified N18.30 ; Essential (primary) hypertension I10 and Renal osteodystrophy N25.0 [facility] [address] [place] [address] 10/29/2024 Bacilio Francisco ASSESSMENTS Encounter Date Diagnosis Assessment Notes Treatment Notes Treatment Clinical Notes Section Notes 09/03/2024 Essential (primary) hypertension (ICD-10 - I10) 09/03/2024 Chronic kidney disease, stage 3 unspecified (ICD-10 - N18.30) 09/03/2024 Renal osteodystrophy (ICD-10 - N25.0) PLAN OF TREATMENT No Information
--- OUTSIDE RECORDS SUMMARY | 2025-03-04 11:29 | XMS_ITS | Continuity of Care Document ---
Author Organization [facility] Address [address] [place] [address] [place] [address] Phone Care Team Providers Care Director Informatics Name Role Phone Fermin Gonzalez MD Unavailable Unavailable Advance Directives Directive Yes / No Effective Date File Name No Information Encounters Encounter Description Practice Location Reason(s) For Visit Diagnoses Date Provider Providers Copied on Encounter [facility], [address], [place], [place], [id number], [place] tel:[phone] [facility] No Information 0 3-200 3 Lisa Christensen. [address] [facility] [place], [place], [address], [place]. tel:[phone] Referring Provider: Esme Bernal MD, [address], [place], [address]. tel:[phone] Family History Family Member Type Diagnosis Age [...]
--- OUTSIDE RECORDS SUMMARY | 2025-03-04 11:30 | XMS_ITS ---
Author Organization [facility] Address [address] [place] [address] Care Team Providers Care Skin Care Specialist Name Role Phone Bacilio Francisco Unavailable [phone] Encounters Encounter Location Date Provider Diagnosis [facility] [address] [facility] [address] [place] [address] 10/29/2024 Bacilio Francisco PLAN OF TREATMENT No Information Progress Notes * MONTY YOODOB: 1950 (74 yo F)Acc No.[id number]:10/29/2024 Progress Notes Patient: MONTY YOO Provider: MD OKSANA, Sabrina.Lizz.C.P, F.A.S.N. :1950 Age:74 Y Sex:Female Date:10/29/2024 Address:[address] [place] [address] [address] [facility] Subjective: * Chief Complaints: * * Medical History: Objective: Assessment: Plan: * Treatment: * Billing Information: * Visit Code: * Procedure Codes: * Sign off status: Pending * Provider: MD OKSANA, Sabrina.Lizz.C.P, F.A.S.N. Date: 10/29/2024
--- OUTSIDE RECORDS SUMMARY | 2025-03-04 11:30 | XMS_ITS ---
Author Organization [facility] Address [address] [facility] [address] [place] [address] Care Team Providers Care Multi Skilled Operator Name Role Phone Bacilio Francisco Unavailable [phone] Encounters Encounter Location Date Provider Diagnosis [facility] [address] [facility] [address] [place] [address] 08/25/2024 Bacilio Francisco PLAN OF TREATMENT No Information Progress Notes * Juanito AUSTINDOB: [birth year] (74 yo F)Acc No.[id number]:08/25/2024 Progress Notes Patient: Juanito [place] Provider: MD OKSANA, Sabrina.Lizz.C.P, F.A.S.N. :1950 Age:74 Y Sex:Female Date:08/25/2024 Address:[address] [place], [place] [id number] Subjective: * Chief Complaints: * * Medical History: Objective: Assessment: Plan: * Treatment: * Billing Information: * Visit Code: * Procedure Codes: * Sign off status: Pending * Provider: MD OKSANA, Sabrina.Lizz.C.P, F.A.S.N. Date: 08/25/2024
[2025-03-04 11:37] LABS: Creatinine Urine 56.87 mg/dL (40-278); MALB Creatinine Ratio 22.8 mg/g (0-30); Microalbumin Urine Random < 13.0 mg/L
== END 2025-03-04 11:09 | disposition home or self-care (01) ==
LOC: CHSLAB 11:10
PROVIDERS: PCP Internal Medicine; Visit Provider Internal Medicine
DX: I10 Essential (primary) hypertension (principal); E11.69 Type 2 diabetes mellitus with other specified complication; E03.9 Hypothyroidism, unspecified
CPT/HCPCS: 81003; 82043

== ENCOUNTER 2025-07-12 20:59 | Emergency (ER) | payer MEDICARE, SELFPAY ==
--- OUTSIDE RECORDS SUMMARY | 2003-04-12 09:30 | XMS_ITS | Continuity of Care Document ---
Author Organization [facility] Address [address] [place] [address] [place] [address] Phone Care Team Providers Care Header Operator Name Role Phone Fermin Gonzalez MD Unavailable Unavailable Advance Directives Directive Yes / No Effective Date File Name No Information Encounters Encounter Description Practice Location Reason(s) For Visit Diagnoses Date Provider Providers Copied on Encounter [facility], [address], [place], [place], [id number], [place] tel:[phone] [facility] No Information Jake-0 3-200 3 Lisa Christensen. [address] [facility] [place], [place], [id number], [place]. tel:[phone] Referring Provider: Esme Bernal MD, [address], [place], [address]. tel:[phone] Family History Family Member Type Diagnosis Age At Onset No Information Payers Payer name Insurance type Covered constitution party ID Authoriza tion(s) No Information Social History Type Description Quantity Date Captured Comments Sex Female Smoking Status No Information Chief Complaint And Reason For Visit No Information Reason For Referral Reason For Referral No Information History Of Present Illness Encounter Date Complaint History Of Prese nt Illness No Information Functional Status Date Functional Assessmen t No Information Instructions Date Instruction Additional Infor mation No Information Assessments Type Assessment Date No Information Patient Care Teams Name Effective Dates (start - stop) Status Members No Information
--- OUTSIDE RECORDS SUMMARY | 2003-04-12 09:30 | XMS_ITS | Continuity of Care Document ---
Author Organization [facility] Address [address] [place] [address] [place] [address] Phone Care Team Providers Care Concrete Hopper Operator Name Role Phone Fermin Gonzalez MD Unavailable Unavailable Advance Directives Directive Yes / No Effective Date File Name No Information Encounters Encounter Description Practice Location Reason(s) For Visit Diagnoses Date Provider Providers Copied on Encounter [facility], [address], [place], [place], [id number], [place] tel:[phone] [facility] No Information Jake-0 3-200 3 Lisa Christensen. [address] [facility] [place], [id number], [place]. tel:[phone] Referring Provider: Esme Bernal MD, [address], [place], [address]. tel:[phone] Family History Family Member Type Diagnosis Age At Onset No Information Payers Payer name Insurance type Covered democrat ID Authoriza tion(s) No Information Social History [...]
--- OUTSIDE RECORDS SUMMARY | 2024-02-27 08:15 | XMS_ITS ---
Author Organization [facility] Office Address [address] [facility] [address] [facility] [place] [address] Care Team Providers Care Golf Course Manager Name Role Phone Bacilio Francisco Unavailable [phone] Medications Medication SIG (Take, Route, Frequency, Duration) Notes Start Date End Date Status Calcitriol 0.25 MCG 1 capsule Orally bailey ry other day; Duration: 90 02/28/2023 Active Allopurinol 100 MG 1 tablet Orally Once a day; Duration: 90 day(s) 02/28/2023 08/16/2024 Active Losartan Potassium 100 MG 1 tablet Orall y Once a day; Duration: 90 11/20/2023 Active Ergocalciferol 1.25 MG (80870 UT) 1 capsule Orally Once a week; Duration: 90 day(s) 02/28/2023 09/24/2024 Active Encounters Encounter Location Date Provider Diagnosis [place] [facility] [address] [facility] [address] [place] [address] 02/27/2024 Bacilio Francisco Chronic kidney disease, stage [...] * Juanito YOODOB: [birth year] (75 yo F)Acc No.[id number]:02/27/2024 Progress Notes Patient: Juanito DORSEY Provider: Abel CHAWLA MD, Sabrina.Lizz.Apolonia.P, F.A.S.N. :1950 A ge:73 Y S ex:Female Date:02/27/2024 Address:[address] [place], [place] [id number] Subjective: * Chief Complaints: * * Medical History: * Medications: T aking Calcitriol 0.25 MCG Capsule 1 capsule Orally every other day , Taking Allopurinol 100 MG Tablet 1 tablet Orally Once a day , stop date 08/16/2024, Taking Losartan Potassium 100 MG Tablet 1 tablet Orally Once a day , Taking Ergocalciferol 1.25 MG (12602 UT) Capsule 1 capsule Orally Once a [...] Treatment: * Billing Information: * Visit Code: 34815 Office Visit, Est Pt., Level 4. * Procedure Codes: * Electronic signature of Jesse Francisco MD on 07/12/2025 at 09:02 PM CDT Sign off status: Pending * Provider: Abel CHAWLA MD, Sabrina.[email or web address].P, F.A.S.N. Date: 0 02/27/2024 Generated for Printing/Faxing/eTransmitting on: 0 07/12/2025 09:02 PM CDT
--- OUTSIDE RECORDS SUMMARY | 2024-05-12 09:00 | XMS_ITS ---
Author Organization [facility] Office Address [address] [address] [place] [address] Care Team Providers Care Inspector Toys Name Role Phone Nolan Bacilio Unavailable [phone] Medications Medication SIG (Take, Route, Frequency, Duration) Notes Start Date End Date Status Farxiga 10 MG 1 tablet Orally Once a day; Duration: 90 03/10/2024 12/04/2024 Active Ergocalciferol 1.25 MG (32930 UT) 1 capsule Orally Once a week; Duration: 90 day(s) 02/28/2023 09/24/2024 Active Losartan Potassium 100 MG 1 tablet Orall y Once a day; Duration: 90 11/20/2023 Active Allopurinol 100 MG 1 tablet Orally Once a day; Duration: 90 day(s) 02/28/2023 08/16/2024 Active Calcitriol 0.25 MCG 1 capsule Orally bailey ry other day; Duration: 02/28/2023 Active Encounters Encounter Location Date Provider Diagnosis [place] [facility] [address] [facility] [address] [place] [address] 05/12/2024 Bacilio Francisco Chronic kidney disease, stage [...] * Juanito YOODOB: [birth year] (75 yo F)Acc No.[id number]:05/12/2024 Progress Notes Patient: Juanito DORSEY Provider: Abel CHAWLA MD, F.A.C.P, F.A.S.N. :1950 A ge:73 Y S ex:Female Date:05/12/2024 Address:[address] [place] [address] Subjective: * Chief Complaints: * * Medical History: * Medications: T aking Calcitriol 0.25 MCG Capsule 1 capsule Orally every other day , Taking Allopurinol 100 MG Tablet 1 tablet Orally Once a day , stop date 08/16/2024, Taking Losartan Potassium 100 MG Tablet 1 tablet Orally Once a day , Taking Ergocalciferol 1.25 MG (27223 UT) Capsule 1 capsule Orally Once a [...] Treatment: * Billing Information: * Visit Code: 31833 Office Visit, Est Pt., Level 4. * Procedure Codes: * Electronic signature of Jesse Francisco MD on 07/12/2025 at 09:03 PM CDT Sign off status: Pending * Provider: Abel CHAWLA MD, F.A.C.P, F.A.S.N. Date: 0 05/12/2024 Generated for Printing/Faxing/eTransmitting on: 0 07/12/2025 09:03 PM CDT
--- OUTSIDE RECORDS SUMMARY | 2024-06-23 09:45 | XMS_ITS ---
Author Organization [facility] Address [address] [address] [place] [address] Care Team Providers Care Text Transcriber Name Role Phone Bacilio Francisco Unavailable [phone] Medications Medication SIG (Take, Route, Frequency, Duration) Notes Start Date End Date Status Allopurinol 100 MG 1 tablet Orally Once a day; Duration: 90 day(s) 02/28/2023 08/16/2024 Active Losartan Potassium 100 MG 1 tablet Orall y Once a day; Duration: 90 11/20/2023 Active Calcitriol 0.25 MCG 1 capsule Orally bailey ry other day; Duration: 90 02/28/2023 Active Ergocalciferol 1.25 MG (00147 UT) 1 capsule Orally Once a week; Duration: 90 day(s) 02/28/2023 09/24/2024 Active Farxiga 10 MG 1 tablet Orally Once a day; Duration: 90 03/10/2024 12/04/2024 Active Problems Problem Type SNOMED Code ICD Code Onset Dates Problem Status W/U Status Risk Notes Problem Chronic kidney disease stage 3 (disorder) (622503923) Chronic kidney disease, stage 3 unspecified (N18.30) Active confirmed Problem Renal osteodystrophy (73512963) Renal osteodystrophy (N25.0) Active confirmed Encounters Encounter Location Date Provider Diagnosis [place] [facility] 2043 [facility] [address] [place] [address] 06/23/2024 Bacilio Francisco Chronic kidney disea se, [...] * FREDO JuanitoDOB: [birth year] (75 yo F)Acc No.[id number]:06/23/2024 Progress Notes Patient: Eddy DORSEYigor Provider: Abel CHAWLA MD, F.A.C.P, F.A.S.N. :1950 A ge:74 Y S ex:Female Date:06/23/2024 Address:[address] [place], [place] [id number] Subjective: * Chief Complaints: * * Medical History: * Medications: T aking Calcitriol 0.25 MCG Capsule 1 capsule Orally every other day , Taking Allopurinol 100 MG Tablet 1 tablet Orally Once a day , stop date 08/16/2024, Taking Losartan Potassium 100 MG Tablet 1 tablet Orally Once a day , Taking Ergocalciferol 1.25 MG (22993 UT) Capsule 1 capsule Orally Once a [...] Treatment: * Billing Information: * Visit Code: 20071 Office Visit, Est Pt., Level 4. * Procedure Codes: * Electronic signature of Jesse Francisco MD on 07/12/2025 at 09:02 PM CDT Sign off status: Pending * Provider: Abel CHAWLA MD, F.A.C.P, F.A.S.N. Date: 06/23/2024 Generated for Printing/Faxing/eTransmitting on: 07/12/2025 09:02 PM CDT
--- OUTSIDE RECORDS SUMMARY | 2024-08-25 10:30 | XMS_ITS ---
Author Organization [facility] Address 1400 [facility] 61 [address] [place] [address] Care Team Providers Care Senior Hr Manager Name Role Phone Bacilio Francisco Unavailable [phone] Encounters Encounter Location Date Provider Diagnosis [place] [facility] 2043 [facility] 15 [place] [address] 08/25/2024 Bacilio Francisco Plan Of Treatment No Information Progress Notes * Juanito YOODOB: [birth year] (75 yo F)Acc No.[id number]:08/25/2024 Progress Notes Patient: Juanito DORSEY Provider: Abel CHAWLA MD, Sabrina.Lizz.C.P, F.A.S.N. :1950 A ge:74 Y S ex:Female Date:08/25/2024 Address:[address] [place], [place] [id number] Subjective: * Chief Complaints: * * Medical History: Objective: * Vitals: Assessment: Plan: * Treatment: * Billing Information: * Visit Code: * Procedure Codes: * Electronic signature of Jesse Francisco MD on 07/12/2025 at 09:03 PM CDT Sign off status: Pending * Provider: Abel CHAWLA MD, F.Lizz.C.P, F.A.S.N. Date: Generated for Printing/Faxing/eTransmitting on: 07/12/2025 09:03 PM CDT
--- OUTSIDE RECORDS SUMMARY | 2024-09-01 08:45 | XMS_ITS ---
Author Organization [facility] Address 1400 [facility] 61 [address] [place] [address] Care Team Providers Care Calculus Professor Name Role Phone Bacilio Francisco Unavailable [phone] Encounters Encounter Location Date Provider Diagnosis [place] [facility] 2043 [facility] 15 [place] [address] 09/01/2024 Bacilio Francisco Plan Of Treatment No Information Progress Notes * Juanito YOODOB: [birth year] (75 yo F)Acc No.[id number]:09/01/2024 Progress Notes Patient: Juanito DORSEY Provider: Abel CAHWLA MD, Sabrina.Lizz.C.P, F.A.S.N. :1950 A ge:74 Y S ex:Female Date:09/01/2024 Address:[address] [place], [place] [address] Subjective: * Chief Complaints: * * Medical History: Objective: * Vitals: Assessment: Plan: * Treatment: * Billing Information: * Visit Code: * Procedure Codes: * Electronic signature of Jesse Francisco MD on 07/12/2025 at 09:02 PM CDT Sign off status: Pending * Provider: Abel CHAWLA MD, F.Lizz.C.P, F.A.S.N. Date: Generated for Printing/Faxing/eTransmitting on: 07/12/2025 09:02 PM CDT
--- OUTSIDE RECORDS SUMMARY | 2024-09-03 08:45 | XMS_ITS ---
Author Organization [facility] Address [address] [place] [address] Care Team Providers Care Salt Refiner Name Role Phone Bacilio Francisco Unavailable [phone] Problems Problem Type SNOMED Code ICD Code Onset Dates Problem Status W/U Status Risk Notes Problem Chronic kidney disease stage 3 (disorder) (170797695) Chronic kidney disease, stage 3 unspecified (N18.30) Active confirmed Problem Essential hypertension (30385644) Essential (primary) hypertension (I10) Active confirmed Problem Renal osteodystrophy (16850129) Renal osteodystrophy (N25.0) Active confirmed Encounters Encounter Location Date Provider Diagnosis [place] [facility] 2043 [facility] 15 [place] [address] 09/03/2024 Bacilio Francisco Chronic kidney disea se, [...] MONTY YOO MARLADOB: 1950 (75 yo F)Acc No.[id number]:09/03/2024 Progress Notes Patient: MONTY DORSEY Provider: Abel CHAWLA MD, F.A.C.P, F.A.S.N. :1950 A ge:74 Y S ex:Female Date:09/03/2024 Address:[facility] [address] [place], [place] Subjective: * Chief Complaints: * * Medical History: Objective: * Vitals: Assessment: * Assessment: 1. C hronic kidney disease, stage 3 unspecified - N18.30 (Primary) 2 . E ssential (primary) hypertension - I10 3 . R enal osteodystrophy - N25.0 Plan: * Treatment: * Billing Information: * Visit Code: 62849 Office Visit, Est Pt., Level 4. * Procedure Codes: * Electronic signature of Jesse Francisco MD on 07/12/2025 at 09:02 PM CDT Sign off status: Pending * Provider: Abel CHAWLA MD, F.A.C.P, F.A.S.N. Date: Generated for Printing/Faxing/eTransmitting on: 0 07/12/2025 09:02 PM CDT
--- OUTSIDE RECORDS SUMMARY | 2024-10-29 09:15 | XMS_ITS ---
Author Organization [facility] Address 1400 [facility] [address] [place] [address] Care Team Providers Care Tax Processor Name Role Phone Bacilio Francisco Unavailable [phone] Encounters Encounter Location Date Provider Diagnosis [place] [facility] 2043 [facility] 15 [place] [address] 10/29/2024 Bacilio Francisco Plan Of Treatment No Information Progress Notes * MONTY YOODOB: 1950 (75 yo F)Acc No.[id number]:10/29/2024 Progress Notes Patient: MONTY DORSEY Provider: Abel CHAWLA MD, Sabrina.Lizz.C.P, F.A.S.N. :1950 A ge:74 Y S ex:Female Date:10/29/2024 Address:[address] [place] [address] [address] [facility] Subjective: * Chief Complaints: * * Medical History: Objective: * Vitals: Assessment: Plan: * Treatment: * Billing Information: * Visit Code: * Procedure Codes: * Electronic signature of Jesse Francisco MD on 07/12/2025 at 09:03 PM CDT Sign off status: Pending * Provider: Abel CHAWLA MD, Sabrina.Lizz.C.P, F.A.S.N. Date: 12/30/2023 Generated for Printing/Faxing/eTransmitting on: 07/12/2025 09:03 PM CDT
[2025-07-12] VITALS (27 sets, daily range): BP systolic 135–159; BP diastolic 66–87; PULSE 66–92; RESP 13–27; TEMP 36.2; O2SAT 91–98
--- NOTE | ~2025-07-12 | CT_ITS ---
EXAMINATION: CT BRAIN W/O DATE: 07/12/2025 21:50 INDICATION: Dizziness TECHNIQUE: Computed tomography (CT) of the head was performed without intravenous contrast. The dose-length product was 681.00 mGy-cm. Automated exposure control and iterative reconstruction technique were employed. COMPARISON: No prior studies for comparison. FINDINGS: Normal brain parenchymal volume for age. Normal garcia-white differentiation. No acute intracranial hemorrhage, infarction, mass or mass effect. No ventriculomegaly or midline shift. Midline sagittal images demonstrate a normal corpus callosum, craniovertebral junction and sella turcica. Basilar cisterns are patent. Paranasal sinuses are pneumatized without significant mucosal thickening. Small left mastoid effusion. No depressed skull fractures. IMPRESSION: 1. No acute intracranial abnormality. Reviewed, dictated and finalized at location O.
--- NOTE | ~2025-07-12 | XR_ITS ---
EXAMINATION: XR chest 1V portable 07/12/2025 21:50 INDICATION: Dizziness PROCEDURE: AP portable chest COMPARISON: Comparison to multiple prior studies sequentially, with oldest reviewed study dated 03/05/2024. FINDINGS: The lungs are clear. The cardiomediastinal silhouette is within normal limits. There are no pleural effusions. There is no pneumothorax suspected. IMPRESSION: 1: NO ACUTE CARDIOPULMONARY DISEASE. Reviewed, dictated and finalized at location O.
--- OUTSIDE RECORDS SUMMARY | 2025-07-12 21:02 | XMS_ITS | Encounter Summary ---
Author Organization [facility] Address [address] [place] [address] Phone Care Team Providers Care Electrical Project Engineer Name Role Phone Scooby Guillermo MD Primary Care Provider Esme Adler NP Primary Care Provider + Unknown, Notinfile Primary Care Provider Unavail able Scooby Guillermo MD Primary Care Provider Bacilio Francisco MD Unavailable [phone] Encounter Details Date Type Department Care Team (Late st Contact Info) Description 01/30/2022 Orders Only [facility] Scanning, Provider Social History Tobacco Use Types Packs/Day Years Used Date Smoking Tobacco: Never Assessed Comments Unknown Sex and Gender Information Value Date Recorded Sex Assigned at Not on file Legal 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
--- OUTSIDE RECORDS SUMMARY | 2025-07-12 21:02 | XMS_ITS | Encounter Summary ---
Author Organization [facility] Address [address] [place] [address] Phone Care Team Providers Care Cryptological Technician Name Role Phone Scooby Guillermo MD Primary Care Provider [phone] Esme Adler NP Primary Care Provider + Unknown, Notinfile Primary Care Provider Unavail able Scooby Guillermo MD Primary Care Provider [phone] Bacilio Francisco MD Unavailable Encounter Details Date Type Department Care Team (Late st Contact Info) Description 02/01/2022 Orders Only [facility] Scanning, Provider Social History Tobacco Use Types Packs/Day Years Used Date Smoking Tobacco: Never Assessed Comments Unknown Sex and Gender Information Value Date Recorded Sex Assigned at Not on file 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
--- OUTSIDE RECORDS SUMMARY | 2025-07-12 21:02 | XMS_ITS | Encounter Summary ---
Author Organization [facility] Address [address] [place] [address] Phone Care Team Providers Care Medicinal Plant Picker Name Role Phone Scooby Guillermo MD Primary Care Provider [phone] Esme Adler NP Primary Care Provider + Unknown, Notinfile Primary Care Provider Unavail able Scooby Guillermo MD Primary Care Provider [phone] Bacilio Francisco MD Unavailable [phone] Encounter Details Date Type Department Care Team (Late st Contact Info) Description 03/15/2022 Orders Only [facility] Scanning, Provider Social History Tobacco Use Types Packs/Day Years Used Date Smoking Tobacco: Never Assessed Comments Unknown Sex and Gender Information Value Date Recorded Sex Assigned at Not on file Legal Sex Female 12:42 AM ED MANAGER Gender Identity Not on file Sexual Orientation [...] documented as of this encounter Care Teams Medicinal Plant Picker Relationship Specialty Start Date End Date Scooby Guillermo MD PCP - General 03/31/08 04/01/22 Esme Adler NP PCP - General Nurse Practitioner 04/02/22 07/09/23 Unknown, Notinfile PCP - General 07/10/23 07/18/24 Scooby Guillermo MD PCP - General Internal Medicine 07/19/24 [place] [address] [address] Consulting Physician Nephrology 07/28/24 documented as of this encounter
--- OUTSIDE RECORDS SUMMARY | 2025-07-12 21:02 | XMS_ITS | Clinical Summary ---
Author Organization [facility] Address [address] [place] [address] Care Team Providers Care Developmental Mathematics Professor Name Role Phone Scooby Guillermo MD Primary Care Provider [phone] Source Comments [facility],non-owned Affiliates and Associated Physician Practices is amultiple site organization consisting of ambulatory clinics and hospital sitesin [place], [place], [place] and [place]. This disclosure is being madepursuant to the Care Everywhere program and may not contain all information available regarding this patient. Last updated 18.[facility] Allergies Active Allergy Reactions Criticality Noted Date [...] Active vitamin D, ergocalciferol, (Drisdol) 1.25 MG (71785 UT) capsule Take 1 (one) capsule by [...] Recorded Patient Health Questionnaire-2 Score 0 04/26/2024 [facility] [place] of Occupat ional Health - Occupational Stress [...] 1:26 PM CDT Height 165.1 cm (5' 5) 06/08/2024 1:26 PM CDT Body Mass Index [...] 2000 ZOSTER VACCINE (1 of 2) 2000 COLOGUARD (AGES 45-75) - COL ON CA SCREENING 03/10/2022 03/10/2019 Colorectal Cancer Screening 03/10/2022 COVID-19 VACCINE (2 - 2023-2 5 season) 2024 09/27/2021 DEPRESSION SCREENING 11/10/2024 04/21/2024 MEDICARE AWV CALENDAR YEAR 2024 Respiratory Syncytial Virus (RSV) Vaccine Pt: or over 60 yrs (1 - 1-dose 75+ series) 2025 INFLUENZA VACCINE (#1) 2025 10/01/2021 HEPATITIS B VACCINE Aged Out No longe [...] [place] [address] MEDICARE AETNA AETNA MEDICARE ADV Advance Directives * Full Code (Latest Code Status on File) Date Activated Date Inactivated Comments 04/21/2024 11:18 PM 04/27/2024 6:01 PM * Full Code Date Activated Date Inactivated Comments 04/21/2024 11:17 PM 04/21/2024 11:18 PM Care Teams Developmental Mathematics Professor Relationship Specialty Start Date End Date Scooby Guillermo MD [address] [place] [address] PCP - General Internal Medicine 04/23/24
--- OUTSIDE RECORDS SUMMARY | 2025-07-12 21:03 | XMS_ITS | Patient Health Record ---
Author Organization [facility] Address [address] [place] [address] Care Team Providers Care Tube Sorter Name Role Phone Bacilio Francisco Unavailable [phone] Reason For Referral No Information Medications Medication SIG (Take, Route, Frequency, Duration) Notes Start Date End Date Status Losartan Potassium 100 MG 1 tablet Orall y Once a day; Duration: 11/20/2023 Active Calcitriol 0.25 MCG 1 capsule Orally bailey ry other day; Duration: 02/28/2023 Active Problems Problem Type SNOMED Code ICD Code Onset Dates Problem Status W/U Status Risk Notes Problem Anemia (348251808) Anemia, unspecified (D64.9) Active confirmed Problem Hyperglycemia due to type 2 diabetes mellitus (087106966840379) Type 2 diabetes mellitus with hyperglycemia (E11.65) Active confirmed Problem Anxiety disorder (748896256) Anxiety disorder, unspecified (F41.9) Active confirmed Problem Essential hypertension (73556742) Essential (primary) hypertension (I10) Active confirmed Problem Gastro-esophageal reflux disease without esophagitis (008877736) Gastro-esophageal reflux disease without esophagitis (K21.9) Active confirmed Problem Renal osteodystrophy (72993166) Renal osteodystrophy (N25.0) Active confirmed Problem Gastroesophageal reflux disease with esophagitis (disorder) (032103299) Gastro-esophageal reflux disease with esophagitis, without bleeding (K21.00) Active confirmed Problem Chronic kidney disease stage 3 (disorder) (261669338) Chronic kidney disease, stage 3 unspecified (N18.30) Active confirmed Problem Chronic kidney disease stage 3B (disorder) (672379960) Chronic kidney disease, stage 3b (N18.32) Active confirmed Plan Of Treatment No Information
--- OUTSIDE RECORDS SUMMARY | 2025-07-12 21:03 | XMS_ITS | Patient Health Record ---
Author Organization [facility] Address [address] [place] [address] Care Team Providers Care Computer Technology Instructor Name Role Phone Bacilio Francisco Unavailable [phone] Reason For Referral No Information Problems Problem Type SNOMED Code ICD Code Onset Dates Problem Status W/U Status Risk Notes Problem Essential hypertension (75323186) Essential (primary) hypertension (I10) Active confirmed Problem Renal osteodystrophy (31476471) Renal osteodystrophy (N25.0) Active confirmed Problem Chronic kidney disease stage 3 (disorder) (604307307) Chronic kidney disease, stage 3 unspecified (N18.30) Active confirmed Encounters Encounter Location Date Provider Diagnosis [place] [facility] [address] [facility] [address] [place] [address] 09/03/2024 Bacilio Francisco Chronic kidney disea se, stage 3 unspecified N18.30 ; Essential (primary) hypertension I10 and Renal osteodystrophy N25.0 Assessments Encounter Date Diagnosis (ICD Code) Assessment Notes Treatment Notes Treatment Clinical Notes Section Notes 09/03/2024 Essential (primary) hypertension (ICD-10 - I10) 09/03/2024 Chronic kidney disease, stage 3 unspecified (ICD-10 - N18.30) 09/03/2024 Renal osteodystrophy (ICD-10 - N25.0) Plan Of Treatment No Information
--- OUTSIDE RECORDS SUMMARY | 2025-07-12 21:03 | XMS_ITS | Clinical Summary ---
Author Organization [facility] Address [address] [place] [address] Care Team Providers Care Architectural Inspector Name Role Phone Scooby Guillermo MD Primary Care Provider [phone] Bacilio Francisco MD Unavailable [phone] Allergies Active Allergy Reactions Criticality Noted [...] 01/08/2023 Assessment & Plan (01/13/2023 3:24 PM IT CONSULTING MANAGER): H/H drop after duodenal mass excision/EGD 01/07 - Monitor H/H closely as patient with melenic stools. - Monitor VS - pRBC transfusion if Hgb<7 - Per GI: advance diet as tolerated. Currently on a regular diet. - Patient to discharge on home OMEPRAZOLE BID. 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 HTN (hypertension) 01/07/2023 Assessment & Plan (01/13/2023 3:22 PM IT CONSULTING MANAGER): - Hold antihypertensive meds while bleeding and BP soft. Should be restarted by PCP. Assessment & Plan (01/07/2023 8:53 PM IT CONSULTING MANAGER): Continue on Maxzide Monitor vitals HLD (hyperlipidemia) 01/07/2023 Assessment & Plan (01/08/2023 12:44 PM IT CONSULTING MANAGER): Continue on statins Assessment & Plan (01/07/2023 8:54 PM IT CONSULTING MANAGER): Continue on statins T2DM (type 2 diabetes mellitus) 01/07/2023 Assessment & Plan (01/09/2023 4:05 PM IT CONSULTING MANAGER): On metformin at home and Lantus 10 units nightly. Sugars thus far have been appropriate without acute need for insulin while NPO. Will restart once patient starting PO challenged after procedure. - Monitor BG and add SSI if needed Assessment & Plan (01/07/2023 8:55 PM IT CONSULTING MANAGER): On metformin at home and Lantus Will hold onto insulin at this time as NPO Monitor BG and add SSI if needed History of pulmonary embolism 01/07/2023 Assessment & Plan (01/09/2023 4:08 PM IT CONSULTING MANAGER): H/o PE in 2021, when she was on Eliquis for 5-6 months, on no AC for past 6 months. Monitor vitals, not a candidate for AC at this time due to GI bleeding Assessment & Plan (01/07/2023 8:56 PM IT CONSULTING MANAGER): H/o PE in 2021, when she was on Eliquis for 5-6 months, on no AC for past 6 months. Monitor vitals GERD (gastroesophageal reflux disease) Assessment & Plan (01/13/2023 3:23 PM IT CONSULTING MANAGER): - Patient will discharge on omeprazole BID. 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 [...] Gi. Assessment & Plan (01/07/2023 8:53 PM IT CONSULTING MANAGER): Adenomatous duodenal polyp EGD 01/[address] [...] (04/24/2022): Added automatically from request for surgery [id number] Surgical History Surgery Date Site/Laterality Comments KNEE SURGERY TONSILLECTOMY PARTIAL HYSTERECTOMY 11/10/1979 - 11/09/1980 CHOLECYSTECTOMY UPPER GASTROINTESTINAL ENDOSCOPY Medical History Medical History Date Comments Hypertension Type 2 diabetes mellitus Hyperlipidemia Hypothyroidism Peripheral neuropathy Glaucoma PE (pulmonary thromboembolism) GERD (gastroesophageal reflux disease) Pulmonary emboli (HCC) [...] on file Legal Sex Female 12:42 AM IT CONSULTING MANAGER Gender Identity Not on file Sexual Orientation Not on file Obstetrics History Last Filed Vital Signs Vital Sign Reading Time Taken Comments Blood Pressure 132/77 10/14/2024 2:00 PM IT CONSULTING MANAGER Pulse 62 10/14/2024 2:00 PM IT CONSULTING MANAGER Temperature 35.9 C (96.6 F) 10/14/2024 12:35 PM IT CONSULTING MANAGER Respiratory Rate 15 10/14/2024 2:00 PM IT CONSULTING MANAGER Oxygen Saturation 91% 10/14/2024 2:00 PM IT CONSULTING MANAGER Inhaled Oxygen Concentration - - Weight 95.3 kg (210 lb) 10/14/2024 12:35 PM IT CONSULTING MANAGER Height 165.1 cm (5' 5) 10/14/2024 12:35 PM IT CONSULTING MANAGER Body Mass Index 34.95 10/14/2024 12:35 PM IT CONSULTING MANAGER Plan of Treatment Health Maintenance Due Date Last Done Comments Albumin Creatinine Ratio, Urine 1950 Colon Cancer Screening-Colonoscopy 1950 Depression Screening 1950 Hepatitis C Screening 1950 Osteoporosis Screening-Bone Density Scan 1950 Dilated Eye Exam 1950 Foot Exam 1950 Lipid Panel 1950 DTaP/Tdap/Td Vaccine (1 - Tdap) 1961 Hepatitis B Screening 1968 Zoster Vaccine (1 of 2) 2000 Well Visit 65+ 2015 Pneumococcal vaccine 65+ (2 of 2 - PCV) 08/17/2015 08/17/2014, 08/13/2012 eGFR 01/13/2024 01/12/2023, 03/0 02/2023, 01/11/2023, Additional history exists Hemoglobin A1C 10/22/2024 04/22/2024 Covid-19 Vaccine (3 - 2024-2 6 season) 2025 06/12/2022, 09/27/2021 Influenza Vaccine (#1) 2025 10/01/2021 Fall Risk Assessment 10/14/2025 10/14/2024 Medical Devices Implanted Type Area Silk Screen Repairer Device Identifier Shelf Expiration Date Model / Serial / Lot Conmed Jaquelin Conmed 11mm Duraclip [id number] - [id number] Implanted:Qty: 1 on 01/09/2023 by Aidan Guadalupe MD at [facility] Left: Duodenum Conmed Jaquelin 08/30/2024 [id number] / / [id number] Conmed Jaquelin Conmed 11mm Duraclip [id number] - [id number] Implanted:Qty: 1 on 01/09/2023 by Aidan Guadalupe MD at [facility] Left: Duodenum Conmed Jaquelin 08/30/2024 [id number] / / [id number] Conmed Jaquelin Conmed 16mm Duraclip [id number] - [id number] Implanted:Qty: 1 on 01/09/2023 by Aidan Guadalupe MD at [facility] Left: Duodenum Conmed Jaquelin 01/17/2025 [id number] / / [id number] Procedures Procedure Name Priority Date/Time Associated Diagnosis Comments EGFR Routine 01/12/2023 10:35 PM IT CONSULTING MANAGER from Last 3 Months or Most Recently Relevant to Health Maintenance Results * (ABNORMAL) eGFR (01/12/2023 10:35 PM IT CONSULTING MANAGER) eGFR 40(L) 90 - 130 mL/min/1. 73 [...] reviewed 2021. Blood 01/12/2023 10:3 5 PM IT CONSULTING MANAGER 01/12/2023 11:23 PM IT CONSULTING MANAGER us Luke Brtiton MD LAB BLOOD ORDERABLES Final Resu lt [facility] Department [place] [address] from Last 3 Months or Most Recently Relevant to Health Maintenance Insurance [employer] [place] [employer] [facility] Advance Directives For more information, please contact: [phone] * Full Code (Latest Code Status on [...] 9:30 AM 06/24/2022 2:53 PM Care Teams Architectural Inspector Relationship Specialty Start Date End Date Scooby Guillermo MD PCP - General Internal Medicine 07/19/24 [place] [id number] [address] Consulting Physician Nephrology 07/28/24
--- OUTSIDE RECORDS SUMMARY | 2025-07-12 21:04 | XMS_ITS | Patient Health Record ---
Author Organization [facility] Address [address] [place], [place] [id number] Care Team Providers Care Banquet Houseperson Name Role Phone SOPHIA LE Unavailable [phone] Sean Wisdom Unavailable Unavailable Reason For Referral No Information Medications Medication SIG (Take, Route, Frequency, Duration) Notes Start Date End Date Status triamcinolone acetonide 0.25 MG/ML Topical Cream CUTANEOUS triamcinolone acetonide 0.25 MG/ML Topical CreamOriginal Medicationtriamcinolone acetonide 0.25 MG/ML Topical Cream *Reorder from [employer] for eRx and Interaction Alerts* 5 Active aspirin 81 MG Delayed Release Oral Tablet ORAL aspirin 81 MG Delayed Release Oral TabletOriginal Medicationaspirin 81 MG Delayed Release Oral Tablet *Reorder from [employer] for eRx and Interaction Alerts* 5 Active betamethasone 0.5 MG/ML / clotrimazole 10 MG/ML Topical Cream [Lotrisone] CUTANEOUS betamethasone 0.5 MG/ML / clotrimazole 10 MG/ML Topical Cream [Lotrisone]Original Medicationbetamethasone 0.5 MG/ML / clotrimazole 10 MG/ML Topical Cream [Lotrisone] *Reorder from [employer] for eRx and Interacti 5 Active Plan Of Treatment No Information Insurance Providers Payer Name Payer Address Payer Phone Subscriber Number Group Number Insured Name Patient Relationship to Insured Coverage Start Date Coverage End Date Medicare Part B [facility] [address] [place] [id number] MARLA YOO Self - patient is the insured [facility] [address] [address] [place], [place] [id number] MARLA YOO Self - patient is the insured
--- NOTE | 2025-07-12 21:17 | ED.WEAKNESS ---
HPI - Weakness General Chief complaint: Weakness Stated complaint: Dizzy/Weak Time Seen by Provider: 07/12/25 21:02 History of Present Illness HPI Narrative: 75 YEARS OLD WHITE FEMALE CAME FROM HOME WITH HER DAUGHTER COMPLAINING OF INTERMITTENT SPELLS OF SHAKING FOR THE LAST 3 DAYS, HEADACHE EVERY TIME WHEN SHE SHAKES, INTERMITTENT ABDOMINAL PAIN FOR THE LAST 4-5 DAYS. CURRENTLY PATIENT MAIN COMPLAINT IS BACK PAIN, KNEE PAIN AND NEUROPATHY WHICH ARE CHRONIC. SHE DENIES ANY HEADACHE OR DIZZINESS OR SHAKING OR ABDOMINAL PAIN AT THIS TIME. PATIENT REPORT HAVING SIMILAR SYMPTOMS OF SHAKING FOR YEARS. PATIENT REPORTED STRESS MAKE THIS SHAKING WORSE. SHE DENIES ANY FEVER OR CHILLS OR NAUSEA OR VOMITING OR FOCAL NEURO DEFICIT. HISTORY OF DIABETES, HYPERTENSION, HYPOTHYROIDISM, RESTLESS LEG SYNDROME, NEUROPATHY, DEPRESSION PATIENT QUIT TAKING DULOXETINE 1 MONTH AGO DOES NOT LIKE THE FEEL OF IT Related Data Home Medications ?Medication ?Instructions ?Recorded ?Confirmed ?Last Taken ?Type duloxetine 30 mg capsule,delayed 30 mg PO DAILY 03/11/22 12/19/24 04/21/24 History release gabapentin 600 mg tablet 600 mg PO TID 03/11/22 12/19/24 04/21/24 History latanoprost 0.005 % eye drops 1 drp EACH EYE QPM 03/11/22 12/19/24 04/21/24 History levothyroxine 125 mcg tablet 125 mcg PO DAILY 03/11/22 12/19/24 04/21/24 History (Synthroid) metoclopramide HCl 10 mg tablet 10 mg PO USEASDIRECTD PRN Gastric 03/11/22 12/19/24 04/21/24 History Reflux allopurinol 100 mg tablet 100 mg PO DAILY 03/05/24 12/19/24 04/21/24 History calcitriol 0.25 mcg capsule 0.25 mcg PO EVERY OTHER DAY 03/05/24 12/19/24 04/21/24 History dapagliflozin propanediol 10 mg 10 mg PO DAILY 03/05/24 12/19/24 04/21/24 History tablet (Farxiga) ergocalciferol (vitamin D2) 1,250 1,250 mcg PO WEEKLY 03/05/24 12/19/24 04/21/24 History mcg (50,000 unit) capsule losartan 100 mg tablet 100 mg PO DAILY 03/05/24 12/19/24 04/21/24 History ropinirole 1 mg tablet 1 mg PO TID 03/05/24 12/19/24 04/21/24 History tramadol 50 mg tablet 50 mg PO TID 03/05/24 12/19/24 04/21/24 History Allergies Allergy/AdvReac Type Severity Reaction Status Date / Time codeine Allergy Intermediate Hallucinati Verified 07/12/25 22:18 ng diphenhydramine Allergy Intermediate Hives Verified 07/12/25 22:18 Penicillins Allergy Intermediate Hives Verified 07/12/25 22:18 Sulfa (Sulfonamide Allergy Intermediate Hives Verified 07/12/25 22:18 Antibiotics) Iodinated Contrast Media Allergy Unknown Verified 07/12/25 22:18 prednisone AdvReac Severe Hallucinati Verified 07/12/25 23:45 ng Review of Systems Review of Systems: All systems reviewed & are unremarkable except as noted in HPI and below PMFSH Past Medical History Medical History CKD stage 3b, GFR 30-44 ml/min Diabetes mellitus Adenomatous duodenal polyp Hypertension Hyperlipidemia History of gastric ulcer GERD (gastroesophageal reflux disease) Asthma Hypothyroidism Vertigo Surgical History Surgical History History of hysterectomy History of cholecystectomy History of tonsillectomy Family History Family History Other Diabetes mellitus Family history of arthritis Family history of malignant neoplasm Social History Social History Smoking status: Never smoker Alcohol intake: never Substance use: never Substance use type: does not use Do You Feel Safe in your Home?: No Lack of Transportation: No Lack of Food: Never True Current Housing: I Have Housing Concerned About Future Housing: No Difficulty Paying Gas/Electric Bills: No Difficulty Paying for Meds: No Currently Unemployed: No Education: High School Diploma/GED Difficulty w/ Childcare or Family Care: No Living arrangements: with family Gender identity (if verbalized by the patient): Female Sexual Orientation (if Verbalized by the Patient): Straight or Heterosexual Spiritual care concerns: No Exam Narrative: GENERAL APPEARANCE: WELL-DEVELOPED, WELL-NOURISHED, TEARFUL SKIN: NORMAL COLOR HEAD: NORMOCEPHALIC, NONTRAUMATIC EYES: CLEAR CONJUNCTIVA ENT: OROPHARYNX NORMAL, EARS NORMAL, NOSE NORMAL NECK: SUPPLE, NONTENDER CHEST AND RESPIRATORY: AIRWAY PATENT, NO RESPIRATORY DISTRESS, NO ACCESSORY MUSCLE USE HEART: REGULAR RATE/RHYTHM ABDOMEN: SOFT, NONTENDER, NO ORGANOMEGALY, QUIET BOWEL SOUNDS VASCULAR: NORMAL PERIPHERAL PULSES, NORMAL CAPILLARY REFILL. MUSCULOSKELETAL: NORMAL RANGE OF MOTION, NONTENDER BACK NEUROLOGIC: ALERT AND ORIENTED ?3, COTTON WEIGHER IS NORMAL TESTED, NO GROSS MOTOR DEFICIT Course Vital Signs Vital signs: Vital Signs Pulse Rate 72 07/12/25 20:59 Temperature 36.2 C L 07/12/25 21:00 Pulse Rate 76 07/12/25 23:05 Respiratory Rate 19 07/12/25 21:00 Blood Pressure 155/84 H 07/12/25 23:05 Pulse Oximetry 96 07/12/25 21:00 Oxygen Delivery Room Air 07/12/25 21:32 MDM - Weakness MDM Narrative Medical decision making narrative: 75 YEARS OLD WHITE FEMALE CAME FROM HOME WITH HER DAUGHTER WITH MULTIPLE SYMPTOMS VITAL SIGNS STABLE PHYSICAL EXAMINATION REMARKABLE FOR TEARFUL AND LOOKS DEPRESSED DIFFERENTIAL DIAGNOSIS INCLUDE ANXIETY/ DEPRESSION LIKE SYMPTOMS, ELECTROLYTE IMBALANCE, DEHYDRATION, URINARY TRACT INFECTION BLOOD WORKUP TODAY INCLUDES CBC, CMP, TROPONIN, COAGS SHOWED CREATININE 1.4 CONSISTENT WITH PREVIOUS READINGS, GLUCOSE 2 TO OTHERWISE WITHIN NORMAL LIMIT URINALYSIS SHOWED 3+ GLUCOSE OTHERWISE WITHIN NORMAL LIMIT CHEST X-RAY SHOWED NO ACUTE ABNORMALITY CT SCAN OF THE HEAD WITHOUT CONTRAST SHOWED NO ACUTE ABNORMALITY EKG ON ARRIVAL SHOWED NORMAL SINUS RHYTHM AT 74 BEATS PER MINUTE, NORMAL EKG Differential Diagnosis Differential diagnosis: Likely other ( ABOVE) Medical Records Attestation: I reviewed the patient's medical records. Lab Data Attestation: I reviewed the patient's lab results. 07/12/25 21:33 07/12/25 21:33 Labs: Lab Results 07/12/25 07/12/25 Range/Units 21:25 21:33 WBC 9.6 (4.8-10.8) K/mm3 RBC 4.97 (4.20-5.40) M/mm3 Hgb 12.8 (11.7-13.8) g/dL Hct 42.0 (35.0-42.0) % MCV 84.5 (78.0-102.0) fL MCH 25.8 L (27.0-31.0) pg MCHC 30.5 L (32-36) g/dL RDW 17.9 H (11.6-14.4) % Plt Count 201 (150-420) K/mm3 MPV 11.2 (9.2-11.8) fl Immature Gran % (Auto) 0.7 H (0.0-0.0) % Neut % (Auto) 70.2 H (50.0-70.0) % Lymph % (Auto) 18.9 (18.0-42.0) % [place] % (Auto) 7.0 (2.0-11.0) % Eos % (Auto) 2.8 (1.0-6.0) % Baso % (Auto) 0.4 (0.0-1.0) % Lymph # (Auto) 1.82 (1.10-4.50) K/mm3 [place] # (Auto) 0.67 (0.10-0.90) K/mm3 Eos # (Auto) 0.27 (0.02-0.50) K/mm3 Baso # (Auto) 0.04 (0.00-0.10) K/mm3 Abs Immat Gran (auto) 0.07 H (0.00-0.00) K/mm3 Absolute Neuts (auto) 6.75 (1.70-7.20) K/mm3 Absolute Nucleated RBC 0.00 (0.00-0.00) K/mm3 Nucleated RBC % 0.0 (0-0.0) % PT 9.7 (9.50-12.1) Seconds INR 0.9 APTT 23.6 L (23.9-30.70) Sec Sodium 142 (137-145) mmol/L Potassium 4.2 (3.4-5.0) mmol/L Chloride 103 (98-107) mmol/L Carbon Dioxide 29 (22-30) mmol/L Anion Gap 10 (4-12) mmol/L BUN 19 H (7-17) mg/dL Creatinine 1.48 H (0.7-1.0) mg/dL Estim Creat Clear Calc 35 ml/min Estimated GFR 34 L (59 - ) Glucose 202 H (65-110) mg/dL Calculated Osmolality 302 H (285-295) mOsm/kg Calcium 9.8 (8.4-10.2) mg/dL Total Bilirubin 0.3 (0.2-1.3) mg/dL AST 29 (14-36) U/L ALT 28 (6-35) U/L Alkaline Phosphatase 76 (38-126) U/L Troponin I < 0.012 (0.000-0.034) ng/mL NT-Pro-B Natriuret Pep 31 (19.9-100) pg/mL Total Protein 7.4 (6.3-8.2) g/dL Albumin 4.1 (3.5-5.1) g/dL Urine Color Light yellow (Yellow) Urine Appearance Clear (Clear) Urine pH 6.0 (5.0-8.0) Ur Specific [employer] 1.010 (1.010-1.020) Urine Protein Negative (Negative) Urine Glucose (UA) 3+ H (Negative) Urine Ketones Negative (Negative) Ur Blood (Man) Negative (Negative) Urine Nitrate Negative (Negative) Urine Bilirubin Negative (Negative) Urine Urobilinogen 0.2 (0.2-1.0) mg/dL Leukocyte Esterase Rfl Negative (Negative) MUNDO/UL Imaging Data Radiologist's impression: Impressions Head CT 07/12/25 21:55 IMPRESSION: 1. No acute intracranial abnormality. Chest X-Ray 07/12/25 22:02 IMPRESSION: 1: NO ACUTE CARDIOPULMONARY DISEASE. ECG Data EKG #1: Attestation: I personally reviewed and interpreted this ECG as follows: ECG completion date: 07/12/25 Interpretation: NORMAL SINUS RHYTHM, 74 BEATS PER MINUTE, NORMAL EKG Critical Care Time Critical Care Time Critical Care Time: No Discharge Plan Discharge Clinical Impression: Anxiety-like symptoms Patient Disposition: Home Condition: Improved Instructions: Anxiety (ED) Additional Instructions: RETURN IF SYMPTOMS ARE WORSENING , CALL YOUR FAMILY PHYSICIAN FOR APPOINTMENT, TAKE TYLENOL NEEDED FOR ACHES AND PAIN, CONTINUE HOME MEDICATIONS. Patient Language: Thai Prescriptions: No Action ropinirole 1 mg tablet 1 mg PO TID allopurinol 100 mg tablet 100 mg PO DAILY losartan 100 mg tablet 100 mg PO DAILY calcitriol 0.25 mcg capsule 0.25 mcg PO EVERY OTHER DAY dapagliflozin propanediol [Farxiga] 10 mg Tablet 10 mg PO DAILY ergocalciferol (vitamin D2) 1,250 mcg (50,000 unit) capsule 1,250 mcg PO WEEKLY tramadol 50 mg Tablet 50 mg PO TID insulin glargine [Lantus U-100 Insulin] 100 unit/mL Solution 50 unit subcut HS Qty: 0 0RF levofloxacin 500 mg tablet 500 mg PO DAILY Qty: 7 0RF latanoprost 0.005 % Drops 1 drp EACH EYE QPM gabapentin 600 mg Tablet 600 mg PO TID levothyroxine [Synthroid] 125 mcg Tablet 125 mcg PO DAILY metoclopramide HCl 10 mg Tablet 10 mg PO USEASDIRECTD PRN (Reason: Gastric Reflux) Rx Instructions: WITH MEALS AND AT BEDTIME duloxetine 30 mg Capsule,Delayed Release(Dr/Ec) 30 mg PO DAILY Follow-up/Referrals: Scooby Guillermo MD [Primary Care Provider, Internal Medicine]
--- NOTE | 2025-07-12 21:18 | ECG_ITS ---
Test Date: 2025-07-12 21:06:54 Measurements Intervals [place] Rate: 74 P: 50 [place]: 158 QRS: -19 QRSD: 104 T: 50 QT: 369 QTc: 410 Interpretive Statements SINUS RHYTHM LEFT AXIS DEVIATION ABNORMAL ECG Compared to ECG 04/21/2024 17:26:32 No significant changes Electronically Signed On 07-13-2025 11:39:28 CDT by Kev Matias M.D.
[2025-07-12 21:41] LABS: Add Urine Microscopic? NO; Appearance Urine Clear (Clear); Glucose Urine UA 3+ (Negative); Leukocyte Esterase Ur Negative LEU/UL (Negative); Nitrate Urine Negative (Negative); Specific Grav Ur 1.010 (1.010-1.020)
[2025-07-12 21:43] LABS: Hematocrit 42.0 % (35.0-42.0); Hemoglobin 12.8 g/dL (11.7-13.8); Immature Granulocyte Percent A 0.7 % (0.0-0.0); Lymphocytes Absolute Auto 1.82 K/mm3 (1.10-4.50); Mean Corpuscular HGB Conc 30.5 g/dL (32-36); Mean Corpuscular Hemoglobin 25.8 pg (27.0-31.0); Mean Corpuscular Volume 84.5 fL (78.0-102.0); Nucleated Red Blood Cells Absolute Auto 0.00 K/mm3 (0.00-0.00); Nucleated Red Blood Cells Perc 0.0 % (0-0.0); Platelet Count Result 201 K/mm3 (150-420); Red Blood Count 4.97 M/mm3 (4.20-5.40); White Blood Count 9.6 K/mm3 (4.8-10.8)
--- OUTSIDE RECORDS SUMMARY | 2025-07-12 21:45 | XMS_ITS | Encounter Summary ---
Author Organization [facility] Address [address] [place] [address] Care Team Providers Care Jig Maker Name Role Phone Scooby Guillermo MD Primary Care Provider [phone] Encounter Details Date Type Department Care Team (Latest Contact Info) Description 09/15/2018 Abstract [facility] , Kimberlee Long MD Social History Tobacco Use Types Packs/Day Years Used Date Smoking Tobacco: Never Comments Unknown Sex and Gender Information Value Date Recorded Sex Assigned at Female 12/06/2024 7:39 AM COUNTER INTELLIGENCE TECHNICIAN Legal Sex Female 8:54 PM CDT Gender Identity Female 12/06/2024 7:39 AM COUNTER INTELLIGENCE TECHNICIAN Sexual Orientation Not on file documented as of this encounter Plan of Treatment Not on file documented as of this encounter Visit Diagnoses Not on filedocumented in this encounter Care Teams Jig Maker Relationship Specialty Start Date End Date Scooby Guillermo MD [address] [place] [address] PCP - General INTERNAL MEDICINE 04/06/24 documented as of this encounter
--- OUTSIDE RECORDS SUMMARY | 2025-07-12 21:45 | XMS_ITS | Encounter Summary ---
Author Organization [facility] Address [address] [place] [address] Phone Care Team Providers Care Headlight Adjuster Name Role Phone Socoby Guillermo MD Primary Care Provider [phone] Esme Adler NP Primary Care Provider + Unknown, Notinfile Primary Care Provider Unavail able Scooby Guillermo MD Primary Care Provider Bacilio Francisco MD Unavailable [phone] Encounter Details Date Type Department Care Team (Late st Contact Info) Description 03/15/2022 Orders Only [facility] Scanning, Provider Social History Tobacco Use Types Packs/Day Years Used Date Smoking Tobacco: Never Assessed Comments Unknown Sex and Gender Information Value Date Recorded Sex Assigned at Not on file Legal Sex Female 12:42 AM FITNESS AND WELLNESS DIRECTOR Gender Identity Not on file Sexual Orientation [...] documented as of this encounter Care Teams Headlight Adjuster Relationship Specialty Start Date End Date Scooby Guillermo MD PCP - General 03/31/08 04/01/22 Esme Adler NP PCP - General Nurse Practitioner 04/02/22 07/09/23 Unknown, Notinfile PCP - General 07/10/23 07/18/24 Scooby Guillermo MD PCP - General Internal Medicine 07/19/24 [place] [address] [address] Consulting Physician Nephrology 07/28/24 documented as of this encounter
--- OUTSIDE RECORDS SUMMARY | 2025-07-12 21:45 | XMS_ITS | Encounter Summary ---
Author Organization [facility] Address [address] [place] [address] Phone Care Team Providers Care Health Screener Name Role Phone Scooby Guillermo MD Primary Care Provider [phone] Esme Adler NP Primary Care Provider + Unknown, Notinfile Primary Care Provider Unavail able Scooby Guillermo MD Primary Care Provider [phone] Bacilio Francisco MD Unavailable [phone] Encounter Details Date Type Department Care Team (Late st Contact Info) Description 01/30/2022 Orders Only [facility] Scanning, Provider Social History Tobacco Use Types Packs/Day Years Used Date Smoking Tobacco: Never Assessed Comments Unknown Sex and Gender Information Value Date Recorded Sex Assigned at Not on file Legal Sex Female 12:42 AM CENTER M[facility] Gender Identity Not on file Sexual Orientation [...] documented as of this encounter Care Teams Health Screener Relationship Specialty Start Date End Date Scooby Guillermo MD PCP - General 03/31/08 04/01/22 Esme Adler NP PCP - General Nurse Practitioner 04/02/22 07/09/23 Unknown, Notinfile PCP - General 07/10/23 07/18/24 Scooby Guillermo MD PCP - General Internal Medicine 07/19/24 [place] [id number] [address] Consulting Physician Nephrology 07/28/24 documented as of this encounter
--- OUTSIDE RECORDS SUMMARY | 2025-07-12 21:45 | XMS_ITS | Encounter Summary ---
Author Organization [facility] Address [address] [place] [address] Phone Care Team Providers Care Sociology Professor Name Role Phone Scooby Guillermo MD Primary Care Provider [phone] Esme Adler NP Primary Care Provider + Unknown, Notinfile Primary Care Provider Unavail able Scooby Guillermo MD Primary Care Provider [phone] Bacilio Francisco MD Unavailable [phone] Encounter Details Date Type Department Care Team (Late st Contact Info) Description 02/01/2022 Orders Only [facility] Scanning, Provider Social History Tobacco Use Types Packs/Day Years Used Date Smoking Tobacco: Never Assessed Comments Unknown Sex and Gender Information Value Date Recorded Sex Assigned at Not on file Legal Sex Female 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
--- OUTSIDE RECORDS SUMMARY | 2025-07-12 21:45 | XMS_ITS | Clinical Summary ---
Author Organization [facility] Address [address] [place] [address] Care Team Providers Care Medical Social Worker Name Role Phone Unavailable Primary Care Provider [...] Pneumococcal Vaccine: 50+ Ye ars (1 of 1 - PCV) 2000 Influenza Vaccine (#1) 2025 Hepatitis B Vaccine Aged Out No longe r eligible based on patient's age to complete [place] [id number] Medicare A[employer] Commercial
--- OUTSIDE RECORDS SUMMARY | 2025-07-12 21:45 | XMS_ITS | Clinical Summary ---
Author Organization [facility] Address [address] [place] [address] Care Team Providers Care Network Development Coordinator Name Role Phone Scooby Guillermo MD Primary Care Provider [phone] Bacilio Francisco MD Unavailable [phone] Allergies Active Allergy Reactions Criticality Noted [...] 01/08/2023 Assessment & Plan (01/13/2023 3:24 PM SFDC CONSULTANT): H/H drop after duodenal mass excision/EGD 01/07 - Monitor H/H closely as patient with melenic stools. - Monitor VS - pRBC transfusion if Hgb<7 - Per GI: advance diet as tolerated. Currently on a regular diet. - Patient to discharge on home OMEPRAZOLE BID. 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 HTN (hypertension) 01/07/2023 Assessment & Plan (01/13/2023 3:22 PM SFDC CONSULTANT): - Hold antihypertensive meds while bleeding and BP soft. Should be restarted by PCP. Assessment & Plan (01/07/2023 8:53 PM SFDC CONSULTANT): Continue on Maxzide Monitor vitals HLD (hyperlipidemia) 01/07/2023 Assessment & Plan (01/08/2023 12:44 PM SFDC CONSULTANT): Continue on statins Assessment & Plan (01/07/2023 8:54 PM SFDC CONSULTANT): Continue on statins T2DM (type 2 diabetes mellitus) 01/07/2023 Assessment & Plan (01/09/2023 4:05 PM SFDC CONSULTANT): On metformin at home and Lantus 10 units nightly. Sugars thus far have been appropriate without acute need for insulin while NPO. Will restart once patient starting PO challenged after procedure. - Monitor BG and add SSI if needed Assessment & Plan (01/07/2023 8:55 PM SFDC CONSULTANT): On metformin at home and Lantus Will hold onto insulin at this time as NPO Monitor BG and add SSI if needed History of pulmonary embolism 01/07/2023 Assessment & Plan (01/09/2023 4:08 PM SFDC CONSULTANT): H/o PE in 2021, when she was on Eliquis for 5-6 months, on no AC for past 6 months. Monitor vitals, not a candidate for AC at this time due to GI bleeding Assessment & Plan (01/07/2023 8:56 PM SFDC CONSULTANT): H/o PE in 2021, when she was on Eliquis for 5-6 months, on no AC for past 6 months. Monitor vitals GERD (gastroesophageal reflux disease) Assessment & Plan (01/13/2023 3:23 PM SFDC CONSULTANT): - Patient will discharge on omeprazole BID. 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 [...] Gi. Assessment & Plan (01/07/2023 8:53 PM SFDC CONSULTANT): Adenomatous duodenal polyp EGD 01/[address] [...] (04/24/2022): Added automatically from request for surgery [id number] Surgical History Surgery Date Site/Laterality Comments KNEE [...] on file Legal Sex Female 12:42 AM SFDC CONSULTANT Gender Identity Not on file Sexual Orientation Not on file Obstetrics History Last Filed Vital Signs Vital Sign Reading Time Taken Comments Blood Pressure 132/77 10/14/2024 2:00 PM SFDC CONSULTANT Pulse 62 10/14/2024 2:00 PM SFDC CONSULTANT Temperature 35.9 C (96.6 F) 10/14/2024 12:35 PM SFDC CONSULTANT Respiratory Rate 15 10/14/2024 2:00 PM SFDC CONSULTANT Oxygen Saturation 91% 10/14/2024 2:00 PM SFDC CONSULTANT Inhaled Oxygen Concentration - - Weight 95.3 kg (210 lb) 10/14/2024 12:35 PM SFDC CONSULTANT Height 165.1 cm (5' 5) 10/14/2024 12:35 PM SFDC CONSULTANT Body Mass Index 34.95 10/14/2024 12:35 PM SFDC CONSULTANT Plan of Treatment Health Maintenance Due Date [...] 10/14/2025 10/14/2024 Medical Devices Implanted Type Area Housekeeping Supervisor Hotel Device Identifier Shelf Expiration Date Model / Serial / Lot Conmed Jaquelin Conmed 11mm Duraclip [id number] - [id number] Implanted:Qty: 1 on 01/09/2023 by Aidan Guadalupe MD at [facility] Left: Duodenum Conmed Jaquelin 08/30/2024 [id number] / / [id number] Conmed Jaquelin Conmed 11mm Duraclip [id number] - [id number] Implanted:Qty: 1 on 01/09/2023 by Aidan Guadalupe MD at [facility] Left: Duodenum Conmed Jaquelin 08/30/2024 [id number] / / [id number] Conmed Jaquelin Conmed 16mm Duraclip [id number] - [id number] Implanted:Qty: 1 on 01/09/2023 by Aidan Guadalupe MD at [facility] Left: Duodenum Conmed Jaquelin 01/17/2025 [id number] / / [id number] Procedures Procedure Name Priority Date/Time Associated Diagnosis Comments EGFR Routine 01/12/2023 10:35 PM SFDC CONSULTANT from Last 3 Months or Most Recently Relevant to Health Maintenance Results * (ABNORMAL) eGFR (01/12/2023 10:35 PM SFDC CONSULTANT) eGFR 40(L) 90 - 130 mL/min/1. 73 [...] reviewed 2021. Blood 01/12/2023 10:3 5 PM SFDC CONSULTANT 01/12/2023 11:23 PM SFDC CONSULTANT us Luke Britton MD LAB BLOOD ORDERABLES Final Resu lt [facility] Department [place] [address] from Last 3 Months or Most Recently Relevant to Health Maintenance Insurance [place] MEDICARE AETNA [facility] Advance Directives For more information, please contact: [phone] * Full Code (Latest Code Status on [...] 9:30 AM 06/24/2022 2:53 PM Care Teams Network Development Coordinator Relationship Specialty Start Date End Date Scooby Guillermo MD PCP - General Internal Medicine 07/19/24 [place] [address] [address] Consulting Physician Nephrology 07/28/24
--- OUTSIDE RECORDS SUMMARY | 2025-07-12 21:45 | XMS_ITS | Clinical Summary ---
Author Organization [facility] Address [address] [place] [address] Care Team Providers Care Network Professional Name Role Phone Scooby Guillermo MD Primary Care Provider [phone] Source Comments [facility],non-owned Affiliates and Associated Physician Practices is amultiple site organization consisting of ambulatory clinics and hospital sitesin [place] and [place]. This disclosure is being madepursuant to the Care Everywhere program and may not contain all information available regarding this patient. Last updated 18.[facility] Allergies Active Allergy Reactions Criticality Noted Date [...] Active vitamin D, ergocalciferol, (Drisdol) 1.25 MG (67551 UT) capsule Take 1 (one) capsule by [...] Recorded Patient Health Questionnaire-2 Score 0 04/26/2024 [facility] [place] of Occupat ional Health - Occupational Stress [...] place to sleep or slept in a alf (including now)? No 04/21/2024 Comments Unknown Sex [...] [place] [id number] MEDICARE AETNA AETNA MEDICARE ADV Advance Directives * Full Code (Latest Code Status on File) Date Activated Date Inactivated Comments 04/21/2024 11:18 PM 04/27/2024 6:01 PM * Full Code Date Activated Date Inactivated Comments 04/21/2024 11:17 PM 04/21/2024 11:18 PM Care Teams Network Professional Relationship Specialty Start Date End Date Scooby Guillermo MD [address] [place] [address] PCP - General Internal Medicine 04/23/24
[2025-07-12 21:51] LABS: Alanine Aminotransferase 28 U/L (6-35); Albumin Level 4.1 g/dL (3.5-5.1); Alkaline Phosphatase 76 U/L (38-126); Anion Gap 10 mmol/L (4-12); Aspartate Amino Transferase 29 U/L (14-36); Bilirubin,Total 0.3 mg/dL (0.2-1.3); Blood Urea Nitrogen 19 mg/dL (7-17); Calcium 9.8 mg/dL (8.4-10.2); Carbon Dioxide 29 mmol/L (22-30); Chloride 103 mmol/L (98-107); Estimated CRCL calculation 35 ml/min; Estimated Glomerular Filt Rate 34; Glucose 202 mg/dL (65-110); Osmolality Calculated 302 mOsm/kg (285-295); Potassium 4.2 mmol/L (3.4-5.0); Sodium 142 mmol/L (137-145); Total Protein 7.4 g/dL (6.3-8.2)
[2025-07-12 22:00] LABS: NT Pro B Type Natriuretic Pept 31 pg/mL (19.9-100)
[2025-07-12 22:15] LABS: INR 0.9; Partial Thromboplastin Time 23.6 Sec (23.9-30.70); Prothrombin Time 9.7 Seconds (9.50-12.1)
[2025-07-12 22:22] LABS: Troponin I < 0.012 ng/mL (0.000-0.034)
[2025-07-12] MEDS: LORazepam (*CRX) 1 MG TABLET PO (22:43)
== END 2025-07-13 | disposition home or self-care (01) ==
PROVIDERS: Emergency Provider Emergency Medicine; PCP Internal Medicine
DX: R42 Dizziness and giddiness (principal); R53.1 Weakness; R25.1 Tremor, unspecified; R51.9 Headache, unspecified; I12.9 Hypertensive chronic kidney disease with stage 1 through stage 4 chronic kidney disease, or unspecified chronic kidney disease; E11.22 Type 2 diabetes mellitus with diabetic chronic kidney disease; N18.32 Chronic kidney disease, stage 3b; E03.9 Hypothyroidism, unspecified
CPT/HCPCS: 36415; 70450; 71045; 80053; 81003; 83880; 84484; 85025; 85610; 85730; 93005; 99284; A9270

== ENCOUNTER 2025-08-22 10:50 | Outpatient (CLI) | payer MEDICARE, SELFPAY ==
--- OUTSIDE RECORDS SUMMARY | 2024-02-27 08:15 | XMS_ITS ---
Author Organization [facility] Office Address [address] [facility] [address] [facility] [place] [address] Care Team Providers Care Livestock Auctioneer Name Role Phone Bacilio Francisco Unavailable [phone] Medications Medication SIG (Take, Route, Frequency, Duration) Notes Start Date End Date Status Calcitriol 0.25 MCG 1 capsule Orally bailey ry other day; Duration: 90 02/28/2023 Active Allopurinol 100 MG 1 tablet Orally Once a day; Duration: 90 day(s) 02/28/2023 08/16/2024 Active Losartan Potassium 100 MG 1 tablet Orall y Once a day; Duration: 90 11/20/2023 Active Ergocalciferol 1.25 MG (26416 UT) 1 capsule Orally Once a week; Duration: 90 day(s) 02/28/2023 09/24/2024 Active Encounters Encounter Location Date Provider Diagnosis [place] [facility] [address] [facility] [address] [place] [address] 02/27/2024 Bacilio Francisco Chronic kidney disease, stage 3b N18.32 ; Essential (primary) hypertension I10 ; Type 2 diabetes mellitus with hyperglycemia E11.65 ; Anemia, unspecified D64.9 ; Gastro-esophageal reflux disease with esophagitis, without bleeding K21.00 ; Gastro-esophageal reflux disease without esophagitis K21.9 and Anxiety disorder, unspecified F41.9 Assessments Encounter Date Diagnosis (ICD Code) Assessment Notes Treatment Notes Treatment Clinical Notes Section Notes 02/27/2024 Chronic kidney disease, stage 3b (ICD-10 - N18.32) 02/27/2024 Essential (primary) hypertension (ICD-10 - I10) 02/27/2024 Type 2 diabetes mellitus with hyperglycemia (ICD-10 - E11.65) 02/27/2024 Anemia, unspecified (ICD-10 - D64.9) 02/27/2024 Gastro-esophageal reflux disease with esophagitis, without bleeding (ICD-10 - K21.00) 02/27/2024 Gastro-esophageal reflux disease without esophagitis (ICD-10 - K21.9) 02/27/2024 Anxiety disorder, unspecified (ICD-10 - F41.9) Plan Of Treatment No Information Progress Notes * Juanito YOODOB: [birth year] (75 yo F)Acc No.[id number]:02/27/2024 Progress Notes Patient: Juanito DORSEY Provider: Abel CHAWLA MD, Sabrina.Lizz.Apolonia.P, F.A.S.N. :1950 A ge:73 Y S ex:Female Date:02/27/2024 Address:[address] [place], [place] [id number] Subjective: * Chief Complaints: * * Medical History: * Medications: T aking Calcitriol 0.25 MCG Capsule 1 capsule Orally every other day , Taking Allopurinol 100 MG Tablet 1 tablet Orally Once a day , stop date 08/16/2024, Taking Losartan Potassium 100 MG Tablet 1 tablet Orally Once a day , Taking Ergocalciferol 1.25 MG (17057 UT) Capsule 1 capsule Orally Once a week , stop date 09/24/2024 Objective: * Vitals: Assessment: * Assessment: 1. C hronic kidney disease, stage 3b - N18.32 2 . E ssential (primary) hypertension - I10 3 . T ype 2 diabetes mellitus with hyperglycemia - E11.65 ? 4 . A nemia, unspecified - D64.9 5 . G forrest-esophageal reflux disease with esophagitis, without bleeding - K21.00 6 . G forrest-esophageal reflux disease without esophagitis - K21.9 7 . A nxiety disorder, unspecified - F41.9? Plan: * Treatment: * Billing Information: * Visit Code: 69098 Office Visit, Est Pt., Level 4. * Procedure Codes: * Electronic signature of Jesse Francisco MD on 08/22/2025 at 12:08 PM CDT Sign off status: Pending * Provider: Abel CHAWLA MD, Sabrina.[email or web address].P, F.A.S.N. Date: 0 02/27/2024 Generated for Printing/Faxing/eTransmitting on: 1 12:08 PM CDT
--- OUTSIDE RECORDS SUMMARY | 2024-05-12 09:00 | XMS_ITS ---
Author Organization [facility] Office Address [address] [address] [place] [address] Care Team Providers Care Environmental Services Assistant Name Role Phone Nolan Bacilio Unavailable [phone] Medications Medication SIG (Take, Route, Frequency, Duration) Notes Start Date End Date Status Farxiga 10 MG 1 tablet Orally Once a day; Duration: 90 03/10/2024 12/04/2024 Active Ergocalciferol 1.25 MG (72826 UT) 1 capsule Orally Once a week; Duration: 90 day(s) 02/28/2023 09/24/2024 Active Losartan Potassium 100 MG 1 tablet Orall y Once a day; Duration: 90 11/20/2023 Active Allopurinol 100 MG 1 tablet Orally Once a day; Duration: 90 day(s) 02/28/2023 08/16/2024 Active Calcitriol 0.25 MCG 1 capsule Orally bailey ry other day; Duration: 02/28/2023 Active Encounters Encounter Location Date Provider Diagnosis [place] [facility] [address] [facility] [address] [place] [address] 05/12/2024 Bacilio Francisco Chronic kidney disease, stage [...] * Juanito YOODOB: [birth year] (75 yo F)Acc No.[id number]:05/12/2024 Progress Notes Patient: Juanito DORSEY Provider: Abel CHAWLA MD, F.A.C.P, F.A.S.N. :1950 A ge:73 Y S ex:Female Date:05/12/2024 Address:[address] [place] [address] Subjective: * Chief Complaints: * * Medical History: * Medications: T aking Calcitriol 0.25 MCG Capsule 1 capsule Orally every other day , Taking Allopurinol 100 MG Tablet 1 tablet Orally Once a day , stop date 08/16/2024, Taking Losartan Potassium 100 MG Tablet 1 tablet Orally Once a day , Taking Ergocalciferol 1.25 MG (44988 UT) Capsule 1 capsule Orally Once a [...] Treatment: * Billing Information: * Visit Code: 87318 Office Visit, Est Pt., Level 4. * Procedure Codes: * Electronic signature of Jesse Francisco MD on 08/22/2025 at 12:08 PM CDT Sign off status: Pending * Provider: Abel CHAWLA MD, F.A.C.P, F.A.S.N. Date: 0 05/12/2024 Generated for Printing/Faxing/eTransmitting on: 1 12:08 PM CDT
--- OUTSIDE RECORDS SUMMARY | 2024-06-23 09:45 | XMS_ITS ---
Author Organization [facility] Address [address] [address] [place] [address] Care Team Providers Care Patternmaker Plaster Name Role Phone Bacilio Francisco Unavailable [phone] Medications Medication SIG (Take, Route, Frequency, Duration) Notes Start Date End Date Status Allopurinol 100 MG 1 tablet Orally Once a day; Duration: 90 day(s) 02/28/2023 08/16/2024 Active Losartan Potassium 100 MG 1 tablet Orall y Once a day; Duration: 90 11/20/2023 Active Calcitriol 0.25 MCG 1 capsule Orally bailey ry other day; Duration: 90 02/28/2023 Active Ergocalciferol 1.25 MG (63770 UT) 1 capsule Orally Once a week; Duration: 90 day(s) 02/28/2023 09/24/2024 Active Farxiga 10 MG 1 tablet Orally Once a day; Duration: 90 03/10/2024 12/04/2024 Active Problems Problem Type SNOMED Code ICD Code Onset Dates Problem Status W/U Status Risk Notes Problem Chronic kidney disease stage 3 (disorder) (509545342) Chronic kidney disease, stage 3 unspecified (N18.30) Active confirmed Problem Renal osteodystrophy (81444406) Renal osteodystrophy (N25.0) Active confirmed Encounters Encounter Location Date Provider Diagnosis [place] [facility] 2043 [facility] [address] [place] [address] 06/23/2024 Bacilio Francisco Chronic kidney disea se, [...] * FREDO JuanitoDOB: [birth year] (75 yo F)Acc No.[id number]:06/23/2024 Progress Notes Patient: Eddy DORSEYigor Provider: Abel CHAWLA MD, F.A.C.P, F.A.S.N. :1950 A ge:74 Y S ex:Female Date:06/23/2024 Address:[address] [place], [place] [id number] Subjective: * Chief Complaints: * * Medical History: * Medications: T aking Calcitriol 0.25 MCG Capsule 1 capsule Orally every other day , Taking Allopurinol 100 MG Tablet 1 tablet Orally Once a day , stop date 08/16/2024, Taking Losartan Potassium 100 MG Tablet 1 tablet Orally Once a day , Taking Ergocalciferol 1.25 MG (16979 UT) Capsule 1 capsule Orally Once a [...] Treatment: * Billing Information: * Visit Code: 49700 Office Visit, Est Pt., Level 4. * Procedure Codes: * Electronic signature of Jesse Francisco MD on 08/22/2025 at 12:08 PM CDT Sign off status: Pending * Provider: Abel CHAWLA MD, F.A.C.P, F.A.S.N. Date: 0 06/23/2024 Generated for Printing/Faxing/eTransmitting on: 1 12:08 PM CDT
--- OUTSIDE RECORDS SUMMARY | 2024-08-25 10:30 | XMS_ITS ---
Author Organization [facility] Address 1400 [facility] [address] [place], [place] [address] Care Team Providers Care Rrt Name Role Phone Bacilio Francisco Unavailable [phone] Encounters Encounter Location Date Provider Diagnosis [place] [facility] 2043 [facility] 15 [place] [address] 08/25/2024 Bacilio Francisco Plan Of Treatment No Information Progress Notes * Juanito YOODOB: [birth year] (75 yo F)Acc No.[id number]:08/25/2024 Progress Notes Patient: Juanito DORSEY Provider: Abel CHAWLA MD, Sabrina.Lizz.C.P, F.A.S.N. :1950 A ge:74 Y S ex:Female Date:08/25/2024 Address:[address] [place], [place] [phone] Subjective: * Chief Complaints: * * Medical History: Objective: * Vitals: Assessment: Plan: * Treatment: * Billing Information: * Visit Code: * Procedure Codes: * Electronic signature of Jesse Francisco MD on 08/22/2025 at 12:08 PM CDT Sign off status: Pending * Provider: Abel CHAWLA MD, F.Lizz.C.P, F.A.S.N. Date: Generated for Printing/Faxing/eTransmitting on: 12:08 PM CDT
--- OUTSIDE RECORDS SUMMARY | 2024-09-01 08:45 | XMS_ITS ---
Author Organization [facility] Address 1400 [facility] 61 [address] [place] [address] Care Team Providers Care Net Manager Name Role Phone Bacilio Francisco Unavailable [phone] Encounters Encounter Location Date Provider Diagnosis [place] [facility] 2043 [facility] 15 [place] [address] 09/01/2024 Bacilio Francisco Plan Of Treatment No Information Progress Notes * Juanito YOODOB: [birth year] (75 yo F)Acc No.[id number]:09/01/2024 Progress Notes Patient: Juanito DORSEY Provider: Abel CHAWLA MD, Sabrina.Lizz.C.P, F.A.S.N. :1950 A ge:74 Y S ex:Female Date:09/01/2024 Address:[address] [place], [place] [phone] Subjective: * Chief Complaints: * * Medical History: Objective: * Vitals: Assessment: Plan: * Treatment: * Billing Information: * Visit Code: * Procedure Codes: * Electronic signature of Jesse Francisco MD on 08/22/2025 at 12:07 PM CDT Sign off status: Pending * Provider: Abel CHAWLA MD, F.Lizz.C.P, F.A.S.N. Date: Generated for Printing/Faxing/eTransmitting on: 12:07 PM CDT
--- OUTSIDE RECORDS SUMMARY | 2024-09-03 08:45 | XMS_ITS ---
Author Organization [facility] Address [address] [place] [address] Care Team Providers Care Monotype Machinist Name Role Phone Bacilio Francisco Unavailable [phone] Problems Problem Type SNOMED Code ICD Code Onset Dates Problem Status W/U Status Risk Notes Problem Chronic kidney disease stage 3 (disorder) (411290919) Chronic kidney disease, stage 3 unspecified (N18.30) Active confirmed Problem Essential hypertension (72946037) Essential (primary) hypertension (I10) Active confirmed Problem Renal osteodystrophy (08120879) Renal osteodystrophy (N25.0) Active confirmed Encounters Encounter Location Date Provider Diagnosis [place] [facility] 2043 [facility] 15 [place] [address] 09/03/2024 Bacilio Francisco Chronic kidney disea se, [...] MONTY YOO MARLADOB: 1950 (75 yo F)Acc No.[id number]:09/03/2024 Progress Notes Patient: MONTY DORSEY Provider: Abel CHAWLA MD, F.A.C.P, F.A.S.N. :1950 A ge:74 Y S ex:Female Date:09/03/2024 Address:[facility] [address] [place], [place] Subjective: * Chief Complaints: * * Medical History: Objective: * Vitals: Assessment: * Assessment: 1. C hronic kidney disease, stage 3 unspecified - N18.30 (Primary) 2 . E ssential (primary) hypertension - I10 3 . R enal osteodystrophy - N25.0 Plan: * Treatment: * Billing Information: * Visit Code: 03914 Office Visit, Est Pt., Level 4. * Procedure Codes: * Electronic signature of Jesse Francisco MD on 08/22/2025 at 12:07 PM CDT Sign off status: Pending * Provider: bAel CHAWLA MD, F.A.C.P, F.A.S.N. Date: Generated for Printing/Faxing/eTransmitting on: 12:07 PM CDT
--- OUTSIDE RECORDS SUMMARY | 2024-10-29 09:15 | XMS_ITS ---
Author Organization [facility] Address 1400 [facility] [address] [place] [address] Care Team Providers Care Maintenance Services Dispatcher Name Role Phone Bacilio Francisco Unavailable [phone] Encounters Encounter Location Date Provider Diagnosis [place] [facility] 2043 [facility] 15 [place] [address] 10/29/2024 Bacilio Francisco Plan Of Treatment No Information Progress Notes * MONTY YOODOB: 1950 (75 yo F)Acc No.[id number]:10/29/2024 Progress Notes Patient: MONTY DORSEY Provider: Abel CHAWLA MD, Sabrina.Lizz.C.P, F.A.S.N. :1950 A ge:74 Y S ex:Female Date:10/29/2024 Address:[address] [place] [address] [address] [facility] Subjective: * Chief Complaints: * * Medical History: Objective: * Vitals: Assessment: Plan: * Treatment: * Billing Information: * Visit Code: * Procedure Codes: * Electronic signature of Jesse Francisco MD on 08/22/2025 at 12:09 PM CDT Sign off status: Pending * Provider: Abel CHAWLA MD, F.Lizz.C.P, F.A.S.N. Date: 12/30/2023 Generated for Printing/Faxing/eTransmitting on: 12:09 PM CDT
[2025-08-22 11:16] LABS: Hematocrit 45.7 % (35.0-42.0); Hemoglobin 13.9 g/dL (11.7-13.8); Immature Granulocyte Percent A 1.8 % (0.0-0.0); Lymphocytes Absolute Auto 2.14 K/mm3 (1.10-4.50); Mean Corpuscular HGB Conc 30.4 g/dL (32-36); Mean Corpuscular Hemoglobin 25.6 pg (27.0-31.0); Mean Corpuscular Volume 84.2 fL (78.0-102.0); Nucleated Red Blood Cells Absolute Auto 0.00 K/mm3 (0.00-0.00); Nucleated Red Blood Cells Perc 0.0 % (0-0.0); Platelet Count Result 251 K/mm3 (150-420); Red Blood Count 5.43 M/mm3 (4.20-5.40); White Blood Count 11.1 K/mm3 (4.8-10.8)
[2025-08-22 11:29] LABS: Alanine Aminotransferase 27 U/L (6-35); Albumin Level 4.0 g/dL (3.5-5.1); Alkaline Phosphatase 81 U/L (38-126); Anion Gap 6 mmol/L (4-12); Aspartate Amino Transferase 29 U/L (14-36); Bilirubin,Total 0.5 mg/dL (0.2-1.3); Blood Urea Nitrogen 21 mg/dL (7-17); Calcium 10.4 mg/dL (8.4-10.2); Carbon Dioxide 33 mmol/L (22-30); Chloride 106 mmol/L (98-107); Cholesterol 160 mg/dL (0-200); Estimated Glomerular Filt Rate 35; Glucose 176 mg/dL (65-110); HDL Direct 43 mg/dL; Osmolality Calculated 307 mOsm/kg (285-295); Potassium 4.5 mmol/L (3.4-5.0); Sodium 145 mmol/L (137-145); Total Protein 7.9 g/dL (6.3-8.2); Triglycerides 183 mg/dL (<150)
[2025-08-22 11:32] LABS: Hemoglobin A1C 8.4 % (<5.7)
[2025-08-22 12:00] LABS: Thyroid Stimulating Hormone 4.460 uIU/mL (0.465-4.680)
--- OUTSIDE RECORDS SUMMARY | 2025-08-22 12:07 | XMS_ITS | Encounter Summary ---
Author Organization [facility] Address [address] [place] [address] Phone Care Team Providers Care Junior Systems Analyst Name Role Phone Scooby Guillermo MD Primary Care Provider [phone] Esme Adler NP Primary Care Provider + Unknown, Notinfile Primary Care Provider Unavail able Scooby Guillermo MD Primary Care Provider [phone] Bacilio Francisco MD Unavailable Encounter Details Date Type Department Care Team (Late st Contact Info) Description 02/01/2022 Orders Only [facility] Scanning, Provider Social History Tobacco Use Types Packs/Day Years Used Date Smoking Tobacco: Never Assessed Comments Unknown Sex and Gender Information Value Date Recorded Sex Assigned at Not on file Legal Sex Female 12:42 AM VENEER STACKER Gender Identity Not on file Sexual Orientation [...] documented as of this encounter Care Teams Junior Systems Analyst Relationship Specialty Start Date End Date Scooby Guillermo MD PCP - General 03/31/08 04/01/22 Esme Adler NP PCP - General Nurse Practitioner 04/02/22 07/09/23 Unknown, Notinfile PCP - General 07/10/23 07/18/24 Scooby Guillermo MD PCP - General Internal Medicine 07/19/24 [place] [address] [address] Consulting Physician Nephrology 07/28/24 documented as of this encounter
--- OUTSIDE RECORDS SUMMARY | 2025-08-22 12:07 | XMS_ITS | Encounter Summary ---
Author Organization [facility] Address [address] [place] [address] Phone Care Team Providers Care Inbound Ingredient Logistics Specialist Name Role Phone Scooby Guillermo MD Primary Care Provider [phone] Esme Adler NP Primary Care Provider + Unknown, Notinfile Primary Care Provider Unavail able Scooby Guillermo MD Primary Care Provider [phone] Bacilio Francisco MD Unavailable [phone] Encounter Details Date Type Department Care Team (Late st Contact Info) Description 01/30/2022 Orders Only [facility] Scanning, Provider Social History Tobacco Use Types Packs/Day Years Used Date Smoking Tobacco: Never Assessed Comments Unknown Sex and Gender Information Value Date Recorded Sex Assigned at Not on file Legal Sex Female 12:42 AM OBIEE CONSULTANT Gender Identity Not on file Sexual [...] documented as of this encounter Care Teams Inbound Ingredient Logistics Specialist Relationship Specialty Start Date End Date Scooby Guillermo MD PCP - General 03/31/08 04/01/22 Esme dAler NP PCP - General Nurse Practitioner 04/02/22 07/09/23 Unknown, Notinfile PCP - General 07/10/23 07/18/24 Scooby Guillermo MD PCP - General Internal Medicine 07/19/24 [place] [address] [address] Consulting Physician Nephrology 07/28/24 documented as of this encounter
--- OUTSIDE RECORDS SUMMARY | 2025-08-22 12:07 | XMS_ITS | Encounter Summary ---
Author Organization [facility] Address [address] [place] [address] Phone Care Team Providers Care Recovery Agent Name Role Phone Scooby Guillermo MD Primary Care Provider [phone] Esme Adler NP Primary Care Provider + Unknown, Notinfile Primary Care Provider Unavail able Scooby Guillermo MD Primary Care Provider [phone] Bacilio Francisco MD Unavailable [phone] Encounter Details Date Type Department Care Team (Late st Contact Info) Description 03/15/2022 Orders Only [facility] Scanning, Provider Social History Tobacco Use Types Packs/Day Years Used Date Smoking Tobacco: Never Assessed Comments Unknown Sex and Gender Information Value Date Recorded Sex Assigned at Not on file Legal Sex Female 12:42 AM REPLENISHMENT ANALYST Gender Identity Not on file Sexual Orientation [...] documented as of this encounter Care Teams Recovery Agent Relationship Specialty Start Date End Date Scooby Guillermo MD PCP - General 03/31/08 04/01/22 Esme Adler NP PCP - General Nurse Practitioner 04/02/22 07/09/23 Unknown, Notinfile PCP - General 07/10/23 07/18/24 Scooby Guillermo MD PCP - General Internal Medicine 07/19/24 [place] [address] [address] Consulting Physician Nephrology 07/28/24 documented as of this encounter
--- OUTSIDE RECORDS SUMMARY | 2025-08-22 12:07 | XMS_ITS | Clinical Summary ---
Author Organization [facility] Address [address] [place] [address] Care Team Providers Care Bacteriologist Pharmaceutical Name Role Phone Scooby Guillermo MD Primary Care Provider [phone] Allergies Active Allergy Reactions Criticality Noted Date Comments Codeine Rash,Unknown Medium 04/13/2014 Cyclobenzaprine Shakiness 05/24/2025 Diphenhydramine Other (see comment) Low 04/13/2014 confusion [...] (30 mg total) by mouth daily. Active levothyroxine (SYNTHROID) 125 MCG tablet Take [...] (six) hours as needed for Pain. Active famotidine (PEPCID) 40 MG tablet Take 1 tablet (40 mg total) by mouth nightly as needed for Other. 12/06/2024 Active pregabalin (LYRICA) 150 MG capsule Take 1 capsule (150 mg total) by mouth daily. 09/17/2024 Active verapamil (CALAN) 120 MG tablet Take 1 tablet (120 mg total) by mouth 3 (three) times daily. Active FARXIGA 10 MG tablet Take 1 tablet (10 mg total) by mouth daily. 10/20/2024 Active Insulin Degludec-Liragl utide (XULTOPHY) 100-3.6 UNIT-MG/ML Solution Pen-injector Inject 20 Units into the skin daily. 05/19/2025 Active Continuous Glucose Sensor (FREESTYLE LINN 3 SENSOR) Misc every 14 (fourteen) days. 05/16/2025 Active Active Problems Problem Noted Date Diagnosed Date Idiopathic osteoarthritis 03/08/2025 Seizure-like activity 04/21/2024 Syncope, unspecified syncope type 04/21/2024 Primary osteoarthritis of right knee 04/06/2024 Hypercalcemia 11/25/2023 Cobalamin deficiency 08/28/2023 Lumbar spondylosis 08/28/2023 Vitamin D deficiency 08/28/2023 Iron deficiency anemia 05/22/2023 Other specified anxiety disorders 04/08/2023 Chronic idiopathic constipation 02/11/2023 Restless legs 02/11/2023 Asymmetrical sensorineural hearing loss 02/04/20 23 Anemia 01/16/2023 Chronic kidney disease 01/16/2023 Acute blood loss anemia 01/08/2023 History of pulmonary embolism 01/07/2023 HLD (hyperlipidemia) 01/07/2023 Peripheral neuropathy 01/07/2023 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 Overview (03/08/2025): Added automatically from request for surgery [id number] Polyp of duodenum 03/20/2022 Overview (03/08/2025): Added automatically from request for surgery [id number] Stage 3b chronic kidney disease 03/13/2022 Gastric ulcer 03/05/2022 Obstructive sleep apnea syndrome 06/27/2021 Insomnia 06/13/2021 Glaucoma 05/25/2019 Hyperglycemia 07/03/2017 Sciatica 04/14/2017 Depressive disorder 03/25/2017 Essential hypertension 03/25/2017 Gastroesophageal reflux disease 03/25/2017 Hypothyroidism 03/25/2017 Obese 03/25/2017 Type 2 diabetes mellitus 03/25/2017 Sarcoidosis 09/14/2014 Resolved Problems Problem Noted Date Diagnosed Date Resolved Date Accidental fall 03/08/2025 03/08/2025 Complicated migraine 03/08/2025 025 Leukocytosis 02/19/2024 03/08/2025 Dyspnea 02/11/2024 03/08/2025 Bronchitis 12/22/2023 03/08/2025 Pain of ear structure 12/10/20232024 Viral infection 11/04/2023 03/08/2025 Vaginitis 10/19/2023 03/08/2025 Arthralgia of right knee 08/28/2023 Xerostomia 08/28/2023 03/08/2025 Acute situational disturbance 04/08/2023 03/08/2025 Arthralgia of left ankle 02/11/2023 Constipation 01/16/2023 03/08/2025 Upper gastrointestinal bleeding 01/16/2023 03/08/2025 Pulmonary embolism 05/31/2022 Pancreatitis 03/13/2022 03/08/2025 Kidney stone 03/05/2022 03/08/2025 Abnormal urinalysis 07/13/2019 03/08/20 25 Insect bite 04/08/2018 03/08/2025 Acute back pain with sciatica 07/03/2017 03/08/2025 Low back pain 06/09/2017 03/08/2025 Acute urinary tract infection 04/15/2017 03/08/2025 Discoloration of skin 04/14/20172024 Edema 04/14/2017 03/08/2025 Pruritus of vagina 03/25/2017 Dysuria 03/25/2017 03/08/2025 Acute bronchitis 02/14/2015 03/08/[address] scan, chest 04/13/201402/09 Encounters Date Type Department Care Team Description 06/07/2025 2:41 PM CDT - 06/07/2025 4:26 PM CDT Emergency [facility] [address] [place] [address] Nadir Carmona, DO Back Pain Discharge Disposition: Home or Self Care (Routine Discharge) 06/07/2025 1:30 PM CDT Office Visit [address] [place] [address] KangBelle, DISEASE MANAGEMENT NURSE-BC Knee Pain; Injection (RIGHT #3 Euflexxa) 06/07/2025 Travel 05/31/2025 1:45 PM CDT Office Visit [address] [address] KangBelle M, DISEASE MANAGEMENT NURSE-BC Injection; Knee Pain (RIGHt) 05/31/2025 Travel 05/24/2025 1:30 PM CDT Office Visit [address] [address] KangBelle M, DISEASE MANAGEMENT NURSE-BC Knee Pain (RIGHT); Injection (RIGHT Knee - Euflexxa) 05/24/2025 Travel from Last 3 Months Family History [...] = 0.6 oz pur e alcohol) Comments No Sex and Gender Information Value Date Recorded Sex Assigned at Female 12/06/2024 7:39 AM LIFELINE REPRESENTATIVES Legal Sex Female 8:54 PM CDT Gender Identity Female 12/06/2024 7:39 AM LIFELINE REPRESENTATIVES Sexual Orientation Not on file Last Filed Vital Signs Vital Sign Reading Time Taken Comments Blood Pressure 109/70 06/07/2025 4:24 PM CDT Pulse 74 06/07/2025 4:24 PM CDT Temperature 36.5 C (97.7 F) 06/07/2025 2:50 PM CDT Respiratory Rate 20 06/07/2025 4:24 PM CDT Oxygen Saturation 94% 06/07/2025 4:24 PM CDT Inhaled Oxygen Concentration - - Weight 95.3 kg (210 lb) 06/07/2025 2:50 PM CDT Height 165.1 cm (5' 5) 06/07/2025 2:50 PM CDT Body Mass Index 34.95 06/07/2025 2:50 PM CDT Plan of Treatment Health Maintenance Due Date Last Done Comments Colorectal Cancer Screening Colonoscopy (10 Years) 1950 Kidney Health Evaluation 1950 Lipid Panel 1950 Diabetes: Retinopathy Eye Exam 1968 DTaP, Tdap and Td Vaccines (1 - Tdap) 1969 Annual Medicare Wellness Visit 2015 Dexa Scan (General) 2015 Pneumococcal Vaccine: 50+ Years (2 of 2 - PCV) 08/17/2015 08/17/2014, 08/13/2012, 1950 Hemoglobin A1C 10/22/2024 04/22/2024 RSV Immunization or 60+ Years (1 - 1-dose 75+ series) 2025 COVID-19 Vaccine ( season) 2025 06/12/2022, 09/27/2021, 03/09/2021, Additional history exists Influenza Adult (#1) 2025 10/01/2021, 07/11/2015, 11/10/2013 Zoster Vaccines Completed 06/17/2024, 04/13/2024 Hepatitis C [...] Procedure Name Priority Date/Time Associated Diagnosis Comments CT LUMB SPINE WO CON STAT 06/07/2025 3:10 PM CDT HEPATITIS PANEL,ACUTE Routine 10/25/2024 12:00 PM LIFELINE REPRESENTATIVES Chronic kidney disease, stage 3b (CMS/HCC) HTN (hypertension) Fatigue from Last 3 Months or Most Recently Relevant to Health Maintenance Results * CT LUMB SPINE WO CON (06/07/2025 3:10 PM CDT) Anatomical Region Laterality Modality Spine Computed Tomogra phy 06/07/2025 3:18 PM CDT Impressions 06/07/2025 3:24 PM CDT IMPRESSION: 1. No acute osseous abnormality. 2. Multilevel degenerative changes as described. There is favored mild to moderate spinal canal stenosis at L3-L4. If further imaging evaluation is clinically warranted, a nonemergent MRI of the lumbar spine could be considered. 3. Moderate osteoarthritis of the right SI joint. Ordered By: NADIR CARMONA Interpreted By: Amaury Dorado MD, 06/07/2025 3:18 PM Narrative 06/07/2025 3:24 PM CDT [place] [id number] [place] [address] EXAMINATION: CT LUMBAR SPINE WITHOUT CONTRAST INDICATION: Right-sided back pain for 4 days. COMPARISON: None available TECHNIQUE: Computed tomography of the lumbar spine was performed without administration of intravenous contrast. Sagittal and coronal reconstructions. Radiation dose reduction technique(s) were used. FINDINGS: Mild rightward curvature of the lumbar spine which could be positional. No evidence of significant spondylolisthesis. There is intervertebral disc space narrowing and associated endplate degenerative changes, overall mild and most prominent at L1- L2 and L5-S1. No lumbar spine fracture is identified. The prevertebral and perivertebral soft tissues are normal. Patient is status post cholecystectomy. Probable tiny nonobstructing calcifications in the kidneys. Moderate osteophytes arthritis of the right SI joint. Individual disk levels are as follows: T12-L1: Mild facet arthropathy without evidence of significant spinal canal or neural foraminal stenosis. L1-L2: Mild disc bulge and minimal facet arthropathy. No evidence of significant spinal canal or neural foraminal stenosis. L2-L3: Mild disc bulge with minimal facet arthropathy. No evidence of significant spinal canal stenosis. Probable mild left neural foraminal stenosis. L3-L4: Moderate disc bulge with mild facet arthropathy. At least mild to moderate spinal canal stenosis. Probable mild left neural foraminal stenosis. L4-L5: Minimal disc bulge with mild facet arthropathy. No evidence of significant spinal canal or neural foraminal stenosis. L5-S1: Mild disc bulge and moderate right facet arthropathy. No evidence of significant spinal canal stenosis. At least mild right neural foraminal stenosis. Procedure Note Amaury Dorado MD - 06/07/2025 [facility] [address] [place] [address] EXAMINATION: CT LUMBAR SPINE WITHOUT CONTRAST INDICATION: Right-sided back pain for 4 days. COMPARISON: None available TECHNIQUE: Computed tomography of the lumbar spine was performed withoutadministration of intravenous contrast. Sagittal and coronalreconstructions. Radiation dose reduction technique(s) were used. FINDINGS: Mild rightward curvature of the lumbar spine which could be positional. Noevidence of significant spondylolisthesis. There is intervertebral discspace narrowing and associated endplate degenerative changes, overall mildand most prominent at L1- L2 and L5-S1. No lumbar spine fracture isidentified. The prevertebral and perivertebral soft tissues are normal.Patient is status post cholecystectomy. Probable tiny nonobstructingcalcifications in the kidneys. Moderate osteophytes arthritis of the rightSI joint. Individual disk levels are as follows: T12-L1: Mild facet arthropathy without evidence of significant spinalcanal or neural foraminal stenosis. L1-L2: Mild disc bulge and minimal facet arthropathy. No evidence ofsignificant spinal canal or neural foraminal stenosis. L2-L3: Mild disc bulge with minimal facet arthropathy. No evidence ofsignificant spinal canal stenosis. Probable mild left neural foraminalstenosis. L3-L4: Moderate disc bulge with mild facet arthropathy. At least mild tomoderate spinal canal stenosis. Probable mild left neural foraminalstenosis. L4-L5: Minimal disc bulge with mild facet arthropathy. No evidence ofsignificant spinal canal or neural foraminal stenosis. L5-S1: Mild disc bulge and moderate right facet arthropathy. No evidenceof significant spinal canal stenosis. At least mild right neural foraminalstenosis. IMPRESSION: 1. No acute osseous abnormality. 2. Multilevel degenerative changes as described. There is favored mild tomoderate spinal canal stenosis at L3-L4. If further imaging evaluation isclinically warranted, a nonemergent MRI of the lumbar spine could beconsidered. 3. Moderate osteoarthritis of the right SI joint. Ordered By: NADIR CARMONA Interpreted By: Amaury Dorado MD, 06/07/2025 3:18 PM Nadir Carmona DO CT Final Result * HEPATITIS PANEL,ACUTE (10/25/2024 12:00 PM LIFELINE REPRESENTATIVES) HEPATITIS B SURFACE AG NON-REACT MISA NON-REACT MISA 10/26/2024 9:28 PM LIFELINE REPRESENTATIVES [facility] Comment:HBsAg NOT DETECTED. HEP B CORE IGM NON-REACT MISA NON-REACT MISA 10/26/2024 9:28 PM LIFELINE REPRESENTATIVES [facility] Comment: IgM ANTI HBc NOT DETECTED. DOES NOT EXCLUDE THE POSSIBILITY OF EXPOSURE TO OR INFECTION WITH HBV. NO RETEST REQUIRED. HIGH DOSES OF BIOTIN MAY INTERFERE WITH THIS TEST RESULT. CORRELATION TO CLINICAL HISTORY AND PRESENTATION RECOMMENDED. HAV IGM NON-REACT MISA NON-REACT MISA 10/26/2024 9:28 PM LIFELINE REPRESENTATIVES [facility] Comment: IgM ANTI HAV NOT DETECTED. DOES NOT EXCLUDE THE POSSIBILITY OF EXPOSURE TO OR INFECTION WITH HAV. LEVELS OF IgM ANTI HAV MAY BE BELOW THE CUTOFF IN EARLY INFECTION. HEPATITIS C AB NON-REACT MISA NON-REACT MISA 10/26/2024 9:28 PM LIFELINE REPRESENTATIVES [facility] Comment: ANTIBODIES TO HCV NOT DETECTED. DOES NOT EXCLUDE THE POSSIBILITY OF EXPOSURE TO HCV. 10/25/2024 12:0 0 PM LIFELINE REPRESENTATIVES Tianna Mariscal MD LABORATORY Final Result [facility] [address] [place] [address], [id number] from Last 3 Months or Most Recently Relevant to Health Maintenance Insurance A[employer] MEDICARE AENA MEDICARE Care Teams Bacteriologist Pharmaceutical Relationship Specialty Start Date End Date Scooby Guillermo MD [address] [place] [address] PCP - General INTERNAL MEDICINE 04/06/24
--- OUTSIDE RECORDS SUMMARY | 2025-08-22 12:08 | XMS_ITS | Clinical Summary ---
Author Organization [facility] Facility Address [address] [place] [address] Care Team Providers Care Manager Steel Name Role Phone Unavailable Primary Care Provider [...] to complete [place] [id number] Medicare Aetna Commercial
--- OUTSIDE RECORDS SUMMARY | 2025-08-22 12:08 | XMS_ITS | Patient Health Record ---
Author Organization [facility] Address [address] [place], [place] [id number] Care Team Providers Care Procurement Consultant Name Role Phone SOPHIA LE Unavailable [phone] Sean Wisdom Unavailable Unavailable Reason For Referral No Information Medications Medication SIG (Take, Route, Frequency, Duration) Notes Start Date End Date Status triamcinolone acetonide 0.25 MG/ML Topical Cream CUTANEOUS triamcinolone acetonide 0.25 MG/ML Topical CreamOriginal Medicationtriamcinolone acetonide 0.25 MG/ML Topical Cream *Reorder from [employer] for eRx and Interaction Alerts* 5 Active aspirin 81 MG Delayed Release Oral Tablet ORAL aspirin 81 MG Delayed Release Oral TabletOriginal Medicationaspirin 81 MG Delayed Release Oral Tablet *Reorder from [employer] for eRx and Interaction Alerts* 5 Active betamethasone 0.5 MG/ML / clotrimazole 10 MG/ML Topical Cream [Lotrisone] CUTANEOUS betamethasone 0.5 MG/ML / clotrimazole 10 MG/ML Topical Cream [Lotrisone]Original Medicationbetamethasone 0.5 MG/ML / clotrimazole 10 MG/ML Topical Cream [Lotrisone] *Reorder from [employer] for [employer]Rx and Interacti 5 Active Plan Of Treatment No Information Insurance Providers Payer Name Payer Address Payer Phone Subscriber Number Group Number Insured Name Patient Relationship to Insured Coverage Start Date Coverage End Date Medicare Part B [facility] [address] [place] [id number] MARLA YOO Self - patient is the insured [facility] [address] [address] [place], [place] [id number] MARLA YOO Self - patient is the insured
--- OUTSIDE RECORDS SUMMARY | 2025-08-22 12:08 | XMS_ITS | Encounter Summary ---
Author Organization [facility] Address [address] [place] [address] Care Team Providers Care Household Assistant Name Role Phone Scooby Guillermo MD Primary Care Provider [phone] Encounter Details Date Type Department Care Team (Latest Contact Info) Description 09/15/2018 Abstract [facility] , Kimberlee Long MD Social History Tobacco Use Types Packs/Day Years Used Date Smoking Tobacco: Never Comments Unknown Sex and Gender Information Value Date Recorded Sex Assigned at Female 12/06/2024 7:39 AM KNITTER HELPER Legal Sex Female 8:54 PM CDT Gender Identity Female 12/06/2024 7:39 AM KNITTER HELPER Sexual Orientation Not on file documented as of this encounter Plan of Treatment Not on file documented as of this encounter Visit Diagnoses Not on filedocumented in this encounter Care Teams Household Assistant Relationship Specialty Start Date End Date Scooby Guillermo MD [address] [place] [address] PCP - General INTERNAL MEDICINE 04/06/24 documented as of this encounter
--- OUTSIDE RECORDS SUMMARY | 2025-08-22 12:08 | XMS_ITS | Patient Health Record ---
Author Organization [facility] Address [address] [place] [address] Care Team Providers Care Spring Repairer Helper Hand Name Role Phone Bacilio Francisco Unavailable [phone] Reason For Referral No Information Medications Medication SIG (Take, Route, Frequency, Duration) Notes Start Date End Date Status Losartan Potassium 100 MG 1 tablet Orall y Once a day; Duration: 11/20/2023 Active Calcitriol 0.25 MCG 1 capsule Orally bailey ry other day; Duration: 02/28/2023 Active Problems Problem Type SNOMED Code ICD Code Onset Dates Problem Status W/U Status Risk Notes Problem Anemia (929447010) Anemia, unspecified (D64.9) Active confirmed Problem Hyperglycemia due to type 2 diabetes mellitus (328815809750579) Type 2 diabetes mellitus with hyperglycemia (E11.65) Active confirmed Problem Anxiety disorder (866275626) Anxiety disorder, unspecified (F41.9) Active confirmed Problem Essential hypertension (42191522) Essential (primary) hypertension (I10) Active confirmed Problem Gastro-esophageal reflux disease without esophagitis (094621096) Gastro-esophageal reflux disease without esophagitis (K21.9) Active confirmed Problem Renal osteodystrophy (63268659) Renal osteodystrophy (N25.0) Active confirmed Problem Gastroesophageal reflux disease with esophagitis (disorder) (079751560) Gastro-esophageal reflux disease with esophagitis, without bleeding (K21.00) Active confirmed Problem Chronic kidney disease stage 3 (disorder) (260460506) Chronic kidney disease, stage 3 unspecified (N18.30) Active confirmed Problem Chronic kidney disease stage 3B (disorder) (018923944) Chronic kidney disease, stage 3b (N18.32) Active confirmed Plan Of Treatment No Information
--- OUTSIDE RECORDS SUMMARY | 2025-08-22 12:08 | XMS_ITS | Clinical Summary ---
Author Organization [facility] Address [address] [place] [address] Care Team Providers Care Windmill Technician Name Role Phone Scooby Guillermo MD Primary Care Provider [phone] Bacilio Francisco MD Unavailable [phone] Allergies Active Allergy Reactions Criticality Noted [...] 01/08/2023 Assessment & Plan (01/13/2023 3:24 PM MERCHANDISING DIRECTOR): H/H drop after duodenal mass excision/EGD 01/07 - Monitor H/H closely as patient with melenic stools. - Monitor VS - pRBC transfusion if Hgb<7 - Per GI: advance diet as tolerated. Currently on a regular diet. - Patient to discharge on home OMEPRAZOLE BID. 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 HTN (hypertension) 01/07/2023 Assessment & Plan (01/13/2023 3:22 PM MERCHANDISING DIRECTOR): - Hold antihypertensive meds while bleeding and BP soft. Should be restarted by PCP. Assessment & Plan (01/07/2023 8:53 PM MERCHANDISING DIRECTOR): Continue on Maxzide Monitor vitals HLD (hyperlipidemia) 01/07/2023 Assessment & Plan (01/08/2023 12:44 PM MERCHANDISING DIRECTOR): Continue on statins Assessment & Plan (01/07/2023 8:54 PM MERCHANDISING DIRECTOR): Continue on statins T2DM (type 2 diabetes mellitus) 01/07/2023 Assessment & Plan (01/09/2023 4:05 PM MERCHANDISING DIRECTOR): On metformin at home and Lantus 10 units nightly. Sugars thus far have been appropriate without acute need for insulin while NPO. Will restart once patient starting PO challenged after procedure. - Monitor BG and add SSI if needed Assessment & Plan (01/07/2023 8:55 PM MERCHANDISING DIRECTOR): On metformin at home and Lantus Will hold onto insulin at this time as NPO Monitor BG and add SSI if needed History of pulmonary embolism 01/07/2023 Assessment & Plan (01/09/2023 4:08 PM MERCHANDISING DIRECTOR): H/o PE in 2021, when she was on Eliquis for 5-6 months, on no AC for past 6 months. Monitor vitals, not a candidate for AC at this time due to GI bleeding Assessment & Plan (01/07/2023 8:56 PM MERCHANDISING DIRECTOR): H/o PE in 2021, when she was on Eliquis for 5-6 months, on no AC for past 6 months. Monitor vitals GERD (gastroesophageal reflux disease) Assessment & Plan (01/13/2023 3:23 PM MERCHANDISING DIRECTOR): - Patient will discharge on omeprazole BID. 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 [...] Gi. Assessment & Plan (01/07/2023 8:53 PM MERCHANDISING DIRECTOR): Adenomatous duodenal polyp EGD 01/[address] [...] (04/24/2022): Added automatically from request for surgery [id number] Surgical History Surgery Date Site/Laterality Comments KNEE [...] on file Legal Sex Female 12:42 AM MERCHANDISING DIRECTOR Gender Identity Not on file Sexual Orientation Not on file Obstetrics History Last Filed Vital Signs Vital Sign Reading Time Taken Comments Blood Pressure 132/77 10/14/2024 2:00 PM MERCHANDISING DIRECTOR Pulse 62 10/14/2024 2:00 PM MERCHANDISING DIRECTOR Temperature 35.9 C (96.6 F) 10/14/2024 12:35 PM MERCHANDISING DIRECTOR Respiratory Rate 15 10/14/2024 2:00 PM MERCHANDISING DIRECTOR Oxygen Saturation 91% 10/14/2024 2:00 PM MERCHANDISING DIRECTOR Inhaled Oxygen Concentration - - Weight 95.3 kg (210 lb) 10/14/2024 12:35 PM MERCHANDISING DIRECTOR Height 165.1 cm (5' 5) 10/14/2024 12:35 PM MERCHANDISING DIRECTOR Body Mass Index 34.95 10/14/2024 12:35 PM MERCHANDISING DIRECTOR Plan of Treatment Health Maintenance Due Date [...] 10/14/2025 10/14/2024 Medical Devices Implanted Type Area Weed Cutter Device Identifier Shelf Expiration Date Model / Serial / Lot Conmed Jaquelin Conmed 11mm Duraclip [id number] - [id number] Implanted:Qty: 1 on 01/09/2023 by Aidan Guadalupe MD at [facility] Left: Duodenum Conmed Jaquelin 08/30/2024 [id number] / / [id number] Conmed Jaquelin Conmed 11mm Duraclip [id number] - [id number] Implanted:Qty: 1 on 01/09/2023 by Aidan Guadalupe MD at [facility] Left: Duodenum Conmed Jaquelin 08/30/2024 [id number] / / [id number] Conmed Jaquelin Conmed 16mm Duraclip [id number] - [id number] Implanted:Qty: 1 on 01/09/2023 by Aidan Guadalupe MD at [facility] Left: Duodenum Conmed Jaquelin 01/17/2025 [id number] / / [id number] Procedures Procedure Name Priority Date/Time Associated Diagnosis Comments EGFR Routine 01/12/2023 10:35 PM MERCHANDISING DIRECTOR from Last 3 Months or Most Recently Relevant to Health Maintenance Results * (ABNORMAL) eGFR (01/12/2023 10:35 PM MERCHANDISING DIRECTOR) eGFR 40(L) 90 - 130 mL/min/1. 73 [...] reviewed 2021. Blood 01/12/2023 10:3 5 PM MERCHANDISING DIRECTOR 01/12/2023 11:23 PM MERCHANDISING DIRECTOR us Luke Britton MD LAB BLOOD ORDERABLES Final Resu lt [facility] [place] [address] from Last 3 Months or Most Recently Relevant to Health Maintenance Insurance [place] MEDIC[employer] AETNA [facility] Advance Directives For more information, please contact: [phone] * Full Code (Latest Code Status on [...] 9:30 AM 06/24/2022 2:53 PM Care Teams Windmill Technician Relationship Specialty Start Date End Date Scooby Guillermo MD PCP - General Internal Medicine 07/19/24 [place] [id number] [address] Consulting Physician Nephrology 07/28/24
--- OUTSIDE RECORDS SUMMARY | 2025-08-22 12:08 | XMS_ITS | Clinical Summary ---
Author Organization [facility] Address [address] [place] [address] Care Team Providers Care Syruper Name Role Phone Scooby Guillermo MD Primary Care Provider [phone] Source Comments [facility],non-owned Affiliates and Associated Physician Practices is amultiple site organization consisting of ambulatory clinics and hospital sitesin [place], [place], [place] and [place]. This disclosure is being madepursuant to the Care Everywhere program and may not contain all information available regarding this patient. Last updated 18.[facility] Allergies Active Allergy Reactions Criticality Noted Date [...] Active vitamin D, ergocalciferol, (Drisdol) 1.25 MG (30413 UT) capsule Take 1 (one) capsule by [...] Recorded Patient Health Questionnaire-2 Score 0 04/26/2024 [facility] [place] of Occupat ional Health - Occupational Stress [...] a long term (including now)? No 04/21/2024 Comments Unknown Sex [...] SCREENING 03/10/2022 03/10/2019 Colorectal Cancer Screening 03/10/2022 DEPRESSION SCREENING 11/10/2024 04/21/2024 MEDICARE AWV CALENDAR YEAR 2024 Respiratory Syncytial Virus (RSV) Vaccine Pt: or over 60 yrs (1 - 1-dose 75+ series) 2025 COVID-19 VACCINE (2 - 2024-2 6 season) 2025 09/27/2021 INFLUENZA VACCINE (#1) 2025 10/01/2021 HEPATITIS B [...] [place] [address] MEDICARE AETNA AETNA MEDICARE ADV Advance Directives * Full Code (Latest Code Status on File) Date Activated Date Inactivated Comments 04/21/2024 11:18 PM 04/27/2024 6:01 PM * Full Code Date Activated Date Inactivated Comments 04/21/2024 11:17 PM 04/21/2024 11:18 PM Care Teams Syruper Relationship Specialty Start Date End Date Scooby Guillermo MD [address] [place] [address] PCP - General Internal Medicine 04/23/24
--- OUTSIDE RECORDS SUMMARY | 2025-08-22 12:09 | XMS_ITS | Patient Health Record ---
Author Organization [facility] Address [address] [place] [address] Care Team Providers Care Statistician Applied Name Role Phone Bacilio Francisco Unavailable [phone] Reason For Referral No Information Problems Problem Type SNOMED Code ICD Code Onset Dates Problem Status W/U Status Risk Notes Problem Essential hypertension (20440461) Essential (primary) hypertension (I10) Active confirmed Problem Renal osteodystrophy (73767298) Renal osteodystrophy (N25.0) Active confirmed Problem Chronic kidney disease stage 3 (disorder) (563938811) Chronic kidney disease, stage 3 unspecified (N18.30) Active confirmed Encounters Encounter Location Date Provider Diagnosis [facility] [address] [address] [place] [address] 09/03/2024 Bacilio Francisco Chronic kidney disea se, [...]
[2025-08-24 10:09] LABS: Parathyroid Intact 48.4 (7.5-53.5)
== END 2025-08-22 10:51 | disposition home or self-care (01) ==
LOC: CHSLAB 10:55
PROVIDERS: PCP Internal Medicine
DX: I10 Essential (primary) hypertension (principal); E11.9 Type 2 diabetes mellitus without complications; E03.9 Hypothyroidism, unspecified
CPT/HCPCS: 36415; 80053; 80061; 83036; 83970; 84100; 84443; 85025

== ENCOUNTER 2025-08-23 09:42 | Emergency (ER) | payer MEDICARE, SELFPAY ==
--- OUTSIDE RECORDS SUMMARY | 2024-02-27 08:15 | XMS_ITS ---
Author Organization [facility] Office Address [address] [facility] [address] [facility] [place] [address] Care Team Providers Care Seat Nailer Name Role Phone Bacilio Francisco Unavailable [phone] Medications Medication SIG (Take, Route, Frequency, Duration) Notes Start Date End Date Status Calcitriol 0.25 MCG 1 capsule Orally bailey ry other day; Duration: 90 02/28/2023 Active Allopurinol 100 MG 1 tablet Orally Once a day; Duration: 90 day(s) 02/28/2023 08/16/2024 Active Losartan Potassium 100 MG 1 tablet Orall y Once a day; Duration: 90 11/20/2023 Active Ergocalciferol 1.25 MG (59651 UT) 1 capsule Orally Once a week; Duration: 90 day(s) 02/28/2023 09/24/2024 Active Encounters Encounter Location Date Provider Diagnosis [place] [facility] [address] [facility] [address] [place] [address] 02/27/2024 Bacilio Francisco Chronic kidney disease, stage [...] * Juanito YOODOB: [birth year] (75 yo F)Acc No.[id number]:02/27/2024 Progress Notes Patient: Juanito DORSEY Provider: Abel CHAWLA MD, F.Lizz.Apolonia.P, F.A.S.N. :1950 A ge:73 Y S ex:Female Date:02/27/2024 Address:[address] [place], [place] [id number] Subjective: * Chief Complaints: * * Medical History: * Medications: T aking Calcitriol 0.25 MCG Capsule 1 capsule Orally every other day , Taking Allopurinol 100 MG Tablet 1 tablet Orally Once a day , stop date 08/16/2024, Taking Losartan Potassium 100 MG Tablet 1 tablet Orally Once a day , Taking Ergocalciferol 1.25 MG (75565 UT) Capsule 1 capsule Orally Once a [...] Treatment: * Billing Information: * Visit Code: 29351 Office Visit, Est Pt., Level 4. * Procedure Codes: * Electronic signature of Jesse Francisco MD on 08/23/2025 at 11:13 AM CDT Sign off status: Pending * Provider: Abel CHAWLA MD, Sabrina.[email or web address].P, F.A.S.N. Date: 0 02/27/2024 Generated for Printing/Faxing/eTransmitting on: 1 11:13 AM CDT
--- OUTSIDE RECORDS SUMMARY | 2024-05-12 09:00 | XMS_ITS ---
Author Organization [facility] Office Address [address] [address] [place] [address] Care Team Providers Care Transportation Solutions Manager Name Role Phone Nolan Bacilio Unavailable [phone] Medications Medication SIG (Take, Route, Frequency, Duration) Notes Start Date End Date Status Farxiga 10 MG 1 tablet Orally Once a day; Duration: 90 03/10/2024 12/04/2024 Active Ergocalciferol 1.25 MG (15613 UT) 1 capsule Orally Once a week; Duration: 90 day(s) 02/28/2023 09/24/2024 Active Losartan Potassium 100 MG 1 tablet Orall y Once a day; Duration: 90 11/20/2023 Active Allopurinol 100 MG 1 tablet Orally Once a day; Duration: 90 day(s) 02/28/2023 08/16/2024 Active Calcitriol 0.25 MCG 1 capsule Orally bailey ry other day; Duration: 02/28/2023 Active Encounters Encounter Location Date Provider Diagnosis [place] [facility] [address] [facility] [address] [place] [address] 05/12/2024 Bacilio Francisco Chronic kidney disease, stage 3b N18.32 ; Essential (primary) hypertension I10 ; Type 2 diabetes mellitus with hyperglycemia E11.65 ; Anemia, unspecified D64.9 ; Gastro-esophageal reflux disease with esophagitis, without bleeding K21.00 ; Gastro-esophageal reflux disease without esophagitis K21.9 and Anxiety disorder, unspecified F41.9 Assessments Encounter Date Diagnosis (ICD Code) Assessment Notes Treatment Notes Treatment Clinical Notes Section Notes 05/12/2024 Chronic kidney disease, stage 3b (ICD-10 - N18.32) 05/12/2024 Essential (primary) hypertension (ICD-10 - I10) 05/12/2024 Type 2 diabetes mellitus with hyperglycemia (ICD-10 - E11.65) 05/12/2024 Anemia, unspecified (ICD-10 - D64.9) 05/12/2024 Gastro-esophageal reflux disease with esophagitis, without bleeding (ICD-10 - K21.00) 05/12/2024 Gastro-esophageal reflux disease without esophagitis (ICD-10 - K21.9) 05/12/2024 Anxiety disorder, unspecified (ICD-10 - F41.9) Plan Of Treatment No Information Progress Notes * Juanito YOODOB: [birth year] (75 yo F)Acc No.[id number]:05/12/2024 Progress Notes Patient: Juanito DORSEY Provider: Abel CHAWLA MD, F.A.C.P, F.A.S.N. :1950 A ge:73 Y S ex:Female Date:05/12/2024 Address:[address] [place] [address] Subjective: * Chief Complaints: * * Medical History: * Medications: T aking Calcitriol 0.25 MCG Capsule 1 capsule Orally every other day , Taking Allopurinol 100 MG Tablet 1 tablet Orally Once a day , stop date 08/16/2024, Taking Losartan Potassium 100 MG Tablet 1 tablet Orally Once a day , Taking Ergocalciferol 1.25 MG (01779 UT) Capsule 1 capsule Orally Once a week , stop date 09/24/2024, Taking Farxiga 10 MG Tablet 1 tablet Orally Once a day , stop date 12/04/2024 Objective: * Vitals: Assessment: * Assessment: 1. C hronic kidney disease, stage 3b - N18.32 (Primary) 2 . E ssential (primary) hypertension - I10 3 . T ype 2 diabetes mellitus with hyperglycemia - E11.65 4 . A nemia, unspecified - D64.9 5 . G forrest-esophageal reflux disease with esophagitis, without bleeding - K21.00 6 . G forrest-esophageal reflux disease without esophagitis - K21.9 7 . A nxiety disorder, unspecified - F41.9 Plan: * Treatment: * Billing Information: * Visit Code: 27951 Office Visit, Est Pt., Level 4. * Procedure Codes: * Electronic signature of Jesse Francisco MD on 08/23/2025 at 11:14 AM CDT Sign off status: Pending * Provider: Abel CHAWLA MD, F.A.C.P, F.A.S.N. Date: 0 05/12/2024 Generated for Printing/Faxing/eTransmitting on: 1 11:14 AM CDT
--- OUTSIDE RECORDS SUMMARY | 2024-06-23 09:45 | XMS_ITS ---
Author Organization [facility] Address [address] [address] [place] [address] Care Team Providers Care Coding Consultant Name Role Phone Bacilio Francisco Unavailable [phone] Medications Medication SIG (Take, Route, Frequency, Duration) Notes Start Date End Date Status Allopurinol 100 MG 1 tablet Orally Once a day; Duration: 90 day(s) 02/28/2023 08/16/2024 Active Losartan Potassium 100 MG 1 tablet Orall y Once a day; Duration: 90 11/20/2023 Active Calcitriol 0.25 MCG 1 capsule Orally bailey ry other day; Duration: 90 02/28/2023 Active Ergocalciferol 1.25 MG (43561 UT) 1 capsule Orally Once a week; Duration: 90 day(s) 02/28/2023 09/24/2024 Active Farxiga 10 MG 1 tablet Orally Once a day; Duration: 90 03/10/2024 12/04/2024 Active Problems Problem Type SNOMED Code ICD Code Onset Dates Problem Status W/U Status Risk Notes Problem Chronic kidney disease stage 3 (disorder) (668978845) Chronic kidney disease, stage 3 unspecified (N18.30) Active confirmed Problem Renal osteodystrophy (41224493) Renal osteodystrophy (N25.0) Active confirmed Encounters Encounter Location Date Provider Diagnosis [place] [facility] [address] [facility] [address] [place] [address] 06/23/2024 Bacilio Francisco Chronic kidney disea se, stage 3 unspecified N18.30 ; Essential (primary) hypertension I10 ; Renal osteodystrophy N25.0 ; Type 2 diabetes mellitus with hyperglycemia E11.65 ; Anemia, unspecified D64.9 ; Gastro-esophageal reflux disease with esophagitis, without bleeding K21.00 ; Gastro-esophageal reflux disease without esophagitis K21.9 and Anxiety disorder, unspecified F41.9 Assessments Encounter Date Diagnosis (ICD Code) Assessment Notes Treatment Notes Treatment Clinical Notes Section Notes 06/23/2024 Chronic kidney disease, stage 3 unspecified (ICD-10 - N18.30) 06/23/2024 Essential (primary) hypertension (ICD-10 - I10) 06/23/2024 Renal osteodystrophy (ICD-10 - N25.0) 06/23/2024 Type 2 diabetes mellitus with hyperglycemia (ICD-10 - E11.65) 06/23/2024 Anemia, unspecified (ICD-10 - D64.9) 06/23/2024 Gastro-esophageal reflux disease with esophagitis, without bleeding (ICD-10 - K21.00) 06/23/2024 Gastro-esophageal reflux disease without esophagitis (ICD-10 - K21.9) 06/23/2024 Anxiety disorder, unspecified (ICD-10 - F41.9) Plan Of Treatment No Information Progress Notes * FREDO JuanitoDOB: [birth year] (75 yo F)Acc No.[id number]:06/23/2024 Progress Notes Patient: Eddy DORSEYigor Provider: Abel CHAWLA MD, F.A.C.P, F.A.S.N. :1950 A ge:74 Y S ex:Female Date:06/23/2024 Address:[address] [place], [place] [id number] Subjective: * Chief Complaints: * * Medical History: * Medications: T aking Calcitriol 0.25 MCG Capsule 1 capsule Orally every other day , Taking Allopurinol 100 MG Tablet 1 tablet Orally Once a day , stop date 08/16/2024, Taking Losartan Potassium 100 MG Tablet 1 tablet Orally Once a day , Taking Ergocalciferol 1.25 MG (53356 UT) Capsule 1 capsule Orally Once a week , stop date 09/24/2024, Taking Farxiga 10 MG Tablet 1 tablet Orally Once a day , stop date 12/04/2024 Objective: * Vitals: Assessment: * Assessment: 1. C hronic kidney disease, stage 3 unspecified - N18.30 2 . E ssential (primary) hypertension - I10 3 . R enal osteodystrophy - N25.0 4 .?Type 2 diabetes mellitus with hyperglycemia - E11.65 5 . A nemia, unspecified - D64.9 6 . G forrest-esophageal reflux disease with esophagitis, without bleeding - K21.00 7 . G forrest-esophageal reflux disease without esophagitis - K21.9? 8. A nxiety disorder, unspecified - F41.9 Plan: * Treatment: * Billing Information: * Visit Code: 23137 Office Visit, Est Pt., Level 4. * Procedure Codes: * Electronic signature of Jesse Francisco MD on 08/23/2025 at 11:13 AM CDT Sign off status: Pending * Provider: Abel CHAWLA MD, F.A.C.P, F.A.S.N. Date: 0 06/23/2024 Generated for Printing/Faxing/eTransmitting on: 11:13 AM CDT
--- OUTSIDE RECORDS SUMMARY | 2024-08-25 10:30 | XMS_ITS ---
Author Organization [facility] Address 1400 [facility] [address] [place] [address] Care Team Providers Care Operations Manager Assistant Name Role Phone Bacilio Francisco Unavailable [phone] Encounters Encounter Location Date Provider Diagnosis [place] [facility] 2043 [facility] 15 [place] [address] 08/25/2024 Bacilio Francisco Plan Of Treatment No Information Progress Notes * Juanito YOODOB: [birth year] (75 yo F)Acc No.[id number]:08/25/2024 Progress Notes Patient: Juanito DORSEY Provider: Abel CHAWLA MD, Sabrina.Lizz.C.P, F.A.S.N. :1950 A ge:74 Y S ex:Female Date:08/25/2024 Address:[address] [place], [place] [id number] Subjective: * Chief Complaints: * * Medical History: Objective: * Vitals: Assessment: Plan: * Treatment: * Billing Information: * Visit Code: * Procedure Codes: * Electronic signature of Jesse Francisco MD on 08/23/2025 at 11:14 AM CDT Sign off status: Pending * Provider: Abel CHAWLA MD, F.Lizz.C.P, F.A.S.N. Date: Generated for Printing/Faxing/eTransmitting on: 11:14 AM CDT
--- OUTSIDE RECORDS SUMMARY | 2024-09-01 08:45 | XMS_ITS ---
Author Organization [facility] Address 1400 [facility] 61 [address] [place] [address] Care Team Providers Care Editorial Assistant Name Role Phone Bacilio Francisco Unavailable [phone] Encounters Encounter Location Date Provider Diagnosis [place] [facility] 2043 [facility] 15 [place] [address] 09/01/2024 Bacilio Francisco Plan Of Treatment No Information Progress Notes * Juanito YOODOB: [birth year] (75 yo F)Acc No.[id number]:09/01/2024 Progress Notes Patient: Juanito DORSEY Provider: Abel CHAWLA MD, Sabrina.Lizz.C.P, F.A.S.N. :1950 A ge:74 Y S ex:Female Date:09/01/2024 Address:[address] [place], [place] [phone] Subjective: * Chief Complaints: * * Medical History: Objective: * Vitals: Assessment: Plan: * Treatment: * Billing Information: * Visit Code: * Procedure Codes: * Electronic signature of Jesse Francisco MD on 08/23/2025 at 11:13 AM CDT Sign off status: Pending * Provider: Abel CHAWLA MD, F.Lizz.C.P, F.A.S.N. Date: Generated for Printing/Faxing/eTransmitting on: 11:13 AM CDT
--- OUTSIDE RECORDS SUMMARY | 2024-09-03 08:45 | XMS_ITS ---
Author Organization [facility] Address [address] [place] [address] Care Team Providers Care Librarian Head Name Role Phone Bacilio Francisco Unavailable [phone] Problems Problem Type SNOMED Code ICD Code Onset Dates Problem Status W/U Status Risk Notes Problem Chronic kidney disease stage 3 (disorder) (165111534) Chronic kidney disease, stage 3 unspecified (N18.30) Active confirmed Problem Essential hypertension (71690638) Essential (primary) hypertension (I10) Active confirmed Problem Renal osteodystrophy (47060432) Renal osteodystrophy (N25.0) Active confirmed Encounters Encounter Location Date Provider Diagnosis [place] [facility] 2043 [facility] 15 [place] [address] 09/03/2024 Bacilio Francisco Chronic kidney disea se, stage 3 unspecified N18.30 ; Essential (primary) hypertension I10 and Renal osteodystrophy N25.0 Assessments Encounter Date Diagnosis (ICD Code) Assessment Notes Treatment Notes Treatment Clinical Notes Section Notes 09/03/2024 Chronic kidney disease, stage 3 unspecified (ICD-10 - N18.30) 09/03/2024 Essential (primary) hypertension (ICD-10 - I10) 09/03/2024 Renal osteodystrophy (ICD-10 - N25.0) Plan Of Treatment No Information Progress Notes * MONTY YOO MARLADOB: 1950 (75 yo F)Acc No.[id number]:09/03/2024 Progress Notes Patient: MONTY DORSEY Provider: Abel CHAWLA MD, F.A.C.P, F.A.S.N. :1950 A ge:74 Y S ex:Female Date:09/03/2024 Address:[facility] [address] [place], [place] Subjective: * Chief Complaints: * * Medical History: Objective: * Vitals: Assessment: * Assessment: 1. C hronic kidney disease, stage 3 unspecified - N18.30 (Primary) 2 . E ssential (primary) hypertension - I10 3 . R enal osteodystrophy - N25.0 Plan: * Treatment: * Billing Information: * Visit Code: 52997 Office Visit, Est Pt., Level 4. * Procedure Codes: * Electronic signature of Jesse Francisco MD on 08/23/2025 at 11:13 AM CDT Sign off status: Pending * Provider: Abel CHAWLA MD, F.A.C.P, F.A.S.N. Date: Generated for Printing/Faxing/eTransmitting on: 11:13 AM CDT
--- OUTSIDE RECORDS SUMMARY | 2024-10-29 09:15 | XMS_ITS ---
Author Organization [facility] Address 1400 [facility] [address] [place] [address] Care Team Providers Care Human Service Worker Name Role Phone Bacilio Francisco Unavailable [phone] Encounters Encounter Location Date Provider Diagnosis [place] [facility] 2043 [facility] 15 [place] [address] 10/29/2024 Bacilio Francisco Plan Of Treatment No Information Progress Notes * MONTY YOODOB: 1950 (75 yo F)Acc No.[id number]:10/29/2024 Progress Notes Patient: MONTY DORSEY Provider: Abel CHAWLA MD, Sabrina.Lizz.C.P, F.A.S.N. :1950 A ge:74 Y S ex:Female Date:10/29/2024 Address:[address] [place] [address] [address] [facility] Subjective: * Chief Complaints: * * Medical History: Objective: * Vitals: Assessment: Plan: * Treatment: * Billing Information: * Visit Code: * Procedure Codes: * Electronic signature of Jesse Francisco MD on 08/23/2025 at 11:14 AM CDT Sign off status: Pending * Provider: Abel CHAWLA MD, F.Lizz.C.P, F.A.S.N. Date: 12/30/2023 Generated for Printing/Faxing/eTransmitting on: 11:14 AM CDT
[2025-08-23] VITALS (11 sets, daily range): BP systolic 124–142; BP diastolic 58–76; PULSE 72–81; RESP 18–24; TEMP 36.2; O2SAT 91–95
--- NOTE | ~2025-08-23 | CT_ITS ---
EXAMINATION: CT abdomen pelvis wo con DATE: 08/23/2025 10:11 INDICATION: Right flank pain. TECHNIQUE: Computed tomography (CT) of the abdomen and pelvis was performed without intravenous contrast. Automated exposure control and iterative reconstruction technique were employed. The dose-length product was 1233.17 mGy-cm. COMPARISON: CT abdomen and pelvis 05/28/2019 FINDINGS: The visualized portions of lung bases demonstrate mild atelectasis. No pleural effusion. The heart size is normal. There are coronary artery calcifications. No pericardial effusion. There is wall thickening of the esophagus. The liver is normal. There are changes of cholecystectomy. The splee n, pancreas, and adrenal glands are normal. There is cortical thinning of the kidneys. There is a 4 mm stone in right kidney. There are no dilated loops of bowel. The appendix is normal. There are no pathologically enlarged lymph nodes. There is no free intraperitoneal fluid. There are bilateral inguinal hernias containing fat. There is an umbilical hernia containing fat. There is severe lumbar spondylosis and mild thoracic spondylosis. IMPRESSION: 1. Nonobstructing right kidney stone. 2. Umbilical hernia containing fat. 3. Bilateral inguinal hernias containing fat. 4. Wall thickening of the esophagus, consistent with esophagitis. Reviewed, dictated and finalized at location E.
[2025-08-23 10:04] LABS: Hematocrit 41.9 % (35.0-42.0); Hemoglobin 12.9 g/dL (11.7-13.8); Immature Granulocyte Percent A 1.4 % (0.0-0.0); Lymphocytes Absolute Auto 1.72 K/mm3 (1.10-4.50); Mean Corpuscular HGB Conc 30.8 g/dL (32-36); Mean Corpuscular Hemoglobin 25.7 pg (27.0-31.0); Mean Corpuscular Volume 83.5 fL (78.0-102.0); Nucleated Red Blood Cells Absolute Auto 0.00 K/mm3 (0.00-0.00); Nucleated Red Blood Cells Perc 0.0 % (0-0.0); Platelet Count Result 225 K/mm3 (150-420); Red Blood Count 5.02 M/mm3 (4.20-5.40); White Blood Count 11.6 K/mm3 (4.8-10.8)
[2025-08-23] MEDS: SODIUM CHLORIDE 0.9% IV 1,000 ML 150 ML IV CONT (10:21)
[2025-08-23 10:24] LABS: INR 0.9; Prothrombin Time 9.9 Seconds (9.50-12.1)
[2025-08-23 10:27] LABS: Alanine Aminotransferase 28 U/L (6-35); Albumin Level 4.1 g/dL (3.5-5.1); Alkaline Phosphatase 82 U/L (38-126); Anion Gap 8 mmol/L (4-12); Aspartate Amino Transferase 27 U/L (14-36); Bilirubin,Total 0.4 mg/dL (0.2-1.3); Blood Urea Nitrogen 22 mg/dL (7-17); Calcium 9.9 mg/dL (8.4-10.2); Carbon Dioxide 29 mmol/L (22-30); Chloride 106 mmol/L (98-107); Estimated CRCL calculation 35 ml/min; Estimated Glomerular Filt Rate 36; Glucose 187 mg/dL (65-110); Osmolality Calculated 304 mOsm/kg (285-295); Potassium 4.3 mmol/L (3.4-5.0); Sodium 143 mmol/L (137-145); Total Protein 8.4 g/dL (6.3-8.2)
[2025-08-23 10:43] LABS: Add Urine Microscopic? NO; Appearance Urine Clear (Clear); Glucose Urine UA 3+ (Negative); Leukocyte Esterase Ur Negative (Negative); Nitrate Urine Negative (Negative); Specific Grav Ur <= 1.005 (1.010-1.020)
--- NOTE | 2025-08-23 11:08 | ED.GENADULT ---
HPI - General Adult General Chief complaint: Nausea/Vomiting/Diarrhea Stated complaint: back pain; chills Time Seen by Provider: 08/23/25 09:52 Source: patient Mode of arrival: wheelchair Limitations: no limitations History of Present Illness HPI narrative: 75-YEAR-OLD WITH A HISTORY OF HYPERTENSION, CKD STAGE 3 B , DIABETES, HYPERLIPIDEMIA HYPOTHYROIDISM HERE WITH A COMPLAINS OF RIGHT FLANK PAIN WHICH STARTED A DAY AGO. SHE DENIES ANY FEVER OR CHILLS. NO URINARY SYMPTOMS. SHE STATES THAT SHE DESCRIBED BACK FROM [place] 2 WEEKS AGO. DENIES ANY FEVER BUT HAS CHILLS. HAS NO ABDOMINAL PAIN. Related Data Home Medications ?Medication ?Instructions ?Recorded ?Confirmed ?Last Taken ?Type duloxetine 30 mg capsule,delayed 30 mg PO DAILY 03/11/22 12/19/24 04/21/24 History release gabapentin 600 mg tablet 600 mg PO TID 03/11/22 12/19/24 04/21/24 History latanoprost 0.005 % eye drops 1 drp EACH EYE QPM 03/11/22 12/19/24 04/21/24 History levothyroxine 125 mcg tablet 125 mcg PO DAILY 03/11/22 12/19/24 04/21/24 History (Synthroid) metoclopramide HCl 10 mg tablet 10 mg PO USEASDIRECTD PRN Gastric 03/11/22 12/19/24 04/21/24 History Reflux allopurinol 100 mg tablet 100 mg PO DAILY 03/05/24 12/19/24 04/21/24 History calcitriol 0.25 mcg capsule 0.25 mcg PO EVERY OTHER DAY 03/05/24 12/19/24 04/21/24 History dapagliflozin propanediol 10 mg 10 mg PO DAILY 03/05/24 12/19/24 04/21/24 History tablet (Farxiga) ergocalciferol (vitamin D2) 1,250 1,250 mcg PO WEEKLY 03/05/24 12/19/24 04/21/24 History mcg (50,000 unit) capsule losartan 100 mg tablet 100 mg PO DAILY 03/05/24 12/19/24 04/21/24 History ropinirole 1 mg tablet 1 mg PO TID 03/05/24 12/19/24 04/21/24 History tramadol 50 mg tablet 50 mg PO TID 03/05/24 12/19/2424 History Allergies Allergy/AdvReac Type Severity Reaction Status Date / Time codeine Allergy Intermediate Hallucinati Verified 07/12/25 22:18 ng diphenhydramine Allergy Intermediate Hives Verified 07/12/25 22:18 Penicillins Allergy Intermediate Hives Verified 07/12/25 22:18 Sulfa (Sulfonamide Allergy Intermediate Hives Verified 07/12/25 22:18 Antibiotics) Iodinated Contrast Media Allergy Unknown Verified 07/12/25 22:18 prednisone AdvReac Severe Hallucinati Verified 07/12/25 23:45 ng Review of Systems Review of Systems: All systems reviewed & are unremarkable except as noted in HPI and below Constitutional: Constitutional: Reports no additional constitutional complaints Eyes: Eyes: Reports no additional eye complaints ENT: Reports system reviewed and no additional complaints, except as documented Cardiovascular: Cardiovascular: Reports no additional cardiovascular complaints Respiratory: Respiratory: Reports no additional respiratory complaints Gastrointestinal: Gastrointestinal: Reports as per HPI Musculoskeletal: Musculoskeletal: Reports no additional musculoskeletal complaints Neurologic: Reports system reviewed and no additional complaints, except as documented [facility] Past Medical History Medical History CKD stage 3b, GFR 30-44 ml/min Diabetes mellitus Adenomatous duodenal polyp Hypertension Hyperlipidemia History of gastric ulcer GERD (gastroesophageal reflux disease) Asthma Hypothyroidism Vertigo Surgical History Surgical History History of hysterectomy History of cholecystectomy History of tonsillectomy Family History Family History Other Diabetes mellitus Family history of arthritis Family history of malignant neoplasm Social History Social History Smoking status: Never smoker Alcohol intake: never Substance use: never Substance use type: does not use Do You Feel Safe in your Home?: No Lack of Transportation: No Lack of Food: Never True Current Housing: I Have Housing Concerned About Future Housing: No Difficulty Paying Gas/Electric Bills: No Difficulty Paying for Meds: No Currently Unemployed: No Education: High School Diploma/GED Difficulty w/ Childcare or Family Care: No Living arrangements: with family Gender identity (if verbalized by the patient): Female Sexual Orientation (if Verbalized by the Patient): Straight or Heterosexual Spiritual care concerns: No Exam Narrative: GENERAL: Well-appearing, well-nourished, and in no acute distress. HEAD: Normocephalic, atraumatic. EYES: PERRLA and EOMI. ENT: Nares clear, no rhinorrhea or epistaxis. Mucous membranes moist. NECK: Supple. CHEST: Clear to auscultation. No respiratory distress. HEART: Regular rate and rhythm. No murmur heard. Normal peripheral pulses. ABDOMEN: Soft, nontender, nondistended, normal active bowel sounds. EXTREMITIES: Normal range of motion. No edema. SKIN: Warm, dry, no rash. NEURO: No focal deficits. Alert and oriented x3. PSYCH: Normal mood and affect. Course Course Emergency Course: Patient comfortably resting talking to her son informed her about the lab work, CT findings cause of her flank pain most likely musculoskeletal at this time rather than pyelonephritis or kidney stone. Advised her to continue home medication, follow with her primary doctor Vital Signs Vital signs: Vital Signs Temperature 36.2 C L 08/23/25 09:42 Pulse Rate 81 08/23/25 09:42 Respiratory Rate 24 H 08/23/25 09:42 Blood Pressure 132/76 08/23/25 09:42 Pulse Oximetry 95 08/23/25 09:42 Oxygen Delivery Room Air 08/23/25 09:42 Temperature 36.2 C L 08/23/25 09:42 Pulse Rate 72 08/23/25 10:16 Respiratory Rate 18 08/23/25 10:16 Blood Pressure 124/58 L 08/23/25 10:16 Pulse Oximetry 92 08/23/25 10:16 Oxygen Delivery Room Air 08/23/25 10:16 Medical Decision Making [facility] Narrative Medical decision making narrative: 75-year-old with quite a few medical problems presents to ER with complaints of right flank pain exam is unremarkable except for mild tenderness in the right flank area will do lab work and CT to rule out a kidney stone versus pyelonephritis. Differential Diagnosis Differential Diagnosis: Pyelonephritis, musculoskeletal pain, kidney stone Medical Records Medical records reviewed: Yes I reviewed the external patient's medical records. Vital Signs Vital Signs: Vital Signs Temperature 36.2 C L 08/23/25 09:42 Pulse Rate 81 08/23/25 09:42 Respiratory Rate 24 H 08/23/25 09:42 Blood Pressure 132/76 10/14/25 09:42 Pulse Oximetry 95 08/23/25 09:42 Oxygen Delivery Room Air 08/23/25 09:42 Temperature 36.2 C L 08/23/25 09:42 Pulse Rate 72 08/23/25 10:16 Respiratory Rate 18 08/23/25 10:16 Blood Pressure 124/58 L 08/23/25 10:16 Pulse Oximetry 92 08/23/25 10:16 Oxygen Delivery Room Air 08/23/25 10:16 Lab Data Lab results reviewed: Yes I reviewed the patient's lab results. 08/23/25 10:01 08/23/25 10:01 Labs: Lab Results 08/23/25 08/23/25 Range/Units 08:30 10:01 WBC 11.6 H (4.8-10.8) K/mm3 RBC 5.02 (4.20-5.40) M/mm3 Hgb 12.9 (11.7-13.8) g/dL Hct 41.9 (35.0-42.0) % MCV 83.5 (78.0-102.0) fL MCH 25.7 L (27.0-31.0) pg MCHC 30.8 L (32-36) g/dL RDW 18.1 H (11.6-14.4) % Plt Count 225 (150-420) K/mm3 MPV 11.1 (9.2-11.8) fl Immature Gran % (Auto) 1.4 H (0.0-0.0) % Neut % (Auto) 75.3 H (50.0-70.0) % Lymph % (Auto) 14.8 L (18.0-42.0) % [place] % (Auto) 5.8 (2.0-11.0) % Eos % (Auto) 2.0 (1.0-6.0) % Baso % (Auto) 0.7 (0.0-1.0) % Lymph # (Auto) 1.72 (1.10-4.50) K/mm3 [place] # (Auto) 0.67 (0.10-0.90) K/mm3 Eos # (Auto) 0.23 (0.02-0.50) K/mm3 Baso # (Auto) 0.08 (0.00-0.10) K/mm3 Abs Immat Gran (auto) 0.16 H (0.00-0.00) K/mm3 Absolute Neuts (auto) 8.75 H (1.70-7.20) K/mm3 Absolute Nucleated RBC 0.00 (0.00-0.00) K/mm3 Nucleated RBC % 0.0 (0-0.0) % PT 9.9 (9.50-12.1) Seconds INR 0.9 Sodium 143 (137-145) mmol/L Potassium 4.3 (3.4-5.0) mmol/L Chloride 106 (98-107) mmol/L Carbon Dioxide 29 (22-30) mmol/L Anion Gap 8 (4-12) mmol/L BUN 22 H (7-17) mg/dL Creatinine 1.43 H (0.7-1.0) mg/dL Estim Creat Clear Calc 35 ml/min Estimated GFR 36 L (59 - ) Glucose 187 H (65-110) mg/dL Calculated Osmolality 304 H (285-295) mOsm/kg Lactic Acid 1.4 (0.4-2.0) mmol/L Calcium 9.9 (8.4-10.2) mg/dL Total Bilirubin 0.4 (0.2-1.3) mg/dL AST 27 (14-36) U/L ALT 28 (6-35) U/L Alkaline Phosphatase 82 (38-126) U/L Total Protein 8.4 H (6.3-8.2) g/dL Albumin 4.1 (3.5-5.1) g/dL Urine Color Light yellow (Yellow) Urine Appearance Clear (Clear) Urine pH 6.0 (5.0-8.0) Ur Specific [place] <= 1.005 L (1.010-1.020) Urine Protein Negative (Negative) Urine Glucose (UA) 3+ H (Negative) Urine Ketones Negative (Negative) Ur Blood (Man) Negative (Negative) Urine Nitrate Negative (Negative) Urine Bilirubin Negative (Negative) Urine Urobilinogen 0.2 (0.2-1.0) mg/dL Ur Leukocyte Esterase Negative (Negative) Imaging Data Radiologist's impression: ITS Impressions Abdomen/Pelvis CT 08/23/25 10:18 IMPRESSION: 1. Nonobstructing right kidney stone. 2. Umbilical hernia containing fat. 3. Bilateral inguinal hernias containing fat. 4. Wall thickening of the esophagus, consistent with esophagitis. Discharge Plan Discharge Clinical Impression: Flank pain, right side Patient Disposition: Home Condition: Stable Instructions: Flank Pain (ED) Additional Instructions: CONTINUE HOME MEDICATIONS, FOLLOW WITH YOUR DOCTOR Patient Language: Macedonian Prescriptions: No Action ropinirole 1 mg tablet 1 mg PO TID allopurinol 100 mg tablet 100 mg PO DAILY losartan 100 mg tablet 100 mg PO DAILY calcitriol 0.25 mcg capsule 0.25 mcg PO EVERY OTHER DAY dapagliflozin propanediol [Farxiga] 10 mg Tablet 10 mg PO DAILY ergocalciferol (vitamin D2) 1,250 mcg (50,000 unit) capsule 1,250 mcg PO WEEKLY tramadol 50 mg Tablet 50 mg PO TID insulin glargine [Lantus U-100 Insulin] 100 unit/mL Solution 50 unit subcut HS Qty: 0 0RF levofloxacin 500 mg tablet 500 mg PO DAILY Qty: 7 0RF latanoprost 0.005 % Drops 1 drp EACH EYE QPM gabapentin 600 mg Tablet 600 mg PO TID levothyroxine [Synthroid] 125 mcg Tablet 125 mcg PO DAILY metoclopramide HCl 10 mg Tablet 10 mg PO USEASDIRECTD PRN (Reason: Gastric Reflux) Rx Instructions: WITH MEALS AND AT BEDTIME duloxetine 30 mg Capsule,Delayed Release(Dr/Ec) 30 mg PO DAILY Follow-up/Referrals: Scooby Guillermo MD [Primary Care Provider, Internal Medicine] Time of Disposition: 11:10
--- OUTSIDE RECORDS SUMMARY | 2025-08-23 11:13 | XMS_ITS | Encounter Summary ---
Author Organization [facility] Address [address] [place] [address] Phone Care Team Providers Care Hardwood Floor Finisher Name Role Phone Scooby Guillermo MD Primary Care Provider [phone] Esme Adler NP Primary Care Provider + Unknown, Notinfile Primary Care Provider Unavail able Scooby Guillermo MD Primary Care Provider [phone] Bacilio Francisco MD Unavailable [phone] Encounter Details Date Type Department Care Team (Late st Contact Info) Description 03/15/2022 Orders Only [facility] Scanning, Provider Social History Tobacco Use Types Packs/Day Years Used Date Smoking Tobacco: Never Assessed Comments Unknown Sex and Gender Information Value Date Recorded Sex Assigned at Not on file Legal Sex Female 12:42 AM RUG CLEANER Gender Identity Not on file Sexual Orientation [...] documented as of this encounter Care Teams Hardwood Floor Finisher Relationship Specialty Start Date End Date Scooby Guillermo MD PCP - General 03/31/08 04/01/22 Esme Adler NP PCP - General Nurse Practitioner 04/02/22 07/09/23 Unknown, Notinfile PCP - General 07/10/23 07/18/24 Scooby Guillermo MD PCP - General Internal Medicine 07/19/24 [place] [id number] [address] Consulting Physician Nephrology 07/28/24 documented as of this encounter
--- OUTSIDE RECORDS SUMMARY | 2025-08-23 11:13 | XMS_ITS | Clinical Summary ---
Author Organization [facility] Address [address] [place] [address] Care Team Providers Care Communications Department Chairperson Name Role Phone Unavailable Primary Care Provider [...] to complete [place] [id number] Medicare Aetna Commercial
--- OUTSIDE RECORDS SUMMARY | 2025-08-23 11:13 | XMS_ITS | Encounter Summary ---
Author Organization [facility] Address [address] [place] [address] Phone Care Team Providers Care Burn Center Nurse Name Role Phone Scooby Guillermo MD Primary Care Provider Esme Adler NP Primary Care Provider + Unknown, Notinfile Primary Care Provider Unavail able Scooby Guillermo MD Primary Care Provider Bacilio Francisco MD Unavailable [phone] Encounter Details Date Type Department Care Team (Late st Contact Info) Description 02/01/2022 Orders Only [facility] Scanning, Provider Social History Tobacco Use Types Packs/Day Years Used Date Smoking Tobacco: Never Assessed Comments Unknown Sex and Gender Information Value Date Recorded Sex Assigned at Not on file Legal Sex Female 12:42 AM WATCH CASE POLISHER Gender Identity Not on file Sexual Orientation [...] documented as of this encounter Care Teams Burn Center Nurse Relationship Specialty Start Date End Date Scooby Guillermo MD PCP - General 03/31/08 04/01/22 Esme Adler NP PCP - General Nurse Practitioner 04/02/22 07/09/23 Unknown, Notinfile PCP - General 07/10/23 07/18/24 Scooby Guillermo MD PCP - General Internal Medicine 07/19/24 [place] [id number] [address] Consulting Physician Nephrology 07/28/24 documented as of this encounter
--- OUTSIDE RECORDS SUMMARY | 2025-08-23 11:13 | XMS_ITS | Encounter Summary ---
Author Organization [facility] Address [address] [place] [address] Phone Care Team Providers Care Hand Scudder Name Role Phone Scooby Guillermo MD Primary Care Provider [phone] Esme Adler NP Primary Care Provider + Unknown, Notinfile Primary Care Provider Unavail able Scooby Guillermo MD Primary Care Provider [phone] Bacilio Francisco MD Unavailable [phone] Encounter Details Date Type Department Care Team (Late st Contact Info) Description 01/30/2022 Orders Only [facility] Scanning, Provider Social History Tobacco Use Types Packs/Day Years Used Date Smoking Tobacco: Never Assessed Comments Unknown Sex and Gender Information Value Date Recorded Sex Assigned at Not on file Legal Sex Female 12:42 AM RADIOLOGY RN Gender Identity Not on file Sexual Orientation [...] documented as of this encounter Care Teams Hand Scudder Relationship Specialty Start Date End Date Scooby Guillermo MD PCP - General 03/31/08 04/01/22 Esme Adler NP PCP - General Nurse Practitioner 04/02/22 07/09/23 Unknown, Notinfile PCP - General 07/10/23 07/18/24 Scooby Guillermo MD PCP - General Internal Medicine 07/19/24 [place] [id number] [address] Consulting Physician Nephrology 07/28/24 documented as of this encounter
--- OUTSIDE RECORDS SUMMARY | 2025-08-23 11:14 | XMS_ITS | Clinical Summary ---
Author Organization [facility] Address [address] [place] [address] Care Team Providers Care Prospect Manager Name Role Phone Scooby Guillermo MD Primary Care Provider [phone] Source Comments [facility],non-owned Affiliates and Associated Physician Practices is amultiple site organization consisting of ambulatory clinics and hospital sitesin [place], [place], [place] and [place]. This disclosure is being madepursuant to the Care Everywhere program and may not contain all information available regarding this patient. Last updated 18.[facility] Allergies Active Allergy Reactions Criticality Noted Date [...] Active vitamin D, ergocalciferol, (Drisdol) 1.25 MG (38380 UT) capsule Take 1 (one) capsule by [...] Recorded Patient Health Questionnaire-2 Score 0 04/26/2024 [facility] of Occupat ional Health - Occupational Stress [...] place to sleep or slept in a half-way (including now)? No 04/21/2024 Comments Unknown Sex [...] to [place] [address] MEDICARE AETNA AETNA MEDICARE ADV Advance Directives * Full Code (Latest Code Status on File) Date Activated Date Inactivated Comments 04/21/2024 11:18 PM 04/27/2024 6:01 PM * Full Code Date Activated Date Inactivated Comments 04/21/2024 11:17 PM 04/21/2024 11:18 PM Care Teams Prospect Manager Relationship Specialty Start Date End Date Scooby Guillermo MD [address] [place] [address] PCP - General Internal Medicine 04/23/24
--- OUTSIDE RECORDS SUMMARY | 2025-08-23 11:14 | XMS_ITS | Clinical Summary ---
Author Organization [facility] Address [address] [place] [address] Care Team Providers Care Catering Staff Member Name Role Phone Scooby Guillermo MD Primary Care Provider [phone] Bacilio Francisco MD Unavailable [phone] Allergies Active Allergy Reactions Criticality Noted [...] 01/08/2023 Assessment & Plan (01/13/2023 3:24 PM SALESPERSON PETS AND PET SUPPLIES): H/H drop after duodenal mass excision/EGD 01/07 - Monitor H/H closely as patient with melenic stools. - Monitor VS - pRBC transfusion if Hgb<7 - Per GI: advance diet as tolerated. Currently on a regular diet. - Patient to discharge on home OMEPRAZOLE BID. 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 HTN (hypertension) 01/07/2023 Assessment & Plan (01/13/2023 3:22 PM SALESPERSON PETS AND PET SUPPLIES): - Hold antihypertensive meds while bleeding and BP soft. Should be restarted by PCP. Assessment & Plan (01/07/2023 8:53 PM SALESPERSON PETS AND PET SUPPLIES): Continue on Maxzide Monitor vitals HLD (hyperlipidemia) 01/07/2023 Assessment & Plan (01/08/2023 12:44 PM SALESPERSON PETS AND PET SUPPLIES): Continue on statins Assessment & Plan (01/07/2023 8:54 PM SALESPERSON PETS AND PET SUPPLIES): Continue on statins T2DM (type 2 diabetes mellitus) 01/07/2023 Assessment & Plan (01/09/2023 4:05 PM SALESPERSON PETS AND PET SUPPLIES): On metformin at home and Lantus 10 units nightly. Sugars thus far have been appropriate without acute need for insulin while NPO. Will restart once patient starting PO challenged after procedure. - Monitor BG and add SSI if needed Assessment & Plan (01/07/2023 8:55 PM SALESPERSON PETS AND PET SUPPLIES): On metformin at home and Lantus Will hold onto insulin at this time as NPO Monitor BG and add SSI if needed History of pulmonary embolism 01/07/2023 Assessment & Plan (01/09/2023 4:08 PM SALESPERSON PETS AND PET SUPPLIES): H/o PE in 2021, when she was on Eliquis for 5-6 months, on no AC for past 6 months. Monitor vitals, not a candidate for AC at this time due to GI bleeding Assessment & Plan (01/07/2023 8:56 PM SALESPERSON PETS AND PET SUPPLIES): H/o PE in 2021, when she was on Eliquis for 5-6 months, on no AC for past 6 months. Monitor vitals GERD (gastroesophageal reflux disease) Assessment & Plan (01/13/2023 3:23 PM SALESPERSON PETS AND PET SUPPLIES): - Patient will discharge on omeprazole BID. 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 [...] Gi. Assessment & Plan (01/07/2023 8:53 PM SALESPERSON PETS AND PET SUPPLIES): Adenomatous duodenal polyp EGD 01/[address] [...] (04/24/2022): Added automatically from request for surgery [id number] Surgical History Surgery Date Site/Laterality Comments KNEE [...] on file Legal Sex Female 12:42 AM SALESPERSON PETS AND PET SUPPLIES Gender Identity Not on file Sexual Orientation Not on file Obstetrics History Last Filed Vital Signs Vital Sign Reading Time Taken Comments Blood Pressure 132/77 10/14/2024 2:00 PM SALESPERSON PETS AND PET SUPPLIES Pulse 62 10/14/2024 2:00 PM SALESPERSON PETS AND PET SUPPLIES Temperature 35.9 C (96.6 F) 10/14/2024 12:35 PM SALESPERSON PETS AND PET SUPPLIES Respiratory Rate 15 10/14/2024 2:00 PM SALESPERSON PETS AND PET SUPPLIES Oxygen Saturation 91% 10/14/2024 2:00 PM SALESPERSON PETS AND PET SUPPLIES Inhaled Oxygen Concentration - - Weight 95.3 kg (210 lb) 10/14/2024 12:35 PM SALESPERSON PETS AND PET SUPPLIES Height 165.1 cm (5' 5) 10/14/2024 12:35 PM SALESPERSON PETS AND PET SUPPLIES Body Mass Index 34.95 10/14/2024 12:35 PM SALESPERSON PETS AND PET SUPPLIES Plan of Treatment Health Maintenance Due Date [...] 10/14/2025 10/14/2024 Medical Devices Implanted Type Area Internet Retailer Device Identifier Shelf Expiration Date Model / Serial / Lot Conmed Jaquelin Conmed 11mm Duraclip [id number] - [id number] Implanted:Qty: 1 on 01/09/2023 by Aidan Guadalupe MD at [facility] Left: Duodenum Conmed Jaquelin 08/30/2024 [id number] / / [id number] Conmed Jaquelin Conmed 11mm Duraclip [id number] - [id number] Implanted:Qty: 1 on 01/09/2023 by Aidan Guadalupe MD at [facility] Left: Duodenum Conmed Jaquelin 08/30/2024 [id number] / / [id number] Conmed Jaquelin Conmed 16mm Duraclip [id number] - [id number] Implanted:Qty: 1 on 01/09/2023 by Aidan Guadalupe MD at [facility] Left: Duodenum Conmed Jaquelin 01/17/2025 [id number] / / [id number] Procedures Procedure Name Priority Date/Time Associated Diagnosis Comments EGFR Routine 01/12/2023 10:35 PM SALESPERSON PETS AND PET SUPPLIES from Last 3 Months or Most Recently Relevant to Health Maintenance Results * (ABNORMAL) eGFR (01/12/2023 10:35 PM SALESPERSON PETS AND PET SUPPLIES) eGFR 40(L) 90 - 130 mL/min/1. 73 [...] reviewed 2021. Blood 01/12/2023 10:3 5 PM SALESPERSON PETS AND PET SUPPLIES 01/12/2023 11:23 PM SALESPERSON PETS AND PET SUPPLIES us Luke Britton MD LAB BLOOD ORDERABLES Final Resu lt [facility] [place] [address] from Last 3 Months or Most Recently Relevant to Health Maintenance Insurance [place] MEDICARE AETNA [facility] Advance Directives For more information, please contact: [phone] * Full Code (Latest Code Status on [...] 9:30 AM 06/24/2022 2:53 PM Care Teams Catering Staff Member Relationship Specialty Start Date End Date Scooby Guillermo MD PCP - General Internal Medicine 07/19/24 [place] [id number] [address] Consulting Physician Nephrology 07/28/24
--- OUTSIDE RECORDS SUMMARY | 2025-08-23 11:14 | XMS_ITS | Patient Health Record ---
Author Organization [facility] Address [address] [place] [address] Care Team Providers Care Window Display Designer Name Role Phone Bacilio Francisco Unavailable [phone] Reason For Referral No Information Medications Medication SIG (Take, Route, Frequency, Duration) Notes Start Date End Date Status Losartan Potassium 100 MG 1 tablet Orall y Once a day; Duration: 11/20/2023 Active Calcitriol 0.25 MCG 1 capsule Orally bailey ry other day; Duration: 02/28/2023 Active Problems Problem Type SNOMED Code ICD Code Onset Dates Problem Status W/U Status Risk Notes Problem Anemia (503452714) Anemia, unspecified (D64.9) Active confirmed Problem Hyperglycemia due to type 2 diabetes mellitus (801851687201084) Type 2 diabetes mellitus with hyperglycemia (E11.65) Active confirmed Problem Anxiety disorder (391970810) Anxiety disorder, unspecified (F41.9) Active confirmed Problem Essential hypertension (48645848) Essential (primary) hypertension (I10) Active confirmed Problem Gastro-esophageal reflux disease without esophagitis (917244214) Gastro-esophageal reflux disease without esophagitis (K21.9) Active confirmed Problem Renal osteodystrophy (70946987) Renal osteodystrophy (N25.0) Active confirmed Problem Gastroesophageal reflux disease with esophagitis (disorder) (287038359) Gastro-esophageal reflux disease with esophagitis, without bleeding (K21.00) Active confirmed Problem Chronic kidney disease stage 3 (disorder) (996165370) Chronic kidney disease, stage 3 unspecified (N18.30) Active confirmed Problem Chronic kidney disease stage 3B (disorder) (049888997) Chronic kidney disease, stage 3b (N18.32) Active confirmed Plan Of Treatment No Information
--- OUTSIDE RECORDS SUMMARY | 2025-08-23 11:14 | XMS_ITS | Patient Health Record ---
Author Organization [facility] Address [address] [place] [address] Care Team Providers Care Longwall Foreman Name Role Phone Bacilio Francisco Unavailable [phone] Reason For Referral No Information Problems Problem Type SNOMED Code ICD Code Onset Dates Problem Status W/U Status Risk Notes Problem Essential hypertension (98149368) Essential (primary) hypertension (I10) Active confirmed Problem Renal osteodystrophy (32325530) Renal osteodystrophy (N25.0) Active confirmed Problem Chronic kidney disease stage 3 (disorder) (604320013) Chronic kidney disease, stage 3 unspecified (N18.30) Active confirmed Encounters Encounter Location Date Provider Diagnosis [place] [facility] [address] [facility] [address] [place] [address] 09/03/2024 Bacilio Francisco Chronic kidney disea se, [...]
--- OUTSIDE RECORDS SUMMARY | 2025-08-23 11:15 | XMS_ITS | Patient Health Record ---
Author Organization [facility] Address [address] [place], [place] [address] Care Team Providers Care Critical Care Unit Nurse Name Role Phone SOPHIA LE Unavailable [phone] Sean Wisdom Unavailable Unavailable Reason For Referral No Information Medications Medication SIG (Take, Route, Frequency, Duration) Notes Start Date End Date Status triamcinolone acetonide 0.25 MG/ML Topical Cream CUTANEOUS triamcinolone acetonide 0.25 MG/ML Topical CreamOriginal Medicationtriamcinolone acetonide 0.25 MG/ML Topical Cream *Reorder from Vortal for eRx and Interaction Alerts* 5 Active aspirin 81 MG Delayed Release Oral Tablet ORAL aspirin 81 MG Delayed Release Oral TabletOriginal Medicationaspirin 81 MG Delayed Release Oral Tablet *Reorder from Vortal for eRx and Interaction Alerts* 5 Active betamethasone 0.5 MG/ML / clotrimazole 10 MG/ML Topical Cream [Lotrisone] CUTANEOUS betamethasone 0.5 MG/ML / clotrimazole 10 MG/ML Topical Cream [Lotrisone]Original Medicationbetamethasone 0.5 MG/ML / clotrimazole 10 MG/ML Topical Cream [Lotrisone] *Reorder from Vortal for eRx and Interacti 5 Active Plan Of Treatment No Information Insurance Providers Payer Name Payer Address Payer Phone Subscriber Number Group Number Insured Name Patient Relationship to Insured Coverage Start Date Coverage End Date Medicare Part B [facility] [address] [place] [id number] MARLA YOO Self - patient is the insured [facility] [address] [address] [place], [place] [id number] MARLA YOO Self - patient is the insured
== END 2025-08-23 11:15 | disposition home or self-care (01) ==
PROVIDERS: Emergency Provider Family Medicine; PCP Internal Medicine
DX: R10.9 Unspecified abdominal pain (principal); R11.2 Nausea with vomiting, unspecified; R19.7 Diarrhea, unspecified; I12.9 Hypertensive chronic kidney disease with stage 1 through stage 4 chronic kidney disease, or unspecified chronic kidney disease; E11.22 Type 2 diabetes mellitus with diabetic chronic kidney disease; N18.32 Chronic kidney disease, stage 3b; E03.9 Hypothyroidism, unspecified
CPT/HCPCS: 36415; 74176; 80053; 81003; 83605; 85025; 85610; 96360; 99284; J7030

== ENCOUNTER 2025-08-23 10:24 | Outpatient (NON) | payer MEDICARE, SELFPAY ==
[2025-08-23 11:02] LABS: MALB Creatinine Ratio 13.9 mg/g (0-30)
--- OUTSIDE RECORDS SUMMARY | 2025-08-23 12:09 | XMS_ITS | Encounter Summary ---
Author Organization [facility] Address [address] [place] [address] Phone Care Team Providers Care Brand Ambassador Promotional Model Name Role Phone Scooby Guillermo MD Primary Care Provider [phone] Esme Adler NP Primary Care Provider + Unknown, Notinfile Primary Care Provider Unavail able Scooby Guillermo MD Primary Care Provider [phone] Bacilio Francisco MD Unavailable [phone] Encounter Details Date Type Department Care Team (Late st Contact Info) Description 03/15/2022 Orders Only [facility] Scanning, Provider Social History Tobacco Use Types Packs/Day Years Used Date Smoking Tobacco: Never Assessed Comments Unknown Sex and Gender Information Value Date Recorded Sex Assigned at Not on file Legal Sex Female 12:42 AM FEATHER DUSTER WINDER Gender Identity Not on file Sexual Orientation [...] documented as of this encounter Care Teams Brand Ambassador Promotional Model Relationship Specialty Start Date End Date Scooby Guillermo MD PCP - General 03/31/08 04/01/22 Esme Adler NP PCP - General Nurse Practitioner 04/02/22 07/09/23 Unknown, Notinfile PCP - General 07/10/23 07/18/24 Scooby Guillermo MD PCP - General Internal Medicine 07/19/24 [place] [id number] [address] Consulting Physician Nephrology 07/28/24 documented as of this encounter
--- OUTSIDE RECORDS SUMMARY | 2025-08-23 12:09 | XMS_ITS | Clinical Summary ---
Author Organization [facility] Address [address] [place] [address] Care Team Providers Care Financial Manager Name Role Phone Unavailable Primary Care Provider [...] to complete [place] [id number] Medicare Aetna Commercial
--- OUTSIDE RECORDS SUMMARY | 2025-08-23 12:09 | XMS_ITS | Encounter Summary ---
Author Organization [facility] Address [address] [place] [address] Phone Care Team Providers Care Government Relations Manager Name Role Phone Scooby Guillermo MD Primary Care Provider [phone] Esme Adler NP Primary Care Provider + Unknown, Notinfile Primary Care Provider Unavail able Scooby Guillermo MD Primary Care Provider [phone] Bacilio Francisco MD Unavailable [phone] Encounter Details Date Type Department Care Team (Late st Contact Info) Description 01/30/2022 Orders Only [facility] Scanning, Provider Social History Tobacco Use Types Packs/Day Years Used Date Smoking Tobacco: Never Assessed Comments Unknown Sex and Gender Information Value Date Recorded Sex Assigned at Not on file Legal Sex Female 12:42 AM BLAST FURNACE BLOWER Gender Identity Not on file Sexual Orientation [...] documented as of this encounter Care Teams Government Relations Manager Relationship Specialty Start Date End Date Scooby Guillermo MD PCP - General 03/31/08 04/01/22 Esme Adler NP PCP - General Nurse Practitioner 04/02/22 07/09/23 Unknown, Notinfile PCP - General 07/10/23 07/18/24 Scooby Guillermo MD PCP - General Internal Medicine 07/19/24 [place] [address] [address] Consulting Physician Nephrology 07/28/24 documented as of this encounter
--- OUTSIDE RECORDS SUMMARY | 2025-08-23 12:09 | XMS_ITS | Clinical Summary ---
Author Organization [facility] Address [address] [place] [address] Care Team Providers Care Director Hydrogen Storage Engineering Name Role Phone Scooby Guillermo MD Primary Care Provider Source Comments [facility],non-owned Affiliates and Associated Physician Practices is amultiple site organization consisting of ambulatory clinics and hospital sitesin [place], [place], [place] and [place]. This disclosure is being madepursuant to the Care Everywhere program and may not contain all information available regarding this patient. Last updated 18.[facility] Allergies Active Allergy Reactions Criticality Noted Date [...] Active vitamin D, ergocalciferol, (Drisdol) 1.25 MG (97877 UT) capsule Take 1 (one) capsule by [...] Recorded Patient Health Questionnaire-2 Score 0 04/26/2024 [facility] [place] of Occupat ional Health - Occupational Stress [...] place to sleep or slept in a assisted (including now)? No 04/21/2024 Comments Unknown Sex [...] to [place] [address] MEDICARE AETNA AETNA MEDICARE ADV Advance Directives * Full Code (Latest Code Status on File) Date Activated Date Inactivated Comments 04/21/2024 11:18 PM 04/27/2024 6:01 PM * Full Code Date Activated Date Inactivated Comments 04/21/2024 11:17 PM 04/21/2024 11:18 PM Care Teams Director Hydrogen Storage Engineering Relationship Specialty Start Date End Date Scooby Guillermo MD [address] [place] [address] PCP - General Internal Medicine 04/23/24
--- OUTSIDE RECORDS SUMMARY | 2025-08-23 12:09 | XMS_ITS | Clinical Summary ---
Author Organization [facility] Address [address] [place] [address] Care Team Providers Care Lap Checker Name Role Phone Scooby Guillermo MD Primary Care Provider [phone] Bacilio Francisco MD Unavailable [phone] Allergies Active Allergy Reactions Criticality Noted [...] 01/08/2023 Assessment & Plan (01/13/2023 3:24 PM GRAVITY METER OPERATOR): H/H drop after duodenal mass excision/EGD 01/07 - Monitor H/H closely as patient with melenic stools. - Monitor VS - pRBC transfusion if Hgb<7 - Per GI: advance diet as tolerated. Currently on a regular diet. - Patient to discharge on home OMEPRAZOLE BID. 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 HTN (hypertension) 01/07/2023 Assessment & Plan (01/13/2023 3:22 PM GRAVITY METER OPERATOR): - Hold antihypertensive meds while bleeding and BP soft. Should be restarted by PCP. Assessment & Plan (01/07/2023 8:53 PM GRAVITY METER OPERATOR): Continue on Maxzide Monitor vitals HLD (hyperlipidemia) 01/07/2023 Assessment & Plan (01/08/2023 12:44 PM GRAVITY METER OPERATOR): Continue on statins Assessment & Plan (01/07/2023 8:54 PM GRAVITY METER OPERATOR): Continue on statins T2DM (type 2 diabetes mellitus) 01/07/2023 Assessment & Plan (01/09/2023 4:05 PM GRAVITY METER OPERATOR): On metformin at home and Lantus 10 units nightly. Sugars thus far have been appropriate without acute need for insulin while NPO. Will restart once patient starting PO challenged after procedure. - Monitor BG and add SSI if needed Assessment & Plan (01/07/2023 8:55 PM GRAVITY METER OPERATOR): On metformin at home and Lantus Will hold onto insulin at this time as NPO Monitor BG and add SSI if needed History of pulmonary embolism 01/07/2023 Assessment & Plan (01/09/2023 4:08 PM GRAVITY METER OPERATOR): H/o PE in 2021, when she was on Eliquis for 5-6 months, on no AC for past 6 months. Monitor vitals, not a candidate for AC at this time due to GI bleeding Assessment & Plan (01/07/2023 8:56 PM GRAVITY METER OPERATOR): H/o PE in 2021, when she was on Eliquis for 5-6 months, on no AC for past 6 months. Monitor vitals GERD (gastroesophageal reflux disease) Assessment & Plan (01/13/2023 3:23 PM GRAVITY METER OPERATOR): - Patient will discharge on omeprazole BID. 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 [...] Gi. Assessment & Plan (01/07/2023 8:53 PM GRAVITY METER OPERATOR): Adenomatous duodenal polyp EGD 01/[address] [...] (04/24/2022): Added automatically from request for surgery [id number] Surgical History Surgery Date Site/Laterality Comments KNEE [...] on file Legal Sex Female 12:42 AM GRAVITY METER OPERATOR Gender Identity Not on file Sexual Orientation Not on file Obstetrics History Last Filed Vital Signs Vital Sign Reading Time Taken Comments Blood Pressure 132/77 10/14/2024 2:00 PM GRAVITY METER OPERATOR Pulse 62 10/14/2024 2:00 PM GRAVITY METER OPERATOR Temperature 35.9 C (96.6 F) 10/14/2024 12:35 PM GRAVITY METER OPERATOR Respiratory Rate 15 10/14/2024 2:00 PM GRAVITY METER OPERATOR Oxygen Saturation 91% 10/14/2024 2:00 PM GRAVITY METER OPERATOR Inhaled Oxygen Concentration - - Weight 95.3 kg (210 lb) 10/14/2024 12:35 PM GRAVITY METER OPERATOR Height 165.1 cm (5' 5) 10/14/2024 12:35 PM GRAVITY METER OPERATOR Body Mass Index 34.95 10/14/2024 12:35 PM GRAVITY METER OPERATOR Plan of Treatment Health Maintenance Due Date [...] 10/14/2025 10/14/2024 Medical Devices Implanted Type Area Pipe Fitter Welding Device Identifier Shelf Expiration Date Model / Serial / Lot Conmed Jaquelin Conmed 11mm Duraclip [id number] - [id number] Implanted:Qty: 1 on 01/09/2023 by Aidan Guadalupe MD at [facility] Left: Duodenum Conmed Jaquelin 08/30/2024 [id number] / / [id number] Conmed Jaquelin Conmed 11mm Duraclip [id number] - [id number] Implanted:Qty: 1 on 01/09/2023 by Aidan Guadalupe MD at [facility] Left: Duodenum Conmed Jaquelin 08/30/2024 [id number] / / [id number] Conmed Jaquelin Conmed 16mm Duraclip [id number] - [id number] Implanted:Qty: 1 on 01/09/2023 by Aidan Guadalupe MD at [facility] Left: Duodenum Conmed Jaquelin 01/17/2025 [id number] / / [id number] Procedures Procedure Name Priority Date/Time Associated Diagnosis Comments EGFR Routine 01/12/2023 10:35 PM GRAVITY METER OPERATOR from Last 3 Months or Most Recently Relevant to Health Maintenance Results * (ABNORMAL) eGFR (01/12/2023 10:35 PM GRAVITY METER OPERATOR) eGFR 40(L) 90 - 130 mL/min/1. 73 [...] reviewed 2021. Blood 01/12/2023 10:3 5 PM GRAVITY METER OPERATOR 01/12/2023 11:23 PM GRAVITY METER OPERATOR us Luke Britton MD LAB BLOOD ORDERABLES Final Resu lt [facility] [place] [address] from Last 3 Months or Most Recently Relevant to Health Maintenance Insurance [place] MEDICARE AETNA [facility] Advance Directives For more information, please contact: [phone] * Full Code (Latest Code Status on [...] 9:30 AM 06/24/2022 2:53 PM Care Teams Lap Checker Relationship Specialty Start Date End Date Scooby Guillermo MD PCP - General Internal Medicine 07/19/24 [place] [id number] [address] Consulting Physician Nephrology 07/28/24
--- OUTSIDE RECORDS SUMMARY | 2025-08-23 12:09 | XMS_ITS | Encounter Summary ---
Author Organization [facility] Address [address] [place] [address] Phone Care Team Providers Care Event Attendant Name Role Phone Scooby Guillermo MD Primary Care Provider [phone] Esme Adler NP Primary Care Provider + Unknown, Notinfile Primary Care Provider Unavail able Scooby Guillermo MD Primary Care Provider [phone] Bacilio Francisco MD Unavailable [phone] Encounter Details Date Type Department Care Team (Late st Contact Info) Description 02/01/2022 Orders Only [facility] Scanning, Provider Social History Tobacco Use Types Packs/Day Years Used Date Smoking Tobacco: Never Assessed Comments Unknown Sex and Gender Information Value Date Recorded Sex Assigned at Not on file Legal Sex Female 12:42 AM OFFSET LABEL REWINDER Gender Identity Not on file Sexual Orientation [...] documented as of this encounter Care Teams Event Attendant Relationship Specialty Start Date End Date Scooby Guillermo MD PCP - General 03/31/08 04/01/22 Esme Adler NP PCP - General Nurse Practitioner 04/02/22 07/09/23 Unknown, Notinfile PCP - General 07/10/23 07/18/24 Scooby Guillermo MD PCP - General Internal Medicine 07/19/24 [place] [address] [address] Consulting Physician Nephrology 07/28/24 documented as of this encounter
== END 2025-08-23 10:25 | disposition home or self-care (01) ==
LOC: CHSLAB 10:26
PROVIDERS: Visit Provider Internal Medicine
DX: I10 Essential (primary) hypertension (principal); E11.9 Type 2 diabetes mellitus without complications; E03.9 Hypothyroidism, unspecified
CPT/HCPCS: 82043